=== PATIENT | male | born 1970 | race Caucasian/White ===

== ENCOUNTER 2016-09-01 10:10 | Inpatient (IN) | payer MEDICARE, OTHER, MEDICAID ==
[~2016-09-01] VITALS: Ht 170.2 cm; Wt 88.3 kg
[~2016-09-01 10:10] MED LIST: CALC667T PO; MULTTAB4 PO; SUBO8MIS SL
[2016-09-14] MEDS ORDERED: POVIDONE IODINE 5% (ANTISEPSIS KIT) 4 APPLICATIONS EACH NARE PRN (06:30)
[2016-09-14] MEDS ORDERED: CHLORHEXIDINE GLUCONATE 2 % 1 PACK (2 CLOTHS) TOPICAL PRN (06:30)
[2016-09-14] MEDS ORDERED: LACTATED RINGER'S 1000 ML IV PRN (06:30)
[2016-09-14] MEDS ORDERED: INSULIN HUMAN REGULAR 1,000 UNITS/10 ML VIAL SQ PRN (06:30)
[2016-09-14] MEDS ORDERED: METOPROLOL TARTRATE 25 MG TAB PO PRN (06:30)
[2016-09-14] MEDS ORDERED: SODIUM CHLORID 0.9% 500 ML IV PRN (06:30)
[2016-09-14] MEDS ORDERED: ceFAZolin 2 GM PREMIX 50 ML IV SCH (06:30)
[2016-09-14 06:44] VITALS: BP 135/91; PULSE 80; RESP 20; TEMP 99.2; O2SAT 96
[2016-09-14] MEDS ORDERED: KETAMINE HCL 500 MG/5 ML VIAL ONE (08:00)
[2016-09-14] MEDS ORDERED: MIDAZOLAM HCL 2 MG/2 ML VIAL ONE (08:00)
[2016-09-14] MEDS ORDERED: ceFAZolin INJ 1,000 MG VIAL IV ONE (11:30)
[2016-09-14] MEDS ORDERED: ONDANSETRON HCL 4 MG/2 ML VIAL IV PUSH ONE (12:00)
[2016-09-14] MEDS ORDERED: PROPOFOL 200 MG/20 ML AMP IV ONE (12:00)
[2016-09-14] MEDS ORDERED: CISATRACURIUM BESYLATE 10 MG/5 ML VIAL IV PUSH ONE (12:00)
[2016-09-14] MEDS ORDERED: PHENYLEPH/NS 1000 MCG/10 ML SYR IV ONE (12:00)
[2016-09-14] MEDS ORDERED: NORMOSOL R INJ 1,000 ML IV ONE (12:00)
[2016-09-14] MEDS ORDERED: SODIUM CHLOR 0.9% 250 ML INJ 500 ML IV ONE (12:00)
[2016-09-14] MEDS ORDERED: Post-op Orders (for Pharmacy) MISC XX ONE (12:45)
[2016-09-14] MEDS: SODIUM CHLORIDE 0.9% FLUSH 10 ML FLUSH IV FLUSH SCH ×2 (12:45→21:00)
[2016-09-14] MEDS ORDERED: DEXT 5%-NACL 0.45% 1000 ML INJ 1,000 ML IV SCH (12:45)
[2016-09-14] MEDS ORDERED: NALOXONE HCL 0.4 MG/ML AMP IV PRN ×2 (12:45)
--- NOTE | 2016-09-14 12:45 | PD.OP ---
Operative Report Date of Surgery: Sep 14, 2016 Preoperative Diagnosis: (1) Autosomal dominant polycystic kidney disease Postoperative Diagnosis: (1) Autosomal dominant polycystic kidney disease Procedure: Open bilateral nephrectomies Anesthesia: General Surgeon: Lalo Collier Tread Tuber Machine Operator(s): Rene Rider Operation and Findings: Indication for procedure: Case of a pleasant 46-year-old gentleman with chronic kidney disease secondary to autosomal dominant polycystic kidneys. Patient presents today to undergo bilateral nephrectomies. Operative procedure in detail: Patient was brought to the operative room suite and placed supine on the OR table. He was then placed under general endotracheal anesthesia. He was then prepped and draped in normal sterile fashion. After an appropriate timeout was undertaken I proceeded with making a vertical midline incision utilizing the #10 blade extending from the xiphoid process down to the symphysis pubis. The incision was extended down the underlying fascia utilizing Bovie cautery. The fascia was then sharply opened and cut along the same course as the overlying skin incision. The peritoneum was entered and a few other adhesions were noted and taken down. The adhesions were noted to be vicinity of the gallbladder. The Bookwalter retractor was then utilized to gain better surgical exposure. I then proceeded with removing the patient's left kidney. The left colon was mobilized medially by cutting along the line of Toldt and reflecting medial to expose the retroperitoneum. The hilar vessels were identified and subsequently divided ligated utilizing the skin stapling device. The periphery of the kidney was sharp and bluntly dissected to free it up of all its attachments. Superiorly most of the adrenal gland was left intact however a small portion was trimmed away for hemostasis. Once the kidney was out careful spec she was made for active bleeding and none was noted. I then proceeded with a dressing the patient's right side. In similar fashion the right colon was mobilized medially again by cutting along the line of Toldt. The hilar vessels were identified and once again divided and ligated with the skin stapling device. The perirenal attachments were sharply and bluntly dissected to free up the kidney. The right adrenal gland was identified and spared. The kidney was then removed and sent off to pathology. Careful inspection was made for active bleeding and was noted. The abdomen was irrigated with normal saline and subsequent to this the Bookwalter retractor was removed and the wound was closed. The underlying fascia was reapproximated with running #1 PDS suture. The skin edges were then reapproximated with a skin stapling device. A sterile dressing was placed over the wound. The patient tolerated the procedure without complications and was transferred to the PACU in satisfactory condition. Lalo Collier MD Sep 14, 2016 12:45
[2016-09-14] MEDS ORDERED: *morphine SULFATE 8 MG/ML PERIprocedure ONLY ONE ×3 (12:50→13:25)
[2016-09-14] MEDS ORDERED: fentaNYL CITRATE 250 MCG/5 ML AMP ONE (13:00)
[2016-09-14] MEDS ORDERED: MORPHINE SULFATE 4 MG/ML INJ ONE (13:01)
[2016-09-14] MEDS ORDERED: *MEPERIDINE 25 MG INJ VIAL PERIprocedural Use ONLY ONE (13:03)
--- NOTE | 2016-09-14 13:35 | RADRPT ---
EXAM DATE/TIME: 09/14/2016 13:01 [facility] COMPARISON: CHEST SINGLE AP, June 05, 2015, 8:16. INDICATIONS : Central line placement done in or. MEDICAL HISTORY : Renal disease, end stage. SURGICAL HISTORY : None. ENCOUNTER: Initial ACUITY: 1 day PAIN SCORE: 6/10 LOCATION: Bilateral chest FINDINGS: Portable AP view of the chest demonstrates a normal-sized cardiac silhouette. Right IJ line tip is in the SVC and nasogastric tube courses beyond the GE junction. Lungs are underinflated. There is atele ctasis at the lung bases. No effusion, consolidation, or pneumothorax is visualized. The bones and so ft tissues demonstrate no acute finding. CONCLUSION: Right IJ line tip in the SVC. No pneumothorax is visualized. Donaldo Sebastian MD on September 14, 2016 at 13:33 Board Certified Radiologist. This report was verified electronically.
[2016-09-14] MEDS ORDERED: DO NOT ADM ANY ANTICOAGULANT DRUGS PRN (13:45)
[2016-09-14] MEDS ORDERED: *HYDROmorphone PF 1 MG VIAL PERIprocedural Use ONLY ONE ×2 (13:46→15:04)
[2016-09-14] MEDS: PCA - TOTAL MG DILAUDID DELIVERED PER SHIFT OTHER SCH ×2 (14:00→22:00)
[2016-09-14] MEDS: HYDROmorphone HCL PCA 6 MG/30 ML IV SCH (14:54)
[2016-09-14] MEDS ORDERED: SODIUM CHLOR 0.9% 1000 ML INJ 1,000 ML IV PRN ×3 (19:40)
[2016-09-14] MEDS ORDERED: SODIUM CHLORIDE 0.9% FLUSH 10 ML FLUSH IV FLUSH PRN (19:45)
[2016-09-14] MEDS ORDERED: HEPARIN SODIUM - IV 10,000 UNITS/10 ML VIAL IVF PRN (19:45)
[2016-09-14] MEDS ORDERED: ALBUMIN HUMAN 25% 25 GM/100 ML BAGP IV PRN (19:45)
[2016-09-14] MEDS ORDERED: GENTAMICIN SULFATE (DIALYSIS USE ONLY) 20 MG/2 ML VIAL IV PRN (19:45)
[2016-09-14] MEDS ORDERED: diphenhydrAMINE HCL 25 MG CAP PO PRN (19:45)
[2016-09-14] MEDS ORDERED: cloNIDine HCL 0.1 MG TAB PO PRN (19:45)
[2016-09-14] MEDS ORDERED: MANNITOL 12.5 GM/50 ML VIAL IV PRN (19:45)
[2016-09-14] MEDS ORDERED: HEPARIN SODIUM - IV 10,000 UNITS/10 ML VIAL PRN (19:45)
[2016-09-14] MEDS ORDERED: NITROGLYCERIN 0.4 MG SL 25 TABS/BTL SL PRN (19:45)
[2016-09-14 20:00] VITALS: BP 106/44; PULSE 107; RESP 20; TEMP 96.6; O2SAT 97
--- NOTE | 2016-09-14 20:54 | MB ---
cc: CHRISTINE JEFFRIES MD DATE OF CONSULTATION 09/14/2016 REASON FOR CONSULTATION End-stage renal disease on hemodialysis for management. HISTORY OF PRESENT ILLNESS This is a 46-year-old male with a past medical history of hypertension, polycystic kidney disease, end-stage renal disease on hemodialysis three times per week who was admitted for bilateral nephrectomy. I was called to see the patient for management of dialysis. The patient has been on hemodialysis Tuesday, and Saturdays. Since he had surgery today he had his hemodialysis yesterday. The patient was admitted for bilateral nephrectomy due to polycystic kidney disease and has a plan for renal transplant. The patient was seen by the transplant surgery and was seen by the urology and because of the size of the kidneys it was recommended to do bilateral nephrectomy. The patient was seen after the surgery. He is having some pain in his abdomen. There was mild nausea. He has no shortness breath. No chest pain. No palpitations. PAST MEDICAL HISTORY 1. Hypertension. 2. Polycystic kidney disease. 3. End-stage renal disease on hemodialysis. 4. Chronic anemia. PAST SURGICAL HISTORY 1. History of A-V fistula surgery. 2. PermCath placement. 3. Just had bilateral nephrectomy. REVIEW OF SYSTEMS Denies any headache, dizziness or blurring of vision. No shortness of breath. He has some abdominal pain and nausea. There is no chest pain. SOCIAL HISTORY The patient is , lives with his . He has past history of smoking. There is no history of heavy alcoholism. FAMILY HISTORY Noncontributory. ALLERGIES NO KNOWN DRUG ALLERGIES. MEDICATIONS Currently he is on following medications: 1. Normal saline he was getting at 83 an hour. 2. He is on Morphine pump. 3. Heparin 5000 subcu q. 12-hour. 4. Cephazolin 1 gram IV q.8h. 5. Dilaudid as needed. PHYSICAL EXAMINATION GENERAL: The patient is awake, alert. He is not in acute distress. VITAL SIGNS: His last blood pressure was 125/61, temperature 99, oxygen saturation 99% on 2 liters nasal cannula. HEENT: Pupils equally reacting to light. Nonicteric sclera. Conjunctivae normal. NECK: Supple. JVD is not elevated. LUNGS: The patient has bilateral good air entry. No wheezing. HEART: S1-S2. Regular rhythm. ABDOMEN: With midline dressing and slightly tender. EXTREMITIES: He has mild edema in the legs. LABORATORY DATA Investigations, WBC count is 6.7, hemoglobin 14.4, platelet count 270. Neutrophils . Potassium 4.1, chloride BUN 59, creatinine 9.3, AST 6, ALT is 18. PTH is 365. IMAGING STUDIES The patient had a chest x-ray done which shows that he has lung pace clear. ASSESSMENT/PLAN 1. Post bilateral nephrectomy with history of polycystic kidney disease. 2. End-stage renal disease on hemodialysis. 3. Hypertension. 4. Anemia. The patient had hemodialysis done yesterday. His potassium was normal. He is not in any fluid overload status. I will arrange for his hemodialysis either tomorrow or on depending on his labs. His regular schedule is Tuesday, and Tuesday. I will decrease the IV fluids. Thank you for the consultation. I will follow the patient while he is in the hospital. MD DAKOTA Burnett/DORITA /7:39 PM /8:38 PM
[2016-09-14 22:30] VITALS: BP 92/58; PULSE 109; RESP 20
[2016-09-14] MEDS: LORazepam 2 MG/ML VIAL IV PUSH PRN (23:17)
[2016-09-14] MEDS: SODIUM CHLOR 0.9% 1000 ML INJ 1,000 ML IV SCH (23:21)
[2016-09-15] VITALS (8 sets, daily range): BP systolic 99–113; BP diastolic 54–66; PULSE 101–111; RESP 16–20; TEMP 95.3–97; O2SAT 94–98
[2016-09-15] MEDS: HYDROmorphone HCL PCA 6 MG/30 ML IV SCH ×4 (00:31→18:21)
[2016-09-15] MEDS: PCA - TOTAL MG DILAUDID DELIVERED PER SHIFT OTHER SCH ×3 (06:00→21:25)
[2016-09-15 06:43] LABS: HEMATOCRIT 37.3 % (39.0-51.0); MEAN CELL VOLUME 87.9 FL (80.0-100.0); MEAN CORPUSCULAR HEMOGLOBIN 30.6 PG (27.0-34.0); MEAN CORPUSCULAR HGB CONC 34.8 % (32.0-36.0); PLATELET COUNT 180 TH/MM3 (150-450); RED BLOOD COUNT 4.24 MIL/MM3 (4.50-5.90); RED CELL DISTRIBUTION WIDTH 13.5 % (11.6-17.2); REVIEW FLAG FINAL; WHITE BLOOD COUNT 8.2 TH/MM3 (4.0-11.0)
[2016-09-15 07:17] LABS: BICARBONATE 24.9 MEQ/L (21.0-32.0); POTASSIUM 5.2 MEQ/L (3.5-5.1)
[2016-09-15] MEDS: SODIUM CHLOR 0.9% 1000 ML INJ 1,000 ML IV SCH ×3 (07:30→23:49)
[2016-09-15] MEDS: SODIUM CHLORIDE 0.9% FLUSH 10 ML FLUSH IV FLUSH SCH ×2 (08:01→21:00)
[2016-09-15] MEDS: LORazepam 2 MG/ML VIAL IV PUSH PRN (10:12)
--- NOTE | 2016-09-15 10:27 | HHI.PR ---
Subjective Patient symptoms today Postoperative day #1 Intravenous normal saline at 125 cc per hour started last night for hypotension Complains of intermittent abdominal wall spasms Tolerating nasogastric tube Objective Vital Signs Vital Signs Date Time Temp Pulse Resp B/P Pulse Ox O2 Delivery O2 Flow Rate FiO2 09/15/16 08:00 95.8 102 16 109/54 97 09/15/16 06:00 20 09/15/16 04:00 97.0 101 20 109/63 98 09/15/16 00:31 20 09/15/16 00:00 97.0 101 20 104/61 98 09/14/16 22:30 109 20 92/58 Arterial Line 09/14/16 22:00 20 09/14/16 20:00 96.6 107 20 106/44 97 09/14/16 14:54 12 09/14/16 14:45 99.0 118 12 125/61 99 Nasal Cannula 2 09/14/16 14:30 118 12 122/59 99 Nasal Cannula 2 09/14/16 14:15 117 16 122/88 99 Nasal Cannula 2 09/14/16 14:00 119 18 125/88 98 Nasal Cannula 2 09/14/16 13:45 117 16 120/86 99 Nasal Cannula 2 09/14/16 13:30 116 15 125/89 99 Nasal Cannula 2 09/14/16 13:15 122 15 130/83 100 Nasal Cannula 2 09/14/16 13:00 106 15 126/89 100 Nasal Cannula 2 09/14/16 12:50 97.3 105 14 121/87 100 Nasal Cannula 2 Result Diagram: 09/15/1625 09/15/16624 Objective Remarks Abdomen not distended Midline dressing intact and dry Tenderness to palpation noted Extremities well-perfused, nontender Medications and IVs Current Medications Medications (Trade) Dose Ordered Sig/Johan Route Start Time Stop Time Status Last Admin Lactated Ringer's 1,000 ml @ 30 mls/hr Q24H PRN IV 09/14/16 06:30 09/17/16 06:29 (NS 500 ml Inj) 500 ml @ 30 mls/hr [id number] PRN IV 09/14/16 06:30 09/17/16 06:29 09/14/16 06:30 (NS Flush) 2 ml UNSCH PRN IV FLUSH 09/14/16 12:45 (NS Flush) 2 ml BID IV FLUSH 09/14/16 12:45 (Heparin Inj) 5,000 units Q12H SQ 09/15/16 12:00 (Narcan Inj) 0.4 mg UNSCH PRN IV 09/14/16 12:45 (Narcan Inj) 0.4 mg UNSCH PRN IV 09/14/16 12:45 (Dilaudid TIP OUT WORKER Inj) 6 mg UNSCH IV 09/14/16 12:45 09/15/16 07:59 TIP OUT WORKER Dosage Infused (Pha) 1 Q8HR OTHER 09/14/16 14:00 09/15/16 06:00 Miscellaneous Information ALL NURSING DEPARTME... UNSCH PRN .XX 09/14/16 13:45 09/15/16 13:44 Cefazolin Sodium 1000 mg/Sodium Chloride 100 ml @ 200 mls/hr Q8H IV 09/14/16 18:00 09/15/16 10:29 09/15/16 09:32 (NS 1000 ml Inj) 1,000 ml @ 0 mls/hr Q0M PRN IV 09/14/16 19:40 Heparin Sodium (Porcine) 8000 units 8,000 units UNSCH PRN IVF 09/14/16 19:45 Sodium Chloride 1,000 ml @ 200 mls/hr Q5H PRN IV 09/14/16 19:40 (NS 1000 ml Inj) 1,000 ml @ 0 mls/hr Q0M PRN IV 09/14/16 19:40 (Mannitol Inj) 12.5 gm UNSCH PRN IV 09/14/16 19:45 (Albumin 25% Inj) 25 gm UNSCH PRN IV 09/14/16 19:45 (NS Flush) 5 ml UNSCH PRN IV FLUSH 09/14/16 19:45 (Heparin Inj) UNSCH PRN .XX 09/14/16 19:45 (Gentamicin (Dialysis) Inj) 20 mg UNSCH PRN IV 09/14/16 19:45 (Zofran Inj) 4 mg UNSCH PRN IV 09/14/16 19:45 (Tylenol) 650 mg UNSCH PRN PO 09/14/16 19:45 (Benadryl) 25 mg UNSCH PRN PO 09/14/16 19:45 (Nitrostat Sl) 0.4 mg UNSCH PRN SL 09/14/16 19:45 (Catapres) 0.1 mg UNSCH PRN PO 09/14/16 19:45 (Gelfoam 12 Mm/7 Mm Top) 1 foam UNSCH PRN TOP 09/14/16 19:45 Lorazepam 1 mg 1 mg TID PRN IV PUSH 09/14/16 21:45 09/15/16 10:12 (NS 1000 ml Inj) 1,000 ml @ 125 mls/hr Q8H IV 09/14/16 23:30 09/15/16 07:30 Assessment and Plan Assessment and Plan Urologic impression: #1 status post open surgical bilateral nephrectomies for adult polycystic kidney disease #2 postoperative course as expected Plan: #1 keep patient nothing by mouth except for ice chips #2 continue with nasogastric tube #3 continue with analgesic support #4 will get out of bed to chair tomorrow morning #5 continue with hemodialysis as per nephrology recommendations #6 will DC Vickers catheter Lalo Collier MD Sep 15, 2016 10:27
[2016-09-15] MEDS: HEPARIN SODIUM - SQ 10,000 UNITS/ML VIAL SQ SCH ×2 (11:18→23:50)
[2016-09-15] MEDS ORDERED: SODIUM POLYSTYRENE SULFONATE SUSP 15 GM/60 ML CUP PO ONE (17:15)
--- NOTE | 2016-09-15 18:45 | HHI.NPPN ---
Subjective History of Present Illness 46-year-old male with a past medical history of hypertension, polycystic kidney disease, end-stage renal disease on hemodialysis three times per week who was admitted for bilateral nephrectomy. I was called to see the patient for management of dialysis. The patient has been on hemodialysis Tuesday, and Saturdays. Since he had surgery on Tuesday, he had his hemodialysis done Tuesday this week. Additional Remarks Patient is alert, has abd. pain, and nausea. Has NGT with suction, no BM yet. Review of Systems Gastrointestinal Gastrointestinal: Abdominal Pain, Nausea & Vomiting Objective Data Data 09/14/16 09/15/16 19:00 07:00 Intake Total 1210 ml 1735 ml Output Total 350 ml 550 ml Balance 860 ml 1185 ml Intake Oral 0 ml IV Total 110 ml 1735 ml Other 1100 ml Output Urine Total 100 ml 0 ml Gastric Drainage Total 550 ml Estimated Blood Loss 250 ml Vital Signs Date Time Temp Pulse Resp B/P Pulse Ox O2 Delivery O2 Flow Rate FiO2 09/15/16 18:21 16 09/15/16 16:12 96 Nasal Cannula 2.00 09/15/16 16:00 95.4 108 16 107/57 96 09/15/16 13:54 16 09/15/16 13:00 16 09/15/16 12:00 95.3 105 16 99/58 96 09/15/16 11:48 97 21 09/15/16 08:00 95.8 102 16 109/54 97 09/15/16 06:00 20 09/15/16 04:00 97.0 101 20 109/63 98 09/15/16 00:31 20 09/15/16 00:00 97.0 101 20 104/61 98 09/14/16 22:30 109 20 92/58 Arterial Line 09/14/16 22:00 20 09/14/16 20:00 96.6 107 20 106/44 97 -: 09/15/16 0625 09/15/16 0625 Physical Exam General Appearance: No Acute Distress, Comfortable Throat Throat Exam: Oral Mucosa [place] & Moist Pulmonary Resp Exam: Clear Bilaterally, Breath Sounds Equal, Rhonchi, Decreased Bases Cardiology CV Exam: Regular, Normal Sinus Rhythm Gastrointestinal/Abdomen GI Exam: Soft, Non-Tender, Bowel Sounds Present Genitourinary Exam: Clear Urine Extremeties Extremities Exam: Trace Edema Neurologic Neuro Exam: Alert, Awake, Oriented Psychiatric Psych Exam: Appropriate Responses Assessment/Plan Assessment Summary: Anemia of CKD, Hypertension, End Stage Renal Disease Problem List: (1) Autosomal dominant polycystic kidney disease (2) HTN (hypertension) (3) End stage kidney disease (4) Status post nephrectomy Plan Patient has Bilateral Nephrectomies done due to PKD and pre transplant. Patient still has NGT with suction. Not started on diet. BP is on lower side. Hgb. is stable. Not in fluid overload status. K was 5.2. HD will be in AM. Ta Rinaldi MD Sep 15, 2016 18:45
[2016-09-16] VITALS: BP 103/62; PULSE 82; RESP 17; TEMP 96.2; O2SAT 94
[2016-09-16] MEDS: HYDROmorphone HCL PCA 6 MG/30 ML IV SCH ×5 (00:30→22:38)
[2016-09-16 04:00] VITALS: BP 112/64; PULSE 80; RESP 17; TEMP 96; O2SAT 94
[2016-09-16] MEDS: PCA - TOTAL MG DILAUDID DELIVERED PER SHIFT OTHER SCH ×3 (04:51→22:00)
[2016-09-16] MEDS: SODIUM CHLOR 0.9% 1000 ML INJ 1,000 ML IV SCH ×2 (07:30→15:30)
[2016-09-16] MEDS: SODIUM CHLORIDE 0.9% FLUSH 10 ML FLUSH IV FLUSH SCH ×2 (07:54→21:00)
[2016-09-16 08:00] VITALS: BP 110/58; PULSE 108; RESP 16; TEMP 95.3; O2SAT 91
[2016-09-16] MEDS: LORazepam 2 MG/ML VIAL IV PUSH PRN (09:02)
[2016-09-16 09:04] VITALS: O2SAT 95
--- NOTE | 2016-09-16 09:36 | HHI.NPPN ---
Subjective History of Present Illness 46-year-old male with a past medical history of hypertension, polycystic kidney disease, end-stage renal disease on hemodialysis three times per week who was admitted for bilateral nephrectomy. I was called to see the patient for management of dialysis. The patient has been on hemodialysis Tuesday, and Saturdays. Since he had surgery on Tuesday, he had his hemodialysis done Tuesday this week. Additional Remarks Patient is alert, abd. pain is better, still cramping, no nausea, still NPO. Review of Systems Gastrointestinal Gastrointestinal: Abdominal Pain, Nausea & Vomiting Objective Data Data 09/15/16 09/16/16 19:00 07:00 Intake Total 1011 ml 1707 ml Output Total 100 ml 500 ml Balance 911 ml 1207 ml Intake Oral 120 ml 0 ml IV Total 891 ml 1707 ml Output Urine Total 0 ml Gastric Drainage Total 100 ml 500 ml # Voids 0 # Bowel Movements 0 Vital Signs Date Time Temp Pulse Resp B/P Pulse Ox O2 Delivery O2 Flow Rate FiO2 09/16/16 08:07 16 09/16/16 08:00 95.3 108 16 110/58 91 09/16/16 04:51 18 09/16/16 04:49 18 09/16/16 04:00 96.0 80 17 112/64 94 09/16/16 00:30 18 09/16/16 00:00 96.2 82 17 103/62 94 09/15/16 21:25 18 09/15/16 20:00 96.0 111 19 113/66 94 09/15/16 18:21 16 09/15/16 16:12 96 Nasal Cannula 2.00 09/15/16 16:00 95.4 108 16 107/57 96 09/15/16 13:54 16 09/15/16 13:00 16 09/15/16 12:00 95.3 105 16 99/58 96 09/15/16 11:48 97 21 -: 09/15/16 0625 09/15/16 0625 Physical Exam General Appearance: No Acute Distress, Comfortable Throat Throat Exam: Oral Mucosa [place] & Moist Pulmonary Resp Exam: Clear Bilaterally, Breath Sounds Equal, Rhonchi, Decreased Bases Cardiology CV Exam: Regular, Normal Sinus Rhythm Gastrointestinal/Abdomen GI Exam: Soft, Non-Tender, Bowel Sounds Present Genitourinary Exam: Clear Urine Extremeties Extremities Exam: Trace Edema Neurologic Neuro Exam: Alert, Awake, Oriented Psychiatric Psych Exam: Appropriate Responses Assessment/Plan Assessment Summary: Anemia of CKD, Hypertension, End Stage Renal Disease Problem List: (1) Autosomal dominant polycystic kidney disease (2) HTN (hypertension) (3) End stage kidney disease (4) Status post nephrectomy Plan Patient has Bilateral Nephrectomies done due to PKD and pre transplant. Patient still has NGT with suction. Not started on diet. BP is better. HD will be today in afternoon. Ta Rinaldi MD Sep 16, 2016 09:36
[2016-09-16] MEDS: HEPARIN SODIUM - SQ 10,000 UNITS/ML VIAL SQ SCH (12:00)
--- NOTE | 2016-09-16 13:22 | HHI.PR ---
Subjective Patient symptoms today Postoperative day #2 Continues to complain of abdominal pain but somewhat improved Denies passing flatus Pain management with DROP HAMMER MECHANIC Objective Vital Signs Vital Signs Date Time Temp Pulse Resp B/P Pulse Ox O2 Delivery O2 Flow Rate FiO2 09/16/16 08:07 16 09/16/16 08:00 95.3 108 16 110/58 91 09/16/16 04:51 18 09/16/16 04:49 18 09/16/16 04:00 96.0 80 17 112/64 94 09/16/16 00:30 18 09/16/16 00:00 96.2 82 17 103/62 94 09/15/16 21:25 18 09/15/16 20:00 96.0 111 19 113/66 94 09/15/16 18:21 16 09/15/16 16:12 96 Nasal Cannula 2.00 09/15/16 16:00 95.4 108 16 107/57 96 09/15/16 13:54 16 Intake & Output 09/16/16 09/16/16 07:00 19:00 Intake Total 1707 ml Output Total 500 ml 700 ml Balance 1207 ml -700 ml Intake Oral 0 ml IV Total 1707 ml Gastric Drainage Total 500 ml Hemodialysis 700 ml # Voids 0 Result Diagram: 09/15/1625 09/15/1625 Objective Remarks Abdomen not distended Wound clean and dry Mild tenderness to palpation noted Extremities well-perfused, nontender Medications and IVs Current Medications Medications (Trade) Dose Ordered Sig/Johan Route Start Time Stop Time Status Last Admin Lactated Ringer's 1,000 ml @ 30 mls/hr Q24H PRN IV 09/14/16 06:30 09/17/16 06:29 (NS 500 ml Inj) 500 ml @ 30 mls/hr [id number] PRN IV 09/14/16 06:30 09/17/16 06:29 09/14/16 06:30 (NS Flush) 2 ml UNSCH PRN IV FLUSH 09/14/16 12:45 (NS Flush) 2 ml BID IV FLUSH 09/14/16 12:45 09/16/16 07:54 (Heparin Inj) 5,000 units Q12H SQ 09/15/16 12:00 09/15/16 23:50 (Narcan Inj) 0.4 mg UNSCH PRN IV 09/14/16 12:45 (Narcan Inj) 0.4 mg UNSCH PRN IV 09/14/16 12:45 (Dilaudid DROP HAMMER MECHANIC Inj) 6 mg UNSCH IV 09/14/16 12:45 09/16/16 08:07 DROP HAMMER MECHANIC Dosage Infused (Pha) 1 1 Q8HR OTHER 09/14/16 14:00 09/16/16 04:51 (NS 1000 ml Inj) 1,000 ml @ 0 mls/hr Q0M PRN IV 09/14/16 19:40 Heparin Sodium (Porcine) 8000 units 8,000 units UNSCH PRN IVF 09/14/16 19:45 Sodium Chloride 1,000 ml @ 200 mls/hr Q5H PRN IV 09/14/16 19:40 (NS 1000 ml Inj) 1,000 ml @ 0 mls/hr Q0M PRN IV 09/14/16 19:40 (Mannitol Inj) 12.5 gm UNSCH PRN IV 09/14/16 19:45 (Albumin 25% Inj) 25 gm UNSCH PRN IV 09/14/16 19:45 (NS Flush) 5 ml UNSCH PRN IV FLUSH 09/14/16 19:45 (Heparin Inj) UNSCH PRN .XX 09/14/16 19:45 (Gentamicin (Dialysis) Inj) 20 mg UNSCH PRN IV 09/14/16 19:45 (Zofran Inj) 4 mg UNSCH PRN IV 09/14/16 19:45 (Tylenol) 650 mg UNSCH PRN PO 09/14/16 19:45 (Benadryl) 25 mg UNSCH PRN PO 09/14/16 19:45 (Nitrostat Sl) 0.4 mg UNSCH PRN SL 09/14/16 19:45 (Catapres) 0.1 mg UNSCH PRN PO 09/14/16 19:45 (Gelfoam 12 Mm/7 Mm Top) 1 foam UNSCH PRN TOP 09/14/16 19:45 Lorazepam 1 mg 1 mg TID PRN IV PUSH 09/14/16 21:45 09/16/16 09:02 (NS 1000 ml Inj) 1,000 ml @ 125 mls/hr Q8H IV 09/14/16 23:30 09/16/16 07:30 Assessment and Plan Assessment and Plan Urologic impression: #1 status post open surgical bilateral nephrectomies for adult polycystic kidney disease #2 postoperative course as expected #3 appreciate assistance from nephrology Plan: #1 keep patient nothing by mouth except for ice chips #2 continue with nasogastric tube #3 continue with analgesic support #4 out of bed to chair today #5 continue with hemodialysis as per nephrology recommendations Lalo Collier MD Sep 16, 2016 13:21
[2016-09-16] MEDS: PANTOPRAZOLE SODIUM 40 MG VIAL IV PUSH SCH (14:00)
[2016-09-16 16:00] VITALS: BP 129/68; PULSE 122; RESP 16; TEMP 98.4; O2SAT 94
[2016-09-16 20:00] VITALS: BP 107/65; PULSE 123; RESP 17; TEMP 97.9; O2SAT 94
[2016-09-17] VITALS (7 sets, daily range): BP systolic 102–124; BP diastolic 61–88; PULSE 110–116; RESP 17–20; TEMP 96.1–98.7; O2SAT 91–99
[2016-09-17] MEDS: HEPARIN SODIUM - SQ 10,000 UNITS/ML VIAL SQ SCH ×2 (00:11→12:41)
[2016-09-17] MEDS: SODIUM CHLOR 0.9% 1000 ML INJ 1,000 ML IV SCH ×2 (03:12→14:38)
[2016-09-17] MEDS: HYDROmorphone HCL PCA 6 MG/30 ML IV SCH ×4 (03:53→17:52)
[2016-09-17] MEDS: PCA - TOTAL MG DILAUDID DELIVERED PER SHIFT OTHER SCH ×3 (05:57→22:00)
[2016-09-17] MEDS: SODIUM CHLORIDE 0.9% FLUSH 10 ML FLUSH IV FLUSH SCH ×2 (08:09→21:00)
--- NOTE | 2016-09-17 09:46 | HHI.PR ---
Subjective Patient symptoms today Postoperative day #3 States that he is feeling better today with less abdominal pain Denies passing flatus or having a bowel movement Was out of bed to chair late yesterday Objective Vital Signs Vital Signs Date Time Temp Pulse Resp B/P Pulse Ox O2 Delivery O2 Flow Rate FiO2 09/17/16 08:16 18 09/17/16 08:00 98.6 116 20 117/70 91 09/17/16 05:57 15 09/17/16 04:00 98.7 116 17 108/77 95 09/17/16 03:53 17 09/17/16 00:00 97.4 114 17 102/61 95 09/16/16 22:38 15 09/16/16 20:00 97.9 123 17 107/65 94 09/16/16 17:25 16 09/16/16 16:00 98.4 122 16 129/68 94 09/16/16 14:00 16 Intake & Output 09/17/16 09/17/16 07:00 19:00 Intake Total 1309 ml Output Total 600 ml Balance 709 ml Intake Oral 0 ml IV Total 1309 ml Gastric Drainage Total 600 ml # Voids 0 Result Diagram: 09/15/1625 09/15/16 0625 Objective Remarks Abdomen not distended Wound clean and dry Mild tenderness to palpation noted Extremities well-perfused, nontender Medications and IVs Current Medications Medications (Trade) Dose Ordered Sig/Johan Route Start Time Stop Time Status Last Admin (NS Flush) 2 ml UNSCH PRN IV FLUSH 09/14/16 12:45 (NS Flush) 2 ml BID IV FLUSH 09/14/16 12:45 09/17/16 08:09 (Heparin Inj) 5,000 units Q12H SQ 09/15/16 12:00 09/17/16 00:11 (Narcan Inj) 0.4 mg UNSCH PRN IV 09/14/16 12:45 (Narcan Inj) 0.4 mg UNSCH PRN IV 09/14/16 12:45 (Dilaudid RN CARDIOVASCULAR Inj) 6 mg UNSCH IV 09/14/16 12:45 09/17/16 08:16 RN CARDIOVASCULAR Dosage Infused (Pha) 1 1 Q8HR OTHER 09/14/16 14:00 09/17/16 05:57 (NS 1000 ml Inj) 1,000 ml @ 0 mls/hr Q0M PRN IV 09/14/16 19:40 Heparin Sodium (Porcine) 8000 units 8,000 units UNSCH PRN IVF 09/14/16 19:45 Sodium Chloride 1,000 ml @ 200 mls/hr Q5H PRN IV 09/14/16 19:40 (NS 1000 ml Inj) 1,000 ml @ 0 mls/hr Q0M PRN IV 09/14/16 19:40 (Mannitol Inj) 12.5 gm UNSCH PRN IV 09/14/16 19:45 (Albumin 25% Inj) 25 gm UNSCH PRN IV 09/14/16 19:45 (NS Flush) 5 ml UNSCH PRN IV FLUSH 09/14/16 19:45 (Heparin Inj) UNSCH PRN .XX 09/14/16 19:45 (Gentamicin (Dialysis) Inj) 20 mg UNSCH PRN IV 09/14/16 19:45 (Zofran Inj) 4 mg UNSCH PRN IV 09/14/16 19:45 (Tylenol) 650 mg UNSCH PRN PO 09/14/16 19:45 (Benadryl) 25 mg UNSCH PRN PO 09/14/16 19:45 (Nitrostat Sl) 0.4 mg UNSCH PRN SL 09/14/16 19:45 (Catapres) 0.1 mg UNSCH PRN PO 09/14/16 19:45 (Gelfoam 12 Mm/7 Mm Top) 1 foam UNSCH PRN TOP 09/14/16 19:45 Lorazepam 1 mg 1 mg TID PRN IV PUSH 09/14/16 21:45 09/16/16 09:02 (NS 1000 ml Inj) 1,000 ml @ 83 mls/hr Q12H3M IV 09/14/16 23:30 09/17/16 03:12 (Protonix Inj) 40 mg Q24H IV PUSH 09/16/16 14:00 09/16/16 14:00 Assessment and Plan Assessment and Plan Urologic impression: #1 status post open surgical bilateral nephrectomies for adult polycystic kidney disease #2 slow steady progress #3 postoperative ileus has not yet resolved Plan: #1 keep patient nothing by mouth except for ice chips #2 continue with nasogastric tube until ileus resolved #3 continue with analgesic support #4 physical therapy consult to assist with ambulation exercises #5 continue with hemodialysis as per nephrology recommendations Lalo Collier MD Sep 17, 2016 09:46
--- NOTE | 2016-09-17 12:27 | HHI.NPPN ---
Subjective History of Present Illness 46-year-old male with a past medical history of hypertension, polycystic kidney disease, end-stage renal disease on hemodialysis three times per week who was admitted for bilateral nephrectomy. I was called to see the patient for management of dialysis. The patient has been on hemodialysis Tuesday, and Saturdays. Since he had surgery on Tuesday, he had his hemodialysis done Tuesday this week. Additional Remarks Patient is alert, abd. pain is better, still cramping, no nausea, still NPO. Review of Systems Gastrointestinal Gastrointestinal: Abdominal Pain, Nausea & Vomiting Objective Data Data 09/16/16 09/17/16 19:00 07:00 Intake Total 0 ml 1309 ml Output Total 700 ml 600 ml Balance -700 ml 709 ml Intake Oral 0 ml 0 ml IV Total 1309 ml Output Urine Total 0 ml Gastric Drainage Total 600 ml Hemodialysis 700 ml # Voids 0 # Bowel Movements 0 Vital Signs Date Time Temp Pulse Resp B/P Pulse Ox O2 Delivery O2 Flow Rate FiO2 09/17/16 08:16 18 09/17/16 08:00 98.6 116 20 117/70 91 09/17/16 05:57 15 09/17/16 04:00 98.7 116 17 108/77 95 09/17/16 03:53 17 09/17/16 00:00 97.4 114 17 102/61 95 09/16/16 22:38 15 09/16/16 20:00 97.9 123 17 107/65 94 09/16/16 17:25 16 09/16/16 16:00 98.4 122 16 129/68 94 09/16/16 14:00 16 -: 09/15/16 0625 09/15/16 0625 Physical Exam General Appearance: No Acute Distress, Comfortable Throat Throat Exam: Oral Mucosa [place] & Moist Pulmonary Resp Exam: Clear Bilaterally, Breath Sounds Equal, Rhonchi, Decreased Bases Cardiology CV Exam: Regular, Normal Sinus Rhythm Gastrointestinal/Abdomen GI Exam: Soft, Non-Tender, Bowel Sounds Present Genitourinary Exam: Clear Urine Extremeties Extremities Exam: Trace Edema Neurologic Neuro Exam: Alert, Awake, Oriented Psychiatric Psych Exam: Appropriate Responses Assessment/Plan Assessment Summary: Anemia of CKD, Hypertension, End Stage Renal Disease Problem List: (1) Autosomal dominant polycystic kidney disease (2) HTN (hypertension) (3) End stage kidney disease (4) Status post nephrectomy Plan Patient has Bilateral Nephrectomies done due to PKD and pre transplant. Patient still has NGT with suction. Not started on diet. BP is better. HD will be today in afternoon. Ta Rinaldi MD Sep 17, 2016 12:27
[2016-09-17] MEDS: PANTOPRAZOLE SODIUM 40 MG VIAL IV PUSH SCH (14:00)
[2016-09-18] VITALS: BP 126/80; PULSE 110; RESP 17; TEMP 98.3; O2SAT 97
[2016-09-18] MEDS: HEPARIN SODIUM - SQ 10,000 UNITS/ML VIAL SQ SCH ×2 (00:38→12:55)
[2016-09-18] MEDS: SODIUM CHLOR 0.9% 1000 ML INJ 1,000 ML IV SCH (03:29)
[2016-09-18 04:00] VITALS: BP 136/70; PULSE 113; RESP 17; TEMP 98.2; O2SAT 98
[2016-09-18] MEDS: HYDROmorphone HCL PCA 6 MG/30 ML IV SCH ×2 (04:06→14:15)
[2016-09-18] MEDS: PCA - TOTAL MG DILAUDID DELIVERED PER SHIFT OTHER SCH ×3 (06:00→20:57)
[2016-09-18 08:00] VITALS: BP 124/87; PULSE 114; RESP 20; TEMP 96.9; O2SAT 95
[2016-09-18] MEDS: SODIUM CHLORIDE 0.9% FLUSH 10 ML FLUSH IV FLUSH SCH ×2 (09:00→20:57)
--- NOTE | 2016-09-18 09:05 | HHI.NPPN ---
Subjective History of Present Illness 46-year-old male with a past medical history of hypertension, polycystic kidney disease, end-stage renal disease on hemodialysis three times per week who was admitted for bilateral nephrectomy. Additional Remarks patient was seen and examined during dialysis. He reports that he passed flatus yesterday. Continues to have NG tube. Review of Systems Gastrointestinal Gastrointestinal: Abdominal Pain, Nausea & Vomiting Objective Data Data 09/17/16 09/18/16 19:00 07:00 Intake Total 692 ml 1498 ml Output Total 750 ml 825 ml Balance -58 ml 673 ml Intake Oral 0 ml IV Total 692 ml 1498 ml Gastric Drainage Total 750 ml 825 ml # Voids 0 Vital Signs Date Time Temp Pulse Resp B/P Pulse Ox O2 Delivery O2 Flow Rate FiO2 09/18/16 08:00 96.9 114 20 124/87 95 09/18/16 04:00 98.2 113 17 136/70 98 09/18/16 00:00 98.3 110 17 126/80 97 09/17/16 20:00 97.7 116 17 122/88 99 09/17/16 17:52 18 09/17/16 16:00 98.7 110 17 116/76 96 09/17/16 14:00 18 09/17/16 13:58 18 09/17/16 12:00 96.1 114 18 124/75 96 09/17/16 10:32 93 21 -: 09/15/16 0625 09/15/16 0625 Physical Exam General Appearance: No Acute Distress, Comfortable Throat Throat Exam: Oral Mucosa [place] & Moist Pulmonary Resp Exam: Clear Bilaterally, Breath Sounds Equal, Decreased Bases Cardiology CV Exam: Regular, Normal Sinus Rhythm Gastrointestinal/Abdomen GI Exam: Soft, Non-Tender, Bowel Sounds Present Extremeties Extremities Exam: Trace Edema Neurologic Neuro Exam: Alert, Awake, Oriented Psychiatric Psych Exam: Appropriate Responses Assessment/Plan Assessment Summary: Anemia of CKD, Hypertension, End Stage Renal Disease Problem List: (1) Autosomal dominant polycystic kidney disease (2) HTN (hypertension) (3) End stage kidney disease (4) Status post nephrectomy Plan Patient has Bilateral Nephrectomies done due to PKD and pre transplant. Bowel function appears to be returning. Not started on diet. HD today, on 2K, UF goal is 3 liters. Obviously he does not make any urine now. He is on IVF. Abdirahman Gutiérrez MD Sep 18, 2016 09:05
[2016-09-18] MEDS: GELATIN 12 MM/7 MM FOAM TOP PRN (10:31)
[2016-09-18] MEDS: DEXT 5%-NACL 0.9% 1000 ML INJ 1,000 ML IV SCH (12:52)
--- NOTE | 2016-09-18 14:18 | HHI.PR ---
Subjective Patient symptoms today Postoperative day #4 Reports improvement in his abdominal pain Passing flatus but denies bowel movement Has been out of bed Objective Vital Signs Vital Signs Date Time Temp Pulse Resp B/P Pulse Ox O2 Delivery O2 Flow Rate FiO2 09/18/16 08:00 96.9 114 20 124/87 95 09/18/16 04:00 98.2 113 17 136/70 98 09/18/16 00:00 98.3 110 17 126/80 97 09/17/16 20:00 97.7 116 17 122/88 99 09/17/16 17:52 18 09/17/16 16:00 98.7 110 17 116/76 96 Intake & Output 09/18/16 09/18/16 07:00 19:00 Intake Total 1498 ml Output Total 825 ml 3500 ml Balance 673 ml -3500 ml Intake Oral 0 ml IV Total 1498 ml Gastric Drainage Total 825 ml 500 ml Hemodialysis 3000 ml # Voids 0 Result Diagram: 09/15/1662409/15/16624 Objective Remarks Abdomen not distended Wound clean and dry Mild tenderness to palpation noted Extremities well-perfused, nontender Medications and IVs Current Medications Medications (Trade) Dose Ordered Sig/Johan Route Start Time Stop Time Status Last Admin (NS Flush) 2 ml UNSCH PRN IV FLUSH 09/14/16 12:45 (NS Flush) 2 ml BID IV FLUSH 09/14/16 12:45 09/17/16 08:09 (Heparin Inj) 5,000 units Q12H SQ 09/15/16 12:00 09/18/16 12:55 (Narcan Inj) 0.4 mg UNSCH PRN IV 09/14/16 12:45 (Narcan Inj) 0.4 mg UNSCH PRN IV 09/14/16 12:45 (Dilaudid ROLL FORGER Inj) 6 mg UNSCH IV 09/14/16 12:45 09/18/16 04:06 ROLL FORGER Dosage Infused (Pha) 1 1 Q8HR OTHER 09/14/16 14:00 09/18/16 06:00 (NS 1000 ml Inj) 1,000 ml @ 0 mls/hr Q0M PRN IV 09/14/16 19:40 09/18/16 10:31 Heparin Sodium (Porcine) 8000 units 8,000 units UNSCH PRN IVF 09/14/16 19:45 Sodium Chloride 1,000 ml @ 200 mls/hr Q5H PRN IV 09/14/16 19:40 (NS 1000 ml Inj) 1,000 ml @ 0 mls/hr Q0M PRN IV 09/14/16 19:40 (Mannitol Inj) 12.5 gm UNSCH PRN IV 09/14/16 19:45 (Albumin 25% Inj) 25 gm UNSCH PRN IV 09/14/16 19:45 (NS Flush) 5 ml UNSCH PRN IV FLUSH 09/14/16 19:45 (Heparin Inj) UNSCH PRN .XX 09/14/16 19:45 (Gentamicin (Dialysis) Inj) 20 mg UNSCH PRN IV 09/14/16 19:45 (Zofran Inj) 4 mg UNSCH PRN IV 09/14/16 19:45 (Tylenol) 650 mg UNSCH PRN PO 09/14/16 19:45 (Benadryl) 25 mg UNSCH PRN PO 09/14/16 19:45 (Nitrostat Sl) 0.4 mg UNSCH PRN SL 09/14/16 19:45 (Catapres) 0.1 mg UNSCH PRN PO 09/14/16 19:45 (Gelfoam 12 Mm/7 Mm Top) 1 foam UNSCH PRN TOP 09/14/16 19:45 09/18/16 10:31 (Ativan Inj) 1 mg TID PRN IV PUSH 09/14/16 21:45 09/16/16 09:02 Pantoprazole Sodium 40 mg 40 mg Q24H IV PUSH 09/16/16 14:00 09/17/16 14:00 (D5W-NS 1000 ml Inj) 1,000 ml @ 42 mls/hr [id number] IV 09/18/16 09:15 09/18/16 12:52 Assessment and Plan Assessment and Plan Urologic impression: #1 status post open surgical bilateral nephrectomies for adult polycystic kidney disease #2 slow steady progress #3 postoperative ileus resolving Plan: #1 keep patient nothing by mouth except for ice chips #2 clamp off nasogastric tube and clamp when necessary #3 continue with analgesic support #4 physical therapy consult to continue with ambulation exercises #5 continue with hemodialysis as per nephrology recommendations Lalo Collier MD Sep 18, 2016 14:18
[2016-09-18] MEDS: PANTOPRAZOLE SODIUM 40 MG VIAL IV PUSH SCH (14:23)
[2016-09-18 16:00] VITALS: BP 121/80; PULSE 112; RESP 21; TEMP 98.5; O2SAT 99
[2016-09-18 20:00] VITALS: BP 129/75; PULSE 79; RESP 19; TEMP 99.6; O2SAT 100
[2016-09-19] VITALS (9 sets, daily range): BP systolic 119–157; BP diastolic 64–86; PULSE 86–130; RESP 17–21; TEMP 96.3–101; O2SAT 91–99
[2016-09-19] MEDS: HEPARIN SODIUM - SQ 10,000 UNITS/ML VIAL SQ SCH (00:15)
[2016-09-19] MEDS: HYDROmorphone HCL PCA 6 MG/30 ML IV SCH ×2 (01:13→08:36)
[2016-09-19] MEDS: PCA - TOTAL MG DILAUDID DELIVERED PER SHIFT OTHER SCH ×2 (06:00→14:00)
[2016-09-19] MEDS: SODIUM CHLORIDE 0.9% FLUSH 10 ML FLUSH IV FLUSH SCH ×2 (08:33→20:28)
--- NOTE | 2016-09-19 10:18 | HHI.NPPN ---
Subjective History of Present Illness 46-year-old male with a past medical history of hypertension, polycystic kidney disease, end-stage renal disease on hemodialysis three times per week who was admitted for bilateral nephrectomy. Additional Remarks s/p bilateral nephrectomies. Developed post operative ileus. No new labs available. Objective Data Data 09/18/16 09/19/16 19:00 07:00 Intake Total 892 ml 0 ml Output Total 3600 ml Balance -2708 ml 0 ml Intake Oral 240 ml 0 ml IV Total 652 ml Output Urine Total 0 ml Gastric Drainage Total 600 ml Hemodialysis 3000 ml # Voids 1 # Bowel Movements 0 1 Vital Signs Date Time Temp Pulse Resp B/P Pulse Ox O2 Delivery O2 Flow Rate FiO2 09/19/16 08:00 96.3 117 18 128/85 98 09/19/16 06:00 18 09/19/16 04:00 98.5 110 20 130/86 98 09/19/16 01:43 18 09/19/16 01:13 18 09/19/16 00:00 99.3 86 19 137/76 99 09/18/16 20:57 18 09/18/16 20:00 99.6 79 19 129/75 100 09/18/16 16:00 98.5 112 21 121/80 99 -: 09/15/16 0625 09/15/16 0625 Physical Exam General Appearance: No Acute Distress, Comfortable Throat Throat Exam: Oral Mucosa [place] & Moist Pulmonary Resp Exam: Clear Bilaterally, Breath Sounds Equal, Decreased Bases Cardiology CV Exam: Regular, Normal Sinus Rhythm Gastrointestinal/Abdomen GI Exam: Soft, Non-Tender, Bowel Sounds Present Extremeties Extremities Exam: Trace Edema Neurologic Neuro Exam: Alert, Awake, Oriented Psychiatric Psych Exam: Appropriate Responses Assessment/Plan Assessment Summary: Anemia of CKD, Hypertension, End Stage Renal Disease Problem List: (1) Autosomal dominant polycystic kidney disease (2) HTN (hypertension) (3) End stage kidney disease (4) Status post nephrectomy Plan Patient has Bilateral Nephrectomies done due to PKD and pre transplant. Bowel function appears to be returning. Repeat labs. Most likely he will need Epogen. Abdirahman Gutiérrez MD Sep 19, 2016 10:18
[2016-09-19 12:22] LABS: AUTOMATED NEUTROPHIL # 9.7 TH/MM3 (1.8-7.7); BASOPHIL # 0.1 TH/MM3 (0-0.2); BASOPHIL % 0.8 % (0.0-2.0); EOSINOPHIL # 0.2 TH/MM3 (0-0.4); EOSINOPHIL % 1.3 % (0.0-4.0); HEMATOCRIT 27.4 % (39.0-51.0); HEMO FLAGS DIFF FINAL; LYMPH % 4.3 % (9.0-44.0); LYMPHOCYTE # 0.5 TH/MM3 (1.0-4.8); MEAN CELL VOLUME 89.4 FL (80.0-100.0); MEAN CORPUSCULAR HEMOGLOBIN 29.5 PG (27.0-34.0); NEUT % 81.6 % (16.0-70.0); PLATELET COUNT 230 TH/MM3 (150-450); RED BLOOD COUNT 3.07 MIL/MM3 (4.50-5.90); RED CELL DISTRIBUTION WIDTH 13.9 % (11.6-17.2); WHITE BLOOD COUNT 11.9 TH/MM3 (4.0-11.0)
--- NOTE | 2016-09-19 12:28 | HHI.PR ---
Subjective Patient symptoms today Postoperative day #5 Tolerating NG tube being clamped and feels hungry Passing flatus and had a large bowel movement Ambulating well Objective Vital Signs Vital Signs Date Time Temp Pulse Resp B/P Pulse Ox O2 Delivery O2 Flow Rate FiO2 09/19/16 09:57 95 Nasal Cannula 3.00 09/19/16 08:00 96.3 117 18 128/85 98 09/19/16 06:00 18 09/19/16 04:00 98.5 110 20 130/86 98 09/19/16 01:43 18 09/19/16 01:13 18 09/19/16 00:00 99.3 86 19 137/76 99 09/18/16 20:57 18 09/18/16 20:00 99.6 79 19 129/75 100 09/18/16 16:00 98.5 112 21 121/80 99 Intake & Output 09/19/16 09/19/16 07:00 19:00 Intake Total 0 ml Balance 0 ml Intake Oral 0 ml # Voids 1 # Bowel Movements 1 Result Diagram: 09/19/16 1143 09/15/16 0625 Objective Remarks Abdomen not distended Wounds clean with a small amount of serous drainage at umbilicus Mild tenderness to palpation noted Extremities well-perfused, nontender Medications and IVs Current Medications Medications (Trade) Dose Ordered Sig/Johan Route Start Time Stop Time Status Last Admin (NS Flush) 2 ml UNSCH PRN IV FLUSH 09/14/16 12:45 (NS Flush) 2 ml BID IV FLUSH 09/14/16 12:45 09/19/16 08:33 (Heparin Inj) 5,000 units Q12H SQ 09/15/16 12:00 09/19/16 00:15 (Narcan Inj) 0.4 mg UNSCH PRN IV 09/14/16 12:45 (Narcan Inj) 0.4 mg UNSCH PRN IV 09/14/16 12:45 (Dilaudid FREIGHT RECEIVER Inj) 6 mg UNSCH IV 09/14/16 12:45 09/19/16 08:36 FREIGHT RECEIVER Dosage Infused (Pha) 1 1 Q8HR OTHER 09/14/16 14:00 09/19/16 06:00 (NS 1000 ml Inj) 1,000 ml @ 0 mls/hr Q0M PRN IV 09/14/16 19:40 09/18/16 10:31 Heparin Sodium (Porcine) 8000 units 8,000 units UNSCH PRN IVF 09/14/16 19:45 Sodium Chloride 1,000 ml @ 200 mls/hr Q5H PRN IV 09/14/16 19:40 (NS 1000 ml Inj) 1,000 ml @ 0 mls/hr Q0M PRN IV 09/14/16 19:40 (Mannitol Inj) 12.5 gm UNSCH PRN IV 09/14/16 19:45 (Albumin 25% Inj) 25 gm UNSCH PRN IV 09/14/16 19:45 (NS Flush) 5 ml UNSCH PRN IV FLUSH 09/14/16 19:45 (Heparin Inj) UNSCH PRN .XX 09/14/16 19:45 (Gentamicin (Dialysis) Inj) 20 mg UNSCH PRN IV 09/14/16 19:45 (Zofran Inj) 4 mg UNSCH PRN IV 09/14/16 19:45 (Tylenol) 650 mg UNSCH PRN PO 09/14/16 19:45 (Benadryl) 25 mg UNSCH PRN PO 09/14/16 19:45 (Nitrostat Sl) 0.4 mg UNSCH PRN SL 09/14/16 19:45 (Catapres) 0.1 mg UNSCH PRN PO 09/14/16 19:45 (Gelfoam 12 Mm/7 Mm Top) 1 foam UNSCH PRN TOP 09/14/16 19:45 09/18/16 10:31 (Ativan Inj) 1 mg TID PRN IV PUSH 09/14/16 21:45 09/16/16 09:02 Pantoprazole Sodium 40 mg 40 mg Q24H IV PUSH 09/16/16 14:00 09/18/16 14:23 (D5W-NS 1000 ml Inj) 1,000 ml @ 42 mls/hr [id number] IV 09/18/16 09:15 09/18/16 12:52 Assessment and Plan Assessment and Plan Urologic impression: #1 status post open surgical bilateral nephrectomies for adult polycystic kidney disease #2 steady progress #3 postoperative ileus resolved Plan: #1 clear liquid diet and advance to regular diet as tolerated #2 attempt to wean off FREIGHT RECEIVER #3 discontinue SCD #4 discontinue nasogastric tube #5 continue with hemodialysis as per nephrology recommendations Lalo Collier MD Sep 19, 2016 12:28
[2016-09-19 12:46] LABS: POTASSIUM 3.4 MEQ/L (3.5-5.1)
[2016-09-19] MEDS: DOCUSATE SODIUM 100 MG CAP PO SCH ×3 (13:00→20:27)
[2016-09-19] MEDS: oxyCODONE/ACETAMINOPHEN 5 MG/325 MG TAB PO PRN ×2 (13:17→20:27)
[2016-09-19] MEDS: DEXT 5%-NACL 0.9% 1000 ML INJ 1,000 ML IV SCH (13:22)
[2016-09-19] MEDS: LORazepam 2 MG/ML VIAL IV PUSH PRN (15:05)
[2016-09-19] MEDS: PANTOPRAZOLE SODIUM 40 MG VIAL IV PUSH SCH (15:16)
--- NOTE | 2016-09-19 19:18 | RADRPT ---
EXAM DATE/TIME: 09/19/2016 18:52 [facility] COMPARISON: CHEST SINGLE AP, September 14, 2016, 13:01. INDICATIONS : Short of breath MEDICAL HISTORY : Renal disease, end stage. Infusaport SURGICAL HISTORY : None. ENCOUNTER: Subsequent ACUITY: 4 - 6 days PAIN SCORE: 0/10 LOCATION: Bilateral chest FINDINGS: Large left pleural effusion is present with left lung base consolidation and/or compressive collapse. Right IJ line is present with tip overlapping the expected region of the SVC. No definite pneumothor ax is seen for technique. CONCLUSION: Large left pleural effusion not present previously with left lung base consolidation and/or compressi ve collapse. Laron Lawson MD on September 19, 2016 at 19:16 Board Certified Radiologist. This report was verified electronically.
[2016-09-19] MEDS: ACETAMINOPHEN 325 MG TAB PO PRN (20:26)
[2016-09-20] VITALS (7 sets, daily range): BP systolic 101–147; BP diastolic 61–82; PULSE 89–124; RESP 18–21; TEMP 98.4–101; O2SAT 92–96
[2016-09-20] MEDS: oxyCODONE/ACETAMINOPHEN 5 MG/325 MG TAB PO PRN ×4 (01:44→21:55)
[2016-09-20] MEDS: HYDROmorphone HCL PF 1 MG/ML VIAL IV PRN ×5 (02:52→23:55)
[2016-09-20] MEDS: ACETAMINOPHEN 325 MG TAB PO PRN (08:26)
[2016-09-20] MEDS: SODIUM CHLORIDE 0.9% FLUSH 10 ML FLUSH IV FLUSH SCH ×2 (08:37→21:55)
[2016-09-20] MEDS: DOCUSATE SODIUM 100 MG CAP PO SCH ×2 (12:19→16:14)
[2016-09-20] MEDS: PANTOPRAZOLE SODIUM 40 MG VIAL IV PUSH SCH (12:20)
--- NOTE | 2016-09-20 14:35 | HHI.PR ---
Subjective Patient symptoms today Postoperative day #6 Coughing up small amounts yellowish sputum Had temperature spike to 101F early this morning, presently afebrile Had a bowel movement today and passing flatus Tolerating oral intake well Ambulating well Objective Vital Signs Vital Signs Date Time Temp Pulse Resp B/P Pulse Ox O2 Delivery O2 Flow Rate FiO2 09/20/16 12:00 98.4 101 18 117/73 94 09/20/16 09:20 92 21 09/20/16 08:00 101.0 120 20 147/80 92 09/20/16 04:00 98.5 89 19 101/61 96 09/20/16 03:22 18 09/20/16 02:44 18 09/20/16 00:00 100.5 124 21 133/75 96 09/19/16 21:26 18 09/19/16 21:26 18 09/19/16 20:49 101.0 130 17 157/80 91 09/19/16 16:00 96.7 103 20 120/64 91 09/19/16 14:33 99.3 Intake & Output 09/20/16 09/20/16 07:00 19:00 Intake Total 360 ml 0 ml Balance 360 ml 0 ml Intake Oral 360 ml IV Total 0 ml # Voids 0 # Bowel Movements 0 Result Diagram: 09/19/16 1143 09/19/16 1143 Imaging Chest x-ray demonstrated consolidation to left lung base Objective Remarks Abdomen not distended Wounds clean with small amount of serous drainage at umbilicus Mild tenderness to palpation noted Extremities well-perfused, nontender Medications and IVs Current Medications Medications (Trade) Dose Ordered Sig/Johan Route Start Time Stop Time Status Last Admin (NS Flush) 2 ml UNSCH PRN IV FLUSH 09/14/16 12:45 (NS Flush) 2 ml BID IV FLUSH 09/14/16 12:45 09/20/16 08:37 Naloxone HCl 0.4 mg 0.4 mg UNSCH PRN IV 09/14/16 12:45 (NS 1000 ml Inj) 1,000 ml @ 0 mls/hr Q0M PRN IV 09/14/16 19:40 09/18/16 10:31 Heparin Sodium (Porcine) 8000 units 8,000 units UNSCH PRN IVF 09/14/16 19:45 Sodium Chloride 1,000 ml @ 200 mls/hr Q5H PRN IV 09/14/16 19:40 (NS 1000 ml Inj) 1,000 ml @ 0 mls/hr Q0M PRN IV 09/14/16 19:40 (Mannitol Inj) 12.5 gm UNSCH PRN IV 09/14/16 19:45 (Albumin 25% Inj) 25 gm UNSCH PRN IV 09/14/16 19:45 (NS Flush) 5 ml UNSCH PRN IV FLUSH 09/14/16 19:45 (Heparin Inj) UNSCH PRN .XX 09/14/16 19:45 (Gentamicin (Dialysis) Inj) 20 mg UNSCH PRN IV 09/14/16 19:45 (Zofran Inj) 4 mg UNSCH PRN IV 09/14/16 19:45 (Tylenol) 650 mg UNSCH PRN PO 09/14/16 19:45 09/20/16 08:26 (Benadryl) 25 mg UNSCH PRN PO 09/14/16 19:45 (Nitrostat Sl) 0.4 mg UNSCH PRN SL 09/14/16 19:45 (Catapres) 0.1 mg UNSCH PRN PO 09/14/16 19:45 (Gelfoam 12 Mm/7 Mm Top) 1 foam UNSCH PRN TOP 09/14/16 19:45 09/18/16 10:31 (Ativan Inj) 1 mg TID PRN IV PUSH 09/14/16 21:45 09/19/16 15:05 (Protonix Inj) 40 mg Q24H IV PUSH 09/16/16 14:00 09/20/16 12:20 (Percocet 5-325 Mg) 1 tab Q6H PRN PO 09/19/16 12:30 09/19/16 20:27 (Percocet 5-325 Mg) 2 tab Q6H PRN PO 09/19/16 12:30 09/20/16 14:15 (Colace) 100 mg TID PO 09/19/16 13:00 09/20/16 12:19 Hydromorphone HCl 0.5 mg 0.5 mg Q3H PRN IV 09/19/16 20:30 09/20/16 09:58 (Rocephin Inj/NS Inj) 100 ml @ 200 mls/hr Q24H IV 09/20/16 14:30 UNV Assessment and Plan Assessment and Plan Urologic impression: #1 status post open surgical bilateral nephrectomies for adult polycystic kidney disease #2 consolidation left lower lung Plan: #1 continue with incentive spirometry/respiratory therapy consult #2 sputum culture #3 and prevent antibiotic therapy with ceftriaxone 1 g IVP piggyback daily #4 discontinue triple-lumen catheter #5 continue with hemodialysis as per nephrology recommendations #6 repeat chest x-ray in a.m. #7 repeat labs in a.m. Lalo Collier MD September 20, 2016 14:35
[2016-09-20] MEDS ORDERED: cefTRIAXone INJ 1,000 MG in SODIUM CHLORIDE 0.9% INJ 100 ML IV SCH (15:00)
[2016-09-20] MEDS: RESP: ALBUTEROL 2.5 MG/IPRATROPIUM 0.5 MG NEB (PRN) NEB (15:38)
--- NOTE | 2016-09-20 16:27 | HHI.NPPN ---
Subjective History of Present Illness 46-year-old male with a past medical history of hypertension, polycystic kidney disease, end-stage renal disease on hemodialysis three times per week who was admitted for bilateral nephrectomy. Additional Remarks Patient is alert, mild abd. cramping, has BM, no SOB. Objective Data Data 09/19/16 09/20/16 19:00 07:00 Intake Total 1483 ml 360 ml Balance 1483 ml 360 ml Intake Oral 480 ml 360 ml IV Total 1003 ml # Voids 0 # Bowel Movements 0 0 Vital Signs Date Time Temp Pulse Resp B/P Pulse Ox O2 Delivery O2 Flow Rate FiO2 09/20/16 12:00 98.4 101 18 117/73 94 09/20/16 09:20 92 21 09/20/16 08:00 101.0 120 20 147/80 92 09/20/16 04:00 98.5 89 19 101/61 96 09/20/16 03:22 18 09/20/16 02:44 18 09/20/16 00:00 100.5 124 21 133/75 96 09/19/16 21:26 18 09/19/16 21:26 18 09/19/16 20:49 101.0 130 17 157/80 91 -: 09/19/16 1143 09/19/16 1143 Physical Exam General Appearance: No Acute Distress, Comfortable Throat Throat Exam: Oral Mucosa [place] & Moist Pulmonary Resp Exam: Clear Bilaterally, Breath Sounds Equal, Decreased Bases Cardiology CV Exam: Regular, Normal Sinus Rhythm Gastrointestinal/Abdomen GI Exam: Soft, Non-Tender, Bowel Sounds Present Extremeties Extremities Exam: Trace Edema Neurologic Neuro Exam: Alert, Awake, Oriented Psychiatric Psych Exam: Appropriate Responses Assessment/Plan Assessment Summary: Anemia of CKD, Hypertension, End Stage Renal Disease Problem List: (1) Autosomal dominant polycystic kidney disease (2) HTN (hypertension) (3) End stage kidney disease (4) Status post nephrectomy Plan Patient has Bilateral Nephrectomies done due to PKD and pre transplant. Bowel function appears to be returning. Most likely he will need Epogen, will add with HD. On Ceftriaxone, now afebrile. HD will be in AM. Phoslo added. Problem Qualifiers (1) HTN (hypertension): Qualified Code: I10 - Essential hypertension Ta Rinaldi MD September 20, 2016 16:26
[2016-09-20] MEDS ORDERED: CALCIUM ACETATE 667 MG CAP PO SCH (18:00)
[2016-09-20] MEDS: CALCIUM ACETATE 667 MG CAP PO SCH (18:00)
[2016-09-20] MEDS ORDERED: ONDANSETRON HCL 4 MG/2 ML VIAL IV PUSH ONE (21:45)
--- NOTE | 2016-09-20 22:58 | EKG ---
Date Performed: 09/19/2016 Time Performed: 19:02:38 PTAGE: 46 years EKG: SINUS TACHYCARDIA WITH SHORT MS INTERVAL POSSIBLE LATERAL MYOCARDIAL INFARCTION , PROBABLY OLD ABNORMAL RHYTHM ECG PREVIOUS TRACING : 06/28/2015 10.38 Compared to the previous tracing sinus tachycardia is new DOCTOR: Bebeto Salmeron Interpretating Date/Time 09/20/2016 22:56:00
[2016-09-21] VITALS (7 sets, daily range): BP systolic 125–146; BP diastolic 65–83; PULSE 102–120; RESP 16–19; TEMP 98.1–101; O2SAT 92–96
[2016-09-21] MEDS: HYDROmorphone HCL PF 1 MG/ML VIAL IV PRN ×5 (04:28→23:49)
[2016-09-21] MEDS: oxyCODONE/ACETAMINOPHEN 5 MG/325 MG TAB PO PRN ×3 (05:43→18:42)
[2016-09-21 06:03] LABS: AUTOMATED NEUTROPHIL # 8.9 TH/MM3 (1.8-7.7); BASOPHIL # 0.1 TH/MM3 (0-0.2); BASOPHIL % 0.5 % (0.0-2.0); EOSINOPHIL # 0.2 TH/MM3 (0-0.4); EOSINOPHIL % 1.4 % (0.0-4.0); HEMATOCRIT 25.4 % (39.0-51.0); HEMO FLAGS DIFF FINAL; LYMPH % 7.7 % (9.0-44.0); LYMPHOCYTE # 0.9 TH/MM3 (1.0-4.8); MEAN CELL VOLUME 87.9 FL (80.0-100.0); MEAN CORPUSCULAR HEMOGLOBIN 29.4 PG (27.0-34.0); MEAN CORPUSCULAR HGB CONC 33.4 % (32.0-36.0); MONO % 10.8 % (0.0-8.0); NEUT % 79.6 % (16.0-70.0); PLATELET COUNT 297 TH/MM3 (150-450); RED BLOOD COUNT 2.89 MIL/MM3 (4.50-5.90); RED CELL DISTRIBUTION WIDTH 14.3 % (11.6-17.2); WHITE BLOOD COUNT 11.2 TH/MM3 (4.0-11.0)
[2016-09-21 06:29] LABS: BICARBONATE 28.1 MEQ/L (21.0-32.0); POTASSIUM 3.7 MEQ/L (3.5-5.1)
--- NOTE | 2016-09-21 06:39 | RADRPT ---
EXAM DATE/TIME: 09/21/2016 06:15 [facility] COMPARISON: CHEST PA & LAT, September 10, 2013, 18:05. INDICATIONS : Short of breath. MEDICAL HISTORY : Renal disease, end stage. Infusaport SURGICAL HISTORY : None. ENCOUNTER: Subsequent ACUITY: 4 - 6 days PAIN SCORE: Non-responsive. LOCATION: Bilateral chest FINDINGS: The cardiac silhouette is enlarged in transverse diameter. There is left lower lobe atelectasis versu s pneumonia. A moderate size left sided effusion is present. The right lung is free of acute parenchy mal opacity. CONCLUSION: 1. Left lower lobe atelectasis versus pneumonia. Left pleural effusion Lyndon Casey MD on September 21, 2016 at 6:36 Board Certified Radiologist. This report was verified electronically.
[2016-09-21] MEDS: RESP: ALBUTEROL 2.5 MG/IPRATROPIUM 0.5 MG NEB (PRN) NEB (08:16)
[2016-09-21] MEDS: DOCUSATE SODIUM 100 MG CAP PO SCH ×3 (08:27→17:39)
[2016-09-21] MEDS: CALCIUM ACETATE 667 MG CAP PO SCH ×3 (08:27→17:37)
[2016-09-21] MEDS: SODIUM CHLORIDE 0.9% FLUSH 10 ML FLUSH IV FLUSH SCH ×2 (08:28→20:33)
[2016-09-21] MEDS ORDERED: WALKER WHEELS/F1 MIS (10:11)
--- NOTE | 2016-09-21 11:29 | HHI.PR ---
Subjective Patient symptoms today Postoperative day #7 Reports that he had a difficult night with coughing up yellowish phlegm Continues to complain of left upper quadrant pain Moving bowels well and passing flatus Tolerating oral intake well Objective Vital Signs Vital Signs Date Time Temp Pulse Resp B/P Pulse Ox O2 Delivery O2 Flow Rate FiO2 09/21/16 08:18 94 Nasal Cannula 3.00 09/21/16 08:00 98.1 102 16 131/76 95 09/21/16 04:00 100.7 114 19 146/83 94 09/21/16 00:00 100.2 114 19 132/72 92 09/20/16 20:00 100.3 109 19 131/82 93 09/20/16 16:00 100.2 103 20 131/76 95 09/20/16 12:00 98.4 101 18 117/73 94 Intake & Output 09/21/16 09/21/16 07:00 19:00 Intake Total 360 ml Balance 360 ml Intake Oral 360 ml IV Total 0 ml # Voids 0 # Bowel Movements 0 Result Diagram: 09/21/16 0509/21/16 05 Imaging Last 24 hours Impressions Chest X-Ray 09/21/16 0600 Signed Impressions: Service Date/Time: Wednesday, September 21, 2016 06:15 - CONCLUSION: 1. Left lower lobe atelectasis versus pneumonia. Left pleural effusion Lyndon Casey MD Objective Remarks Abdomen not distended Wounds clean with small amount of serous drainage at umbilicus Mild tenderness to palpation noted Extremities well-perfused, nontender Medications and IVs Current Medications Medications (Trade) Dose Ordered Sig/Johan Route Start Time Stop Time Status Last Admin (NS Flush) 2 ml UNSCH PRN IV FLUSH 09/14/16 12:45 (NS Flush) 2 ml BID IV FLUSH 09/14/16 12:45 09/21/16 08:28 Naloxone HCl 0.4 mg 0.4 mg UNSCH PRN IV 09/14/16 12:45 (NS 1000 ml Inj) 1,000 ml @ 0 mls/hr Q0M PRN IV 09/14/16 19:40 09/18/16 10:31 Heparin Sodium (Porcine) 8000 units 8,000 units UNSCH PRN IVF 09/14/16 19:45 Sodium Chloride 1,000 ml @ 200 mls/hr Q5H PRN IV 09/14/16 19:40 (NS 1000 ml Inj) 1,000 ml @ 0 mls/hr Q0M PRN IV 09/14/16 19:40 (Mannitol Inj) 12.5 gm UNSCH PRN IV 09/14/16 19:45 (Albumin 25% Inj) 25 gm UNSCH PRN IV 09/14/16 19:45 (NS Flush) 5 ml UNSCH PRN IV FLUSH 09/14/16 19:45 (Heparin Inj) UNSCH PRN .XX 09/14/16 19:45 (Gentamicin (Dialysis) Inj) 20 mg UNSCH PRN IV 09/14/16 19:45 (Zofran Inj) 4 mg UNSCH PRN IV 09/14/16 19:45 (Tylenol) 650 mg UNSCH PRN PO 09/14/16 19:45 09/20/16 08:26 (Benadryl) 25 mg UNSCH PRN PO 09/14/16 19:45 (Nitrostat Sl) 0.4 mg UNSCH PRN SL 09/14/16 19:45 (Catapres) 0.1 mg UNSCH PRN PO 09/14/16 19:45 (Gelfoam 12 Mm/7 Mm Top) 1 foam UNSCH PRN TOP 09/14/16 19:45 09/18/16 10:31 (Ativan Inj) 1 mg TID PRN IV PUSH 09/14/16 21:45 09/19/16 15:05 (Protonix Inj) 40 mg Q24H IV PUSH 09/16/16 14:00 09/20/16 12:20 (Percocet 5-325 Mg) 1 tab Q6H PRN PO 09/19/16 12:30 09/19/16 20:27 (Percocet 5-325 Mg) 2 tab Q6H PRN PO 09/19/16 12:30 09/21/16 05:43 (Colace) 100 mg TID PO 09/19/16 13:00 09/20/16 16:14 Hydromorphone HCl 0.5 mg 0.5 mg Q3H PRN IV 09/19/16 20:30 09/21/16 08:23 (Rocephin Inj/NS Inj) 100 ml @ 200 mls/hr Q24H IV 09/20/16 15:00 09/20/16 15:17 (Phoslo) 1,334 mg TID PO 09/20/16 18:00 09/21/16 08:27 (Epogen Inj) 10,000 units MoWeFr IV 09/20/16 17:00 Assessment and Plan Assessment and Plan Urologic impression: #1 status post open surgical bilateral nephrectomies for adult polycystic kidney disease #2 consolidation left lower lung possibly pneumonia Plan: #1 continue with incentive spirometry/respiratory therapy #2 medicine consult for possible left sided pneumonia #3 continue antibiotic therapy with ceftriaxone 1 g IVP piggyback daily #4 repeat chest x-ray in a.m. #5 continue with hemodialysis as per nephrology recommendations Lalo Collier MD September 21, 2016 11:29
[2016-09-21] MEDS: EPOETIN ALFA 10,000 UNITS/ML VIAL IV SCH (13:07)
[2016-09-21] MEDS: PANTOPRAZOLE SODIUM 40 MG VIAL IV PUSH SCH (14:00)
--- NOTE | 2016-09-21 14:52 | HHI.NPPN ---
Subjective History of Present Illness 46-year-old male with a past medical history of hypertension, polycystic kidney disease, end-stage renal disease on hemodialysis three times per week who was admitted for bilateral nephrectomy. Additional Remarks Patient is alert, seen after HD, has SOB and cough with sputum and fever. Objective Data Data 09/20/16 09/21/16 19:00 07:00 Intake Total 800 ml 360 ml Balance 800 ml 360 ml Intake Oral 800 ml 360 ml IV Total 0 ml 0 ml # Voids 0 # Bowel Movements 0 Vital Signs Date Time Temp Pulse Resp B/P Pulse Ox O2 Delivery O2 Flow Rate FiO2 09/21/16 08:18 94 Nasal Cannula 3.00 09/21/16 08:00 98.1 102 16 131/76 95 09/21/16 04:00 100.7 114 19 146/83 94 09/21/16 00:00 100.2 114 19 132/72 92 09/20/16 20:00 100.3 109 19 131/82 93 09/20/16 16:00 100.2 103 20 131/76 95 -: 09/21/16 0526 09/21/16 0526 Microbiology 09/20/16 Gram Stain - Final, Resulted 09/20/16 Sputum Culture - Preliminary, Resulted HEAVY GROWTH NORMAL RESPIRATORY ABDELRAHMAN... Physical Exam General Appearance: No Acute Distress, Comfortable Throat Throat Exam: Oral Mucosa [place] & Moist Pulmonary Resp Exam: Clear Bilaterally, Breath Sounds Equal, Decreased Bases Cardiology CV Exam: Regular, Normal Sinus Rhythm Gastrointestinal/Abdomen GI Exam: Soft, Non-Tender, Bowel Sounds Present Extremeties Extremities Exam: Trace Edema Neurologic Neuro Exam: Alert, Awake, Oriented Psychiatric Psych Exam: Appropriate Responses Assessment/Plan Assessment Summary: Anemia of CKD, Hypertension, End Stage Renal Disease Problem List: (1) Autosomal dominant polycystic kidney disease (2) HTN (hypertension) (3) End stage kidney disease (4) Status post nephrectomy Plan Patient has Bilateral Nephrectomies done due to PKD and pre transplant. Bowel function appears to be returning. Epogen added, will increase the dose. Has fever, possible pneumonia, has shivering, get Blood culture. Vanco. and Zosyn, and D/C Ceftriaxone. Problem Qualifiers (1) HTN (hypertension): Qualified Code: I10 - Essential hypertension Ta Rinaldi MD September 21, 2016 14:52
[2016-09-21] MEDS ORDERED: VANCOMYCIN INJ 1,000 MG in SODIUM CHLOR 0.9% 250 ML INJ 250 ML IV ONE (15:00)
[2016-09-21] MEDS ORDERED: RESP: ALBUTEROL 2.5 MG/IPRATROPIUM 0.5 MG NEB (PRN) NEB (15:45)
--- NOTE | 2016-09-21 15:55 | PD.CONS ---
HPI Service [facility] Consult Requested By Urology Reason for Consult Medical management for possible left lower mode pneumonia Primary Care Physician Diagnoses: History of Present Illness 46 years old male with history of bilateral polycystic kidney disease autosomal dominant admitted under neurology service for bilateral nephrectomies, patient is POD #7 patient was doing well postop until August 23 when he started running fever 101, chest x-ray showed left lower lobe consolidation/atelectasis with pleural effusion, patient continued to have fever last one was 100.7, he has a leukocytosis of 11.9 with neutrophils 85.6, patient initially was on Rocephin iv which was switched to Zosyn and Vanco per executive director of nursing, leukocytosis dropped to 11.2 today, patient still having a fever with tachycardia around 115. I saw outpatient after he came from dialysis today he was shivering feeling cold, he stated he has been feeling nauseous all night last night, but he didn't vomit, reported fever and chills, "I feel I can't breathe in my left chest ", no abdominal pain diarrhea or constipation, no sore throat, he reported significant cough with chunks of phlegm Is cussed with the nurses taking care of him Review of Systems All systems reviewed and was positive for what is mentioned in history of present illness otherwise negative Past Family Social History Allergies: Coded Allergies: No Known Allergies (Unverified , 09/14/16) Past Medical History ADPKD Hypertension ESRD Deisy anemia Past Surgical History AV fistula Calf Family History Positive polycystic kidney disease in all his family member Social History Denied tobacco alcohol or illicit drug abuse Physical Exam Vital Signs Vital Signs Date Time Temp Pulse Resp B/P Pulse Ox O2 Delivery O2 Flow Rate FiO2 09/21/16 08:18 94 Nasal Cannula 3.00 09/21/16 08:00 98.1 102 16 131/76 95 09/21/16 04:00 100.7 114 19 146/83 94 09/21/16 00:00 100.2 114 19 132/72 92 09/20/16 20:00 100.3 109 19 131/82 93 09/20/16 16:00 100.2 103 20 131/76 95 Physical Exam GENERAL: This is a well-nourished, well-developed patient, looks shivering and feeling cold SKIN: No rashes, warm and dry HEAD: Atraumatic. Normocephalic. EYES: Pupils equal round and reactive. Extraocular motions intact. No scleral icterus. ENT: Nose without bleeding, or drainage, Airway patent. NECK: Trachea midline. Supple CARDIOVASCULAR: Regular tachycardia without murmurs, gallops, or rubs. RESPIRATORY: Decreased breath sounds on the left base No wheezes, rales, or rhonchi. GASTROINTESTINAL: Abdomen soft, non-tender, nondistended. Positive bowel sounds MUSCULOSKELETAL: Extremities without clubbing, cyanosis, or edema. Pedal pulses appreciated NEUROLOGICAL: Awake and alert. Moves all extremity. Normal speech.no focal neurological deficit Laboratory Laboratory Tests Test 09/21/16 05:26 White Blood Count 11.2 Red Blood Count 2.89 Hemoglobin 8.5 Hematocrit 25.4 Mean Corpuscular Volume 87.9 Mean Corpuscular Hemoglobin 29.4 Mean Corpuscular Hemoglobin 33.4 Concent Red Cell Distribution Width 14.3 Platelet Count 297 Mean Platelet Volume 7.7 Neutrophils (%) (Auto) 79.6 Lymphocytes (%) (Auto) 7.7 Monocytes (%) (Auto) 10.8 Eosinophils (%) (Auto) 1.4 Basophils (%) (Auto) 0.5 Neutrophils # (Auto) 8.9 Lymphocytes # (Auto) 0.9 Monocytes # (Auto) 1.2 Eosinophils # (Auto) 0.2 Basophils # (Auto) 0.1 CBC Comment DIFF FINAL Differential Comment Sodium Level 132 Potassium Level 3.7 Chloride Level 91 Carbon Dioxide Level 28.1 Anion Gap 13 Blood Urea Nitrogen 94 Creatinine 13.56 Estimat Glomerular Filtration 4 Rate Random Glucose 79 Calcium Level 8.5 Date/Time Procedure Status Source Growth 09/20/16 17:41 Gram Stain - Final Resulted Sputum Expectorated Sputum 09/20/16 17:41 Sputum Culture - Preliminary Resulted Sputum Expectorated Sputum HEAVY GROWTH NORMAL RESPIRATORY ABDELRAHMAN... Result Diagram: 09/21/1652509/21/16 05 Imaging Last Impressions Chest X-Ray 09/21/16 0600 Signed Impressions: Service Date/Time: Wednesday, September 21, 2016 06:15 - CONCLUSION: 1. Left lower lobe atelectasis versus pneumonia. Left pleural effusion Lyndon Casey MD Assessment and Plan Assessment and Plan 46 years old with autosomal dominant polycystic kidney disease admitted for bilateral nephrectomies , who developed later on sustained fever tachycardia, left lower lobe consolidation/atelectasis and pleural effusion - Suspect sepsis due to left lower lobe pneumonia (temp 101 on September 19, tachycardia, WBC 11 K with left shift) - Febrile illness with mild leukocytosis possibly due to LLL pneumonia HAP ( chest x-ray showing left lower consolidation versus atelectasis with pleural effusion) - ADPKD Status post bilateral nephrectomies by Dr. Hou, nephrology following for HD - ESRD due to recent bilateral nephrectomies creatinine 13 today - DVT prophylaxis on heparin 5000 3 times a day Recommendation: Agree with change antibiotic to Zosyn and Vanco I will add Levaquin for broad coverage for possible HAP/VAP Agree with sending blood culture Consult ID O2, DuoNeb Sputum culture was sent showed normal growth reviewed by me personally Urology and nephrology notes as well as chest x-ray reviewed by me Check lactic acid Monitor CBC Discussed Condition With Patient and his nurse Naveen Singleton MD September 21, 2016 15:55
[2016-09-21] MEDS ORDERED: LEVOFLOXACIN 750 MG PREMIX INJ 150 ML IV SCH (16:00)
--- NOTE | 2016-09-21 18:34 | MB ---
cc: GALILEA VILLEDA MD DATE OF CONSULTATION 09/21/[address] Singleton. REASON FOR CONSULTATION Possible sepsis. Post bilateral nephrectomies. HISTORY OF PRESENT ILLNESS This is a 46-year-old white male who was admitted to the hospital on 09/14 for elective bilateral nephrectomy. The patient has history of polycystic kidney disease. He has been undergoing hemodialysis via left upper extremity AV fistula. The patient underwent bilateral nephrectomies on 09/14 and around the time of surgery he was afebrile and he remained afebrile up until 09/19 when he had a temperature of 100.3 degrees and subsequent to that he has been spiking temperatures up to 101 degrees beginning on the evening of 09/19 and last elevated temperature of 101 degrees occurred approximately one hour ago. The patient had a clear chest x-ray on admission. Subsequent chest x-ray performed on 09/19 showed a large left pleural effusion not previously seen with left lung base consolidation or compressive collapse. The repeated chest x-ray today shows left lower lobe atelectasis versus pneumonia and left pleural effusion. The patient reports to me that he gets cold off and on. He is complaining of a pain on the left side at the left flank. Bilateral catheters at the surgical bed were removed a couple days after the surgical procedure. He has elevated heart rate of 120. The patient came from dialysis a few hours ago and reportedly had shortness of breath at the time. He was given oxygen via nasal cannula and his oxygen saturation improved. He tells me that he does not feel good. He notes to me that he has nausea. Blood culture has not been obtained since admission. The white count is 11.2. The pathology on the surgical renal specimens revealed inflammation consistent with polycystic kidney disease. The patient has no cough or sputum production. He was started on ceftriaxone yesterday evening and antibiotic has been changed to vancomycin, piperacillin and Levaquin. Sputum culture from 09/20 has heavy growth of normal respiratory erica. PAST MEDICAL HISTORY 1. Hypertension 2. End-stage renal disease on hemodialysis 3. Polycystic kidney disease, 4. Chronic anemia 5. AV fistula. ALLERGIES NO KNOWN DRUG ALLERGIES. MEDICATIONS 1. Vancomycin. 2. Piperacillin/Tazobactam 3. Levaquin 4. Epogen 5. Colace. 6. Protonix 7. Ativan p.r.n. SOCIAL HISTORY The patient is . No tobacco. No alcohol. No illicit drugs. FAMILY HISTORY She has a family history significant for polycystic kidney disease. REVIEW OF SYSTEMS GENERAL: Significant for fever. Denies chills. HEENT: No visual blurring or diplopia. No nasal bleeding or drainage. No difficulty swallowing. No soreness of the throat. NECK: No neck swelling or neck pain. CARDIOVASCULAR: Denies palpitation or chest pain. RESPIRATORY: Denies cough. Positive for shortness of breath. GASTROINTESTINAL: Positive for nausea. Denies vomiting. Denies abdominal pain. ENDOCRINE: No polyuria or polydipsia. MUSCULOSKELETAL: Positive for left-sided flank and left lateral abdomen wall pain. HEMATOPOIETIC: No easy bruising or bleeding. INTEGUMENTARY: No skin rash or itching. NEUROLOGIC: No problems with dizziness and no problems with coordination. PSYCHIATRIC: No mood changes. PHYSICAL EXAMINATION GENERAL: This is a slender well-developed male. He is in no acute distress. He is awake and alert, although he looks a little fatigued. VITAL SIGNS: Temperature of 101, BP 134/81, respirations 17, heart rate 120. HEENT: Head atraumatic. Extraocular movements grossly intact. Pupils reactive to light without icterus. No conjunctival erythema. Oropharynx without lesions. Moist mucosa. NECK: Supple. No adenopathy. No swelling. No jugular venous distension. LUNGS: Diminished breath sounds with left side worse than the right. HEART: Regular rate and rhythm without audible murmurs, rubs or gallops. ABDOMEN: Bowel sounds present, soft, no tenderness appreciated. RECTAL: Not done. EXTREMITIES: No clubbing or cyanosis or edema. Left upper extremity has AV fistula which appears intact and has a strong bruit and no erythema or signs of infection. SKIN: Warm and moist. No rash. NEUROLOGIC: No gross focal findings. PSYCHIATRIC: The patient is calm and cooperative. Affect appears to be depressed. LABORATORY DATA WBC 11.2, 79% neutrophils, 10% monocytes, 7% lymphocytes, hemoglobin 8.5, platelets 297. Creatinine 13.56, BUN 94, sodium 132. IMPRESSION 1. Fever. 2. Post bilateral nephrectomy. 3. Sepsis syndrome in patient with elevated white blood cell count and fever and elevated heart rate and possible pneumonia versus other source of sepsis. 4. Lung infiltrate. Probable pneumonia and potentially cause of sepsis in this patient. 5. End-stage renal disease RECOMMENDATIONS 1. Continue broad-spectrum antibiotics with vancomycin, piperacillin/tazobactam and Levaquin. 2. Follow blood cultures which has been ordered. 3. Follow CT scan of the thorax which has been ordered. 4. Obtain CT scan of the abdomen and pelvis since the patient has left-sided pain at the flank and left chest wall. Evaluate for potential abscess. 5. Monitor the temperature and white blood cell count and clinical status. Thank you for this consultation. I will follow the patient's progress and will make further recommendations upon follow-up and upon review of studies which are pending. Galilea Villeda MD FD/ /4:46 PM /6:04 PM MTDD
[2016-09-21] MEDS: PIPERACIL-TAZO 2.25 GM PREMIX 50 ML IV SCH ×2 (18:43→23:49)
--- NOTE | 2016-09-21 19:05 | RADRPT ---
EXAM DATE/TIME: 09/21/2016 17:09 [facility] COMPARISON: No previous studies available for comparison. INDICATIONS : Evaluate pleural effusion RADIATION DOSE: 15.91 CTDIvol (mGy) ; Combined studies - Thorax/Abdomen/Pelvis MEDICAL HISTORY : Congestive heart failure. Hypertension. Renal failure, chronic. Dialysis SURGICAL HISTORY : Nephrectomy, left. Nephrectomy, right. AV shunt ENCOUNTER: Initial ACUITY: 1 day PAIN SCALE: 6/10 LOCATION: Chest TECHNIQUE: Volumetric scanning of the chest was performed. Using automated exposure control and adjustment of the mA and/or kV according to patient size, radiation dose was kept as low as reasonab ly achievable to obtain optimal diagnostic quality images. FINDINGS: There is a moderate left pleural effusion and a mild right pleural effusion. There ar e accompanying areas of atelectasis seen at the bases being worse on the left. The mediastinal struc tures are grossly intact. Significant adenopathy is not seen. The bony structures appear intact. Th e patient does have findings in the abdomen. The patient is to have a CT of the abdomen and pelvis t o follow. CONCLUSION: Moderate left pleural effusion and mild right pleural effusion. Donaldo Otero MD on September 21, 2016 at 18:53 Board Certified Radiologist. This report was verified electronically.
--- NOTE | 2016-09-21 19:17 | RADRPT ---
EXAM DATE/TIME: 09/21/2016 17:09 [facility] COMPARISON: CT ABDOMEN & PELVIS W/O CONTRAST, May 15, 2015, 15:18. INDICATIONS : Evaluate for abscess, kidneys removed one week ago. ORAL CONTRAST: No oral contrast ingested. RADIATION DOSE: 15.91 CTDIvol (mGy) ; Combined studies - Thorax/Abdomen/Pelvis MEDICAL HISTORY : Congestive heart failure. Hypertension. Renal failure, chronic. SURGICAL HISTORY : Nephrectomy, left. Nephrectomy, right. AV shunt ENCOUNTER: Initial ACUITY: 1 day PAIN SCALE: 6/10 LOCATION: Abdomen TECHNIQUE: Volumetric scanning of the abdomen and pelvis was performed. Using automated exposure control and adjustment of the mA and/or kV according to patient size, radiation dose was kept as low as reasonably achievable to obtain optimal diagnostic quality images. FINDINGS: The patient is status post bilateral nephrectomy. Clips are seen bilaterally. Th ere is a small amount of air in the soft tissues seen on the left side. There is increased soft tiss ue density seen in the renal fossa regions being much more prominent on the left. The patient previo usly had large polycystic kidneys. These have been removed. The fluid and soft tissue density seen in the left renal fossa extends over a 15 cm length and measures at least 10 cm in AP dimension and 1 0 cm in transverse dimension. Again noted are the small foci of air within the left renal fossa. Th e fluid density in the left renal fossa extends into the left lateral upper pelvis in the retroperito neum. There is ascites seen around the spleen in the left upper quadrant. There are multiple low density m asses in the liver likely representing cysts given the polycystic kidney changes previously seen. Th e pancreas and spleen appear normal. What appears to be the right adrenal gland appears normal. The left adrenal gland is difficult to clearly identify. The aorta and IVC are normal. The pelvic structures are intact. There is a mild amount of fluid seen in the peritoneal cavity in th e pelvis. There are some scattered colonic diverticula without inflammatory change. Skin skylar are seen in the midline. There is a moderate left pleural effusion and a mild right pleural effusion. The bony structures are grossly intact. CONCLUSION: 1. Status post bilateral nephrectomy with fluid in the renal fossa regions bilaterally being much mor e prominent on the left. The fluid and soft tissue density on the left extends throughout the entire left renal fossa and into the left pelvis. There are a few small foci of air seen on the left side. Some degree of infection cannot be excluded. A well formed abscess is difficult to clearly identif y on this noncontrast CT examination. 2. Multiple low density masses seen in the liver likely representing cysts given the polycystic kidne ys seen on the prior exam. 3. Ascites seen in the left upper quadrant and in the lower pelvis. 4. Bilateral pleural effusions being moderate on the left and mild on the right. Donaldo Otero MD on September 21, 2016 at 19:01 Board Certified Radiologist. This report was verified electronically.
[2016-09-22] VITALS (8 sets, daily range): BP systolic 111–141; BP diastolic 58–77; PULSE 94–114; RESP 18–20; TEMP 97.4–99.8; O2SAT 94–97
[2016-09-22] MEDS: oxyCODONE/ACETAMINOPHEN 5 MG/325 MG TAB PO PRN ×3 (03:45→18:54)
[2016-09-22] MEDS: HYDROmorphone HCL PF 1 MG/ML VIAL IV PRN ×5 (05:03→23:36)
[2016-09-22 06:18] LABS: AUTOMATED NEUTROPHIL # 8.6 TH/MM3 (1.8-7.7); BASOPHIL % 0.4 % (0.0-2.0); EOSINOPHIL # 0.1 TH/MM3 (0-0.4); EOSINOPHIL % 1.2 % (0.0-4.0); HEMATOCRIT 22.8 % (39.0-51.0); HEMO FLAGS DIFF FINAL; LYMPH % 7.8 % (9.0-44.0); LYMPHOCYTE # 0.9 TH/MM3 (1.0-4.8); MEAN CORPUSCULAR HEMOGLOBIN 29.5 PG (27.0-34.0); MEAN CORPUSCULAR HGB CONC 33.9 % (32.0-36.0); MONO % 12.8 % (0.0-8.0); NEUT % 77.8 % (16.0-70.0); PLATELET COUNT 306 TH/MM3 (150-450); RED BLOOD COUNT 2.62 MIL/MM3 (4.50-5.90); RED CELL DISTRIBUTION WIDTH 14.3 % (11.6-17.2); WHITE BLOOD COUNT 11.1 TH/MM3 (4.0-11.0)
--- NOTE | 2016-09-22 06:23 | RADRPT ---
EXAM DATE/TIME: 09/22/2016 05:54 [facility] COMPARISON: CHEST PA & LAT, September 21, 2016, 6:15. INDICATIONS : Evaluate pneumonia. MEDICAL HISTORY : None. SURGICAL HISTORY : None. ENCOUNTER: Initial ACUITY: 1 day PAIN SCORE: 0/10 LOCATION: Bilateral chest FINDINGS: The cardiac silhouette is enlarged in transverse diameter. There is left lower lobe atelectasis versu s pneumonia. Moderate size bilateral pleural effusions are identified. The right lung is free of acut e parenchymal opacity. There has been no significant change when compared to the prior exam. CONCLUSION: 1. Cardiomegaly. 2. Left lower lobe atelectasis versus pneumonia. Left pleural effusion 3. There has been no significant change when compared to the prior exam. Lyndon Casey MD on September 22, 2016 at 6:21 Board Certified Radiologist. This report was verified electronically.
[2016-09-22 06:53] LABS: BICARBONATE 29.2 MEQ/L (21.0-32.0); POTASSIUM 3.7 MEQ/L (3.5-5.1)
[2016-09-22] MEDS: DOCUSATE SODIUM 100 MG CAP PO SCH ×3 (07:54→16:48)
[2016-09-22] MEDS: CALCIUM ACETATE 667 MG CAP PO SCH ×3 (07:54→16:48)
[2016-09-22] MEDS: PIPERACIL-TAZO 2.25 GM PREMIX 50 ML IV SCH ×3 (07:55→23:36)
[2016-09-22] MEDS: SODIUM CHLORIDE 0.9% FLUSH 10 ML FLUSH IV FLUSH SCH ×2 (07:56→23:36)
--- NOTE | 2016-09-22 10:01 | HHI.NPPN ---
Subjective History of Present Illness 46-year-old male with a past medical history of hypertension, polycystic kidney disease, end-stage renal disease on hemodialysis three times per week who was admitted for bilateral nephrectomy. Additional Remarks Patient is alert, feeling better, has mild cough and Rt. lower chest pleuritic pain. Objective Data Data 09/21/16 09/22/16 19:00 07:00 Intake Total 240 ml 390 ml Output Total 3000 ml Balance -2760 ml 390 ml Intake Oral 240 ml 240 ml IV Total 0 ml 150 ml Hemodialysis 3000 ml # Voids 0 0 # Bowel Movements 0 0 Vital Signs Date Time Temp Pulse Resp B/P Pulse Ox O2 Delivery O2 Flow Rate FiO2 09/22/16 08:00 98.6 94 18 118/58 94 09/22/16 03:43 99.8 114 19 114/72 95 09/22/16 00:00 99.2 97 20 118/70 97 09/21/16 21:36 96 3.00 09/21/16 20:00 100.0 109 19 125/65 94 09/21/16 16:00 101.0 120 17 134/81 96 -: 09/22/16 0442 09/22/16 0442 Microbiology 09/21/16 Aerobic Blood Culture, Received Pending 09/21/16 Anaerobic Blood Culture, Received Pending 09/21/16 Aerobic Blood Culture, Received Pending 09/21/16 Anaerobic Blood Culture, Received Pending Physical Exam General Appearance: No Acute Distress, Comfortable Throat Throat Exam: Oral Mucosa [place] & Moist Pulmonary Resp Exam: Clear Bilaterally, Breath Sounds Equal, Decreased Bases Cardiology CV Exam: Regular, Normal Sinus Rhythm Gastrointestinal/Abdomen GI Exam: Soft, Non-Tender, Bowel Sounds Present Extremeties Extremities Exam: Trace Edema Neurologic Neuro Exam: Alert, Awake, Oriented Psychiatric Psych Exam: Appropriate Responses Assessment/Plan Assessment Summary: Anemia of CKD, Hypertension, End Stage Renal Disease Problem List: (1) Autosomal dominant polycystic kidney disease (2) HTN (hypertension) (3) End stage kidney disease (4) Status post nephrectomy Plan Patient has Bilateral Nephrectomies done due to PKD and pre transplant. Bowel function appears to be returning. On Epogen and follow the Hgb. possible pneumonia, On Vanco. and Zosyn, Blood cultures PND. HD will be in AM. Problem Qualifiers (1) HTN (hypertension): Qualified Code: I10 - Essential hypertension Ta Rinaldi MD September 22, 2016 10:01
--- NOTE | 2016-09-22 12:56 | HHI.PR ---
Subjective Remarks Patient looks better today than he stated he feels better than yesterday Still tachycardic, fever improved Continue iv antibiotic, ID nephrology and urology following Objective Vitals Vital Signs Date Time Temp Pulse Resp B/P Pulse Ox O2 Delivery O2 Flow Rate FiO2 09/22/16 12:00 98.2 96 18 111/68 94 09/22/16 11:18 18 09/22/16 10:51 95 Nasal Cannula 3.00 09/22/16 08:00 98.6 94 18 118/58 94 09/22/16 03:43 99.8 114 19 114/72 95 09/22/16 00:00 99.2 97 20 118/70 97 09/21/16 21:36 96 3.00 09/21/16 20:00 100.0 109 19 125/65 94 09/21/16 16:00 101.0 120 17 134/81 96 I/O 09/21/16 09/21/16 09/21/16 09/22/16 09/22/16 09/22/16 07:00 15:00 23:00 07:00 15:00 23:00 Intake Total 240 ml 240 ml 170 ml 220 ml Output Total 3000 ml Balance 240 ml -2760 ml 170 ml 220 ml Intake Oral 240 ml 240 ml 120 ml 120 ml IV Total 0 ml 0 ml 50 ml 100 ml Hemodialysis 3000 ml # Voids 0 0 0 0 # Bowel Movements 0 0 0 0 Result Diagram: 09/22/1644109/22/16441 Objective Remarks GENERAL: This is a well-nourished, well-developed patient, looks shivering and feeling cold SKIN: No rashes, warm and dry HEAD: Atraumatic. Normocephalic. EYES: Pupils equal round and reactive. Extraocular motions intact. No scleral icterus. ENT: Nose without bleeding, or drainage, Airway patent. NECK: Trachea midline. Supple CARDIOVASCULAR: Regular tachycardia without murmurs, gallops, or rubs. RESPIRATORY: Decreased breath sounds on the left base No wheezes, rales, or rhonchi. GASTROINTESTINAL: Abdomen soft, non-tender, nondistended. Positive bowel sounds MUSCULOSKELETAL: Extremities without clubbing, cyanosis, or edema. Pedal pulses appreciated NEUROLOGICAL: Awake and alert. Moves all extremity. Normal speech.no focal neurological deficit A/P Assessment and Plan 09/21: Fever improved, continue iv antibiotic, awaiting blood culture, CT chest and abdomen personally reviewed by me showing left pleural effusion and small on the right side, abdominal CT not excluding possible infected fluid, recommended iv dye which mostly need to be prior to HD, will defer for nephrology and will follow along A/P: 46 years old with autosomal dominant polycystic kidney disease admitted for bilateral nephrectomies , who developed later on sustained fever tachycardia, left lower lobe consolidation/atelectasis and pleural effusion - Suspect sepsis due to left lower lobe pneumonia (temp 101 on September 19, tachycardia, WBC 11 K with left shift) - Febrile illness with mild leukocytosis possibly due to LLL pneumonia HAP ( chest x-ray showing left lower consolidation versus atelectasis with pleural effusion) - ADPKD Status post bilateral nephrectomies by Dr. Hou, nephrology following for HD - ESRD due to recent bilateral nephrectomies creatinine 13 today - DVT prophylaxis on heparin 5000 3 times a day Recommendation: Agree with change antibiotic to Zosyn and Vanco I will add Levaquin for broad coverage for possible HAP/VAP Agree with sending blood culture Consult ID O2, DuoNeb Sputum culture was sent showed normal growth reviewed by me personally Urology and nephrology notes as well as chest x-ray reviewed by me Check lactic acid Monitor CBC Naveen Singleton MD September 22, 2016 12:55
--- NOTE | 2016-09-22 13:10 | HHI.PR ---
Subjective Patient symptoms today Postoperative day #8 Feeling better today Reports less pain involving left upper quadrant and flank area Objective Vital Signs Vital Signs Date Time Temp Pulse Resp B/P Pulse Ox O2 Delivery O2 Flow Rate FiO2 09/22/16 12:00 98.2 96 18 111/68 94 09/22/16 11:18 18 09/22/16 10:51 95 Nasal Cannula 3.00 09/22/16 08:00 98.6 94 18 118/58 94 09/22/16 03:43 99.8 114 19 114/72 95 09/22/16 00:00 99.2 97 20 118/70 97 09/21/16 21:36 96 3.00 09/21/16 20:00 100.0 109 19 125/65 94 09/21/16 16:00 101.0 120 17 134/81 96 Intake & Output 09/22/16 09/22/16 07:00 19:00 Intake Total 390 ml Balance 390 ml Intake Oral 240 ml IV Total 150 ml # Voids 0 # Bowel Movements 0 Result Diagram: 09/22/162 09/22/16 0442 Imaging Last 24 hours Impressions Chest X-Ray 09/22/16 0600 Signed Impressions: Service Date/Time: Thursday, September 22, 2016 05:54 - CONCLUSION: 1. Cardiomegaly. 2. Left lower lobe atelectasis versus pneumonia. Left pleural effusion 3. There has been no significant change when compared to the prior exam. Lyndon Casey MD Objective Remarks Abdomen not distended Wounds clean and dry Mild tenderness to palpation noted Extremities well-perfused, nontender Medications and IVs Current Medications Medications (Trade) Dose Ordered Sig/Johan Route Start Time Stop Time Status Last Admin (NS Flush) 2 ml UNSCH PRN IV FLUSH 09/14/16 12:45 (NS Flush) 2 ml BID IV FLUSH 09/14/16 12:45 09/22/16 07:56 Naloxone HCl 0.4 mg 0.4 mg UNSCH PRN IV 09/14/16 12:45 (NS 1000 ml Inj) 1,000 ml @ 0 mls/hr Q0M PRN IV 09/14/16 19:40 09/18/16 10:31 Heparin Sodium (Porcine) 8000 units 8,000 units UNSCH PRN IVF 09/14/16 19:45 Sodium Chloride 1,000 ml @ 200 mls/hr Q5H PRN IV 09/14/16 19:40 (NS 1000 ml Inj) 1,000 ml @ 0 mls/hr Q0M PRN IV 09/14/16 19:40 (Mannitol Inj) 12.5 gm UNSCH PRN IV 09/14/16 19:45 (Albumin 25% Inj) 25 gm UNSCH PRN IV 09/14/16 19:45 (NS Flush) 5 ml UNSCH PRN IV FLUSH 09/14/16 19:45 (Heparin Inj) UNSCH PRN .XX 09/14/16 19:45 (Gentamicin (Dialysis) Inj) 20 mg UNSCH PRN IV 09/14/16 19:45 (Zofran Inj) 4 mg UNSCH PRN IV 09/14/16 19:45 (Tylenol) 650 mg UNSCH PRN PO 09/14/16 19:45 09/20/16 08:26 (Benadryl) 25 mg UNSCH PRN PO 09/14/16 19:45 (Nitrostat Sl) 0.4 mg UNSCH PRN SL 09/14/16 19:45 (Catapres) 0.1 mg UNSCH PRN PO 09/14/16 19:45 (Gelfoam 12 Mm/7 Mm Top) 1 foam UNSCH PRN TOP 09/14/16 19:45 09/18/16 10:31 (Ativan Inj) 1 mg TID PRN IV PUSH 09/14/16 21:45 09/19/16 15:05 (Protonix Inj) 40 mg Q24H IV PUSH 09/16/16 14:00 09/20/16 12:20 (Percocet 5-325 Mg) 1 tab Q6H PRN PO 09/19/16 12:30 09/19/16 20:27 (Percocet 5-325 Mg) 2 tab Q6H PRN PO 09/19/16 12:30 09/22/16 10:11 (Colace) 100 mg TID PO 09/19/16 13:00 09/22/16 12:54 (Dilaudid Pf Inj) 0.5 mg Q3H PRN IV 09/19/16 20:30 09/22/16 12:54 (Phoslo) 1,334 mg TID PO 09/20/16 18:00 09/22/16 12:54 Epoetin Mark 33978 units 10,000 units MoWeFr IV 09/20/16 17:00 09/21/16 13:07 Piperacillin Sod/ Tazobactam Sod 50 ml @ 100 mls/hr Q8H IV 09/21/16 16:00 09/22/16 07:55 (Levaquin 500 Mg Premix Inj) 100 ml @ 100 mls/hr Q48H IV 09/23/16 16:00 Assessment and Plan Assessment and Plan Urologic impression: #1 status post open surgical bilateral nephrectomies for adult polycystic kidney disease #2 consolidation left lower lung possibly pneumonia Plan: #1 Appreciate management of possible left lower lobe pneumonia as per Medicine and Infectious Disease #2 Continue with hemodialysis as per nephrology recommendations Lalo Collier MD September 22, 2016 13:10
--- NOTE | 2016-09-22 13:18 | HHI.IDPN ---
Note Infectious Disease Note Patient feels better. "I felt like I was going to last night" No nausea. No chills or sweats. left flank pain improved. Temp lower. Last temp spike last niht. Looks comfortable. Normal bowel movements. PAST MEDICAL HISTORY 1. Hypertension 2. End-stage renal disease on hemodialysis 3. Polycystic kidney disease, 4. Chronic anemia 5. AV fistula. ALLERGIES NO KNOWN DRUG ALLERGIES. Current Medications Medications (Trade) Dose Ordered Sig/Johan Route PRN Reason Start Time Stop Time Status Last Admin Dose Admin Sodium Chloride (NS Flush) 2 ml UNSCH PRN IV FLUSH FLUSH AFTER USING IV ACCESS 09/14/16 12:45 Sodium Chloride (NS Flush) 2 ml BID IV FLUSH 09/14/16 12:45 09/22/16 07:56 Naloxone HCl 0.4 mg 0.4 mg UNSCH PRN IV SEE LABEL COMMENTS 09/14/16 12:45 Sodium Chloride (NS 1000 ml Inj) 1,000 ml @ 0 mls/hr Q0M PRN IV For Prime & Rinse Back 09/14/16 19:40 09/18/16 10:31 Heparin Sodium (Porcine) 8000 units 8,000 units UNSCH PRN IVF WITH DIALYSIS 09/14/16 19:45 Sodium Chloride 1,000 ml @ 200 mls/hr Q5H PRN IV WITH DIALYSIS 09/14/16 19:40 Sodium Chloride (NS 1000 ml Inj) 1,000 ml @ 0 mls/hr Q0M PRN IV WITH DIALYSIS 09/14/16 19:40 Mannitol (Mannitol Inj) 12.5 gm UNSCH PRN IV WITH DIALYSIS 09/14/16 19:45 Albumin Human (Albumin 25% Inj) 25 gm UNSCH PRN IV WITH DIALYSIS 09/14/16 19:45 Sodium Chloride (NS Flush) 5 ml UNSCH PRN IV FLUSH WITH DIALYSIS 09/14/16 19:45 Heparin Sodium (Porcine) (Heparin Inj) UNSCH PRN .XX WITH DIALYSIS 09/14/16 19:45 Gentamicin Sulfate (Gentamicin (Dialysis) Inj) 20 mg UNSCH PRN IV WITH DIALYSIS 09/14/16 19:45 Ondansetron HCl (Zofran Inj) 4 mg UNSCH PRN IV WITH DIALYSIS 09/14/16 19:45 Acetaminophen (Tylenol) 650 mg UNSCH PRN PO for headach, pain1-10,T> 101F 09/14/16 19:45 09/20/16 08:26 Diphenhydramine HCl (Benadryl) 25 mg UNSCH PRN PO for hives/itching/anaphylaxis 09/14/16 19:45 Nitroglycerin (Nitrostat Sl) 0.4 mg UNSCH PRN SL CHEST PAIN 09/14/16 19:45 Clonidine (Catapres) 0.1 mg UNSCH PRN PO for BP > 180/100 X 2 readings 09/14/16 19:45 Gelatin (Gelfoam 12 Mm/7 Mm Top) 1 foam UNSCH PRN TOP SEE LABEL COMMENTS 09/14/16 19:45 09/18/16 10:31 Lorazepam (Ativan Inj) 1 mg TID PRN IV PUSH ANXIETY/SPASMS 09/14/16 21:45 09/19/16 15:05 Pantoprazole Sodium (Protonix Inj) 40 mg Q24H IV PUSH 09/16/16 14:00 09/20/16 12:20 Oxycodone/ Acetaminophen (Percocet 5-325 Mg) 1 tab Q6H PRN PO PAIN SCALE 3 TO 6 09/19/16 12:30 09/19/16 20:27 Oxycodone/ Acetaminophen (Percocet 5-325 Mg) 2 tab Q6H PRN PO PAIN SCALE 7 TO 10 09/19/16 12:30 09/22/16 10:11 Docusate Sodium (Colace) 100 mg TID PO 09/19/16 13:00 09/22/16 12:54 Hydromorphone HCl (Dilaudid Pf Inj) 0.5 mg Q3H PRN IV BREAKTHROUGH PAIN 09/19/16 20:30 09/22/16 12:54 Calcium Acetate (Phoslo) 1,334 mg TID PO 09/20/16 18:00 09/22/16 12:54 Epoetin Mark 88463 units 10,000 units MoWeFr IV 09/20/16 17:00 09/21/16 13:07 Piperacillin Sod/ Tazobactam Sod 50 ml @ 100 mls/hr Q8H IV 09/21/16 16:00 09/22/16 07:55 Levofloxacin/ Dextrose (Levaquin 500 Mg Premix Inj) 100 ml @ 100 mls/hr Q48H IV 09/23/16 16:00 OBJECTIVE: Vital Signs Date Time Temp Pulse Resp B/P Pulse Ox O2 Delivery O2 Flow Rate FiO2 09/22/16 12:00 98.2 96 18 111/68 94 09/22/16 11:18 18 09/22/16 10:51 95 Nasal Cannula 3.00 09/22/16 08:00 98.6 94 18 118/58 94 09/22/16 03:43 99.8 114 19 114/72 95 09/22/16 00:00 99.2 97 20 118/70 97 09/21/16 21:36 96 3.00 09/21/16 20:00 100.0 109 19 125/65 94 09/21/16 16:00 101.0 120 17 134/81 96 09/21/16 09/21/16 09/22/16 15:00 23:00 07:00 Intake Total 240 ml 170 ml 220 ml Output Total 3000 ml Balance -2760 ml 170 ml 220 ml Intake Oral 240 ml 120 ml 120 ml IV Total 0 ml 50 ml 100 ml Hemodialysis 3000 ml # Voids 0 0 0 # Bowel Movements 0 0 0 Laboratory Tests Test 09/21/16 09/22/16 05:26 04:42 White Blood Count 11.2 TH/MM3 11.1 TH/MM3 Red Blood Count 2.89 MIL/MM3 2.62 MIL/MM3 Hemoglobin 8.5 GM/DL 7.7 GM/DL Hematocrit 25.4 % 22.8 % Mean Corpuscular Volume 87.9 FL 87.0 FL Mean Corpuscular Hemoglobin 29.4 PG 29.5 PG Mean Corpuscular Hemoglobin 33.4 % 33.9 % Concent Red Cell Distribution Width 14.3 % 14.3 % Platelet Count 297 TH/MM3 306 TH/MM3 Mean Platelet Volume 7.7 FL 7.6 FL Neutrophils (%) (Auto) 79.6 % 77.8 % Lymphocytes (%) (Auto) 7.7 % 7.8 % Monocytes (%) (Auto) 10.8 % 12.8 % Eosinophils (%) (Auto) 1.4 % 1.2 % Basophils (%) (Auto) 0.5 % 0.4 % Neutrophils # (Auto) 8.9 TH/MM3 8.6 TH/MM3 Lymphocytes # (Auto) 0.9 TH/MM3 0.9 TH/MM3 Monocytes # (Auto) 1.2 TH/MM3 1.4 TH/MM3 Eosinophils # (Auto) 0.2 TH/MM3 0.1 TH/MM3 Basophils # (Auto) 0.1 TH/MM3 0.0 TH/MM3 CBC Comment DIFF FINAL DIFF FINAL Differential Comment Laboratory Tests Test 09/21/16 09/21/16 09/22/16 05:26 18:18 04:42 Sodium Level 132 MEQ/L 135 MEQ/L Potassium Level 3.7 MEQ/L 3.7 MEQ/L Chloride Level 91 MEQ/L 94 MEQ/L Carbon Dioxide Level 28.1 MEQ/L 29.2 MEQ/L Anion Gap 13 MEQ/L 12 MEQ/L Blood Urea Nitrogen 94 MG/DL 63 MG/DL Creatinine 13.56 MG/DL 9.83 MG/DL Estimat Glomerular Filtration 4 ML/MIN 6 ML/MIN Rate Random Glucose 79 MG/DL 81 MG/DL Calcium Level 8.5 MG/DL 8.5 MG/DL Lactic Acid Level 0.8 mmol/L Microbiology Date/Time Procedure Status Source Growth 09/20/16 17:41 Gram Stain - Final Complete Sputum Expectorated Sputum 09/20/16 17:41 Sputum Culture - Final Complete Sputum Expectorated Sputum HEAVY GROWTH NORMAL RESPIRATORY ABDELRAHMAN 09/21/16 18:10 Aerobic Blood Culture - Preliminary Resulted Blood Peripheral NO GROWTH IN 1 DAY 09/21/16 18:10 Anaerobic Blood Culture - Preliminary Resulted Blood Peripheral NO GROWTH IN 1 DAY 09/21/16 18:21 Aerobic Blood Culture - Preliminary Resulted Blood Peripheral NO GROWTH IN 1 DAY 09/21/16 18:21 Anaerobic Blood Culture - Preliminary Resulted Blood Peripheral NO GROWTH IN 1 DAY IMAGING: Chest X-Ray 09/22/16 0600 Signed Impressions: Service Date/Time: Thursday, September 22, 2016 05:54 - CONCLUSION: 1. Cardiomegaly. 2. Left lower lobe atelectasis versus pneumonia. Left pleural effusion 3. There has been no significant change when compared to the prior exam. Lyndon Casey MD Chest CT 09/21/16 0000 Signed Impressions: Service Date/Time: Wednesday, September 21, 2016 17:09 - CONCLUSION: Moderate left pleural effusion and mild right pleural effusion. Donaldo Otero MD Abdomen/Pelvis CT 09/21/16 0000 Signed Impressions: Service Date/Time: Wednesday, September 21, 2016 17:09 - CONCLUSION: 1. Status post bilateral nephrectomy with fluid in the renal fossa regions bilaterally being much more prominent on the left. The fluid and soft tissue density on the left extends throughout the entire left renal fossa and into the left pelvis. There are a few small foci of air seen on the left side. Some degree of infection cannot be excluded. A well formed abscess is difficult to clearly identify on this noncontrast CT examination. 2. Multiple low density masses seen in the liver likely representing cysts given the polycystic kidneys seen on the prior exam. 3. Ascites seen in the left upper quadrant and in the lower pelvis. 4. Bilateral pleural effusions being moderate on the left and mild on the right. Donaldo Otero MD PHYSICAL EXAMINATION GENERAL: No acute distress. He is awake and alert. HEENT: Extraocular movements grossly intact. Pupils reactive to light without icterus. No conjunctival erythema. Oropharynx without lesions. Moist mucosa. NECK: Supple. No adenopathy. No swelling. No jugular venous distension. LUNGS: Diminished breath sounds. HEART: Regular rate and rhythm without audible murmurs, rubs or gallops. ABDOMEN: Bowel sounds present, soft, no tenderness appreciated. Surgical incision intact without signs of infection. EXTREMITIES: No clubbing or cyanosis or edema. Left upper extremity has AV fistula which appears intact and has a strong bruit and no erythema or signs of infection. SKIN: Warm and moist. No rash. NEUROLOGIC: No gross focal findings. PSYCHIATRIC: The patient is calm and cooperative. IMPRESSION 1. Fever. Temp lower. 2. Post bilateral nephrectomy. CT scan ? post surgical changes. 3. Sepsis syndrome in patient with elevated white blood cell count and fever and elevated heart rate and possible pneumonia versus other source of sepsis. 4. Lung infiltrate. Probable pneumonia and potentially cause of sepsis in this patient. 5. End-stage renal disease. Clinically looks better. RECOMMENDATIONS 1. Continue broad-spectrum antibiotics with vancomycin, piperacillin/tazobactam and Levaquin. 2. Follow blood cultures. 3. Monitor the temperature. 4. Monitor clinical status. Prieto Rosales MD September 22, 2016 13:18
[2016-09-22] MEDS: PANTOPRAZOLE SODIUM 40 MG VIAL IV PUSH SCH (14:40)
[2016-09-22] MEDS: EPOETIN ALFA 10,000 UNITS/ML VIAL IV SCH (17:00)
[2016-09-22] MEDS: ONDANSETRON HCL 4 MG/2 ML VIAL IV PRN (23:36)
[2016-09-23] VITALS: BP 130/81; PULSE 102; RESP 20; TEMP 99.6; O2SAT 95
[2016-09-23] MEDS: oxyCODONE/ACETAMINOPHEN 5 MG/325 MG TAB PO PRN ×4 (02:09→20:41)
[2016-09-23] MEDS: HYDROmorphone HCL PF 1 MG/ML VIAL IV PRN ×6 (03:46→23:40)
[2016-09-23 08:00] VITALS: BP 120/71; PULSE 93; RESP 18; TEMP 98.8; O2SAT 94
[2016-09-23] MEDS: EPOETIN ALFA 10,000 UNITS/ML VIAL IV SCH (09:23)
[2016-09-23] MEDS: VANCOMYCIN INJ 1,000 MG in SODIUM CHLOR 0.9% 250 ML INJ 250 ML IV SCH (10:23)
--- NOTE | 2016-09-23 11:05 | HHI.NPPN ---
Subjective History of Present Illness 46-year-old male with a past medical history of hypertension, polycystic kidney disease, end-stage renal disease on hemodialysis three times per week who was admitted for bilateral nephrectomy. Additional Remarks Patient is alert, seen during HD, feeling better today. Objective Data Data 09/22/16 09/23/16 19:00 07:00 Intake Total 240 ml 530 ml Output Total 0 ml Balance 240 ml 530 ml Intake Oral 240 ml 480 ml IV Total 50 ml Output Urine Total 0 ml # Voids 0 # Bowel Movements 0 0 Vital Signs Date Time Temp Pulse Resp B/P Pulse Ox O2 Delivery O2 Flow Rate FiO2 09/23/16 08:00 98.8 93 18 120/71 94 09/23/16 00:00 99.6 102 20 130/81 95 09/22/16 22:07 95 Nasal Cannula 3.00 09/22/16 20:00 98.9 99 20 127/71 95 09/22/16 16:00 97.4 95 18 141/77 95 09/22/16 12:00 98.2 96 18 111/68 94 09/22/16 11:18 18 -: 09/22/16 0442 09/22/16 0442 Physical Exam General Appearance: No Acute Distress, Comfortable Throat Throat Exam: Oral Mucosa [place] & Moist Pulmonary Resp Exam: Clear Bilaterally, Breath Sounds Equal, Decreased Bases Cardiology CV Exam: Regular, Normal Sinus Rhythm Gastrointestinal/Abdomen GI Exam: Soft, Non-Tender, Bowel Sounds Present Extremeties Extremities Exam: Trace Edema Neurologic Neuro Exam: Alert, Awake, Oriented Psychiatric Psych Exam: Appropriate Responses Assessment/Plan Assessment Summary: Anemia of CKD, Hypertension, End Stage Renal Disease Problem List: (1) Autosomal dominant polycystic kidney disease (2) HTN (hypertension) (3) End stage kidney disease (4) Status post nephrectomy Plan Patient has Bilateral Nephrectomies done due to PKD and pre transplant. Bowel function appears to be returning. On Epogen and follow the Hgb. possible pneumonia, On Vanco. and Zosyn, Blood cultures negative so far. Remain afebrile. HD now and remove fluid as tolerated. Hgb. dropped, on Epogen. Problem Qualifiers (1) HTN (hypertension): Qualified Code: I10 - Essential hypertension Ta Rinaldi MD September 23, 2016 11:05
[2016-09-23 12:00] VITALS: BP 123/69; PULSE 90; RESP 18; TEMP 97.1; O2SAT 96
--- NOTE | 2016-09-23 12:28 | HHI.PR ---
Subjective Remarks Patient seen in hemodialysis, stated he still having cough but no significant phlegm now, he felt feverish overnight Objective Vitals Vital Signs Date Time Temp Pulse Resp B/P Pulse Ox O2 Delivery O2 Flow Rate FiO2 09/23/16 08:00 98.8 93 18 120/71 94 09/23/16 00:00 99.6 102 20 130/81 95 09/22/16 22:07 95 Nasal Cannula 3.00 09/22/16 20:00 98.9 99 20 127/71 95 09/22/16 16:00 97.4 95 18 141/77 95 I/O 09/22/16 09/22/16 09/22/16 09/23/16 09/23/16 09/23/16 07:00 15:00 23:00 07:00 15:00 23:00 Intake Total 220 ml 240 ml 290 ml 240 ml Output Total 0 ml Balance 220 ml 240 ml 290 ml 240 ml Intake Oral 120 ml 240 ml 240 ml 240 ml IV Total 100 ml 50 ml Output Urine Total 0 ml # Voids 0 0 0 # Bowel Movements 0 0 0 0 Result Diagram: 09/22/1644109/22/16441 Objective Remarks GENERAL: This is a well-nourished, well-developed patient, in no acute distress SKIN: No rashes, warm and dry HEAD: Atraumatic. Normocephalic. EYES: Pupils equal round and reactive. Extraocular motions intact. No scleral icterus. ENT: Nose without bleeding, or drainage, Airway patent. NECK: Trachea midline. Supple CARDIOVASCULAR: Regular tachycardia without murmurs, gallops, or rubs. RESPIRATORY: Decreased breath sounds on the left base No wheezes, rales, or rhonchi. GASTROINTESTINAL: Abdomen soft, non-tender, nondistended. Positive bowel sounds MUSCULOSKELETAL: Extremities without clubbing, cyanosis, or edema. Pedal pulses appreciated NEUROLOGICAL: Awake and alert. Moves all extremity. Normal speech.no focal neurological deficit A/P Assessment and Plan A/P: 46 years old with autosomal dominant polycystic kidney disease admitted for bilateral nephrectomies , who developed later on sustained fever tachycardia, left lower lobe consolidation/atelectasis and pleural effusion - Suspect sepsis due to left lower lobe pneumonia (temp 101 on September 19, tachycardia, WBC 11 K with left shift) - Febrile illness with mild leukocytosis possibly due to LLL pneumonia HAP ( chest x-ray showing left lower consolidation versus atelectasis with pleural effusion) - ADPKD Status post bilateral nephrectomies by Dr. Hou, nephrology following for HD - ESRD due to recent bilateral nephrectomies creatinine 13 today - DVT prophylaxis on heparin 5000 3 times a day Recommendation: Continue on Zosyn and Vanco on Levaquin, fever improved, ID following, as well as urology and nephrology, follow culture Agree with sending blood culture Consult ID [id number], DuoNeb Sputum culture was sent showed normal growth reviewed by me personally Urology and nephrology notes as well as chest x-ray reviewed by me Check lactic acid Monitor CBC Naveen Singleton MD September 23, 2016 12:28
[2016-09-23] MEDS: SODIUM CHLORIDE 0.9% FLUSH 10 ML FLUSH IV FLUSH SCH ×2 (12:31→20:41)
[2016-09-23] MEDS: DOCUSATE SODIUM 100 MG CAP PO SCH ×3 (12:31→18:04)
[2016-09-23] MEDS: CALCIUM ACETATE 667 MG CAP PO SCH ×3 (12:31→18:05)
[2016-09-23] MEDS: ONDANSETRON HCL 4 MG/2 ML VIAL IV PRN (12:41)
[2016-09-23] MEDS: PIPERACIL-TAZO 2.25 GM PREMIX 50 ML IV SCH ×3 (12:41→23:40)
[2016-09-23] MEDS: PANTOPRAZOLE SODIUM 40 MG VIAL IV PUSH SCH (12:41)
--- NOTE | 2016-09-23 12:45 | HHI.IDPN ---
Note Infectious Disease Note Patient undergoing dialysis. Notes he has SOB. Awake and alert. No nausea. No chills or sweats. Still gets left flank pain. afebrile. Cultures have no growth. PAST MEDICAL HISTORY 1. Hypertension 2. End-stage renal disease on hemodialysis 3. Polycystic kidney disease, 4. Chronic anemia 5. AV fistula. ALLERGIES NO KNOWN DRUG ALLERGIES. OBJECTIVE: Vital Signs Date Time Temp Pulse Resp B/P Pulse Ox O2 Delivery O2 Flow Rate FiO2 09/23/16 08:00 98.8 93 18 120/71 94 09/23/16 00:00 99.6 102 20 130/81 95 09/22/16 22:07 95 Nasal Cannula 3.00 09/22/16 20:00 98.9 99 20 127/71 95 09/22/16 16:00 97.4 95 18 141/77 95 09/22/16 09/22/16 09/23/16 15:00 23:00 07:00 Intake Total 240 ml 290 ml 240 ml Output Total 0 ml Balance 240 ml 290 ml 240 ml Intake Oral 240 ml 240 ml 240 ml IV Total 50 ml Output Urine Total 0 ml # Voids 0 0 # Bowel Movements 0 0 0 Laboratory Tests Test 09/22/16 04:42 White Blood Count 11.1 TH/MM3 Red Blood Count 2.62 MIL/MM3 Hemoglobin 7.7 GM/DL Hematocrit 22.8 % Mean Corpuscular Volume 87.0 FL Mean Corpuscular Hemoglobin 29.5 PG Mean Corpuscular Hemoglobin 33.9 % Concent Red Cell Distribution Width 14.3 % Platelet Count 306 TH/MM3 Mean Platelet Volume 7.6 FL Neutrophils (%) (Auto) 77.8 % Lymphocytes (%) (Auto) 7.8 % Monocytes (%) (Auto) 12.8 % Eosinophils (%) (Auto) 1.2 % Basophils (%) (Auto) 0.4 % Neutrophils # (Auto) 8.6 TH/MM3 Lymphocytes # (Auto) 0.9 TH/MM3 Monocytes # (Auto) 1.4 TH/MM3 Eosinophils # (Auto) 0.1 TH/MM3 Basophils # (Auto) 0.0 TH/MM3 CBC Comment DIFF FINAL Differential Comment Laboratory Tests Test 09/21/16 09/22/16 18:18 04:42 Lactic Acid Level 0.8 mmol/L Sodium Level 135 MEQ/L Potassium Level 3.7 MEQ/L Chloride Level 94 MEQ/L Carbon Dioxide Level 29.2 MEQ/L Anion Gap 12 MEQ/L Blood Urea Nitrogen 63 MG/DL Creatinine 9.83 MG/DL Estimat Glomerular Filtration 6 ML/MIN Rate Random Glucose 81 MG/DL Calcium Level 8.5 MG/DL Microbiology Date/Time Procedure Status Source Growth 09/20/16 17:41 Gram Stain - Final Complete Sputum Expectorated Sputum 09/20/16 17:41 Sputum Culture - Final Complete Sputum Expectorated Sputum HEAVY GROWTH NORMAL RESPIRATORY ABDELRAHMAN 09/21/16 18:10 Aerobic Blood Culture - Preliminary Resulted Blood Peripheral NO GROWTH IN 2 DAYS 09/21/16 18:10 Anaerobic Blood Culture - Preliminary Resulted Blood Peripheral NO GROWTH IN 2 DAYS 09/21/16 18:21 Aerobic Blood Culture - Preliminary Resulted Blood Peripheral NO GROWTH IN 2 DAYS 09/21/16 18:21 Anaerobic Blood Culture - Preliminary Resulted Blood Peripheral NO GROWTH IN 2 DAYS IMAGING: Chest X-Ray 09/22/16 0600 Signed Impressions: Service Date/Time: Thursday, September 22, 2016 05:54 - CONCLUSION: 1. Cardiomegaly. 2. Left lower lobe atelectasis versus pneumonia. Left pleural effusion 3. There has been no significant change when compared to the prior exam. Lyndon Casey MD Chest CT 09/21/16 0000 Signed Impressions: Service Date/Time: Wednesday, September 21, 2016 17:09 - CONCLUSION: Moderate left pleural effusion and mild right pleural effusion. Donaldo Otero MD Abdomen/Pelvis CT 09/21/16 0000 Signed Impressions: Service Date/Time: Wednesday, September 21, 2016 17:09 - CONCLUSION: 1. Status post bilateral nephrectomy with fluid in the renal fossa regions bilaterally being much more prominent on the left. The fluid and soft tissue density on the left extends throughout the entire left renal fossa and into the left pelvis. There are a few small foci of air seen on the left side. Some degree of infection cannot be excluded. A well formed abscess is difficult to clearly identify on this noncontrast CT examination. 2. Multiple low density masses seen in the liver likely representing cysts given the polycystic kidneys seen on the prior exam. 3. Ascites seen in the left upper quadrant and in the lower pelvis. 4. Bilateral pleural effusions being moderate on the left and mild on the right. Donaldo Otero MD PHYSICAL EXAMINATION GENERAL: No acute distress. HEENT: Extraocular movements grossly intact. Pupils reactive to light without icterus. No conjunctival erythema. Oropharynx without lesions. Moist mucosa. NECK: Supple. No adenopathy. No swelling. No jugular venous distension. LUNGS: Diminished breath sounds. HEART: Loud S1S2, no murmurs, rubs or gallops. ABDOMEN: Bowel sounds present, soft, no tenderness. Surgical incision intact without signs of infection. EXTREMITIES: No clubbing or cyanosis or edema. Left upper extremity has AV fistula which appears intact and has a strong bruit and no erythema or signs of infection. SKIN: Warm and moist. No rash. NEUROLOGIC: No gross focal findings. PSYCHIATRIC: The patient is calm and cooperative. IMPRESSION 1. Fever. Temp lower. No afebrile. 2. Post bilateral nephrectomy. CT scan ? post surgical changes. 3. Sepsis syndrome in patient with elevated white blood cell count and fever and elevated heart rate and possible pneumonia versus other source of sepsis. 4. Lung infiltrate. Probable pneumonia and potentially cause of sepsis in this patient. 5. End-stage renal disease. RECOMMENDATIONS 1. Continue Vancomycin, 2. Continue piperacillin/tazobactam. 3. D/C Levaquin. 4. Follow blood cultures. 5. Monitor the temperature. 6. Monitor clinical status. Prieto Rosales MD September 23, 2016 12:45
--- NOTE | 2016-09-23 13:12 | HHI.PR ---
Subjective Patient symptoms today Postoperative day #9 Reports feeling better today Had hemodialysis this morning Ambulating well Objective Vital Signs Vital Signs Date Time Temp Pulse Resp B/P Pulse Ox O2 Delivery O2 Flow Rate FiO2 09/23/16 12:00 97.1 90 18 123/69 96 09/23/16 08:00 98.8 93 18 120/71 94 09/23/16 00:00 99.6 102 20 130/81 95 09/22/16 22:07 95 Nasal Cannula 3.00 09/22/16 20:00 98.9 99 20 127/71 95 09/22/16 16:00 97.4 95 18 141/77 95 Intake & Output 09/23/16 09/23/16 07:00 19:00 Intake Total 530 ml Output Total 2000 ml Balance 530 ml -2000 ml Intake Oral 480 ml IV Total 50 ml Hemodialysis 2000 ml # Voids 0 # Bowel Movements 0 Result Diagram: 09/22/1644109/22/16 044 Objective Remarks Abdomen not distended Wounds clean and dry Extremities well-perfused, nontender Medications and IVs Current Medications Medications (Trade) Dose Ordered Sig/Johan Route Start Time Stop Time Status Last Admin (NS Flush) 2 ml UNSCH PRN IV FLUSH 09/14/16 12:45 (NS Flush) 2 ml BID IV FLUSH 09/14/16 12:45 09/23/16 12:31 Naloxone HCl 0.4 mg 0.4 mg UNSCH PRN IV 09/14/16 12:45 (NS 1000 ml Inj) 1,000 ml @ 0 mls/hr Q0M PRN IV 09/14/16 19:40 09/18/16 10:31 Heparin Sodium (Porcine) 8000 units 8,000 units UNSCH PRN IVF 09/14/16 19:45 Sodium Chloride 1,000 ml @ 200 mls/hr Q5H PRN IV 09/14/16 19:40 (NS 1000 ml Inj) 1,000 ml @ 0 mls/hr Q0M PRN IV 09/14/16 19:40 (Mannitol Inj) 12.5 gm UNSCH PRN IV 09/14/16 19:45 (Albumin 25% Inj) 25 gm UNSCH PRN IV 09/14/16 19:45 (NS Flush) 5 ml UNSCH PRN IV FLUSH 09/14/16 19:45 (Heparin Inj) UNSCH PRN .XX 09/14/16 19:45 (Gentamicin (Dialysis) Inj) 20 mg UNSCH PRN IV 09/14/16 19:45 (Zofran Inj) 4 mg UNSCH PRN IV 09/14/16 19:45 09/23/16 12:41 (Tylenol) 650 mg UNSCH PRN PO 09/14/16 19:45 09/20/16 08:26 (Benadryl) 25 mg UNSCH PRN PO 09/14/16 19:45 (Nitrostat Sl) 0.4 mg UNSCH PRN SL 09/14/16 19:45 (Catapres) 0.1 mg UNSCH PRN PO 09/14/16 19:45 (Gelfoam 12 Mm/7 Mm Top) 1 foam UNSCH PRN TOP 09/14/16 19:45 09/18/16 10:31 (Ativan Inj) 1 mg TID PRN IV PUSH 09/14/16 21:45 09/19/16 15:05 (Protonix Inj) 40 mg Q24H IV PUSH 09/16/16 14:00 09/23/16 12:41 (Percocet 5-325 Mg) 1 tab Q6H PRN PO 09/19/16 12:30 09/23/16 02:09 (Percocet 5-325 Mg) 2 tab Q6H PRN PO 09/19/16 12:30 09/23/16 07:57 (Colace) 100 mg TID PO 09/19/16 13:00 09/23/16 12:31 (Dilaudid Pf Inj) 0.5 mg Q3H PRN IV 09/19/16 20:30 09/23/16 12:31 (Phoslo) 1,334 mg TID PO 09/20/16 18:00 09/23/16 12:31 Epoetin Mark 18622 units 10,000 units MoWeFr IV 09/20/16 17:00 09/23/16 09:23 (Zosyn 2.25 Gm Premix) 50 ml @ 100 mls/hr Q8H IV 09/21/16 16:00 09/23/16 12:41 Assessment and Plan Assessment and Plan Urologic impression: #1 status post open surgical bilateral nephrectomies for adult polycystic kidney disease #2 Left lower lung pneumonia Plan: #1 Appreciate management of left lower lobe pneumonia as per Medicine and Infectious Disease #2 Continue with hemodialysis as per nephrology recommendations Lalo Collier MD September 23, 2016 13:12
[2016-09-23] MEDS ORDERED: WALKER WHEELS/F1 MIS (13:43)
[2016-09-23 14:17] VITALS: O2SAT 95
[2016-09-23 16:00] VITALS: BP 117/62; PULSE 112; RESP 18; TEMP 99.7; O2SAT 95
[2016-09-23] MEDS ORDERED: LEVOFLOXACIN/DEXTROSE 250 MG/50 ML IV SCH (16:00)
[2016-09-23] MEDS ORDERED: LEVOFLOXACIN 500 MG PREMIX INJ 100 ML IV SCH (16:00)
[2016-09-23 20:00] VITALS: BP 126/81; PULSE 110; RESP 18; TEMP 99.3; O2SAT 92
[2016-09-24] VITALS (7 sets, daily range): BP systolic 113–150; BP diastolic 65–80; PULSE 94–117; RESP 15–22; TEMP 97.3–100.9; O2SAT 93–98
[2016-09-24] MEDS: oxyCODONE/ACETAMINOPHEN 5 MG/325 MG TAB PO PRN ×4 (01:40→20:09)
[2016-09-24] MEDS: ONDANSETRON HCL 4 MG/2 ML VIAL IV PRN ×3 (01:40→20:11)
[2016-09-24] MEDS: HYDROmorphone HCL PF 1 MG/ML VIAL IV PRN ×6 (04:45→21:45)
[2016-09-24] MEDS: CALCIUM ACETATE 667 MG CAP PO SCH ×3 (07:56→18:31)
[2016-09-24] MEDS: DOCUSATE SODIUM 100 MG CAP PO SCH ×2 (07:56→11:50)
[2016-09-24] MEDS: PIPERACIL-TAZO 2.25 GM PREMIX 50 ML IV SCH ×3 (07:56→23:36)
[2016-09-24] MEDS: SODIUM CHLORIDE 0.9% FLUSH 10 ML FLUSH IV FLUSH SCH ×2 (07:57→20:08)
--- NOTE | 2016-09-24 08:46 | HHI.PR ---
Subjective Patient symptoms today Postoperative day #10 Reports feeling better this morning Pain well-managed Ambulating well Tolerating oral intake well Objective Vital Signs Vital Signs Date Time Temp Pulse Resp B/P Pulse Ox O2 Delivery O2 Flow Rate FiO2 09/24/16 08:00 97.3 97 15 113/72 96 09/24/16 04:00 98.4 94 18 125/75 98 09/24/16 00:00 99.4 100 18 120/74 95 09/23/16 20:00 99.3 110 18 126/81 92 09/23/16 18:18 Nasal Cannula 1.00 09/23/16 16:00 99.7 112 18 117/62 95 09/23/16 14:17 95 Nasal Cannula 1.00 09/23/16 12:00 97.1 90 18 123/69 96 Intake & Output 09/24/16 09/24/16 06:59 18:59 Intake Total 530 ml Balance 530 ml Intake Oral 480 ml IV Total 50 ml # Voids 0 # Bowel Movements 1 Result Diagram: 09/22/162 09/22/16 044 Objective Remarks Remains on supplemental oxygen Abdomen soft, nondistended, nontender Wound sites clean and dry Extremities well-perfused, nontender Medications and IVs Current Medications Medications (Trade) Dose Ordered Sig/Johan Route Start Time Stop Time Status Last Admin (NS Flush) 2 ml UNSCH PRN IV FLUSH 09/14/16 12:45 (NS Flush) 2 ml BID IV FLUSH 09/14/16 12:45 09/24/16 07:57 Naloxone HCl 0.4 mg 0.4 mg UNSCH PRN IV 09/14/16 12:45 (NS 1000 ml Inj) 1,000 ml @ 0 mls/hr Q0M PRN IV 09/14/16 19:40 09/18/16 10:31 Heparin Sodium (Porcine) 8000 units 8,000 units UNSCH PRN IVF 09/14/16 19:45 Sodium Chloride 1,000 ml @ 200 mls/hr Q5H PRN IV 09/14/16 19:40 (NS 1000 ml Inj) 1,000 ml @ 0 mls/hr Q0M PRN IV 09/14/16 19:40 (Mannitol Inj) 12.5 gm UNSCH PRN IV 09/14/16 19:45 (Albumin 25% Inj) 25 gm UNSCH PRN IV 09/14/16 19:45 (NS Flush) 5 ml UNSCH PRN IV FLUSH 09/14/16 19:45 (Heparin Inj) UNSCH PRN .XX 09/14/16 19:45 (Gentamicin (Dialysis) Inj) 20 mg UNSCH PRN IV 09/14/16 19:45 (Zofran Inj) 4 mg UNSCH PRN IV 09/14/16 19:45 09/24/16 01:40 (Tylenol) 650 mg UNSCH PRN PO 09/14/16 19:45 09/20/16 08:26 (Benadryl) 25 mg UNSCH PRN PO 09/14/16 19:45 (Nitrostat Sl) 0.4 mg UNSCH PRN SL 09/14/16 19:45 (Catapres) 0.1 mg UNSCH PRN PO 09/14/16 19:45 (Gelfoam 12 Mm/7 Mm Top) 1 foam UNSCH PRN TOP 09/14/16 19:45 09/18/16 10:31 (Ativan Inj) 1 mg TID PRN IV PUSH 09/14/16 21:45 09/19/16 15:05 (Protonix Inj) 40 mg Q24H IV PUSH 09/16/16 14:00 09/23/16 12:41 (Percocet 5-325 Mg) 1 tab Q6H PRN PO 09/19/16 12:30 09/23/16 02:09 (Percocet 5-325 Mg) 2 tab Q6H PRN PO 09/19/16 12:30 09/24/16 06:53 (Colace) 100 mg TID PO 09/19/16 13:00 09/23/16 18:04 (Dilaudid Pf Inj) 0.5 mg Q3H PRN IV 09/19/16 20:30 09/24/16 07:57 (Phoslo) 1,334 mg TID PO 09/20/16 18:00 09/24/16 07:56 Epoetin Mark 45747 units 10,000 units MoWeFr IV 09/20/16 17:00 09/23/16 09:23 (Zosyn 2.25 Gm Premix) 50 ml @ 100 mls/hr Q8H IV 09/21/16 16:00 09/24/16 07:56 Assessment and Plan Assessment and Plan Urologic impression: #1 status post open surgical bilateral nephrectomies for adult polycystic kidney disease #2 Left lower lung pneumonia Plan: #1 Appreciate management of left lower lobe pneumonia as per Medicine and Infectious Disease #2 Continue with hemodialysis as per nephrology recommendations #3 Will DC surgical skylar on Tuesday Lalo Collier MD September 24, 2016 08:45
--- NOTE | 2016-09-24 13:11 | HHI.PR ---
Subjective Remarks With nausea in the morning. He also had 4 x diarrhea today, nonbloody. No fevers or chills overnight. However says she usually has fevers. No n/v. Denies any abdominal pain. Says she is walking some with PT. Objective Vitals Vital Signs Date Time Temp Pulse Resp B/P Pulse Ox O2 Delivery O2 Flow Rate FiO2 09/24/16 12:00 98.8 97 18 117/70 93 09/24/16 08:00 97.3 97 15 113/72 96 09/24/16 04:00 98.4 94 18 125/75 98 09/24/16 00:00 99.4 100 18 120/74 95 09/23/16 20:00 99.3 110 18 126/81 92 09/23/16 18:18 Nasal Cannula 1.00 09/23/16 16:00 99.7 112 18 117/62 95 09/23/16 14:17 95 Nasal Cannula 1.00 I/O 09/23/16 09/23/16 09/23/16 09/24/16 09/24/16 09/24/16 07:00 15:00 23:00 07:00 15:00 23:00 Intake Total 240 ml 90 ml 240 ml 290 ml Output Total 2000 ml Balance 240 ml -1910 ml 240 ml 290 ml Intake Oral 240 ml 90 ml 240 ml 240 ml IV Total 50 ml Output Urine Total 0 ml Hemodialysis 2000 ml # Voids 0 0 0 0 # Bowel Movements 0 1 0 1 Result Diagram: 09/22/16 0442 09/22/16 0442 Imaging Last Impressions Chest X-Ray 09/22/16 0600 Signed Impressions: Service Date/Time: Thursday, September 22, 2016 05:54 - CONCLUSION: 1. Cardiomegaly. 2. Left lower lobe atelectasis versus pneumonia. Left pleural effusion 3. There has been no significant change when compared to the prior exam. Lyndon Casey MD Chest CT 09/21/16 0000 Signed Impressions: Service Date/Time: Wednesday, September 21, 2016 17:09 - CONCLUSION: Moderate left pleural effusion and mild right pleural effusion. Donaldo Otero MD Abdomen/Pelvis CT 09/21/16 0000 Signed Impressions: Service Date/Time: Wednesday, September 21, 2016 17:09 - CONCLUSION: 1. Status post bilateral nephrectomy with fluid in the renal fossa regions bilaterally being much more prominent on the left. The fluid and soft tissue density on the left extends throughout the entire left renal fossa and into the left pelvis. There are a few small foci of air seen on the left side. Some degree of infection cannot be excluded. A well formed abscess is difficult to clearly identify on this noncontrast CT examination. 2. Multiple low density masses seen in the liver likely representing cysts given the polycystic kidneys seen on the prior exam. 3. Ascites seen in the left upper quadrant and in the lower pelvis. 4. Bilateral pleural effusions being moderate on the left and mild on the right. Donaldo Otero MD Objective Remarks GENERAL: This is a well-nourished, well-developed patient, in no acute distress SKIN: No rashes, warm and dry HEAD: Atraumatic. Normocephalic. EYES: Pupils equal round and reactive. Extraocular motions intact. No scleral icterus. ENT: Nose without bleeding, or drainage, Airway patent. NECK: Trachea midline. Supple CARDIOVASCULAR: Tachycardia, without murmurs, gallops, or rubs. RESPIRATORY: Decreased breath sounds on the left base No wheezes, rales, or rhonchi. GASTROINTESTINAL: Abdomen soft, non-tender, nondistended. Positive bowel sounds MUSCULOSKELETAL: Extremities without clubbing, cyanosis, or edema. Pedal pulses appreciated NEUROLOGICAL: Awake and alert. Moves all extremity. Normal speech.no focal neurological deficit Procedures bilateral nephrectomies by Dr. Hou 09/14/16 A/P Assessment and Plan 46 years old with autosomal dominant polycystic kidney disease admitted for bilateral nephrectomies , who developed later on sustained fever tachycardia, left lower lobe consolidation/atelectasis and pleural effusion - Suspect sepsis due to left lower lobe pneumonia (temp 101 on September 19, tachycardia, WBC 11 K with left shift) - Febrile illness with mild leukocytosis possibly due to LLL pneumonia HAP ( chest x-ray showing left lower consolidation versus atelectasis with pleural effusion) - ADPKD Status post bilateral nephrectomies by Dr. Hou on 09/14/16, nephrology following for HD - ESRD due to recent bilateral nephrectomies Monitor creatinine - DVT prophylaxis on heparin 5000 (3 times a day) - Diarrhea. Check C diff patient was constipated perior, also on abx. Antiemetics. Recommendation: Continue on Zosyn and Vanco on Levaquin, fever improved, ID following, as well as urology and nephrology, follow culture Agree with sending blood culture Consult ID [id number], DuoNeb Sputum culture was sent showed normal growth reviewed by me personally Urology and nephrology notes as well as chest x-ray reviewed by me Check lactic acid Monitor CBC Discussed with the patient, nurse DC when improved. Catrachita Robbins MD September 24, 2016 13:11
--- NOTE | 2016-09-24 13:17 | HHI.NPPN ---
Subjective History of Present Illness 46-year-old male with a past medical history of hypertension, polycystic kidney disease, end-stage renal disease on hemodialysis three times per week who was admitted for bilateral nephrectomy. Additional Remarks Patient is alert, occ. abd. cramps, breathing is better. Objective Data Data 09/23/16 09/24/16 19:00 07:00 Intake Total 90 ml 530 ml Output Total 2000 ml Balance -1910 ml 530 ml Intake Oral 90 ml 480 ml IV Total 50 ml Output Urine Total 0 ml Hemodialysis 2000 ml # Voids 0 0 # Bowel Movements 1 1 Vital Signs Date Time Temp Pulse Resp B/P Pulse Ox O2 Delivery O2 Flow Rate FiO2 09/24/16 12:00 98.8 97 18 117/70 93 09/24/16 08:00 97.3 97 15 113/72 96 09/24/16 04:00 98.4 94 18 125/75 98 09/24/16 00:00 99.4 100 18 120/74 95 09/23/16 20:00 99.3 110 18 126/81 92 09/23/16 18:18 Nasal Cannula 1.00 09/23/16 16:00 99.7 112 18 117/62 95 09/23/16 14:17 95 Nasal Cannula 1.00 -: 09/22/16 0442 09/22/16 0442 Physical Exam General Appearance: No Acute Distress, Comfortable Throat Throat Exam: Oral Mucosa [place] & Moist Pulmonary Resp Exam: Clear Bilaterally, Breath Sounds Equal, Decreased Bases Cardiology CV Exam: Regular, Normal Sinus Rhythm Gastrointestinal/Abdomen GI Exam: Soft, Non-Tender, Bowel Sounds Present Extremeties Extremities Exam: Trace Edema Neurologic Neuro Exam: Alert, Awake, Oriented Psychiatric Psych Exam: Appropriate Responses Assessment/Plan Assessment Summary: Anemia of CKD, Hypertension, End Stage Renal Disease Problem List: (1) Autosomal dominant polycystic kidney disease (2) HTN (hypertension) (3) End stage kidney disease (4) Status post nephrectomy Plan Patient has Bilateral Nephrectomies done due to PKD and pre transplant. Bowel function appears to be returning. On Epogen and follow the Hgb. possible pneumonia, On Vanco. and Zosyn, Blood cultures negative. HD to continue in AM. Has low grade fever yesterday, now afebrile. Continue antibiotics. Problem Qualifiers (1) HTN (hypertension): Qualified Code: I10 - Essential hypertension Ta Rinaldi MD September 24, 2016 13:17
[2016-09-24] MEDS: PANTOPRAZOLE SODIUM 40 MG VIAL IV PUSH SCH (13:32)
--- NOTE | 2016-09-24 17:06 | HHI.IDPN ---
Note Infectious Disease Note Patient says he is feeling better. Feels abdomen size is increasing. loose stools today. he was on Colace. Stool c. dif sent. No abdominal pain. Afebrile. No SOB or cough. Ambulated with PT. Left flank pain improved. Blood Cultures have no growth. PAST MEDICAL HISTORY 1. Hypertension 2. End-stage renal disease on hemodialysis 3. Polycystic kidney disease, 4. Chronic anemia 5. AV fistula. ALLERGIES NO KNOWN DRUG ALLERGIES. OBJECTIVE: Vital Signs Date Time Temp Pulse Resp B/P Pulse Ox O2 Delivery O2 Flow Rate FiO2 09/24/16 12:00 98.8 97 18 117/70 93 09/24/16 08:15 Nasal Cannula 1.00 09/24/16 08:00 97.3 97 15 113/72 96 09/24/16 04:00 98.4 94 18 125/75 98 09/24/16 00:00 99.4 100 18 120/74 95 09/23/16 20:00 99.3 110 18 126/81 92 09/23/16 18:18 Nasal Cannula 1.00 09/23/16 09/23/16 09/24/16 15:00 23:00 07:00 Intake Total 90 ml 240 ml 290 ml Output Total 2000 ml Balance -1910 ml 240 ml 290 ml Intake Oral 90 ml 240 ml 240 ml IV Total 50 ml Output Urine Total 0 ml Hemodialysis 2000 ml # Voids 0 0 0 # Bowel Movements 1 0 1 Microbiology Date/Time Procedure Status Source Growth 09/21/16 18:10 Aerobic Blood Culture - Preliminary Resulted Blood Peripheral NO GROWTH IN 3 DAYS 09/21/16 18:10 Anaerobic Blood Culture - Preliminary Resulted Blood Peripheral NO GROWTH IN 3 DAYS 09/21/16 18:21 Aerobic Blood Culture - Preliminary Resulted Blood Peripheral NO GROWTH IN 3 DAYS 09/21/16 18:21 Anaerobic Blood Culture - Preliminary Resulted Blood Peripheral NO GROWTH IN 3 DAYS IMAGING: Chest X-Ray 09/22/16 0600 Signed Impressions: Service Date/Time: Thursday, September 22, 2016 05:54 - CONCLUSION: 1. Cardiomegaly. 2. Left lower lobe atelectasis versus pneumonia. Left pleural effusion 3. There has been no significant change when compared to the prior exam. Lyndon Casey MD Chest CT 09/21/16 0000 Signed Impressions: Service Date/Time: Wednesday, September 21, 2016 17:09 - CONCLUSION: Moderate left pleural effusion and mild right pleural effusion. Donaldo Otero MD Abdomen/Pelvis CT 09/21/16 0000 Signed Impressions: Service Date/Time: Wednesday, September 21, 2016 17:09 - CONCLUSION: 1. Status post bilateral nephrectomy with fluid in the renal fossa regions bilaterally being much more prominent on the left. The fluid and soft tissue density on the left extends throughout the entire left renal fossa and into the left pelvis. There are a few small foci of air seen on the left side. Some degree of infection cannot be excluded. A well formed abscess is difficult to clearly identify on this noncontrast CT examination. 2. Multiple low density masses seen in the liver likely representing cysts given the polycystic kidneys seen on the prior exam. 3. Ascites seen in the left upper quadrant and in the lower pelvis. 4. Bilateral pleural effusions being moderate on the left and mild on the right. Donaldo Otero MD PHYSICAL EXAMINATION GENERAL: No acute distress. HEENT: No icterus. No conjunctival erythema. Oropharynx without lesions. Moist mucosa. NECK: Supple. No adenopathy. No swelling. No jugular venous distension. LUNGS: Diminished breath sounds. HEART: Nl S1S2, no murmurs, rubs or gallops. ABDOMEN: Bowel sounds present, soft, no tenderness. Mildly distended. Surgical incision intact without signs of infection. EXTREMITIES: No clubbing or cyanosis or edema. Left upper extremity has AV fistula which appears intact and has a strong bruit and no erythema or signs of infection. SKIN: Warm and moist. No rash. NEUROLOGIC: No gross focal findings. PSYCHIATRIC: Calm and cooperative. IMPRESSION 1. Fever. Temp lower. 2. Post bilateral nephrectomy. CT scan ? post surgical changes. 3. Sepsis syndrome in patient with elevated white blood cell count and fever and elevated heart rate and possible pneumonia versus other source of sepsis. 4. Lung infiltrate. Probable pneumonia and potentially cause of sepsis in this patient. 5. End-stage renal disease. 6. Leukocytosis persist. Stable. RECOMMENDATIONS 1. Continue Vancomycin, 2. Continue piperacillin/tazobactam. 3. Follow C. difficile toxin. 4. Follow blood cultures. 5. Monitor the temperature. 6. Monitor clinical status. Please call ID if any high fever on weekend. Prieto Rosales MD September 24, 2016 17:06
[2016-09-24 17:58] LABS: C. DIFF EPI 027 PRESUMPTIVE NEGATIVE (NEGATIVE); C. DIFF TOXIN PCR NEGATIVE (NEGATIVE)
[2016-09-25] VITALS: BP 118/72; PULSE 98; RESP 20; TEMP 99.4; O2SAT 100
[2016-09-25] MEDS: oxyCODONE/ACETAMINOPHEN 5 MG/325 MG TAB PO PRN ×3 (02:45→19:43)
[2016-09-25] MEDS: ONDANSETRON HCL 4 MG/2 ML VIAL IV PRN ×2 (02:48→19:43)
[2016-09-25] MEDS: HYDROmorphone HCL PF 1 MG/ML VIAL IV PRN ×5 (04:11→22:42)
--- NOTE | 2016-09-25 07:34 | HHI.PR ---
Subjective Remarks Seen in HD. Patient denies any chest pain or sob. Says she is not coughing. No n /v., Says he had 3 loose BM since yesterday. C diff is negative. No fevers or chills. Says he has pain, controlled by pain meds. Patient denies any fevers or chills. However he was noted with Temp of 100.9 last night at 8 PM Objective Vitals Vital Signs Date Time Temp Pulse Resp B/P Pulse Ox O2 Delivery O2 Flow Rate FiO2 09/25/16 00:00 99.4 98 20 118/72 100 09/24/16 20:21 93 09/24/16 20:00 100.9 117 22 150/80 93 09/24/16 16:00 99.0 99 18 117/65 93 09/24/16 12:00 98.8 97 18 117/70 93 09/24/16 08:15 Nasal Cannula 1.00 09/24/16 08:00 97.3 97 15 113/72 96 I/O 09/24/16 09/24/16 09/24/16 09/25/16 09/25/16 09/25/16 07:00 15:00 23:00 07:00 15:00 23:00 Intake Total 290 ml 360 ml 480 ml 460 ml Output Total 0 ml Balance 290 ml 360 ml 480 ml 460 ml Intake Oral 240 ml 360 ml 480 ml 460 ml IV Total 50 ml Output Urine Total 0 ml # Voids 0 0 # Bowel Movements 1 4 0 0 Result Diagram: 09/22/16 0442 09/22/16 0442 Imaging Last Impressions Chest X-Ray 09/22/16 0600 Signed Impressions: Service Date/Time: Thursday, September 22, 2016 05:54 - CONCLUSION: 1. Cardiomegaly. 2. Left lower lobe atelectasis versus pneumonia. Left pleural effusion 3. There has been no significant change when compared to the prior exam. Lyndon Casey MD Chest CT 09/21/16 0000 Signed Impressions: Service Date/Time: Wednesday, September 21, 2016 17:09 - CONCLUSION: Moderate left pleural effusion and mild right pleural effusion. Donaldo Otero MD Abdomen/Pelvis CT 09/21/16 0000 Signed Impressions: Service Date/Time: Wednesday, September 21, 2016 17:09 - CONCLUSION: 1. Status post bilateral nephrectomy with fluid in the renal fossa regions bilaterally being much more prominent on the left. The fluid and soft tissue density on the left extends throughout the entire left renal fossa and into the left pelvis. There are a few small foci of air seen on the left side. Some degree of infection cannot be excluded. A well formed abscess is difficult to clearly identify on this noncontrast CT examination. 2. Multiple low density masses seen in the liver likely representing cysts given the polycystic kidneys seen on the prior exam. 3. Ascites seen in the left upper quadrant and in the lower pelvis. 4. Bilateral pleural effusions being moderate on the left and mild on the right. Donaldo Otero MD Objective Remarks GENERAL: This is a well-nourished, well-developed patient, in no acute distress SKIN: No rashes, warm and dry HEAD: Atraumatic. Normocephalic. EYES: Pupils equal round and reactive. Extraocular motions intact. No scleral icterus. ENT: Nose without bleeding, or drainage, Airway patent. NECK: Trachea midline. Supple CARDIOVASCULAR: Tachycardia, without murmurs, gallops, or rubs. RESPIRATORY: Decreased breath sounds on the left base No wheezes, rales, or rhonchi. GASTROINTESTINAL: Abdomen soft, non-tender, nondistended. Positive bowel sounds MUSCULOSKELETAL: Extremities without clubbing, cyanosis, or edema. Pedal pulses appreciated NEUROLOGICAL: Awake and alert. Moves all extremity. Normal speech.no focal neurological deficit Procedures bilateral nephrectomies by Dr. Hou 09/14/16 A/P Assessment and Plan 46 years old with autosomal dominant polycystic kidney disease admitted for bilateral nephrectomies , who developed later on sustained fever tachycardia, left lower lobe consolidation/atelectasis and pleural effusion - Suspect sepsis due to left lower lobe pneumonia (temp 101 on September 19, tachycardia, WBC 11 K with left shift) - Febrile illness with mild leukocytosis possibly due to LLL pneumonia HAP ( chest x-ray showing left lower consolidation versus atelectasis with pleural effusion). Patient had Temp 100.9 (5/6 at night 8PM). ID specialiat notified. Dr Pedroza will see the patient. Will order US chest left for markings, plan for thoracentesis if mod effusion, diagnostic. - ADPKD Status post bilateral nephrectomies by Dr. Hou on 09/14/16, nephrology following for HD - ESRD due to recent bilateral nephrectomies Monitor creatinine - Diarrhea. Check C diff patient was constipated prior, also on abx. Antiemetics. C diff negative. On probiotics. Recommendation: Continue on Zosyn and Vanco on Levaquin, fever improved, ID following, as well as urology and nephrology, follow culture Agree with sending blood culture ID consulted and following O2, DuoNeb Sputum culture was sent showed normal growth reviewed by me personally Urology and nephrology notes reviewed by me Check lactic acid Monitor CBC - DVT prophylaxis on heparin 5000 (3 times a day) Discussed with the patient, nurse DC when improved. Catrachita Robbins MD September 25, 2016 07:34
[2016-09-25] MEDS: PIPERACIL-TAZO 2.25 GM PREMIX 50 ML IV SCH ×4 (07:44→23:15)
[2016-09-25] MEDS: CALCIUM ACETATE 667 MG CAP PO SCH ×3 (07:44→16:40)
[2016-09-25] MEDS: SODIUM CHLORIDE 0.9% FLUSH 10 ML FLUSH IV FLUSH SCH ×2 (07:44→19:44)
[2016-09-25 08:00] VITALS: BP 122/69; PULSE 91; RESP 20; TEMP 98.4; O2SAT 97
[2016-09-25] MEDS: GELATIN 12 MM/7 MM FOAM TOP PRN (10:09)
[2016-09-25] MEDS: VANCOMYCIN INJ 1,000 MG in SODIUM CHLOR 0.9% 250 ML INJ 250 ML IV SCH (10:09)
[2016-09-25] MEDS: EPOETIN ALFA 10,000 UNITS/ML VIAL IV SCH (10:10)
--- NOTE | 2016-09-25 10:19 | HHI.NPPN ---
Subjective History of Present Illness 46-year-old male with a past medical history of hypertension, polycystic kidney disease, end-stage renal disease on hemodialysis three times per week who was admitted for bilateral nephrectomy. Additional Remarks Patient is alert, seen during HD, still has occ. abd. cramps, no cough, with nasal cannula. Objective Data Data 09/24/16 09/25/16 19:00 07:00 Intake Total 360 ml 940 ml Output Total 0 ml Balance 360 ml 940 ml Intake Oral 360 ml 940 ml Output Urine Total 0 ml # Voids 0 # Bowel Movements 4 0 Vital Signs Date Time Temp Pulse Resp B/P Pulse Ox O2 Delivery O2 Flow Rate FiO2 09/25/16 08:00 98.4 91 20 122/69 97 09/25/16 00:00 99.4 98 20 118/72 100 09/24/16 20:21 93 09/24/16 20:00 100.9 117 22 150/80 93 09/24/16 16:00 99.0 99 18 117/65 93 09/24/16 12:00 98.8 97 18 117/70 93 -: 09/22/16 0442 09/22/16 0442 Physical Exam General Appearance: No Acute Distress, Comfortable Throat Throat Exam: Oral Mucosa [place] & Moist Pulmonary Resp Exam: Clear Bilaterally, Breath Sounds Equal, Decreased Bases Cardiology CV Exam: Regular, Normal Sinus Rhythm Gastrointestinal/Abdomen GI Exam: Soft, Non-Tender, Bowel Sounds Present Extremeties Extremities Exam: Trace Edema Neurologic Neuro Exam: Alert, Awake, Oriented Psychiatric Psych Exam: Appropriate Responses Assessment/Plan Assessment Summary: Anemia of CKD, Hypertension, End Stage Renal Disease Problem List: (1) Autosomal dominant polycystic kidney disease (2) HTN (hypertension) (3) End stage kidney disease (4) Status post nephrectomy Plan Patient has Bilateral Nephrectomies done due to PKD and pre transplant. Bowel function appears to be returning. On Epogen and follow the Hgb. possible pneumonia, On Vanco. and Zosyn, Blood cultures negative. Has low grade fever again yesterday, now afebrile. Continue antibiotics. HD now, remove fluid as tolerated. Problem Qualifiers (1) HTN (hypertension): Qualified Code: I10 - Essential hypertension Ta Rinaldi MD September 25, 2016 10:19
[2016-09-25 12:00] VITALS: BP 139/76; PULSE 119; RESP 16; TEMP 99.7; O2SAT 94
--- NOTE | 2016-09-25 13:00 | HHI.PR ---
Subjective Patient symptoms today Postoperative day #11 Continues to have low-grade temperatures Overall feels he is improving Objective Vital Signs Vital Signs Date Time Temp Pulse Resp B/P Pulse Ox O2 Delivery O2 Flow Rate FiO2 09/25/16 08:00 98.4 91 20 122/69 97 09/25/16 00:00 99.4 98 20 118/72 100 09/24/16 20:21 93 09/24/16 20:00 100.9 117 22 150/80 93 09/24/16 16:00 99.0 99 18 117/65 93 Intake & Output 09/25/16 09/25/16 07:00 19:00 Intake Total 940 ml Output Total 0 ml 2000 ml Balance 940 ml -2000 ml Intake Oral 940 ml Output Urine Total 0 ml Hemodialysis 2000 ml # Bowel Movements 0 Result Diagram: 09/22/16 0442 09/22/16441 Objective Remarks Remains on supplemental oxygen Abdomen soft, nondistended, nontender Wound sites clean with scant amount of serous drainage noted at umbilicus Extremities well-perfused, nontender Medications and IVs Current Medications Medications (Trade) Dose Ordered Sig/Johan Route Start Time Stop Time Status Last Admin (NS Flush) 2 ml UNSCH PRN IV FLUSH 09/14/16 12:45 (NS Flush) 2 ml BID IV FLUSH 09/14/16 12:45 09/25/16 07:44 Naloxone HCl 0.4 mg 0.4 mg UNSCH PRN IV 09/14/16 12:45 (NS 1000 ml Inj) 1,000 ml @ 0 mls/hr Q0M PRN IV 09/14/16 19:40 09/18/16 10:31 Heparin Sodium (Porcine) 8000 units 8,000 units UNSCH PRN IVF 09/14/16 19:45 Sodium Chloride 1,000 ml @ 200 mls/hr Q5H PRN IV 09/14/16 19:40 09/25/16 10:08 (NS 1000 ml Inj) 1,000 ml @ 0 mls/hr Q0M PRN IV 09/14/16 19:40 (Mannitol Inj) 12.5 gm UNSCH PRN IV 09/14/16 19:45 (Albumin 25% Inj) 25 gm UNSCH PRN IV 09/14/16 19:45 (NS Flush) 5 ml UNSCH PRN IV FLUSH 09/14/16 19:45 (Heparin Inj) UNSCH PRN .XX 09/14/16 19:45 (Gentamicin (Dialysis) Inj) 20 mg UNSCH PRN IV 09/14/16 19:45 (Zofran Inj) 4 mg UNSCH PRN IV 09/14/16 19:45 09/25/16 02:48 (Tylenol) 650 mg UNSCH PRN PO 09/14/16 19:45 09/20/16 08:26 (Benadryl) 25 mg UNSCH PRN PO 09/14/16 19:45 (Nitrostat Sl) 0.4 mg UNSCH PRN SL 09/14/16 19:45 (Catapres) 0.1 mg UNSCH PRN PO 09/14/16 19:45 (Gelfoam 12 Mm/7 Mm Top) 1 foam UNSCH PRN TOP 09/14/16 19:45 09/25/16 10:09 (Ativan Inj) 1 mg TID PRN IV PUSH 09/14/16 21:45 09/19/16 15:05 (Protonix Inj) 40 mg Q24H IV PUSH 09/16/16 14:00 09/24/16 13:32 (Percocet 5-325 Mg) 1 tab Q6H PRN PO 09/19/16 12:30 09/23/16 02:09 (Percocet 5-325 Mg) 2 tab Q6H PRN PO 09/19/16 12:30 09/25/16 11:47 (Dilaudid Pf Inj) 0.5 mg Q3H PRN IV 09/19/16 20:30 09/25/16 07:38 Calcium Acetate 1334 mg 1,334 mg TID PO 09/20/16 18:00 09/24/16 18:31 (Zosyn 2.25 Gm Premix) 50 ml @ 100 mls/hr Q8H IV 09/21/16 16:00 09/25/16 11:49 (Epogen Inj) 10,000 units TuThSa IV 09/25/16 10:00 09/25/16 10:10 Assessment and Plan Assessment and Plan Urologic impression: #1 status post open surgical bilateral nephrectomies for adult polycystic kidney disease #2 Left lower lung pneumonia being managed by medicine and infectious disease physicians. Plan: #1 Appreciate management of left lower lobe pneumonia as per Medicine and Infectious Disease #2 Continue with hemodialysis as per nephrology recommendations #3 Will DC surgical skylar on Tuesday Lalo Collier MD September 25, 2016 13:00
--- NOTE | 2016-09-25 13:18 | RADRPT ---
EXAM DATE/TIME: 09/25/2016 11:56 [facility] COMPARISON: CT THORAX W/O CONTRAST, September 21, 2016, 17:09. CHEST PA & LAT, September 22, 2016, 5:54. INDICATIONS : Left pleural effusion. MEDICAL HISTORY : Congestive heart failure. Hypercholesterolemia. Arthritis. PVC. HTN. Dyspnea. Polycystic kidney disea se. Stage IV kidney disease. Osteoarthritis. Anxiety. SURGICAL HISTORY : Left AV fistula. Dialysis. Bilateral nephrectomy. ENCOUNTER: Initial ACUITY: 2 weeks PAIN SCORE: 7/10 LOCATION: Left chest MEASUREMENTS: SKIN TO PARIETAL PLEURA: 3.2 cm SKIN TO MAX SAFE DEPTH: 5.1 cm ESTIMATED FLUID VOLUME: 380 cc FLUID COMPOSITION: simple FINDINGS: Pleural effusion as above. A eve was placed on the skin surface superficial to the pleural fluid col lection. CONCLUSION: Small to moderate left effusion. Tony Cruz MD on September 25, 2016 at 13:14 Board Certified Radiologist. This report was verified electronically.
[2016-09-25] MEDS: PANTOPRAZOLE SODIUM 40 MG VIAL IV PUSH SCH (13:33)
[2016-09-25 16:00] VITALS: BP 119/64; PULSE 96; RESP 16; TEMP 97.3; O2SAT 96
--- NOTE | 2016-09-25 17:33 | HHI.IDPN ---
Note Infectious Disease Note ID Xcover for 46 y/o CM with Polycystic kidney disease, s/p bilateral nephrectomies. ID Following for sepsis, Pneumonia/ Asked to see patient by . Discussed case with her. CXR reviewed with her. Concern for pleural effusion. Patient reports shortness of breath at times. Also reports pain in right flank as well as swelling. This is not new per family and RN at bedside. Cdiff tested and negative. Febrile low grade. Blood Cultures have no growth. PAST MEDICAL HISTORY 1. Hypertension 2. End-stage renal disease on hemodialysis 3. Polycystic kidney disease, 4. Chronic anemia 5. AV fistula. ALLERGIES NO KNOWN DRUG ALLERGIES. OBJECTIVE: Vital Signs Date Time Temp Pulse Resp B/P Pulse Ox O2 Delivery O2 Flow Rate FiO2 09/25/16 12:00 99.7 119 16 139/76 94 09/25/16 08:00 98.4 91 20 122/69 97 09/25/16 00:00 99.4 98 20 118/72 100 09/24/16 20:21 93 09/24/16 20:00 100.9 117 22 150/80 93 09/24/16 09/24/16 09/25/16 15:00 23:00 07:00 Intake Total 360 ml 480 ml 460 ml Output Total 0 ml Balance 360 ml 480 ml 460 ml Intake Oral 360 ml 480 ml 460 ml Output Urine Total 0 ml # Voids 0 # Bowel Movements 4 0 0 Laboratory Tests Test 09/24/16 16:30 Stool C. difficile Toxin (PCR) NEGATIVE Stl C. difficile Toxin PRESUMPTIVE Epiderm 027 NEGATIVE Microbiology Date/Time Procedure Status Source Growth 09/21/16 18:10 Aerobic Blood Culture - Preliminary Resulted Blood Peripheral NO GROWTH IN 3 DAYS 09/21/16 18:10 Anaerobic Blood Culture - Preliminary Resulted Blood Peripheral NO GROWTH IN 3 DAYS 09/21/16 18:21 Aerobic Blood Culture - Preliminary Resulted Blood Peripheral NO GROWTH IN 3 DAYS 09/21/16 18:21 Anaerobic Blood Culture - Preliminary Resulted Blood Peripheral NO GROWTH IN 3 DAYS IMAGING: Last Impressions Chest Ultrasound 09/25/16 0000 Signed Impressions: Service Date/Time: Sunday, September 25, 2016 11:56 - CONCLUSION: Small to moderate left effusion. Tony Cruz MD Chest X-Ray 09/22/16 0600 Signed Impressions: Service Date/Time: Thursday, September 22, 2016 05:54 - CONCLUSION: 1. Cardiomegaly. 2. Left lower lobe atelectasis versus pneumonia. Left pleural effusion 3. There has been no significant change when compared to the prior exam. Lyndon Casey MD Chest CT 09/21/16 0000 Signed Impressions: Service Date/Time: Wednesday, September 21, 2016 17:09 - CONCLUSION: Moderate left pleural effusion and mild right pleural effusion. Donaldo Otero MD Abdomen/Pelvis CT 09/21/16 0000 Signed Impressions: Service Date/Time: Wednesday, September 21, 2016 17:09 - CONCLUSION: 1. Status post bilateral nephrectomy with fluid in the renal fossa regions bilaterally being much more prominent on the left. The fluid and soft tissue density on the left extends throughout the entire left renal fossa and into the left pelvis. There are a few small foci of air seen on the left side. Some degree of infection cannot be excluded. A well formed abscess is difficult to clearly identify on this noncontrast CT examination. 2. Multiple low density masses seen in the liver likely representing cysts given the polycystic kidneys seen on the prior exam. 3. Ascites seen in the left upper quadrant and in the lower pelvis. 4. Bilateral pleural effusions being moderate on the left and mild on the right. Donaldo Otero MD PHYSICAL EXAMINATION GENERAL: No acute distress. HEENT: No icterus. No conjunctival erythema. Oropharynx without lesions. Moist mucosa. NECK: Supple. No adenopathy. No swelling. No jugular venous distension. LUNGS: Diminished breath sounds left more than right. HEART: Nl S1S2, no murmurs, rubs or gallops. ABDOMEN: Bowel sounds present, soft, no tenderness. Mildly distended. Surgical incision intact without signs of infection. EXTREMITIES: No clubbing or cyanosis or edema. Left upper extremity has AV fistula which appears intact and has a strong bruit and no erythema or signs of infection. SKIN: Warm and moist. No rash. NEUROLOGIC: No gross focal findings. PSYCHIATRIC: Calm and cooperative. IMPRESSION 1. Sepsis. 2. Pneumonia Health care associated. 3. Pleural effusion left side moderate. 4. ESRD on Dialysis. 5. Polycystic kidney disease s/p nephrectomy bilateral. Stable. RECOMMENDATIONS US chest asked to order in am. Pulm consult. Possible need for thoracentesis and bronchoscopy if fevers persist. DC Vancomycin (? drug fever. Fevers resolved then recurred, WBC down trending) Continue Zosyn IV Follow blood cultures. Monitor the temperature. Please call sooner if any change in clinical condition. to resume care on 09/27/2016. Marlen Pedroza MD September 25, 2016 17:32
[2016-09-25 20:00] VITALS: BP 122/74; PULSE 106; RESP 20; TEMP 100.7; O2SAT 95
[2016-09-26] VITALS: BP 116/64; PULSE 92; RESP 18; TEMP 99.6; O2SAT 93
[2016-09-26] MEDS: ONDANSETRON HCL 4 MG/2 ML VIAL IV PRN ×2 (06:33→21:15)
[2016-09-26] MEDS: oxyCODONE/ACETAMINOPHEN 5 MG/325 MG TAB PO PRN ×3 (06:33→18:04)
[2016-09-26 08:00] VITALS: BP 127/74; PULSE 107; RESP 20; TEMP 99.3; O2SAT 94
[2016-09-26] MEDS: HYDROmorphone HCL PF 1 MG/ML VIAL IV PRN ×3 (08:33→21:15)
[2016-09-26] MEDS: PIPERACIL-TAZO 2.25 GM PREMIX 50 ML IV SCH (08:34)
[2016-09-26] MEDS: SODIUM CHLORIDE 0.9% FLUSH 10 ML FLUSH IV FLUSH SCH ×2 (08:34→19:42)
[2016-09-26] MEDS: CALCIUM ACETATE 667 MG CAP PO SCH ×3 (08:34→18:04)
--- NOTE | 2016-09-26 09:21 | HHI.NPPN ---
Subjective History of Present Illness 46-year-old male with a past medical history of hypertension, polycystic kidney disease, end-stage renal disease on hemodialysis three times per week who was admitted for bilateral nephrectomy. Additional Remarks Patient is alert, sitting on the chair, breathing is better. Objective Data Data 09/25/16 09/26/16 19:00 07:00 Intake Total 380 ml 240 ml Output Total 2000 ml 0 ml Balance -1620 ml 240 ml Intake Oral 330 ml 240 ml IV Total 50 ml Output Urine Total 0 ml Hemodialysis 2000 ml # Bowel Movements 2 0 Vital Signs Date Time Temp Pulse Resp B/P Pulse Ox O2 Delivery O2 Flow Rate FiO2 09/26/16 08:00 99.3 107 20 127/74 94 09/26/16 00:00 99.6 92 18 116/64 93 09/25/16 20:00 100.7 106 20 122/74 95 09/25/16 16:00 97.3 96 16 119/64 96 09/25/16 12:00 99.7 119 16 139/76 94 -: 09/22/16 0442 09/22/16 0442 Physical Exam General Appearance: No Acute Distress, Comfortable Throat Throat Exam: Oral Mucosa Corley & Moist Pulmonary Resp Exam: Clear Bilaterally, Breath Sounds Equal, Decreased Bases Cardiology CV Exam: Regular, Normal Sinus Rhythm Gastrointestinal/Abdomen GI Exam: Soft, Non-Tender, Bowel Sounds Present Extremeties Extremities Exam: Trace Edema Neurologic Neuro Exam: Alert, Awake, Oriented Psychiatric Psych Exam: Appropriate Responses Assessment/Plan Assessment Summary: Anemia of CKD, Hypertension, End Stage Renal Disease Problem List: (1) Autosomal dominant polycystic kidney disease (2) HTN (hypertension) (3) End stage kidney disease (4) Status post nephrectomy Plan Patient has Bilateral Nephrectomies done due to PKD and pre transplant. Bowel function appears to be returning. On Epogen and follow the Hgb. possible pneumonia, On Zosyn, Vanco. was stopped by ID. Blood cultures negative. Has low grade fever again yesterday, now afebrile. Continue antibiotics. U/S chest noted, possibly will need Thoracentesis, Pulmonary consulted. Problem Qualifiers (1) HTN (hypertension): Qualified Code: I10 - Essential hypertension Ta Rinaldi MD September 26, 2016 09:21
--- NOTE | 2016-09-26 10:25 | HHI.PR ---
Subjective Remarks Feels improved today. he is ambulating. No fevers or chills. however he is still with temps. Denies chest pain. Says however he has sometimes cough nonproductive and has pain in his right lower back and and lateral while he is coughing. He is satting well on room air. He is SOB with ambulation. He wants if possible to have more fluid removed with HD. Will discuss with nephrology. Diarrhea improving. No abd pain. patient other eaton has no other complaints. Objective Vitals Vital Signs Date Time Temp Pulse Resp B/P Pulse Ox O2 Delivery O2 Flow Rate FiO2 09/26/16 08:00 99.3 107 20 127/74 94 09/26/16 00:00 99.6 92 18 116/64 93 09/25/16 20:00 100.7 106 20 122/74 95 09/25/16 16:00 97.3 96 16 119/64 96 09/25/16 12:00 99.7 119 16 139/76 94 I/O 09/25/16 09/25/16 09/25/16 09/26/16 09/26/16 09/26/16 07:00 15:00 23:00 07:00 15:00 23:00 Intake Total 460 ml 380 ml 240 ml 100 ml Output Total 0 ml 2000 ml 0 ml 0 ml Balance 460 ml -1620 ml 240 ml 100 ml Intake Oral 460 ml 330 ml 240 ml 100 ml IV Total 50 ml Output Urine Total 0 ml 0 ml 0 ml Hemodialysis 2000 ml # Bowel Movements 0 2 0 0 Result Diagram: 09/22/16 0442 09/22/16 0442 Imaging Last Impressions Chest X-Ray 09/26/16 0000 Signed Impressions: Service Date/Time: Monday, September 26, 2016 11:58 - CONCLUSION: 1. Moderate-sized left joint effusion without significant change. 2. Mild cardiomegaly and motion artifact. Tony Cruz MD Chest Ultrasound 09/25/16 0000 Signed Impressions: Service Date/Time: Sunday, September 25, 2016 11:56 - CONCLUSION: Small to moderate left effusion. Tony Cruz MD Chest CT 09/21/16 0000 Signed Impressions: Service Date/Time: Wednesday, September 21, 2016 17:09 - CONCLUSION: Moderate left pleural effusion and mild right pleural effusion. Donaldo Otero MD Abdomen/Pelvis CT 09/21/16 0000 Signed Impressions: Service Date/Time: Wednesday, September 21, 2016 17:09 - CONCLUSION: 1. Status post bilateral nephrectomy with fluid in the renal fossa regions bilaterally being much more prominent on the left. The fluid and soft tissue density on the left extends throughout the entire left renal fossa and into the left pelvis. There are a few small foci of air seen on the left side. Some degree of infection cannot be excluded. A well formed abscess is difficult to clearly identify on this noncontrast CT examination. 2. Multiple low density masses seen in the liver likely representing cysts given the polycystic kidneys seen on the prior exam. 3. Ascites seen in the left upper quadrant and in the lower pelvis. 4. Bilateral pleural effusions being moderate on the left and mild on the right. Donaldo Otero MD Objective Remarks GENERAL: This is a well-nourished, well-developed patient, in no acute distress SKIN: No rashes, warm and dry HEAD: Atraumatic. Normocephalic. EYES: Pupils equal round and reactive. Extraocular motions intact. No scleral icterus. ENT: Nose without bleeding, or drainage, Airway patent. NECK: Trachea midline. Supple CARDIOVASCULAR: Tachycardia, without murmurs, gallops, or rubs. RESPIRATORY: Decreased breath sounds on the left base No wheezes, rales, or rhonchi. GASTROINTESTINAL: Abdomen soft, non-tender, nondistended. Positive bowel sounds MUSCULOSKELETAL: Extremities without clubbing, cyanosis, or edema. Pedal pulses appreciated NEUROLOGICAL: Awake and alert. Moves all extremity. Normal speech.no focal neurological deficit Procedures bilateral nephrectomies by Dr. Hou 09/14/16 A/P Assessment and Plan 46 years old with autosomal dominant polycystic kidney disease admitted for bilateral nephrectomies , who developed later on sustained fever tachycardia, left lower lobe consolidation/atelectasis and pleural effusion - Suspect sepsis due to left lower lobe pneumonia (temp 101 on September 19, tachycardia, WBC 11 K with left shift) - Febrile illness with mild leukocytosis possibly due to LLL pneumonia HAP with left pleural effusion -mild to moderate (chest x-ray showing left lower consolidation versus atelectasis with pleural effusion). Patient had Temp 100.9 (5/6 at night 8PM). ID specialiat notified. Dr Pedroza. ABX chnaged 09/26/[address] Pedroza recommendations. US chest left for markings reviewed ( shows mild to moderate effusion) findings also discussed with ID specialist Dr Pedroza. Will hold on thoracentesis as patient is stable. Will also consult pulmonology. - ADPKD Status post bilateral nephrectomies by Dr. Hou on 09/14/16, nephrology following for HD - ESRD due to recent bilateral nephrectomies Monitor creatinine - Diarrhea. Check C diff patient was constipated prior, also on abx. Antiemetics. C diff negative. On probiotics.Improving. Recommendation: Continue on Zosyn and Vanco on Levaquin, fever improved, ID following, as well as urology and nephrology, follow culture Agree with sending blood culture ID consulted and following O2, DuoNeb Sputum culture was sent showed normal growth reviewed by me personally Urology and nephrology notes reviewed by me Check lactic acid Monitor CBC - DVT prophylaxis on heparin 5000 (3 times a day) Discussed with the patient, nurse DC when improved. Catrachita Robbins MD September 26, 2016 10:25
[2016-09-26 11:41] VITALS: O2SAT 96
[2016-09-26 12:00] VITALS: BP 111/68; PULSE 85; RESP 20; TEMP 97.3; O2SAT 93
--- NOTE | 2016-09-26 12:25 | RADRPT ---
EXAM DATE/TIME: 09/26/2016 11:58 [facility] COMPARISON: CHEST PA & LAT, September 22, 2016, 5:54. CT THORAX W/O CONTRAST, September 21, 2016, 17:09. CHEST SINGLE AP, A pril 2016, 18:52. INDICATIONS : Pleural effusions. Evaluate pneumonia MEDICAL HISTORY : None. SURGICAL HISTORY : None. ENCOUNTER: Initial ACUITY: 3 days PAIN SCORE: 0/10 LOCATION: Bilateral chest FINDINGS: A single AP erect portable view of the chest was obtained and again demonstrates a moderate size left effusion. The small right effusion is not distinctly visualized. The heart size appears mildly promi nent. There is motion artifact. The bony thorax is intact. CONCLUSION: 1. Moderate-sized left joint effusion without significant change. 2. Mild cardiomegaly and motion artifact. Tony Cruz MD on September 26, 2016 at 12:21 Board Certified Radiologist. This report was verified electronically.
[2016-09-26] MEDS: PANTOPRAZOLE SODIUM 40 MG VIAL IV PUSH SCH (12:28)
--- NOTE | 2016-09-26 13:51 | HHI.PR ---
Subjective Patient symptoms today Postop day #12 Reports feeling much better today Abulating well Tolerating oral intake well Objective Vital Signs Vital Signs Date Time Temp Pulse Resp B/P Pulse Ox O2 Delivery O2 Flow Rate FiO2 09/26/16 12:00 97.3 85 20 111/68 93 09/26/16 11:41 96 21 09/26/16 08:00 99.3 107 20 127/74 94 09/26/16 00:00 99.6 92 18 116/64 93 09/25/16 20:00 100.7 106 20 122/74 95 09/25/16 16:00 97.3 96 16 119/64 96 Intake & Output 09/26/16 09/26/16 06:59 18:59 Intake Total 240 ml 100 ml Output Total 0 ml 0 ml Balance 240 ml 100 ml Intake Oral 240 ml 100 ml Output Urine Total 0 ml 0 ml # Bowel Movements 0 0 Result Diagram: 09/22/16 0442 09/22/16 0442 Imaging Last 24 hours Impressions Chest X-Ray 09/26/16 0000 Signed Impressions: Service Date/Time: Monday, September 26, 2016 11:58 - CONCLUSION: 1. Moderate-sized left joint effusion without significant change. 2. Mild cardiomegaly and motion artifact. Tony Cruz MD Objective Remarks Abdomen soft, nondistended, nontender Wound sites clean and dry Extremities well-perfused, nontender Medications and IVs Current Medications Medications (Trade) Dose Ordered Sig/Johan Route Start Time Stop Time Status Last Admin (NS Flush) 2 ml UNSCH PRN IV FLUSH 09/14/16 12:45 (NS Flush) 2 ml BID IV FLUSH 09/14/16 12:45 09/26/16 08:34 Naloxone HCl 0.4 mg 0.4 mg UNSCH PRN IV 09/14/16 12:45 (NS 1000 ml Inj) 1,000 ml @ 0 mls/hr Q0M PRN IV 09/14/16 19:40 09/18/16 10:31 Heparin Sodium (Porcine) 8000 units 8,000 units UNSCH PRN IVF 09/14/16 19:45 Sodium Chloride 1,000 ml @ 200 mls/hr Q5H PRN IV 09/14/16 19:40 09/25/16 10:08 (NS 1000 ml Inj) 1,000 ml @ 0 mls/hr Q0M PRN IV 09/14/16 19:40 (Mannitol Inj) 12.5 gm UNSCH PRN IV 09/14/16 19:45 (Albumin 25% Inj) 25 gm UNSCH PRN IV 09/14/16 19:45 (NS Flush) 5 ml UNSCH PRN IV FLUSH 09/14/16 19:45 (Heparin Inj) UNSCH PRN .XX 09/14/16 19:45 (Gentamicin (Dialysis) Inj) 20 mg UNSCH PRN IV 09/14/16 19:45 (Zofran Inj) 4 mg UNSCH PRN IV 09/14/16 19:45 09/26/16 06:33 (Tylenol) 650 mg UNSCH PRN PO 09/14/16 19:45 09/20/16 08:26 (Benadryl) 25 mg UNSCH PRN PO 09/14/16 19:45 (Nitrostat Sl) 0.4 mg UNSCH PRN SL 09/14/16 19:45 (Catapres) 0.1 mg UNSCH PRN PO 09/14/16 19:45 (Gelfoam 12 Mm/7 Mm Top) 1 foam UNSCH PRN TOP 09/14/16 19:45 09/25/16 10:09 (Ativan Inj) 1 mg TID PRN IV PUSH 09/14/16 21:45 09/19/16 15:05 (Protonix Inj) 40 mg Q24H IV PUSH 09/16/16 14:00 09/26/16 12:28 (Percocet 5-325 Mg) 1 tab Q6H PRN PO 09/19/16 12:30 09/23/16 02:09 (Percocet 5-325 Mg) 2 tab Q6H PRN PO 09/19/16 12:30 09/26/16 12:28 (Dilaudid Pf Inj) 0.5 mg Q3H PRN IV 09/19/16 20:30 09/26/16 08:33 (Phoslo) 1,334 mg TID PO 09/20/16 18:00 09/26/16 12:28 Epoetin Mark 00718 units 10,000 units TuThSa IV 09/25/16 10:00 09/25/16 10:10 (Maxipime Inj/NS Inj) 100 ml @ 200 mls/hr Q24H IV 09/26/16 15:00 Assessment and Plan Assessment and Plan Urologic impression: #1 status post open surgical bilateral nephrectomies for adult polycystic kidney disease #2 Left lower lung pneumonia/pleural effusion being managed by medicine and infectious disease physicians. Plan: #1 Appreciate management of left lower lobe pneumonia/pleural effusion as per Medicine and Infectious Disease #2 Continue with hemodialysis as per nephrology recommendations #3 Will DC surgical skylar tomorrow Lalo Collier MD September 26, 2016 13:51
[2016-09-26] MEDS: CEFEPIME INJ 2,000 MG in SODIUM CHLORIDE 0.9% INJ 100 ML IV SCH (15:49)
[2016-09-26 16:00] VITALS: BP 115/68; PULSE 89; RESP 18; TEMP 96.9
--- NOTE | 2016-09-26 17:11 | HHI.IDPN ---
Note Infectious Disease Note ID Xcover for 46 y/o CM with Polycystic kidney disease, s/p bilateral nephrectomies. ID Following for sepsis, Pneumonia/ Asked to see patient by . Discussed case with her. CXR reviewed with her. Concern for pleural effusion. Patient reports shortness of breath at times. Also reports pain in right flank as well as swelling. This is not new per family and RN at bedside. Cdiff tested and negative. Febrile low grade. Blood Cultures have no growth. PAST MEDICAL HISTORY 1. Hypertension 2. End-stage renal disease on hemodialysis 3. Polycystic kidney disease, 4. Chronic anemia 5. AV fistula. ALLERGIES NO KNOWN DRUG ALLERGIES. OBJECTIVE: Vital Signs Vital Signs Date Time Temp Pulse Resp B/P Pulse Ox O2 Delivery O2 Flow Rate FiO2 09/26/16 16:00 96.9 89 18 115/68 09/26/16 12:00 97.3 85 20 111/68 93 09/26/16 11:41 96 21 09/26/16 08:00 99.3 107 20 127/74 94 09/26/16 00:00 99.6 92 18 116/64 93 09/25/16 20:00 100.7 106 20 122/74 95 09/25/16 09/25/16 09/26/16 15:00 23:00 07:00 Intake Total 380 ml 240 ml Output Total 2000 ml 0 ml Balance -1620 ml 240 ml Intake Oral 330 ml 240 ml IV Total 50 ml Output Urine Total 0 ml Hemodialysis 2000 ml # Bowel Movements 2 0 Laboratory Tests Test 09/24/16 16:30 Stool C. difficile Toxin (PCR) NEGATIVE Stl C. difficile Toxin PRESUMPTIVE Epiderm 027 NEGATIVE Microbiology Date/Time Procedure Status Source Growth 09/21/16 18:10 Aerobic Blood Culture - Preliminary Resulted Blood Peripheral NO GROWTH IN 3 DAYS 09/21/16 18:10 Anaerobic Blood Culture - Preliminary Resulted Blood Peripheral NO GROWTH IN 3 DAYS 09/21/16 18:21 Aerobic Blood Culture - Preliminary Resulted Blood Peripheral NO GROWTH IN 3 DAYS 09/21/16 18:21 Anaerobic Blood Culture - Preliminary Resulted Blood Peripheral NO GROWTH IN 3 DAYS IMAGING: Last Impressions Chest X-Ray 09/26/16 0000 Signed Impressions: Service Date/Time: Monday, September 26, 2016 11:58 - CONCLUSION: 1. Moderate-sized left joint effusion without significant change. 2. Mild cardiomegaly and motion artifact. Tony Cruz MD Chest Ultrasound 09/25/16 Signed Impressions: Service Date/Time: Sunday, September 25, 2016 11:56 - CONCLUSION: Small to moderate left effusion. Tony Cruz MD Chest CT 09/21/16 Signed Impressions: Service Date/Time: Wednesday, September 21, 2016 17:09 - CONCLUSION: Moderate left pleural effusion and mild right pleural effusion. Donaldo Otero MD Abdomen/Pelvis CT 09/21/16 Signed Impressions: Service Date/Time: Wednesday, September 21, 2016 17:09 - CONCLUSION: 1. Status post bilateral nephrectomy with fluid in the renal fossa regions bilaterally being much more prominent on the left. The fluid and soft tissue density on the left extends throughout the entire left renal fossa and into the left pelvis. There are a few small foci of air seen on the left side. Some degree of infection cannot be excluded. A well formed abscess is difficult to clearly identify on this noncontrast CT examination. 2. Multiple low density masses seen in the liver likely representing cysts given the polycystic kidneys seen on the prior exam. 3. Ascites seen in the left upper quadrant and in the lower pelvis. 4. Bilateral pleural effusions being moderate on the left and mild on the right. Donaldo Otero MD PHYSICAL EXAMINATION GENERAL: No acute distress. HEENT: No icterus. No conjunctival erythema. Oropharynx without lesions. Moist mucosa. NECK: Supple. No adenopathy. No swelling. No jugular venous distension. LUNGS: Diminished breath sounds left more than right. HEART: Nl S1S2, no murmurs, rubs or gallops. ABDOMEN: Bowel sounds present, soft, no tenderness. Mildly distended. Surgical incision intact without signs of infection. EXTREMITIES: No clubbing or cyanosis or edema. Left upper extremity has AV fistula which appears intact and has a strong bruit and no erythema or signs of infection. SKIN: Warm and moist. No rash. NEUROLOGIC: No gross focal findings. PSYCHIATRIC: Calm and cooperative. IMPRESSION 1. Sepsis. 2. Pneumonia Health care associated. 3. Pleural effusion left side moderate. 4. ESRD on Dialysis. 5. Polycystic kidney disease s/p nephrectomy bilateral. 6. ? Drug fever: Vanco DCed. ? Zosyn as cause for fever. Stable. RECOMMENDATIONS DC Zosyn IV Start Cefepime IV Appreciate Pulm consult. Possible need for thoracentesis and bronchoscopy if fevers persist. Follow blood cultures. Monitor the temperature. to resume care on 09/27/2016. Marlen Pedroza MD September 26, 2016 17:10
[2016-09-26 20:00] VITALS: BP 114/74; PULSE 108; RESP 18; TEMP 98.8; O2SAT 96
[2016-09-27] VITALS: BP 115/69; PULSE 99; RESP 18; TEMP 98.8; O2SAT 93
[2016-09-27] MEDS: oxyCODONE/ACETAMINOPHEN 5 MG/325 MG TAB PO PRN ×4 (00:08→18:07)
[2016-09-27 05:09] LABS: AUTOMATED NEUTROPHIL # 4.2 TH/MM3 (1.8-7.7); BASOPHIL # 0.1 TH/MM3 (0-0.2); BASOPHIL % 1.1 % (0.0-2.0); EOSINOPHIL # 0.3 TH/MM3 (0-0.4); EOSINOPHIL % 3.9 % (0.0-4.0); HEMATOCRIT 21.2 % (39.0-51.0); LYMPH % 26.9 % (9.0-44.0); LYMPHOCYTE # 1.9 TH/MM3 (1.0-4.8); MEAN CELL VOLUME 87.7 FL (80.0-100.0); MEAN CORPUSCULAR HGB CONC 33.1 % (32.0-36.0); MONO % 9.4 % (0.0-8.0); NEUT % 58.7 % (16.0-70.0); PLATELET COUNT 385 TH/MM3 (150-450); RED BLOOD COUNT 2.42 MIL/MM3 (4.50-5.90); RED CELL DISTRIBUTION WIDTH 13.9 % (11.6-17.2); WHITE BLOOD COUNT 7.2 TH/MM3 (4.0-11.0)
[2016-09-27 05:26] LABS: HEMO FLAGS AUTO DIFF
[2016-09-27 05:31] LABS: ALT (GPT) 16 U/L (12-78); ANION GAP 10 MEQ/L (5-15); AST (GOT) 59 U/L (15-37); BICARBONATE 32.7 MEQ/L (21.0-32.0); BLOOD UREA NITROGEN 51 MG/DL (7-18); CHLORIDE 94 MEQ/L (98-107); GLOMERULAR FILTRATION RATE 5 ML/MIN (>89); POTASSIUM 3.6 MEQ/L (3.5-5.1); SODIUM (NA) 137 MEQ/L (136-145)
[2016-09-27 05:32] LABS: ALKALINE PHOSPHATASE 65 U/L (45-117); TOTAL BILIRUBIN ADULT 0.4 MG/DL (0.2-1.0)
[2016-09-27 07:12] LABS: BANDS 2 % (0-6); BASOPHILS 1 % (0-2); EOSINOPHILS 3 % (0-4); METAMYELOCYTES 1 % (0-1); NEUTROPHIL # MANUAL DIFF 4.5 TH/MM3 (1.8-7.7); PLATELET ESTIMATE SMEAR NORMAL (NORMAL); PLATELET MORPHOLOGY NORMAL (NORMAL); POLYS (SEG NEUTROPHILS) 59 % (16-70); SCAN/DIFF FINAL DIFF MANUAL; WBC DIFF SAMPLE 100
[2016-09-27 08:00] VITALS: BP 138/60; PULSE 104; RESP 17; TEMP 98.8; O2SAT 95
[2016-09-27] MEDS: CALCIUM ACETATE 667 MG CAP PO SCH ×3 (08:32→18:07)
[2016-09-27] MEDS: SODIUM CHLORIDE 0.9% FLUSH 10 ML FLUSH IV FLUSH SCH ×2 (08:33→21:48)
[2016-09-27] MEDS: HYDROmorphone HCL PF 1 MG/ML VIAL IV PRN ×3 (08:39→21:48)
--- NOTE | 2016-09-27 10:01 | HHI.PR ---
Subjective Patient symptoms today Reports that he feels like he is retaining some fluid in particular his lower extremities. Tolerating oral intake well. Ambulating well. Objective Vital Signs Vital Signs Date Time Temp Pulse Resp B/P Pulse Ox O2 Delivery O2 Flow Rate FiO2 09/27/16 08:00 98.8 104 17 138/60 95 09/27/16 00:00 98.8 99 18 115/69 93 09/26/16 20:00 98.8 108 18 114/74 96 09/26/16 16:00 96.9 89 18 115/68 09/26/16 12:00 97.3 85 20 111/68 93 09/26/16 11:41 96 21 Result Diagram: 09/27/1641009/27/16410 Objective Remarks Abdomen soft, nondistended, nontender Wound sites clean and dry Extremities well-perfused, nontender Procedures Surgical skylar removed and Steri-Strips applied Medications and IVs Current Medications Medications (Trade) Dose Ordered Sig/Johan Route Start Time Stop Time Status Last Admin (NS Flush) 2 ml UNSCH PRN IV FLUSH 09/14/16 12:45 (NS Flush) 2 ml BID IV FLUSH 09/14/16 12:45 09/27/16 08:33 Naloxone HCl 0.4 mg 0.4 mg UNSCH PRN IV 09/14/16 12:45 (NS 1000 ml Inj) 1,000 ml @ 0 mls/hr Q0M PRN IV 09/14/16 19:40 09/18/16 10:31 Heparin Sodium (Porcine) 8000 units 8,000 units UNSCH PRN IVF 09/14/16 19:45 Sodium Chloride 1,000 ml @ 200 mls/hr Q5H PRN IV 09/14/16 19:40 09/25/16 10:08 (NS 1000 ml Inj) 1,000 ml @ 0 mls/hr Q0M PRN IV 09/14/16 19:40 (Mannitol Inj) 12.5 gm UNSCH PRN IV 09/14/16 19:45 (Albumin 25% Inj) 25 gm UNSCH PRN IV 09/14/16 19:45 (NS Flush) 5 ml UNSCH PRN IV FLUSH 09/14/16 19:45 (Heparin Inj) UNSCH PRN .XX 09/14/16 19:45 (Gentamicin (Dialysis) Inj) 20 mg UNSCH PRN IV 09/14/16 19:45 (Zofran Inj) 4 mg UNSCH PRN IV 09/14/16 19:45 09/26/16 21:15 (Tylenol) 650 mg UNSCH PRN PO 09/14/16 19:45 09/20/16 08:26 (Benadryl) 25 mg UNSCH PRN PO 09/14/16 19:45 (Nitrostat Sl) 0.4 mg UNSCH PRN SL 09/14/16 19:45 (Catapres) 0.1 mg UNSCH PRN PO 09/14/16 19:45 (Gelfoam 12 Mm/7 Mm Top) 1 foam UNSCH PRN TOP 09/14/16 19:45 09/25/16 10:09 (Ativan Inj) 1 mg TID PRN IV PUSH 09/14/16 21:45 09/19/16 15:05 (Protonix Inj) 40 mg Q24H IV PUSH 09/16/16 14:00 09/26/16 12:28 (Percocet 5-325 Mg) 1 tab Q6H PRN PO 09/19/16 12:30 09/23/16 02:09 (Percocet 5-325 Mg) 2 tab Q6H PRN PO 09/19/16 12:30 09/27/16 05:55 (Dilaudid Pf Inj) 0.5 mg Q3H PRN IV 09/19/16 20:30 09/27/16 08:39 (Phoslo) 1,334 mg TID PO 09/20/16 18:00 09/27/16 08:32 Epoetin Mark 16956 units 10,000 units TuThSa IV 09/25/16 10:00 09/25/16 10:10 (Maxipime Inj/NS Inj) 100 ml @ 200 mls/hr Q24H IV 09/26/16 15:00 09/26/16 15:49 Assessment and Plan Assessment and Plan Urologic impression: #1 status post open surgical bilateral nephrectomies for adult polycystic kidney disease #2 Left lower lung pneumonia/pleural effusion being managed by medicine and infectious disease physicians. #3 diminished hemoglobin most likely dilutional Plan: #1 Appreciate management of left lower lobe pneumonia/pleural effusion as per Medicine and Infectious Disease #2 Continue with hemodialysis as per nephrology recommendations #3 Discharge home when cleared by medicine, infectious disease and pulmonary services. Lalo Collier MD September 27, 2016 10:01
--- NOTE | 2016-09-27 10:22 | HHI.NPPN ---
Subjective History of Present Illness 46-year-old male with a past medical history of hypertension, polycystic kidney disease, end-stage renal disease on hemodialysis three times per week who was admitted for bilateral nephrectomy. Additional Remarks Patient is alert, walking with the walker, breathing is better. Objective Data Data 09/26/16 09/27/16 18:59 06:59 Intake Total 750 ml 360 ml Output Total 0 ml 0 ml Balance 750 ml 360 ml Intake Oral 700 ml 360 ml IV Total 50 ml Output Urine Total 0 ml 0 ml # Voids 0 # Bowel Movements 1 0 Vital Signs Date Time Temp Pulse Resp B/P Pulse Ox O2 Delivery O2 Flow Rate FiO2 09/27/16 08:00 98.8 104 17 138/60 95 09/27/16 00:00 98.8 99 18 115/69 93 09/26/16 20:00 98.8 108 18 114/74 96 09/26/16 16:00 96.9 89 18 115/68 09/26/16 12:00 97.3 85 20 111/68 93 09/26/16 11:41 96 21 -: 09/27/16 0411 09/27/16 0411 Physical Exam General Appearance: No Acute Distress, Comfortable Throat Throat Exam: Oral Mucosa [place] & Moist Pulmonary Resp Exam: Clear Bilaterally, Breath Sounds Equal, Decreased Bases Cardiology CV Exam: Regular, Normal Sinus Rhythm Gastrointestinal/Abdomen GI Exam: Soft, Non-Tender, Bowel Sounds Present Extremeties Extremities Exam: Trace Edema Neurologic Neuro Exam: Alert, Awake, Oriented Psychiatric Psych Exam: Appropriate Responses Assessment/Plan Assessment Summary: Anemia of CKD, Hypertension, End Stage Renal Disease Problem List: (1) Autosomal dominant polycystic kidney disease (2) HTN (hypertension) (3) End stage kidney disease (4) Status post nephrectomy Plan Patient has Bilateral Nephrectomies done due to PKD and pre transplant. Bowel function appears to be returning. On Epogen and follow the Hgb. possible pneumonia, On Zosyn, Vanco. was stopped by ID. Blood cultures negative. Has low grade fever again yesterday, now afebrile. Continue antibiotics. U/S chest noted, possibly will need Thoracentesis, Pulmonary seen the patient. HD tomorrow, will remove more fluid. Hgb. dropped, on Epogen with HD. Check iron study and Po4. Problem Qualifiers (1) HTN (hypertension): Qualified Code: I10 - Essential hypertension Ta Rinaldi MD September 27, 2016 10:22
--- NOTE | 2016-09-27 11:30 | HHI.PR ---
Subjective Remarks Feels improved. With chest pain with deep inspiration. No fevers overnight. Satting well on room air now. Has sob with walking. Objective Vitals Vital Signs Date Time Temp Pulse Resp B/P Pulse Ox O2 Delivery O2 Flow Rate FiO2 09/27/16 08:00 98.8 104 17 138/60 95 09/27/16 00:00 98.8 99 18 115/69 93 09/26/16 20:00 98.8 108 18 114/74 96 09/26/16 16:00 96.9 89 18 115/68 09/26/16 12:00 97.3 85 20 111/68 93 09/26/16 11:41 96 21 I/O 09/26/16 09/26/16 09/26/16 09/27/16 09/27/16 09/27/16 06:59 14:59 22:59 06:59 14:59 22:59 Intake Total 750 ml 240 ml 120 ml Output Total 0 ml 0 ml Balance 750 ml 240 ml 120 ml Intake Oral 700 ml 240 ml 120 ml IV Total 50 ml Output Urine Total 0 ml 0 ml # Voids 0 # Bowel Movements 1 0 Result Diagram: 09/27/16 0411 09/27/16 0411 Imaging Last Impressions Chest X-Ray 09/26/16 0000 Signed Impressions: Service Date/Time: Monday, September 26, 2016 11:58 - CONCLUSION: 1. Moderate-sized left joint effusion without significant change. 2. Mild cardiomegaly and motion artifact. Tony Cruz MD Chest Ultrasound 09/25/16 0000 Signed Impressions: Service Date/Time: Sunday, September 25, 2016 11:56 - CONCLUSION: Small to moderate left effusion. Tony Cruz MD Chest CT 09/21/16 0000 Signed Impressions: Service Date/Time: Wednesday, September 21, 2016 17:09 - CONCLUSION: Moderate left pleural effusion and mild right pleural effusion. Donaldo Otero MD Abdomen/Pelvis CT 09/21/16 0000 Signed Impressions: Service Date/Time: Wednesday, September 21, 2016 17:09 - CONCLUSION: 1. Status post bilateral nephrectomy with fluid in the renal fossa regions bilaterally being much more prominent on the left. The fluid and soft tissue density on the left extends throughout the entire left renal fossa and into the left pelvis. There are a few small foci of air seen on the left side. Some degree of infection cannot be excluded. A well formed abscess is difficult to clearly identify on this noncontrast CT examination. 2. Multiple low density masses seen in the liver likely representing cysts given the polycystic kidneys seen on the prior exam. 3. Ascites seen in the left upper quadrant and in the lower pelvis. 4. Bilateral pleural effusions being moderate on the left and mild on the right. Donaldo Otero MD Objective Remarks GENERAL: This is a well-nourished, well-developed patient, in no acute distress SKIN: No rashes, warm and dry HEAD: Atraumatic. Normocephalic. EYES: Pupils equal round and reactive. Extraocular motions intact. No scleral icterus. ENT: Nose without bleeding, or drainage, Airway patent. NECK: Trachea midline. Supple CARDIOVASCULAR: Tachycardia, without murmurs, gallops, or rubs. RESPIRATORY: Decreased breath sounds on the left base No wheezes, rales, or rhonchi. GASTROINTESTINAL: Abdomen soft, non-tender, nondistended. Positive bowel sounds MUSCULOSKELETAL: Extremities without clubbing, cyanosis, or edema. Pedal pulses appreciated NEUROLOGICAL: Awake and alert. Moves all extremity. Normal speech.no focal neurological deficit Procedures bilateral nephrectomies by Dr. Hou 09/14/16 A/P Assessment and Plan 46 years old with autosomal dominant polycystic kidney disease admitted for bilateral nephrectomies , who developed later on sustained fever tachycardia, left lower lobe consolidation/atelectasis and pleural effusion - Suspect sepsis due to left lower lobe pneumonia (temp 101 on September 19, tachycardia, WBC 11 K with left shift) - Febrile illness with mild leukocytosis possibly due to LLL pneumonia HAP with left pleural effusion -mild to moderate (chest x-ray showing left lower consolidation versus atelectasis with pleural effusion). Patient had Temp 100.9 (5/6 at night 8PM). ID specialiat notified. Dr Pedroza. ABX chnaged 09/26/[address] Pedroza recommendations. US chest left for markings reviewed ( shows mild to moderate effusion) findings also discussed with ID specialist Dr Pedroza. Will hold on thoracentesis as patient is stable. Will also consult pulmonology. Seen by Dr Ellison, plan for thoracentesis. - ADPKD Status post bilateral nephrectomies by Dr. Hou on 09/14/16, nephrology following for HD - ESRD due to recent bilateral nephrectomies Monitor creatinine - Diarrhea. Check C diff patient was constipated prior, also on abx. Antiemetics. C diff negative. On probiotics.Improving. Recommendation: Continue on Zosyn and Vanco on Levaquin, fever improved, ID following, as well as urology and nephrology, follow culture Agree with sending blood culture ID consulted and following O2, DuoNeb Sputum culture was sent showed normal growth reviewed by me personally Urology and nephrology notes reviewed by me Check lactic acid Monitor CBC - DVT prophylaxis on heparin 5000 (3 times a day) Discussed with the patient, nurse DC when improved and cleared by consultants. Plan for paracentesis. Catrachita Robbins MD September 27, 2016 11:30
[2016-09-27] MEDS ORDERED: NORC5TAB PO (11:34)
[2016-09-27 12:00] VITALS: BP 121/77; PULSE 92; RESP 18; TEMP 98.3; O2SAT 95
[2016-09-27] MEDS: PANTOPRAZOLE SODIUM 40 MG VIAL IV PUSH SCH (12:15)
--- NOTE | 2016-09-27 13:10 | HHI.IDPN ---
Note Infectious Disease Note Patient feels okay. Notes occasional sharp pain on the left posterior thorax with deep inspiration. Afebrile. No SOB or cough. Stool c. dif negative. No abdominal pain. Jose Armando removed. Blood Cultures have no growth. PAST MEDICAL HISTORY 1. Hypertension 2. End-stage renal disease on hemodialysis 3. Polycystic kidney disease, 4. Chronic anemia 5. AV fistula. ALLERGIES NO KNOWN DRUG ALLERGIES. OBJECTIVE: Vital Signs Date Time Temp Pulse Resp B/P Pulse Ox O2 Delivery O2 Flow Rate FiO2 09/27/16 12:00 98.3 92 18 121/77 95 09/27/16 08:00 98.8 104 17 138/60 95 09/27/16 00:00 98.8 99 18 115/69 93 09/26/16 20:00 98.8 108 18 114/74 96 09/26/16 16:00 96.9 89 18 115/68 09/26/16 09/26/16 09/27/16 15:00 23:00 07:00 Intake Total 750 ml 240 ml 120 ml Output Total 0 ml 0 ml Balance 750 ml 240 ml 120 ml Intake Oral 700 ml 240 ml 120 ml IV Total 50 ml Output Urine Total 0 ml 0 ml # Voids 0 # Bowel Movements 1 0 Laboratory Tests Test 09/27/16 04:11 White Blood Count 7.2 TH/MM3 Red Blood Count 2.42 MIL/MM3 Hemoglobin 7.0 GM/DL Hematocrit 21.2 % Mean Corpuscular Volume 87.7 FL Mean Corpuscular Hemoglobin 29.0 PG Mean Corpuscular Hemoglobin 33.1 % Concent Red Cell Distribution Width 13.9 % Platelet Count 385 TH/MM3 Mean Platelet Volume 7.7 FL Neutrophils (%) (Auto) 58.7 % Lymphocytes (%) (Auto) 26.9 % Monocytes (%) (Auto) 9.4 % Eosinophils (%) (Auto) 3.9 % Basophils (%) (Auto) 1.1 % Neutrophils # (Auto) 4.2 TH/MM3 Lymphocytes # (Auto) 1.9 TH/MM3 Monocytes # (Auto) 0.7 TH/MM3 Eosinophils # (Auto) 0.3 TH/MM3 Basophils # (Auto) 0.1 TH/MM3 CBC Comment AUTO DIFF Differential Total Cells 100 Counted Neutrophils % (Manual) 59 % Band Neutrophils % 2 % Lymphocytes % 25 % Monocytes % 9 % Eosinophils % 3 % Basophils % 1 % Neutrophils # (Manual) 4.5 TH/MM3 Metamyelocytes 1 % Differential Comment FINAL DIFF MANUAL Platelet Estimate NORMAL Platelet Morphology Comment NORMAL Laboratory Tests Test 09/27/16 04:11 Sodium Level 137 MEQ/L Potassium Level 3.6 MEQ/L Chloride Level 94 MEQ/L Carbon Dioxide Level 32.7 MEQ/L Anion Gap 10 MEQ/L Blood Urea Nitrogen 51 MG/DL Creatinine 12.14 MG/DL Estimat Glomerular Filtration 5 ML/MIN Rate Random Glucose 85 MG/DL Calcium Level 8.7 MG/DL Total Bilirubin 0.4 MG/DL Aspartate Amino Transf 59 U/L (AST/SGOT) Alanine Aminotransferase 16 U/L (ALT/SGPT) Alkaline Phosphatase 65 U/L Total Protein 5.2 GM/DL Albumin 1.8 GM/DL Prealbumin 15 MG/DL IMAGING: Chest X-Ray 09/26/16 0000 Signed Impressions: Service Date/Time: Monday, September 26, 2016 11:58 - CONCLUSION: 1. Moderate-sized left joint effusion without significant change. 2. Mild cardiomegaly and motion artifact. Tony Cruz MD Chest Ultrasound 09/25/16 0000 Signed Impressions: Service Date/Time: Sunday, September 25, 2016 11:56 - CONCLUSION: Small to moderate left effusion. Tony Cruz MD Chest X-Ray 09/22/16 0600 Signed Impressions: Service Date/Time: Thursday, September 22, 2016 05:54 - CONCLUSION: 1. Cardiomegaly. 2. Left lower lobe atelectasis versus pneumonia. Left pleural effusion 3. There has been no significant change when compared to the prior exam. Lyndon Casey MD Chest CT 09/21/16 0000 Signed Impressions: Service Date/Time: Wednesday, September 21, 2016 17:09 - CONCLUSION: Moderate left pleural effusion and mild right pleural effusion. Donaldo Otero MD Abdomen/Pelvis CT 09/21/16 0000 Signed Impressions: Service Date/Time: Wednesday, September 21, 2016 17:09 - CONCLUSION: 1. Status post bilateral nephrectomy with fluid in the renal fossa regions bilaterally being much more prominent on the left. The fluid and soft tissue density on the left extends throughout the entire left renal fossa and into the left pelvis. There are a few small foci of air seen on the left side. Some degree of infection cannot be excluded. A well formed abscess is difficult to clearly identify on this noncontrast CT examination. 2. Multiple low density masses seen in the liver likely representing cysts given the polycystic kidneys seen on the prior exam. 3. Ascites seen in the left upper quadrant and in the lower pelvis. 4. Bilateral pleural effusions being moderate on the left and mild on the right. Donaldo Otero MD PHYSICAL EXAMINATION GENERAL: No acute distress. HEENT: No icterus. Oropharynx without lesions. Moist mucosa. NECK: Supple. No adenopathy. No swelling. No jugular venous distension. LUNGS: Diminished breath sounds bilateral. HEART: Nl S1S2, no murmurs, rubs or gallops. ABDOMEN: Bowel sounds present, soft, no tenderness. Non distended. Surgical incision intact without signs of infection. EXTREMITIES: No clubbing or cyanosis or edema. Left upper extremity has AV fistula which appears intact and has a strong bruit and no erythema or signs of infection. SKIN: Warm and moist. No rash. NEUROLOGIC: No gross focal findings. PSYCHIATRIC: Calm and cooperative. IMPRESSION 1. Fever. Temp improved. Vancomycin and Zosyn discontinued. ? drug fever. Improved. 2. Post bilateral nephrectomy. CT scan ? post surgical changes. 3. Sepsis in patient with elevated white blood cell count and fever and elevated heart rate and possible pneumonia versus other source of sepsis. 4. Lung infiltrate. Probable pneumonia. Pleural effusion. 5. End-stage renal disease. 6. Leukocytosis improved. RECOMMENDATIONS 1. Continue Cefepime. 2. Follow blood cultures. 3. Monitor the temperature. Possible change to PO antibiotics if temperature remains normal. 4. Consider Thoracentesis. Prieto Rosales MD September 27, 2016 13:10
--- NOTE | 2016-09-27 15:04 | HHI.PR ---
Subjective Remarks alert no SOB Objective Vital Signs Date Time Temp Pulse Resp B/P Pulse Ox O2 Delivery O2 Flow Rate FiO2 09/27/16 12:00 98.3 92 18 121/77 95 09/27/16 08:00 98.8 104 17 138/60 95 09/27/16 00:00 98.8 99 18 115/69 93 09/26/16 20:00 98.8 108 18 114/74 96 09/26/16 16:00 96.9 89 18 115/68 I/O 09/26/16 09/26/16 09/26/16 09/27/16 09/27/16 09/27/16 07:00 15:00 23:00 07:00 15:00 23:00 Intake Total 750 ml 240 ml 120 ml Output Total 0 ml 0 ml Balance 750 ml 240 ml 120 ml Intake Oral 700 ml 240 ml 120 ml IV Total 50 ml Output Urine Total 0 ml 0 ml # Voids 0 # Bowel Movements 1 0 Result Diagram: 09/27/16 04109/27/16 041 Objective Remarks GENERAL: SKIN: Warm and dry. HEAD: Atraumatic. Normocephalic. EYES: Pupils equal and round. No scleral icterus. No injection or drainage. ENT: No nasal bleeding or discharge. Mucous membranes pink and moist. NECK: Trachea midline. No JVD. CARDIOVASCULAR: Regular rate and rhythm. RESPIRATORY: No accessory muscle use.DECREASE BEATH SOUNDS LEFT BASE . GASTROINTESTINAL: Abdomen soft, non-tender, nondistended. Hepatic and splenic margins not palpable. MUSCULOSKELETAL: Extremities without clubbing, cyanosis, or edema. No obvious deformities. NEUROLOGICAL: Awake and alert. No obvious cranial nerve deficits. Motor grossly within normal limits. Five out of 5 muscle strength in the arms and legs. Normal speech. PSYCHIATRIC: Appropriate mood and affect; insight and judgment normal. Assessment and Plan Assessment and Plan LEFT PLEURAL EFFUSION ESRD , ON DIALYSISI S/P BILATERAL NEPHRECTOMY PLAN: THORACENTESIS T&D Capri Farooq MD September 27, 2016 15:04
[2016-09-27] MEDS: CEFEPIME INJ 2,000 MG in SODIUM CHLORIDE 0.9% INJ 100 ML IV SCH (15:24)
[2016-09-27 16:00] VITALS: BP 112/75; PULSE 89; RESP 16; TEMP 97.5; O2SAT 95
[2016-09-27 17:55] LABS: FERRITIN 114 NG/ML (26-388)
[2016-09-27 17:59] LABS: TRANSFERRIN IRON PROFILE 204 MG/DL (200-360)
[2016-09-27 20:00] VITALS: BP 127/78; PULSE 101; RESP 16; TEMP 97.8; O2SAT 94
[2016-09-28] VITALS (8 sets, daily range): BP systolic 108–137; BP diastolic 66–89; PULSE 93–113; RESP 16–19; TEMP 97.9–98.9; O2SAT 93–97
[2016-09-28] MEDS: oxyCODONE/ACETAMINOPHEN 5 MG/325 MG TAB PO PRN ×3 (00:15→18:15)
[2016-09-28] MEDS: HYDROmorphone HCL PF 1 MG/ML VIAL IV PRN ×3 (04:11→20:47)
[2016-09-28 04:52] LABS: BASOPHIL # 0.1 TH/MM3 (0-0.2); BASOPHIL % 1.2 % (0.0-2.0); EOSINOPHIL # 0.2 TH/MM3 (0-0.4); EOSINOPHIL % 3.4 % (0.0-4.0); HEMATOCRIT 23.2 % (39.0-51.0); LYMPH % 32.2 % (9.0-44.0); LYMPHOCYTE # 2.3 TH/MM3 (1.0-4.8); MEAN CELL VOLUME 88.7 FL (80.0-100.0); MEAN CORPUSCULAR HGB CONC 32.7 % (32.0-36.0); MONO % 8.4 % (0.0-8.0); NEUT % 54.8 % (16.0-70.0); PLATELET COUNT 415 TH/MM3 (150-450); RED BLOOD COUNT 2.61 MIL/MM3 (4.50-5.90); RED CELL DISTRIBUTION WIDTH 14.2 % (11.6-17.2); WHITE BLOOD COUNT 7.2 TH/MM3 (4.0-11.0)
[2016-09-28 04:55] LABS: HEMO FLAGS AUTO DIFF
[2016-09-28 05:15] LABS: ANION GAP 12 MEQ/L (5-15); BICARBONATE 30.2 MEQ/L (21.0-32.0); BLOOD UREA NITROGEN 61 MG/DL (7-18); CHLORIDE 94 MEQ/L (98-107); FERRITIN 608 NG/ML (26-388); GLOMERULAR FILTRATION RATE 4 ML/MIN (>89); POTASSIUM 4.1 MEQ/L (3.5-5.1); SODIUM (NA) 136 MEQ/L (136-145); TRANSFERRIN IRON PROFILE 101 MG/DL (200-360)
[2016-09-28 07:02] LABS: BASOPHILS 1 % (0-2); EOSINOPHILS 4 % (0-4); MYELOCYTES 1 % (0-0); NEUTROPHIL # MANUAL DIFF 4.6 TH/MM3 (1.8-7.7); POLYS (SEG NEUTROPHILS) 63 % (16-70); WBC DIFF SAMPLE 100
[2016-09-28 07:03] LABS: PLATELET ESTIMATE SMEAR NORMAL (NORMAL); PLATELET MORPHOLOGY NORMAL (NORMAL); SCAN/DIFF FINAL DIFF MANUAL
[2016-09-28] MEDS: SODIUM CHLORIDE 0.9% FLUSH 10 ML FLUSH IV FLUSH SCH ×2 (07:52→20:46)
[2016-09-28] MEDS: CALCIUM ACETATE 667 MG CAP PO SCH ×3 (07:52→16:38)
--- NOTE | 2016-09-28 08:24 | HHI.PR ---
Subjective Remarks Feels better today. No more fevers. SOB with ambulation. Chest pain with deep inspiration. No n/v/d/c. Diarrhea subsided, stool is forming. Plan to go for HD and then plan for thoracentesis. Objective Vitals Vital Signs Date Time Temp Pulse Resp B/P Pulse Ox O2 Delivery O2 Flow Rate FiO2 09/28/16 00:00 98.8 95 18 128/72 95 09/27/16 20:00 97.8 101 16 127/78 94 09/27/16 16:00 97.5 89 16 112/75 95 09/27/16 12:00 98.3 92 18 121/77 95 I/O 09/27/16 09/27/16 09/27/16 09/28/16 09/28/16 09/28/16 07:00 15:00 23:00 07:00 15:00 23:00 Intake Total 120 ml 600 ml 338 ml 240 ml Output Total 0 ml Balance 120 ml 600 ml 338 ml 240 ml Intake Oral 120 ml 600 ml 240 ml 240 ml IV Total 98 ml Output Urine Total 0 ml # Voids 0 0 0 # Bowel Movements 1 0 0 Result Diagram: 09/28/16 0427 09/28/16 0427 Imaging Last Impressions Chest X-Ray 09/26/16 0000 Signed Impressions: Service Date/Time: Monday, September 26, 2016 11:58 - CONCLUSION: 1. Moderate-sized left joint effusion without significant change. 2. Mild cardiomegaly and motion artifact. Tony Cruz MD Chest Ultrasound 09/25/16 0000 Signed Impressions: Service Date/Time: Sunday, September 25, 2016 11:56 - CONCLUSION: Small to moderate left effusion. Tony Cruz MD Chest CT 09/21/16 0000 Signed Impressions: Service Date/Time: Wednesday, September 21, 2016 17:09 - CONCLUSION: Moderate left pleural effusion and mild right pleural effusion. Donaldo Otero MD Abdomen/Pelvis CT 09/21/16 0000 Signed Impressions: Service Date/Time: Wednesday, September 21, 2016 17:09 - CONCLUSION: 1. Status post bilateral nephrectomy with fluid in the renal fossa regions bilaterally being much more prominent on the left. The fluid and soft tissue density on the left extends throughout the entire left renal fossa and into the left pelvis. There are a few small foci of air seen on the left side. Some degree of infection cannot be excluded. A well formed abscess is difficult to clearly identify on this noncontrast CT examination. 2. Multiple low density masses seen in the liver likely representing cysts given the polycystic kidneys seen on the prior exam. 3. Ascites seen in the left upper quadrant and in the lower pelvis. 4. Bilateral pleural effusions being moderate on the left and mild on the right. Donaldo Otero MD Objective Remarks GENERAL: This is a well-nourished, well-developed patient, in no acute distress SKIN: No rashes, warm and dry HEAD: Atraumatic. Normocephalic. EYES: Pupils equal round and reactive. Extraocular motions intact. No scleral icterus. ENT: Nose without bleeding, or drainage, Airway patent. NECK: Trachea midline. Supple CARDIOVASCULAR: Tachycardia, without murmurs, gallops, or rubs. RESPIRATORY: Decreased breath sounds on the left base No wheezes, rales, or rhonchi. GASTROINTESTINAL: Abdomen soft, non-tender, nondistended. Positive bowel sounds MUSCULOSKELETAL: Extremities without clubbing, cyanosis, or edema. Pedal pulses appreciated NEUROLOGICAL: Awake and alert. Moves all extremity. Normal speech.no focal neurological deficit Procedures bilateral nephrectomies by Dr. Hou 09/14/16 A/P Assessment and Plan 46 years old with autosomal dominant polycystic kidney disease admitted for bilateral nephrectomies , who developed later on sustained fever tachycardia, left lower lobe consolidation/atelectasis and pleural effusion - Suspect sepsis due to left lower lobe pneumonia (temp 101 on September 19, tachycardia, WBC 11 K with left shift) - Febrile illness with mild leukocytosis possibly due to LLL pneumonia HAP with left pleural effusion -mild to moderate (chest x-ray showing left lower consolidation versus atelectasis with pleural effusion). Patient had Temp 100.9 (5/6 at night 8PM). ID specialiat notified. Dr Pedroza. ABX chnaged 09/26/[address] Pedroza recommendations. US chest left for markings reviewed ( shows mild to moderate effusion) findings also discussed with ID specialist Dr Pedroza. Will hold on thoracentesis as patient is stable. Will also consult pulmonology. Seen by Dr Ellison, plan for thoracentesis. - ADPKD Status post bilateral nephrectomies by Dr. Hou on 09/14/16, nephrology following for HD - ESRD due to recent bilateral nephrectomies Monitor creatinine - Diarrhea. Check C diff patient was constipated prior, also on abx. Antiemetics. C diff negative. On probiotics.Improving. Recommendation: Continue on Zosyn and Vanco on Levaquin, fever improved, ID following, as well as urology and nephrology, follow culture Agree with sending blood culture ID consulted and following O2, DuoNeb Sputum culture was sent showed normal growth reviewed by me personally Urology and nephrology notes reviewed by me Check lactic acid Monitor CBC - DVT prophylaxis on heparin 5000 (3 times a day) Discussed with the patient, nurse DC when improved and cleared by consultants. Plan for paracentesis 09/28. Catrachita Robbins MD September 28, 2016 08:24
--- NOTE | 2016-09-28 09:06 | HHI.PR ---
Subjective Patient symptoms today Patient denies complaints Objective Vital Signs Vital Signs Date Time Temp Pulse Resp B/P Pulse Ox O2 Delivery O2 Flow Rate FiO2 09/28/16 08:00 97.9 102 17 134/89 97 09/28/16 00:00 98.8 95 18 128/72 95 09/27/16 20:00 97.8 101 16 127/78 94 09/27/16 16:00 97.5 89 16 112/75 95 09/27/16 12:00 98.3 92 18 121/77 95 Result Diagram: 09/28/1642609/28/16426 Objective Remarks Abdomen soft, nondistended, nontender Wound sites clean and dry Extremities well-perfused, nontender Procedures Surgical skylar removed and Steri-Strips applied Medications and IVs Current Medications Medications (Trade) Dose Ordered Sig/Johan Route Start Time Stop Time Status Last Admin (NS Flush) 2 ml UNSCH PRN IV FLUSH 09/14/16 12:45 (NS Flush) 2 ml BID IV FLUSH 09/14/16 12:45 09/28/16 07:52 Naloxone HCl 0.4 mg 0.4 mg UNSCH PRN IV 09/14/16 12:45 (NS 1000 ml Inj) 1,000 ml @ 0 mls/hr Q0M PRN IV 09/14/16 19:40 09/18/16 10:31 Heparin Sodium (Porcine) 8000 units 8,000 units UNSCH PRN IVF 09/14/16 19:45 Sodium Chloride 1,000 ml @ 200 mls/hr Q5H PRN IV 09/14/16 19:40 09/25/16 10:08 (NS 1000 ml Inj) 1,000 ml @ 0 mls/hr Q0M PRN IV 09/14/16 19:40 (Mannitol Inj) 12.5 gm UNSCH PRN IV 09/14/16 19:45 (Albumin 25% Inj) 25 gm UNSCH PRN IV 09/14/16 19:45 (NS Flush) 5 ml UNSCH PRN IV FLUSH 09/14/16 19:45 (Heparin Inj) UNSCH PRN .XX 09/14/16 19:45 (Gentamicin (Dialysis) Inj) 20 mg UNSCH PRN IV 09/14/16 19:45 (Zofran Inj) 4 mg UNSCH PRN IV 09/14/16 19:45 09/26/16 21:15 (Tylenol) 650 mg UNSCH PRN PO 09/14/16 19:45 09/20/16 08:26 (Benadryl) 25 mg UNSCH PRN PO 09/14/16 19:45 (Nitrostat Sl) 0.4 mg UNSCH PRN SL 09/14/16 19:45 (Catapres) 0.1 mg UNSCH PRN PO 09/14/16 19:45 (Gelfoam 12 Mm/7 Mm Top) 1 foam UNSCH PRN TOP 09/14/16 19:45 09/25/16 10:09 (Ativan Inj) 1 mg TID PRN IV PUSH 09/14/16 21:45 09/19/16 15:05 (Protonix Inj) 40 mg Q24H IV PUSH 09/16/16 14:00 09/27/16 12:15 (Percocet 5-325 Mg) 1 tab Q6H PRN PO 09/19/16 12:30 09/23/16 02:09 (Percocet 5-325 Mg) 2 tab Q6H PRN PO 09/19/16 12:30 09/28/16 00:15 (Dilaudid Pf Inj) 0.5 mg Q3H PRN IV 09/19/16 20:30 09/28/16 04:11 (Phoslo) 1,334 mg TID PO 09/20/16 18:00 09/27/16 18:07 Epoetin Mark 75592 units 10,000 units TuThSa IV 09/25/16 10:00 09/25/16 10:10 (Maxipime Inj/NS Inj) 100 ml @ 200 mls/hr Q24H IV 09/26/16 15:00 09/27/16 15:24 Assessment and Plan Assessment and Plan Urologic impression: #1 status post open surgical bilateral nephrectomies for adult polycystic kidney disease #2 Left lower lung pneumonia/pleural effusion being managed by medicine and infectious disease physicians. Plan: #1 Appreciate management of left lower lobe pneumonia/pleural effusion as per Medicine and Infectious Disease #2 Continue with hemodialysis as per nephrology recommendations #3 patient to have thoracentesis of left pleural effusion today by pulmonary medicine. #3 Discharge home when cleared by medicine, infectious disease and pulmonary services. Lalo Collier MD September 28, 2016 09:06
[2016-09-28] MEDS: GELATIN 12 MM/7 MM FOAM TOP PRN (09:57)
--- NOTE | 2016-09-28 09:57 | HHI.NPPN ---
Subjective History of Present Illness 46-year-old male with a past medical history of hypertension, polycystic kidney disease, end-stage renal disease on hemodialysis three times per week who was admitted for bilateral nephrectomy. Additional Remarks Patient is alert, now on HD, feeling better, no fever. Objective Data Data 09/27/16 09/28/16 19:00 07:00 Intake Total 698 ml 480 ml Output Total 0 ml Balance 698 ml 480 ml Intake Oral 600 ml 480 ml IV Total 98 ml Output Urine Total 0 ml # Voids 0 # Bowel Movements 1 0 Vital Signs Date Time Temp Pulse Resp B/P Pulse Ox O2 Delivery O2 Flow Rate FiO2 09/28/16 08:00 97.9 102 17 134/89 97 09/28/16 00:00 98.8 95 18 128/72 95 09/27/16 20:00 97.8 101 16 127/78 94 09/27/16 16:00 97.5 89 16 112/75 95 09/27/16 12:00 98.3 92 18 121/77 95 -: 09/28/16 0427 09/28/16 0427 Microbiology 09/28/16 Stool Occult Blood (MAGY), Received Pending Physical Exam General Appearance: No Acute Distress, Comfortable Throat Throat Exam: Oral Mucosa [place] & Moist Pulmonary Resp Exam: Clear Bilaterally, Breath Sounds Equal, Decreased Bases Cardiology CV Exam: Regular, Normal Sinus Rhythm Gastrointestinal/Abdomen GI Exam: Soft, Non-Tender, Bowel Sounds Present Extremeties Extremities Exam: Trace Edema Neurologic Neuro Exam: Alert, Awake, Oriented Psychiatric Psych Exam: Appropriate Responses Assessment/Plan Assessment Summary: Anemia of CKD, Hypertension, End Stage Renal Disease Problem List: (1) Autosomal dominant polycystic kidney disease (2) HTN (hypertension) (3) End stage kidney disease (4) Status post nephrectomy Plan Patient has Bilateral Nephrectomies done due to PKD and pre transplant. Bowel function appears to be returning. On Epogen and follow the Hgb. possible pneumonia, On Zosyn, Vanco. was stopped by ID. Blood cultures negative. Has low grade fever again yesterday, now afebrile. Continue antibiotics. U/S chest noted, possibly will need Thoracentesis, Pulmonary seen the patient. HD now, removing 3 liters. Patient will has Thoracentesis today also. Problem Qualifiers (1) HTN (hypertension): Qualified Code: I10 - Essential hypertension Ta Rinaldi MD September 28, 2016 09:57
[2016-09-28] MEDS: EPOETIN ALFA 10,000 UNITS/ML VIAL IV SCH (09:58)
[2016-09-28] MEDS ORDERED: IRON SUCROSE INJ 200 MG in SODIUM CHLORIDE 0.9% INJ 100 ML IV ONE (11:00)
[2016-09-28] MEDS: PANTOPRAZOLE SODIUM 40 MG VIAL IV PUSH SCH (12:18)
--- NOTE | 2016-09-28 12:36 | HHI.IDPN ---
Note Infectious Disease Note Patient feels okay. Still notes occasional sharp pain on the left posterior thorax. Also reports left lateral abdomen/flank tenderness. Afebrile. No SOB. No cough. No chills. Blood Cultures have no growth. Due to go for thoracentesis today. PAST MEDICAL HISTORY 1. Hypertension 2. End-stage renal disease on hemodialysis 3. Polycystic kidney disease, 4. Chronic anemia 5. AV fistula. ALLERGIES NO KNOWN DRUG ALLERGIES. OBJECTIVE: Vital Signs Date Time Temp Pulse Resp B/P Pulse Ox O2 Delivery O2 Flow Rate FiO2 09/28/16 08:00 97.9 102 17 134/89 97 09/28/16 00:00 98.8 95 18 128/72 95 09/27/16 20:00 97.8 101 16 127/78 94 09/27/16 16:00 97.5 89 16 112/75 95 09/27/16 09/27/16 09/28/16 15:00 23:00 07:00 Intake Total 600 ml 338 ml 240 ml Output Total 0 ml Balance 600 ml 338 ml 240 ml Intake Oral 600 ml 240 ml 240 ml IV Total 98 ml Output Urine Total 0 ml # Voids 0 0 # Bowel Movements 1 0 0 Laboratory Tests Test 09/27/16 09/28/16 04:11 04:27 White Blood Count 7.2 TH/MM3 7.2 TH/MM3 Red Blood Count 2.42 MIL/MM3 2.61 MIL/MM3 Hemoglobin 7.0 GM/DL 7.6 GM/DL Hematocrit 21.2 % 23.2 % Mean Corpuscular Volume 87.7 FL 88.7 FL Mean Corpuscular Hemoglobin 29.0 PG 29.0 PG Mean Corpuscular Hemoglobin 33.1 % 32.7 % Concent Red Cell Distribution Width 13.9 % 14.2 % Platelet Count 385 TH/MM3 415 TH/MM3 Mean Platelet Volume 7.7 FL 7.1 FL Neutrophils (%) (Auto) 58.7 % 54.8 % Lymphocytes (%) (Auto) 26.9 % 32.2 % Monocytes (%) (Auto) 9.4 % 8.4 % Eosinophils (%) (Auto) 3.9 % 3.4 % Basophils (%) (Auto) 1.1 % 1.2 % Neutrophils # (Auto) 4.2 TH/MM3 4.0 TH/MM3 Lymphocytes # (Auto) 1.9 TH/MM3 2.3 TH/MM3 Monocytes # (Auto) 0.7 TH/MM3 0.6 TH/MM3 Eosinophils # (Auto) 0.3 TH/MM3 0.2 TH/MM3 Basophils # (Auto) 0.1 TH/MM3 0.1 TH/MM3 CBC Comment AUTO DIFF AUTO DIFF Differential Total Cells 100 100 Counted Neutrophils % (Manual) 59 % 63 % Band Neutrophils % 2 % Lymphocytes % 25 % 28 % Monocytes % 9 % 3 % Eosinophils % 3 % 4 % Basophils % 1 % 1 % Neutrophils # (Manual) 4.5 TH/MM3 4.6 TH/MM3 Metamyelocytes 1 % Differential Comment FINAL DIFF FINAL DIFF MANUAL MANUAL Platelet Estimate NORMAL NORMAL Platelet Morphology Comment NORMAL NORMAL Myelocytes 1 % Laboratory Tests Test 09/27/16 09/28/16 04:11 04:27 Sodium Level 137 MEQ/L 136 MEQ/L Potassium Level 3.6 MEQ/L 4.1 MEQ/L Chloride Level 94 MEQ/L 94 MEQ/L Carbon Dioxide Level 32.7 MEQ/L 30.2 MEQ/L Anion Gap 10 MEQ/L 12 MEQ/L Blood Urea Nitrogen 51 MG/DL 61 MG/DL Creatinine 12.14 MG/DL 15.06 MG/DL Estimat Glomerular Filtration 5 ML/MIN 4 ML/MIN Rate Random Glucose 85 MG/DL 83 MG/DL Calcium Level 8.7 MG/DL 8.2 MG/DL Iron Level 58 MCG/DL 24 MCG/DL Total Iron Binding Capacity 286 MCG/DL 141 MCG/DL Percent Iron Saturation 20.3 % 17.0 % Ferritin 114 NG/ML 608 NG/ML Total Bilirubin 0.4 MG/DL Aspartate Amino Transf 59 U/L (AST/SGOT) Alanine Aminotransferase 16 U/L (ALT/SGPT) Alkaline Phosphatase 65 U/L Total Protein 5.2 GM/DL Albumin 1.8 GM/DL Prealbumin 15 MG/DL Phosphorus Level 6.2 MG/DL Microbiology Date/Time Procedure Status Source Growth 09/28/16 07:49 Stool Occult Blood (MAGY) Received Stool Stool Pending IMAGING: Chest X-Ray 09/26/16 0000 Signed Impressions: Service Date/Time: Monday, September 26, 2016 11:58 - CONCLUSION: 1. Moderate-sized left joint effusion without significant change. 2. Mild cardiomegaly and motion artifact. Tony Cruz MD Chest Ultrasound 09/25/16 0000 Signed Impressions: Service Date/Time: Sunday, September 25, 2016 11:56 - CONCLUSION: Small to moderate left effusion. Tony Cruz MD Chest X-Ray 09/22/16 0600 Signed Impressions: Service Date/Time: Thursday, September 22, 2016 05:54 - CONCLUSION: 1. Cardiomegaly. 2. Left lower lobe atelectasis versus pneumonia. Left pleural effusion 3. There has been no significant change when compared to the prior exam. Lyndon Casey MD Chest CT 09/21/16 0000 Signed Impressions: Service Date/Time: Wednesday, September 21, 2016 17:09 - CONCLUSION: Moderate left pleural effusion and mild right pleural effusion. Donaldo Otero MD Abdomen/Pelvis CT 09/21/16 0000 Signed Impressions: Service Date/Time: Wednesday, September 21, 2016 17:09 - CONCLUSION: 1. Status post bilateral nephrectomy with fluid in the renal fossa regions bilaterally being much more prominent on the left. The fluid and soft tissue density on the left extends throughout the entire left renal fossa and into the left pelvis. There are a few small foci of air seen on the left side. Some degree of infection cannot be excluded. A well formed abscess is difficult to clearly identify on this noncontrast CT examination. 2. Multiple low density masses seen in the liver likely representing cysts given the polycystic kidneys seen on the prior exam. 3. Ascites seen in the left upper quadrant and in the lower pelvis. 4. Bilateral pleural effusions being moderate on the left and mild on the right. Donaldo Otero MD PHYSICAL EXAMINATION GENERAL: No acute distress. HEENT: No icterus. Oropharynx without lesions. Moist mucosa. NECK: Supple. No adenopathy. No swelling. No jugular venous distension. LUNGS: Diminished breath sounds. HEART: Nl S1S2, no murmurs, rubs or gallops. ABDOMEN: Bowel sounds present, soft, no tenderness. Non distended. Surgical incision intact without signs of infection. EXTREMITIES: No clubbing or cyanosis or edema. Left upper extremity has AV fistula which appears intact and has a strong bruit. No erythema or signs of infection. SKIN: Warm and moist. No rash. NEUROLOGIC: No gross focal findings. PSYCHIATRIC: Calm and cooperative. IMPRESSION 1. Fever. Temp improved. Vancomycin and Zosyn discontinued. 2. Post bilateral nephrectomy. CT scan ? post surgical changes. 3. Sepsis in patient with elevated white blood cell count and fever and elevated heart rate and possible pneumonia versus other source of sepsis. 4. Lung infiltrate. Probable pneumonia. Pleural effusion. 5. End-stage renal disease. 6. Leukocytosis improved. RECOMMENDATIONS 1. Continue Cefepime. 2. Follow blood cultures. 3. Monitor the temperature. 4. Monitor Thoracentesis sample culture. Prieto Rosales MD September 28, 2016 12:36
[2016-09-28 14:04] LABS: APTT (PATIENT) 29.5 SEC (24.3-30.1); INTERNATIONAL NORMALIZED RATIO 1.2 RATIO; PROTHROMBIN TIME - PATIENT 13.1 SEC (9.8-11.6)
--- NOTE | 2016-09-28 16:04 | RADRPT ---
EXAM DATE/TIME: 09/28/2016 15:45 [facility] COMPARISON: CHEST SINGLE AP, September 26, 2016, 11:58. INDICATIONS : Post left sided thoracentesis. MEDICAL HISTORY : Congestive heart failure. Hypercholesterolemia. SURGICAL HISTORY : None. ENCOUNTER: Initial ACUITY: 1 day PAIN SCORE: 0/10 LOCATION: Bilateral chest FINDINGS: A single frontal expiratory view of the chest was performed. Bibasilar densities. No evidence of pne umothorax. Mediastinal structures are in the midline. The cardio-mediastinal contours and bronchopulmonary markings are unremarkable for an expiratory exam . Osseous structures are intact. CONCLUSION: Bibasilar atelectasis, greater on the left. No pneumothorax the left status post thoracentesis. Kedar Rodriguez MD on September 28, 2016 at 16:01 Board Certified Radiologist. This report was verified electronically.
[2016-09-28] MEDS: CEFEPIME INJ 2,000 MG in SODIUM CHLORIDE 0.9% INJ 100 ML IV SCH (16:38)
--- NOTE | 2016-09-28 16:45 | RADRPT ---
EXAM DATE/TIME: 09/28/2016 15:10 [facility] COMPARISON: No previous studies available for comparison. INDICATIONS : Left pleural effison. MEDICAL HISTORY : Hypercholesterolemia. CHF. Dizziness. PVC. Hypertension. Dyspnea. GERD. Polycystic kidney disease. Stage 4 kidney failure. Athritis. Anxiety. SURGICAL HISTORY : Oral surgery. Left AV fistula. Bilateral Nephroectomy. ENCOUNTER: Initial ACUITY: 4 - 6 days PAIN SCORE: 3/10 LOCATION: Left chest FLUID: Total volume of 650 cc of clear, yellow fluid was removed. Fluid was sent to lab for ordered studies. TECHNIQUE: 1. Ultrasound guidance for thoracentesis. 2. Thoracentesis. The risks, benefits, and alternatives to ultrasound guided thoracentesis were explained to the patien t in lay simple terms, including the risk of bleeding and infection. Written and verbal informed con sent was obtained. Appropriate area for thoracentesis was marked under ultrasound guidance with the patient in the uprig ht position. Overlying skin was prepped and draped in the usual sterile fashion and with local anest hetic, a dermatotomy was made with an 11 blade scalpel. A 6 [place] thoracentesis catheter was placed in the pleural space and fluid was removed. Catheter was then removed and a sterile dressing applie d. There were no immediate complications. The patient tolerated the procedure well and the left the ultrasound suite in stable condition. Chest radiograph is to be obtained. CONCLUSION: Uncomplicated ultrasound guided thoracentesis. Kedar Rodriguez MD on September 28, 2016 at 16:42 Board Certified Radiologist. This report was verified electronically.
--- NOTE | 2016-09-28 17:19 | HHI.PR ---
Subjective Remarks alert no SOB Objective Vital Signs Date Time Temp Pulse Resp B/P Pulse Ox O2 Delivery O2 Flow Rate FiO2 09/28/16 16:00 95 16 137/75 96 09/28/16 15:50 98.9 95 16 135/85 96 09/28/16 15:02 98.8 113 18 122/66 93 09/28/16 08:00 97.9 102 17 134/89 97 09/28/16 00:00 98.8 95 18 128/72 95 09/27/16 20:00 97.8 101 16 127/78 94 I/O 09/27/16 09/27/16 09/27/16 09/28/16 09/28/16 09/28/16 07:00 15:00 23:00 07:00 15:00 23:00 Intake Total 120 ml 600 ml 338 ml 240 ml 600 ml Output Total 0 ml 3000 ml Balance 120 ml 600 ml 338 ml 240 ml 600 ml -3000 ml Intake Oral 120 ml 600 ml 240 ml 240 ml 500 ml IV Total 98 ml 100 ml Output Urine Total 0 ml Hemodialysis 3000 ml # Voids 0 0 0 # Bowel Movements 1 0 0 1 Result Diagram: 09/28/1642609/28/16426 Objective Remarks GENERAL: SKIN: Warm and dry. HEAD: Atraumatic. Normocephalic. EYES: Pupils equal and round. No scleral icterus. No injection or drainage. ENT: No nasal bleeding or discharge. Mucous membranes pink and moist. NECK: Trachea midline. No JVD. CARDIOVASCULAR: Regular rate and rhythm. RESPIRATORY: No accessory muscle use.DECREASE BEATH SOUNDS LEFT BASE . GASTROINTESTINAL: Abdomen soft, non-tender, nondistended. Hepatic and splenic margins not palpable. MUSCULOSKELETAL: Extremities without clubbing, cyanosis, or edema. No obvious deformities. NEUROLOGICAL: Awake and alert. No obvious cranial nerve deficits. Motor grossly within normal limits. Five out of 5 muscle strength in the arms and legs. Normal speech. PSYCHIATRIC: Appropriate mood and affect; insight and judgment normal. Assessment and Plan Assessment and Plan LEFT PLEURAL EFFUSION ESRD , ON DIALYSISI S/P BILATERAL NEPHRECTOMY PLAN: THORACENTESIS done 600 cc removed , clear straw colored fluid will check results Capri Farooq MD September 28, 2016 17:19
[2016-09-28 17:31] LABS: PLEURAL FLUID LYMPHS 44 %
[2016-09-29] MEDS: HYDROmorphone HCL PF 1 MG/ML VIAL IV PRN ×2 (00:17→08:48)
[2016-09-29] MEDS: oxyCODONE/ACETAMINOPHEN 5 MG/325 MG TAB PO PRN ×4 (00:28→18:12)
[2016-09-29 07:29] LABS: AUTOMATED NEUTROPHIL # 4.2 TH/MM3 (1.8-7.7); BASOPHIL # 0.1 TH/MM3 (0-0.2); BASOPHIL % 0.9 % (0.0-2.0); EOSINOPHIL # 0.2 TH/MM3 (0-0.4); EOSINOPHIL % 2.2 % (0.0-4.0); HEMATOCRIT 22.7 % (39.0-51.0); LYMPH % 36.4 % (9.0-44.0); LYMPHOCYTE # 2.9 TH/MM3 (1.0-4.8); MEAN CORPUSCULAR HEMOGLOBIN 29.7 PG (27.0-34.0); MEAN CORPUSCULAR HGB CONC 34.1 % (32.0-36.0); MONO % 8.4 % (0.0-8.0); NEUT % 52.1 % (16.0-70.0); PLATELET COUNT 415 TH/MM3 (150-450); RED BLOOD COUNT 2.62 MIL/MM3 (4.50-5.90); RED CELL DISTRIBUTION WIDTH 14.2 % (11.6-17.2)
[2016-09-29 07:38] LABS: HEMO FLAGS AUTO DIFF
[2016-09-29 08:00] VITALS: BP 135/76; PULSE 102; RESP 18; TEMP 97.8; O2SAT 98
[2016-09-29 08:05] LABS: BICARBONATE 31.8 MEQ/L (21.0-32.0); POTASSIUM 4.1 MEQ/L (3.5-5.1)
--- NOTE | 2016-09-29 08:24 | HHI.PR ---
Subjective Remarks Patient in nad. Had paracentesis yesterday. Denies chest pain, sob, n/v/d/c. Chest pain is controlled by medsication, has pain at times with deep inspiration. He is using incentive spirometry. He is sating well on nasal canula. Feels improved and would like to go home. Objective Vitals Vital Signs Date Time Temp Pulse Resp B/P Pulse Ox O2 Delivery O2 Flow Rate FiO2 09/28/16 23:32 98.6 93 19 108/67 95 09/28/16 20:00 98.9 112 19 114/66 93 09/28/16 17:49 96 21 09/28/16 16:00 95 16 137/75 96 09/28/16 15:50 98.9 95 16 135/85 96 09/28/16 15:02 98.8 113 18 122/66 93 I/O 09/28/16 09/28/16 09/28/16 09/29/16 09/29/16 09/29/16 07:00 15:00 23:00 07:00 15:00 23:00 Intake Total 240 ml 600 ml 330 ml 120 ml Output Total 3000 ml Balance 240 ml 600 ml -2670 ml 120 ml Intake Oral 240 ml 500 ml 240 ml 120 ml IV Total 100 ml 90 ml Output Urine Total 0 ml Hemodialysis 3000 ml # Voids 0 0 # Bowel Movements 0 1 0 0 Result Diagram: 09/29/16 0709 09/28/16 0427 Imaging Last Impressions Thoracentesis Ultrasound 09/28/16 0000 Signed Impressions: Service Date/Time: Wednesday, September 28, 2016 15:10 - CONCLUSION: Uncomplicated ultrasound guided thoracentesis. Kedar Rodriguez MD Chest X-Ray 09/28/16 0000 Signed Impressions: Service Date/Time: Wednesday, September 28, 2016 15:45 - CONCLUSION: Bibasilar atelectasis, greater on the left. No pneumothorax the left status post thoracentesis. Kedar Rodriguez MD Chest Ultrasound 09/25/16 0000 Signed Impressions: Service Date/Time: Sunday, September 25, 2016 11:56 - CONCLUSION: Small to moderate left effusion. Tony Cruz MD Chest CT 09/21/16 0000 Signed Impressions: Service Date/Time: Wednesday, September 21, 2016 17:09 - CONCLUSION: Moderate left pleural effusion and mild right pleural effusion. Donaldo Otero MD Abdomen/Pelvis CT 09/21/16 0000 Signed Impressions: Service Date/Time: Wednesday, September 21, 2016 17:09 - CONCLUSION: 1. Status post bilateral nephrectomy with fluid in the renal fossa regions bilaterally being much more prominent on the left. The fluid and soft tissue density on the left extends throughout the entire left renal fossa and into the left pelvis. There are a few small foci of air seen on the left side. Some degree of infection cannot be excluded. A well formed abscess is difficult to clearly identify on this noncontrast CT examination. 2. Multiple low density masses seen in the liver likely representing cysts given the polycystic kidneys seen on the prior exam. 3. Ascites seen in the left upper quadrant and in the lower pelvis. 4. Bilateral pleural effusions being moderate on the left and mild on the right. Donaldo Otero MD Objective Remarks GENERAL: This is a well-nourished, well-developed patient, in no acute distress SKIN: No rashes, warm and dry HEAD: Atraumatic. Normocephalic. EYES: Pupils equal round and reactive. Extraocular motions intact. No scleral icterus. ENT: Nose without bleeding, or drainage, Airway patent. NECK: Trachea midline. Supple CARDIOVASCULAR: Tachycardia, without murmurs, gallops, or rubs. RESPIRATORY: Decreased breath sounds on the left base No wheezes, rales, or rhonchi. GASTROINTESTINAL: Abdomen soft, non-tender, nondistended. Positive bowel sounds MUSCULOSKELETAL: Extremities without clubbing, cyanosis, or edema. Pedal pulses appreciated NEUROLOGICAL: Awake and alert. Moves all extremity. Normal speech.no focal neurological deficit Procedures bilateral nephrectomies by Dr. Hou 09/14/16 A/P Assessment and Plan 46 years old with autosomal dominant polycystic kidney disease admitted for bilateral nephrectomies , who developed later on sustained fever tachycardia, left lower lobe consolidation/atelectasis and pleural effusion - Suspect sepsis due to left lower lobe pneumonia (temp 101 on September 19, tachycardia, WBC 11 K with left shift) - Febrile illness with mild leukocytosis possibly due to LLL pneumonia HAP with left pleural effusion -mild to moderate (chest x-ray showing left lower consolidation versus atelectasis with pleural effusion). Patient had Temp 100.9 (5/6 at night 8PM). ID specialiat notified. Dr Pedroza. ABX chnaged 09/26/[address] Pedroza recommendations. US chest left for markings reviewed ( shows mild to moderate effusion) findings also discussed with ID specialist Dr Pedroza. Will hold on thoracentesis as patient is stable. Will also consult pulmonology. Seen by Dr Ellison. S/P thoracentesis, doing well - ADPKD Status post bilateral nephrectomies by Dr. Hou on 09/14/16, nephrology following for HD - ESRD due to recent bilateral nephrectomies Monitor creatinine - Diarrhea. Check C diff patient was constipated prior, also on abx. Antiemetics. C diff negative. On probiotics.Improving. Recommendation: Continue on Zosyn and Vanco on Levaquin, fever improved, ID following, as well as urology and nephrology, follow culture Agree with sending blood culture ID consulted and following O2, DuoNeb Sputum culture was sent showed normal growth reviewed by me personally Urology and nephrology notes reviewed by me Check lactic acid Monitor CBC - DVT prophylaxis on heparin 5000 (3 times a day) Discussed with the patient, nurse Patient is improving, discharge patient. ID also to give recommendations regarding abx at [place]. Patient to follow up as OP with PCP and consultants Catrachita Robbins MD September 29, 2016 08:24
[2016-09-29] MEDS: SODIUM CHLORIDE 0.9% FLUSH 10 ML FLUSH IV FLUSH SCH (08:43)
[2016-09-29] MEDS: CALCIUM ACETATE 667 MG CAP PO SCH ×3 (08:53→18:00)
[2016-09-29 09:55] LABS: BANDS 3 % (0-6); BASOPHILS 1 % (0-2); EOSINOPHILS 1 % (0-4); MYELOCYTES 1 % (0-0); NEUTROPHIL # MANUAL DIFF 4.6 TH/MM3 (1.8-7.7); PLATELET ESTIMATE SMEAR NORMAL (NORMAL); PLATELET MORPHOLOGY NORMAL (NORMAL); POLYS (SEG NEUTROPHILS) 53 % (16-70); SCAN/DIFF FINAL DIFF MANUAL; WBC DIFF SAMPLE 100
--- NOTE | 2016-09-29 11:32 | HHI.NPPN ---
Subjective History of Present Illness 46-year-old male with a past medical history of hypertension, polycystic kidney disease, end-stage renal disease on hemodialysis three times per week who was admitted for bilateral nephrectomy. Additional Remarks Patient is alert, breathing is better after Thoracentesis. Objective Data Data 09/28/16 09/29/16 19:00 07:00 Intake Total 690 ml 360 ml Output Total 3000 ml 0 ml Balance -2310 ml 360 ml Intake Oral 500 ml 360 ml IV Total 190 ml Output Urine Total 0 ml Hemodialysis 3000 ml # Voids 0 # Bowel Movements 1 0 Vital Signs Date Time Temp Pulse Resp B/P Pulse Ox O2 Delivery O2 Flow Rate FiO2 09/29/16 08:00 97.8 102 18 135/76 98 09/28/16 23:32 98.6 93 19 108/67 95 09/28/16 20:00 98.9 112 19 114/66 93 09/28/16 17:49 96 21 09/28/16 16:00 95 16 137/75 96 09/28/16 15:50 98.9 95 16 135/85 96 09/28/16 15:02 98.8 113 18 122/66 93 -: 09/29/16 0709 09/29/16 0709 Microbiology 09/28/16 Gram Stain - Final, Resulted 09/28/16 Body Fluid Culture, Resulted Pending 09/28/16 Acid Fast Stain, Received Pending 09/28/16 Mycobacterial Culture, Received Pending 09/28/16 Fungal Smear - Final, Resulted NO FUNGAL ELEMENTS SEEN. 09/28/16 Fungal Culture, Resulted Pending Physical Exam General Appearance: No Acute Distress, Comfortable Throat Throat Exam: Oral Mucosa [place] & Moist Pulmonary Resp Exam: Clear Bilaterally, Breath Sounds Equal, Decreased Bases Cardiology CV Exam: Regular, Normal Sinus Rhythm Gastrointestinal/Abdomen GI Exam: Soft, Non-Tender, Bowel Sounds Present Extremeties Extremities Exam: Trace Edema Neurologic Neuro Exam: Alert, Awake, Oriented Psychiatric Psych Exam: Appropriate Responses Assessment/Plan Assessment Summary: Anemia of CKD, Hypertension, End Stage Renal Disease Problem List: (1) Autosomal dominant polycystic kidney disease (2) HTN (hypertension) (3) End stage kidney disease (4) Status post nephrectomy Plan Patient has Bilateral Nephrectomies done due to PKD and pre transplant. Bowel function appears to be returning. On Epogen and follow the Hgb. possible pneumonia, On Zosyn, Vanco. was stopped by ID. Blood cultures negative. Has low grade fever again yesterday, now afebrile. Continue antibiotics. U/S chest noted, possibly will need Thoracentesis, Pulmonary seen the patient. Thoracentesis done and 650 ml removed. HD is due in AM. Possible D/C today or tomorrow. Problem Qualifiers (1) HTN (hypertension): Qualified Code: I10 - Essential hypertension Ta Rinaldi MD September 29, 2016 11:32
[2016-09-29 12:00] VITALS: BP 124/74; PULSE 89; RESP 19; TEMP 96.7; O2SAT 95
--- NOTE | 2016-09-29 12:37 | HHI.DS ---
Discharge Summary Admission Date Sep 14, 2016 at 05:50 Discharge Date: September 29, 2016 Admitting Diagnosis (1) Autosomal dominant polycystic kidney disease Diagnosis: Principal Procedures Open surgical bilateral nephrectomies Brief History 46-year-old gentleman with end-stage renal disease secondary to autosomal dominant polycystic kidney disease who was admitted on September 14 to undergo bilateral nephrectomies. Please refer to the admission history and physical for additional history and physical findings. CBC/BMP: 09/29/16 0709 09/29/16 0709 Significant Findings Laboratory Tests Test 09/27/16 09/28/16 09/28/16 09/28/16 04:11 04:27 12:50 15:33 Red Blood Count 2.42 MIL/MM3 2.61 MIL/MM3 (4.50-5.90) (4.50-5.90) Hemoglobin 7.0 GM/DL 7.6 GM/DL (13.0-17.0) (13.0-17.0) Hematocrit 21.2 % 23.2 % (39.0-51.0) (39.0-51.0) Monocytes (%) (Auto) 9.4 % (0.0-8.0) 8.4 % (0.0-8.0) Monocytes % 9 % (0-8) Chloride Level 94 MEQ/L 94 MEQ/L (98-107) (98-107) Carbon Dioxide Level 32.7 MEQ/L (21.0-32.0) Blood Urea Nitrogen 51 MG/DL (7-18) 61 MG/DL (7-18) Creatinine 12.14 MG/DL 15.06 MG/DL (0.60-1.30) (0.60-1.30) Estimat Glomerular Filtration 5 ML/MIN (>89) 4 ML/MIN (>89) Rate Iron Level 58 MCG/DL 24 MCG/DL (65-175) (65-175) Aspartate Amino Transf 59 U/L (15-37) (AST/SGOT) Total Protein 5.2 GM/DL (6.4-8.2) Albumin 1.8 GM/DL (3.4-5.0) Prealbumin 15 MG/DL (20-40) Myelocytes 1 % (0-0) Calcium Level 8.2 MG/DL (8.5-10.1) Phosphorus Level 6.2 MG/DL (2.5-4.9) Total Iron Binding Capacity 141 MCG/DL (250-450) Percent Iron Saturation 17.0 % (20-50) Ferritin 608 NG/ML (26-388) Prothrombin Time 13.1 SEC (9.8-11.6) Pleural Fluid WBC 889 /MM3 (0-10) Pleural Fluid RBC 1394 /MM3 (0-0) Test 09/29/16 07:09 Red Blood Count 2.62 MIL/MM3 (4.50-5.90) Hemoglobin 7.8 GM/DL (13.0-17.0) Hematocrit 22.7 % (39.0-51.0) Monocytes (%) (Auto) 8.4 % (0.0-8.0) Myelocytes 1 % (0-0) Chloride Level 96 MEQ/L (98-107) Blood Urea Nitrogen 45 MG/DL (7-18) Creatinine 11.47 MG/DL (0.60-1.30) Estimat Glomerular Filtration 5 ML/MIN (>89) Rate PE at Discharge Abdomen soft, nondistended, nontender Wound site healing well Extremities well-perfused, nontender Hospital Course Patient admitted on September 14 and underwent bilateral nephrectomies without complications. During the initial postop period the patient did well although he did have an ileus for the first several postop days. Ileus subsequently resolved however the patient soon thereafter developed low-grade fevers. Imaging studies were consistent with either a left pleural effusion or left lower lobe pneumonia. Medicine, infectious disease and pulmonary medicine were all consulted. The patient was treated with multiple antibiotics and ultimately ended up having a thoracentesis. As of September 29, the patient was feeling great, vital signs are stable, he was afebrile and was desiring to go home. Pt Condition on Discharge: Good Discharge Disposition: Discharge Home Discharge Instructions DIET: Follow Instructions for: As Tolerated, No Restrictions Activities you can perform: Full Weight Bearing, Shower Only-No Bath Activities to avoid: Strenuous Activity Additional Activity Instructio: Patient advised not to perform any heavy lifting for additional 4 weeks. Lalo Collier MD September 29, 2016 12:37
[2016-09-29] MEDS ORDERED: PERC5TAB12 PO (12:45)
[2016-09-29] MEDS: PANTOPRAZOLE SODIUM 40 MG VIAL IV PUSH SCH (12:54)
[2016-09-29] MEDS: SODIUM CHLORIDE 0.9% FLUSH 10 ML FLUSH IV FLUSH PRN ×2 (12:56→16:00)
[2016-09-29 14:30] VITALS: O2SAT 93
--- NOTE | 2016-09-29 14:57 | HHI.IDPN ---
Note Infectious Disease Note Patient feels okay. Had thoracentesis yesterday. Clear fluid removed. Breathing better. Afebrile. No SOB. No cough. No chills. Blood Cultures have no growth. PAST MEDICAL HISTORY 1. Hypertension 2. End-stage renal disease on hemodialysis 3. Polycystic kidney disease, 4. Chronic anemia 5. AV fistula. ALLERGIES NO KNOWN DRUG ALLERGIES. OBJECTIVE: Vital Signs Date Time Temp Pulse Resp B/P Pulse Ox O2 Delivery O2 Flow Rate FiO2 09/29/16 12:00 96.7 89 19 124/74 95 09/29/16 09:18 16 09/29/16 08:00 97.8 102 18 135/76 98 09/29/16 07:56 16 09/28/16 23:32 98.6 93 19 108/67 95 09/28/16 20:00 98.9 112 19 114/66 93 09/28/16 17:49 96 21 09/28/16 16:00 95 16 137/75 96 09/28/16 15:50 98.9 95 16 135/85 96 09/28/16 15:02 98.8 113 18 122/66 93 09/28/16 09/28/16 09/29/16 15:00 23:00 07:00 Intake Total 600 ml 330 ml 120 ml Output Total 3000 ml Balance 600 ml -2670 ml 120 ml Intake Oral 500 ml 240 ml 120 ml IV Total 100 ml 90 ml Output Urine Total 0 ml Hemodialysis 3000 ml # Voids 0 # Bowel Movements 1 0 0 Laboratory Tests Test 09/28/16 09/29/16 04:27 07:09 White Blood Count 7.2 TH/MM3 8.0 TH/MM3 Red Blood Count 2.61 MIL/MM3 2.62 MIL/MM3 Hemoglobin 7.6 GM/DL 7.8 GM/DL Hematocrit 23.2 % 22.7 % Mean Corpuscular Volume 88.7 FL 87.0 FL Mean Corpuscular Hemoglobin 29.0 PG 29.7 PG Mean Corpuscular Hemoglobin 32.7 % 34.1 % Concent Red Cell Distribution Width 14.2 % 14.2 % Platelet Count 415 TH/MM3 415 TH/MM3 Mean Platelet Volume 7.1 FL 7.3 FL Neutrophils (%) (Auto) 54.8 % 52.1 % Lymphocytes (%) (Auto) 32.2 % 36.4 % Monocytes (%) (Auto) 8.4 % 8.4 % Eosinophils (%) (Auto) 3.4 % 2.2 % Basophils (%) (Auto) 1.2 % 0.9 % Neutrophils # (Auto) 4.0 TH/MM3 4.2 TH/MM3 Lymphocytes # (Auto) 2.3 TH/MM3 2.9 TH/MM3 Monocytes # (Auto) 0.6 TH/MM3 0.7 TH/MM3 Eosinophils # (Auto) 0.2 TH/MM3 0.2 TH/MM3 Basophils # (Auto) 0.1 TH/MM3 0.1 TH/MM3 CBC Comment AUTO DIFF AUTO DIFF Differential Total Cells 100 100 Counted Neutrophils % (Manual) 63 % 53 % Lymphocytes % 28 % 37 % Monocytes % 3 % 4 % Eosinophils % 4 % 1 % Basophils % 1 % 1 % Neutrophils # (Manual) 4.6 TH/MM3 4.6 TH/MM3 Myelocytes 1 % 1 % Differential Comment FINAL DIFF FINAL DIFF MANUAL MANUAL Platelet Estimate NORMAL NORMAL Platelet Morphology Comment NORMAL NORMAL Band Neutrophils % 3 % Laboratory Tests Test 09/28/16 09/29/16 04:27 07:09 Sodium Level 136 MEQ/L 138 MEQ/L Potassium Level 4.1 MEQ/L 4.1 MEQ/L Chloride Level 94 MEQ/L 96 MEQ/L Carbon Dioxide Level 30.2 MEQ/L 31.8 MEQ/L Anion Gap 12 MEQ/L 10 MEQ/L Blood Urea Nitrogen 61 MG/DL 45 MG/DL Creatinine 15.06 MG/DL 11.47 MG/DL Estimat Glomerular Filtration 4 ML/MIN 5 ML/MIN Rate Random Glucose 83 MG/DL 87 MG/DL Calcium Level 8.2 MG/DL 8.5 MG/DL Phosphorus Level 6.2 MG/DL Iron Level 24 MCG/DL Total Iron Binding Capacity 141 MCG/DL Percent Iron Saturation 17.0 % Ferritin 608 NG/ML Magnesium Level 2.0 MG/DL Microbiology Date/Time Procedure Status Source Growth 09/28/16 07:49 Stool Occult Blood (MAGY) - Final Complete Stool Stool HEMOCCULT POSITIVE 09/28/16 15:33 Gram Stain - Final Resulted Fluid Pleural Fluid 09/28/16 15:33 Body Fluid Culture - Preliminary Resulted Fluid Pleural Fluid NO GROWTH IN 24 HOURS. 09/28/16 15:33 Acid Fast Stain Received Fluid Pleural Fluid Pending 09/28/16 15:33 Mycobacterial Culture Received Fluid Pleural Fluid Pending 09/28/16 15:33 Fungal Smear - Final Resulted Fluid Pleural Fluid NO FUNGAL ELEMENTS SEEN. 09/28/16 15:33 Fungal Culture Resulted Fluid Pleural Fluid Pending IMAGING: Thoracentesis Ultrasound 09/28/16 0000 Signed Impressions: Service Date/Time: Wednesday, September 28, 2016 15:10 - CONCLUSION: Uncomplicated ultrasound guided thoracentesis. Kedar Rodriguez MD Chest X-Ray 09/28/16 0000 Signed Impressions: Service Date/Time: Wednesday, September 28, 2016 15:45 - CONCLUSION: Bibasilar atelectasis, greater on the left. No pneumothorax the left status post thoracentesis. Kedar Rodriguez MD Chest X-Ray 09/26/16 0000 Signed Impressions: Service Date/Time: Monday, September 26, 2016 11:58 - CONCLUSION: 1. Moderate-sized left joint effusion without significant change. 2. Mild cardiomegaly and motion artifact. Tony Cruz MD Chest Ultrasound 09/25/16 0000 Signed Impressions: Service Date/Time: Sunday, September 25, 2016 11:56 - CONCLUSION: Small to moderate left effusion. Tony Cruz MD Chest X-Ray 09/22/16 0600 Signed Impressions: Service Date/Time: Thursday, September 22, 2016 05:54 - CONCLUSION: 1. Cardiomegaly. 2. Left lower lobe atelectasis versus pneumonia. Left pleural effusion 3. There has been no significant change when compared to the prior exam. Lyndon Casey MD Chest CT 09/21/16 0000 Signed Impressions: Service Date/Time: Wednesday, September 21, 2016 17:09 - CONCLUSION: Moderate left pleural effusion and mild right pleural effusion. Donaldo Otero MD Abdomen/Pelvis CT 09/21/16 Signed Impressions: Service Date/Time: Wednesday, September 21, 2016 17:09 - CONCLUSION: 1. Status post bilateral nephrectomy with fluid in the renal fossa regions bilaterally being much more prominent on the left. The fluid and soft tissue density on the left extends throughout the entire left renal fossa and into the left pelvis. There are a few small foci of air seen on the left side. Some degree of infection cannot be excluded. A well formed abscess is difficult to clearly identify on this noncontrast CT examination. 2. Multiple low density masses seen in the liver likely representing cysts given the polycystic kidneys seen on the prior exam. 3. Ascites seen in the left upper quadrant and in the lower pelvis. 4. Bilateral pleural effusions being moderate on the left and mild on the right. Donaldo Otero MD PHYSICAL EXAMINATION GENERAL: No acute distress. HEENT: No icterus. Oropharynx without lesions. Moist mucosa. NECK: Supple. No adenopathy. No swelling. No jugular venous distension. LUNGS: Clear breath sounds. HEART: Nl S1S2, no murmurs, rubs or gallops. ABDOMEN: Bowel sounds present, soft, no tenderness. Non distended. Surgical incision intact without signs of infection. EXTREMITIES: No clubbing or cyanosis or edema. SKIN: Warm and moist. No rash. NEUROLOGIC: No gross focal findings. PSYCHIATRIC: Calm and cooperative. IMPRESSION 1. Fever. Vancomycin and Zosyn discontinued. Resolved. Negative cultures. 2. Post bilateral nephrectomy. CT scan ? post surgical changes. 3. Sepsis in patient with elevated white blood cell count and fever and elevated heart rate and possible pneumonia versus other source of sepsis. 4. Lung infiltrate. Probable pneumonia. Pleural effusion. 5. End-stage renal disease. 6. Leukocytosis improved. WBC nl. Stable. RECOMMENDATIONS Okay to discharge without antibiotics. Pleural fluid culture can be followed as outpatient. I will sign off. Dr Robbins notified. Prieto Rosales MD September 29, 2016 14:57
[2016-09-29] MEDS: CEFEPIME INJ 2,000 MG in SODIUM CHLORIDE 0.9% INJ 100 ML IV SCH (15:56)
[2016-09-29 16:00] VITALS: BP 122/72; PULSE 95; RESP 17; TEMP 97.2; O2SAT 99
[2016-09-29 17:06] VITALS: O2SAT 99
--- NOTE | 2016-09-29 18:14 | HHI.PR ---
Subjective Remarks alert no SOB Objective Vital Signs Date Time Temp Pulse Resp B/P Pulse Ox O2 Delivery O2 Flow Rate FiO2 09/29/16 17:06 99 09/29/16 16:00 97.2 95 17 122/72 99 09/29/16 14:30 93 09/29/16 12:00 96.7 89 19 124/74 95 09/29/16 09:18 16 09/29/16 08:00 97.8 102 18 135/76 98 09/29/16 07:56 16 09/28/16 23:32 98.6 93 19 108/67 95 09/28/16 20:00 98.9 112 19 114/66 93 I/O 09/28/16 09/28/16 09/28/16 09/29/16 09/29/16 09/29/16 07:00 15:00 23:00 07:00 15:00 23:00 Intake Total 240 ml 600 ml 330 ml 120 ml 240 ml Output Total 3000 ml 400 ml Balance 240 ml 600 ml -2670 ml 120 ml -160 ml Intake Oral 240 ml 500 ml 240 ml 120 ml 240 ml IV Total 100 ml 90 ml Output Urine Total 0 ml 400 ml Hemodialysis 3000 ml # Voids 0 0 # Bowel Movements 0 1 0 0 0 Result Diagram: 09/29/1670809/29/16708 Procedures Open surgical bilateral nephrectomies Objective Remarks GENERAL: SKIN: Warm and dry. HEAD: Atraumatic. Normocephalic. EYES: Pupils equal and round. No scleral icterus. No injection or drainage. ENT: No nasal bleeding or discharge. Mucous membranes pink and moist. NECK: Trachea midline. No JVD. CARDIOVASCULAR: Regular rate and rhythm. RESPIRATORY: No accessory muscle use.DECREASE BEATH SOUNDS LEFT BASE . GASTROINTESTINAL: Abdomen soft, non-tender, nondistended. Hepatic and splenic margins not palpable. MUSCULOSKELETAL: Extremities without clubbing, cyanosis, or edema. No obvious deformities. NEUROLOGICAL: Awake and alert. No obvious cranial nerve deficits. Motor grossly within normal limits. Five out of 5 muscle strength in the arms and legs. Normal speech. PSYCHIATRIC: Appropriate mood and affect; insight and judgment normal. Assessment and Plan Assessment and Plan LEFT PLEURAL EFFUSION ESRD , ON DIALYSISI S/P BILATERAL NEPHRECTOMY fluid culture negative PLAN: THORACENTESIS done 600 cc removed , clear straw colored fluid increase activity Capri,Capri Mohan MD September 29, 2016 18:14
[2016-10-13] MEDS ORDERED: VITATAB11 PO (15:11)
== END 2016-09-29 18:39 | disposition home or self-care (01) | DRG 659 ==
LOC: HSDI 09-14 05:50 → N07A 09-14 15:36
PROVIDERS: ADMIT Urology; ATTEND Urology
PROC: 0TT20ZZ Resection of Bilateral Kidneys, Open Approach (ICD-10-PCS; principal; 2016-09-14 08:09)
PROC: 5A1D60Z (ICD-10-PCS; 2016-09-16)
PROC: 0W9B3ZX Drainage of Left Pleural Cavity, Percutaneous Approach, Diagnostic (ICD-10-PCS; 2016-09-28)
DX: Q61.2 Polycystic kidney, adult type (principal); J18.9 Pneumonia, unspecified organism; A41.9 Sepsis, unspecified organism; J90 Pleural effusion, not elsewhere classified; N18.6 End stage renal disease; I12.0 Hypertensive chronic kidney disease with stage 5 chronic kidney disease or end stage renal disease; K91.89 Other postprocedural complications and disorders of digestive system; K56.7 Ileus, unspecified; J98.11 Atelectasis; I95.9 Hypotension, unspecified; Z99.2 Dependence on renal dialysis; D63.1 Anemia in chronic kidney disease; Z87.891 Personal history of nicotine dependence; Z90.5 Acquired absence of kidney; Y95 Nosocomial condition; Z82.71 Family history of polycystic kidney; R50.2 Drug induced fever; T36.8X5A Adverse effect of other systemic antibiotics, initial encounter; Y92.239 Unspecified place in hospital as the place of occurrence of the external cause
CPT/HCPCS: 32555; 71010; 71020; 71250; 74176; 76604; 80048; 80053; 82150; 82272; 82550; 82728; 82945; 83540; 83550; 83605; 83615; 83735; 84100; 84134; 84157; 84484; 85007; 85025; 85027; 85610; 85730; 86850; 86900; 86901; 86920; 87015; 87040; 87070; 87102; 87116; 87205; 87206; 87493; 88112; 88305; 88307; 89051; 90935; 93005; 94150; 94640; 94664; 96365; 96374; 96375; C1729; C9113; J0690; J0692; J0696; J1170; J1644; J1756; J1956; J2060; J2175; J2250; J2270; J2370; J2405; J2543; J3010; J3370; J7030; J7040; J7042; J7050; Q4081

== ENCOUNTER → 2016-09-06 | Outpatient (CLI) | payer MEDICARE, OTHER, MEDICAID ==
[~2016-09-06] MED LIST changes: +NORC5TAB PO; +PERC5TAB12 PO; +VITATAB11 PO; +WALKER WHEELS/F1 MIS
[2016-09-06 12:15] LABS: AUTOMATED NEUTROPHIL # 4.6 TH/MM3 (1.8-7.7); BASOPHIL % 0.6 % (0.0-2.0); EOSINOPHIL # 0.1 TH/MM3 (0-0.4); EOSINOPHIL % 1.5 % (0.0-4.0); HEMATOCRIT 42.5 % (39.0-51.0); HEMO FLAGS DIFF FINAL; LYMPH % 22.7 % (9.0-44.0); LYMPHOCYTE # 1.5 TH/MM3 (1.0-4.8); MEAN CELL VOLUME 88.2 FL (80.0-100.0); MEAN CORPUSCULAR HEMOGLOBIN 29.9 PG (27.0-34.0); MEAN CORPUSCULAR HGB CONC 33.9 % (32.0-36.0); MONO % 6.7 % (0.0-8.0); NEUT % 68.5 % (16.0-70.0); PLATELET COUNT 270 TH/MM3 (150-450); RED BLOOD COUNT 4.82 MIL/MM3 (4.50-5.90); RED CELL DISTRIBUTION WIDTH 13.6 % (11.6-17.2); WHITE BLOOD COUNT 6.7 TH/MM3 (4.0-11.0)
[2016-09-06 12:20] LABS: APTT (PATIENT) 27.8 SEC (24.3-30.1); PROTHROMBIN TIME - PATIENT 10.7 SEC (9.8-11.6)
[2016-09-06 12:42] LABS: ALT (GPT) 18 U/L (12-78); ANION GAP 12 MEQ/L (5-15); AST (GOT) 6 U/L (15-37); BICARBONATE 28.6 MEQ/L (21.0-32.0); BLOOD UREA NITROGEN 59 MG/DL (7-18); CHLORIDE 99 MEQ/L (98-107); GLOMERULAR FILTRATION RATE 6 ML/MIN (>89); GLUCOSE,FASTING 73 MG/DL (74-99); POTASSIUM 4.1 MEQ/L (3.5-5.1); SODIUM (NA) 140 MEQ/L (136-145)
[2016-09-06 12:45] LABS: ALKALINE PHOSPHATASE 68 U/L (45-117); TOTAL BILIRUBIN ADULT 0.4 MG/DL (0.2-1.0)
== END ==
LOC: CPRE 09:23
PROVIDERS: ATTEND Urology
DX: Z01.812 Encounter for preprocedural laboratory examination (principal); Q61.2 Polycystic kidney, adult type
CPT/HCPCS: 36415; 80053; 85025; 85610; 85730

== ENCOUNTER 2017-01-18 08:56 | Emergency (ER) | payer MEDICARE, OTHER, MEDICAID ==
[~2017-01-18] VITALS: Ht 167.6 cm; Wt 75.0 kg
[~2017-01-18 08:56] MED LIST changes: -NORC5TAB PO; -PERC5TAB12 PO; -WALKER WHEELS/F1 MIS
[2017-01-18 08:57] VITALS: BP 195/94; PULSE 92; RESP 18; TEMP 98; O2SAT 98
[2017-01-18 09:06] VITALS: BP 183/93
--- NOTE | 2017-01-18 09:24 | PD ---
HPI . jaw swelling Chief Complaint: Oral / Dental Pain or Problem Time Seen by Provider: 09:14 Travel History International Travel<30 days: No Contact w/Intl Traveler<30days: No Traveled to known affect area: No History of Present Illness HPI 47- year old male with a PMHx of CKD on dialysis presents to the ED complaining of left jaw swelling. The patient reports that his face was tender to touch for quite some time, but reports that the swelling started today. He doesn't really h ave any tenderness today. He reports he is scheduled to receive dialysis at 10 am, he called the nurse there and they told him to get it checked prior to coming in for dialysis. He reports his pain is mild and is worse with movement such as opening and closing his mouth. He denies any fever, nausea, vomiting, or diarrhea. 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) Cancer: No Cardiovascular Problems: No High Cholesterol: Yes Chest Pain: Yes COPD: No Cerebrovascular Accident: No Diabetes: No Diminished Hearing: No Endocrine: No Gastrointestinal Disorders: Yes (POLYCYSTIC KIDNEY DISEASE) GERD: No Genitourinary: Yes (POLYCYSTIC KIDNEY DISEASE) Hepatitis: No Hiatal Hernia: No Hypertension: Yes Immune Disorder: No Implanted Vascular Access Dvce: Yes Kidney Stones: No Musculoskeletal: Yes (SHOULDER ARTHRITIS) Neurologic: Yes Psychiatric: Yes Reproductive: No Respiratory: Yes Immunizations Current: Yes Migraines: No Renal Failure: Yes (POLYCYSTIC KIDNEY DX, STAGE 4 KIDNEY DISEASE) Seizures: No Sleep Apnea: No Thyroid Disease: No Ulcer: No Past Surgical History Abdominal Surgery: No AICD: No Arteriovenous Shunt: Yes (left AV fistula) Body Medical Devices: FISTULA GRAFT LUE Cardiac Surgery: No Ear Surgery: No Endocrine Surgery: No Eye Surgery: No Genitourinary Surgery: Yes (bilateral nephroectomy 09/14/16) Gynecologic Surgery: No Insulin Pump: No Joint Replacement: No Oral Surgery: Yes (WISDOM TEETH REMOVED ) Pacemaker: No Thoracic Surgery: No Other Surgery: Yes (FISTULA LEFT ARM/ DIALYSIS PORT) Social History Alcohol Use: No Tobacco Use: No Substance Use: No Allergies-Medications (Allergen,Severity, Reaction): Coded Allergies: No Known Allergies (Unverified , 12/01/16) Reported Meds & Prescriptions Reported Meds & Active Scripts Active Reported Amlodipine (Amlodipine Besylate) 5 Mg Tab 5 Mg PO DAILY Vitamin B Complex (B-Complex Vitamins) 1 Tab 1 Tab PO DAILY Multi-Vitamins (Multiple Vitamin) 1 Tab Tab 1 Tab PO DAILY Suboxone Sublingual Film (Buprenorphine-Naloxone Sublingual Film) 8-2 Mg Film 3 Film SL DAILY Unique ID number required: Calcium Acetate (Phosphate Binder) 667 Mg Tab 667 Mg PO TID Review of Systems General / Constitutional: No: Fever, Chills, Weight Gain, Weight Loss, Other Eyes: No: Diploplia, Blurred Vision, Photophobia, Drainage, Redness, Foreign Body Sensation, Pain, Tearing, Blind Spots, Visual changes, Blindness, Other HENT: No: Headaches, Vertigo, Lightheadedness, Sore Throat, Rhinitis, Rhinorrhea, Congestion, Nosebleed, Neck Stiffness, Neck Pain, Masses, Gingival Bleeding, Dental Difficulties, Ear Discharge, Earache, Other Cardiovascular: No: Chest Pain or Discomfort, Palpitations, Irregular Rhythm, Tachycardia, Diaphoresis, Syncope, Dyspnea on exertion, Varicosities, Edema, Cyanosis, Varicosities, Phlebitis, Claudication, Other Respiratory: No: Cough, Shortness of Breath, Wheezing, Sneezing, Orthopnea, Hemoptysis, Stridor, Night Sweats, Pleuritic Pain, Other Gastrointestinal: No: Nausea, Vomiting, Diarrhea, Abdominal Pain, Hematemesis, Hematochezia, Constipation, Changes in Bowel Habits, Indigestion, Dysphagia, Loss of Appetite, Other Genitourinary: No: Urgency, Frequency, Dysuria, Nocturia, Hematuria, Decreased Urinary Output, Oliguria, Hesitancy, Dribbling, Incontinence, Pelvic Pain, Flank Pain, Dyspareunia, Discharge, Dysmenorrhea, Menorrhagia, Metorrhagia, Vaginal Bleeding, Other Musculoskeletal: Positive: Pain (left jaw), No: Myalgias, Arthralgias, Limited ROM, Weakness, Cramping, Edema, Atrophy, Other Skin: No Rash, No Itching, No Dryness, No Lumps, No Hives, No Change in Pigmentation, No Change in nails, No Alopecia, No Lesions, No Breast Lumps, No Breast Tenderness, No Breast Swelling, No Other Neurologic: No: Weakness, Dizziness, Syncope, Focal Abnormalities, Coordination Problem, Tremor, Ataxia, Headache, Change in Mentation, Slurred Speech, Paresthesia, Incontinence, Seizures, Sensory Disturbance, Other Psychiatric: No: Anxiety, Depression, Suicidal Ideations, Disorder of Thought, Mood Disorder, Substance Abuse, Homicidal Ideation, Other Endocrine: No: Heat Intolerance, Cold Intolerance, Polyuria, Polydipsia, Other Hematologic/Lymphatic: No: Easy Bruising, Lymph Node Enlargement, Other Physical Exam Narrative GENERAL: AAO x 3. NAD SKIN: Warm and dry. HEAD: Atraumatic. Normocephalic. Left jaw mildy swollen, tender to touch, no erythema.. EYES: Pupils equal and round. No scleral icterus. No injection or drainage. ENT: No nasal bleeding or discharge. Mucous membranes pink and moist. No oropharynx abn. NECK: Trachea midline. No JVD. mild submandibular lymphadenopathy without tenderness. CARDIOVASCULAR: Regular rate and rhythm. RESPIRATORY: No accessory muscle use. Clear to auscultation. Breath sounds equal bilaterally. No wheezes rales or rhonchi. GASTROINTESTINAL: Visual inspection appears normal. MUSCULOSKELETAL: ambulatory NEUROLOGICAL: Awake and alert. No obvious cranial nerve deficits. Motor grossly within normal limits. Five out of 5 muscle strength in the arms and legs. Normal speech. PSYCHIATRIC: Appropriate mood and affect; insight and judgment normal. Data Data Last Documented VS Vital Signs Date Time Temp Pulse Resp B/P (MAP) Pulse Ox O2 Delivery O2 Flow Rate FiO2 01/18/17 09:06 183/93 (123) 01/18/17 08:57 98.0 92 18 98 MDM Medical Decision Making Medical Screen Exam Complete: Yes Emergency Medical Condition: Yes Medical Record Reviewed: Yes Differential Diagnosis Sialadenitis, Left jaw pain, Cellulitis Narrative Course 47 yr old male here with c/o left sided jaw swelling. On exam there is barely any swelling. This appears to be a mild lymphadenopathy. I do not see any oral etiology of infection. I do not suspect widespread infection as he is afebrile and has no other complaints. I recommend keeping an eye on the area and return to the ED if worsens. Patient verbalized understanding of instructions, questions were answered, and thanked me for their care. I advised them if their condition worsens, please return to the nearest emergency room for further care. Diagnosis Primary Impression: Lymphadenopathy Patient Instructions: General Instructions Additional Instructions: [place] for worsening signs of infection which include fever, increased redness , increased warmth, purulent drainage, increased swelling or streaking. If any of these develop, please go to the nearest emergency room. Please return to emergency department if your symptoms return or worsen. Follow up with your primary care provider. Disposition: 01 DISCHARGE HOME Condition: Stable Dorene Sandy Jan 18, 2017 09:24
[2017-01-18] MEDS ORDERED: AMLO5TAB2 PO (09:26)
== END 2017-01-18 10:02 | disposition home or self-care (01) ==
LOC: NEPK 08:56
DX: R59.1 Generalized enlarged lymph nodes (principal); I12.9 Hypertensive chronic kidney disease with stage 1 through stage 4 chronic kidney disease, or unspecified chronic kidney disease; N18.4 Chronic kidney disease, stage 4 (severe); M13.842 Other specified arthritis, left hand; M13.841 Other specified arthritis, right hand; F41.9 Anxiety disorder, unspecified; Q61.3 Polycystic kidney, unspecified; Z99.2 Dependence on renal dialysis; Z79.899 Other long term (current) drug therapy
CPT/HCPCS: 99281

== ENCOUNTER → 2017-03-16 | Outpatient (CLI) | payer MEDICARE, OTHER ==
[~2017-03-16] MED LIST changes: +AMLO5TAB2 PO; +OMEP20TA PO
[2017-03-16 10:39] LABS: BASOPHIL # 0.1 TH/MM3 (0-0.2); EOSINOPHIL # 0.2 TH/MM3 (0-0.4); EOSINOPHIL % 3.6 % (0.0-4.0); HEMATOCRIT 31.7 % (39.0-51.0); HEMOGLOBIN 10.7 GM/DL (13.0-17.0); LYMPH % 37.4 % (9.0-44.0); LYMPHOCYTE # 2.2 TH/MM3 (1.0-4.8); MEAN CORPUSCULAR HEMOGLOBIN 29.3 PG (27.0-34.0); MEAN CORPUSCULAR HGB CONC 33.6 % (32.0-36.0); MEAN PLATELET VOLUME 7.3 FL (7.0-11.0); MONOCYTE # 0.4 TH/MM3 (0-0.9); PLATELET COUNT 169 TH/MM3 (150-450); RED BLOOD COUNT 3.64 MIL/MM3 (4.50-5.90); RED CELL DISTRIBUTION WIDTH 14.9 % (11.6-17.2); WHITE BLOOD COUNT 5.9 TH/MM3 (4.0-11.0)
[2017-03-16 11:03] LABS: ALBUMIN 3.8 GM/DL (3.4-5.0); AST (GOT) 12 U/L (15-37); BICARBONATE 30.5 MEQ/L (21.0-32.0); BLOOD UREA NITROGEN 43 MG/DL (7-18); CALCIUM 9.5 MG/DL (8.5-10.1); CHLORIDE 102 MEQ/L (98-107); CREATININE 9.17 MG/DL (0.60-1.30); GLOMERULAR FILTRATION RATE 6 ML/MIN (>89); GLUCOSE,FASTING 81 MG/DL (74-99); SODIUM (NA) 138 MEQ/L (136-145)
[2017-03-16 11:05] LABS: ALT (GPT) 22 U/L (12-78); CHOLESTEROL 144 MG/DL (120-200)
[2017-03-16 11:07] LABS: ALKALINE PHOSPHATASE 46 U/L (45-117); CHOLESTEROL/ HDL RATIO 2.26 RATIO; HDL CHOLESTEROL 63.7 MG/DL (40.0-60.0); LDL CHOLESTEROL 69 MG/DL (0-99); TOTAL BILIRUBIN ADULT 0.6 MG/DL (0.2-1.0); TOTAL PROTEIN 7.1 GM/DL (6.4-8.2); TRIGLYCERIDES 58 MG/DL (42-150)
== END ==
LOC: CLAB 09:58
PROVIDERS: ATTEND Hospitalist
DX: Q61.2 Polycystic kidney, adult type (principal); E78.5 Hyperlipidemia, unspecified
CPT/HCPCS: 36415; 80053; 80061; 85025

== ENCOUNTER 2017-04-05 13:17 | Emergency (ER) | payer MEDICARE ==
[~2017-04-05 13:17] MED LIST changes: -OMEP20TA PO; +OMEP20TA93 PO
[2017-04-05 13:19] VITALS: BP 184/92; PULSE 83; RESP 17; TEMP 98.4; O2SAT 98
--- NOTE | 2017-04-05 14:18 | PD ---
HPI Chief Complaint: Cold / Flu Symptoms Time Seen by Provider: 14:08 Travel History International Travel<30 days: No Contact w/Intl Traveler<30days: No Traveled to known affect area: No History of Present Illness HPI 47-year-old male presents to the emergency department complaint of cough, chest congestion, nasal congestion, body aches 5 days. He is a dialysis patient and completed dialysis today. Has history of polycystic kidney disease and had his kidneys removed in 2016. Denies fevers. Denies nausea, vomiting, diarrhea, abdominal pain. Denies chest pain or shortness of breath. Reports intermittent wheezing. Says he woke up the other morning noticed wheezing. Reports sinus pressure. Denies sore throat or ear pain. Denies history of tobacco use, COPD, asthma. Has been taking Robitussin and cough drops for symptom management. No known relieving or aggravating factors. No known allergies. Primary care provider is Dr. Blanton. Key Sander is Dr. Rinaldi. Has no other medical complaints. No other modifying factors or associated signs and symptoms. 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) Cancer: No Cardiovascular Problems: Yes (HTN) High Cholesterol: Yes Chest Pain: Yes COPD: No Cerebrovascular Accident: No Diabetes: No Diminished Hearing: No Endocrine: No Gastrointestinal Disorders: Yes (POLYCYSTIC KIDNEY DISEASE) GERD: No Genitourinary: Yes (POLYCYSTIC KIDNEY DISEASE) Hepatitis: No Hiatal Hernia: No Hypertension: Yes (prior to dialysis) Immune Disorder: No Implanted Vascular Access Dvce: Yes Kidney Stones: No Musculoskeletal: Yes (SHOULDER ARTHRITIS) Neurologic: Yes Psychiatric: Yes Reproductive: No Respiratory: Yes Immunizations Current: Yes Migraines: No Renal Failure: Yes (POLYCYSTIC KIDNEY DX, STAGE 4 KIDNEY DISEASE) Seizures: No Sleep Apnea: No Thyroid Disease: No Ulcer: No Past Surgical History Abdominal Surgery: No AICD: No Arteriovenous Shunt: Yes (left AV fistula) Body Medical Devices: FISTULA GRAFT LUE Cardiac Surgery: No Ear Surgery: No Endocrine Surgery: No Eye Surgery: No Genitourinary Surgery: Yes (bilateral nephroectomy 09/14/16) Gynecologic Surgery: No Insulin Pump: No Joint Replacement: No Oral Surgery: Yes (WISDOM TEETH REMOVED ) Pacemaker: No Thoracic Surgery: No Other Surgery: Yes (FISTULA LEFT ARM/ DIALYSIS PORT (removed)) Social History Alcohol Use: No Tobacco Use: No Substance Use: No Allergies-Medications (Allergen,Severity, Reaction): Coded Allergies: No Known Allergies (Unverified , 03/18/17) Reported Meds & Prescriptions Reported Meds & Active Scripts Active Ventolin Hfa 18 GM Inh (Albuterol Sulfate) 90 Mcg/Act Aer 2 Puff INH Q4-6H PRN Azithromycin 500 Mg Tab 500 Mg PO DAILY Omeprazole 20 Mg Tab 20 Mg PO DAILY Reported Amlodipine (Amlodipine Besylate) 5 Mg Tab 5 Mg PO DAILY Vitamin B Complex (B-Complex Vitamins) 1 Tab 1 Tab PO DAILY Multi-Vitamins (Multiple Vitamin) 1 Tab Tab 1 Tab PO DAILY Suboxone Sublingual Film (Buprenorphine-Naloxone Sublingual Film) 8-2 Mg Film 3 Film SL DAILY Unique ID number required: Calcium Acetate (Phosphate Binder) 667 Mg Tab 667 Mg PO TID Review of Systems Except as stated in HPI: all other systems reviewed are Neg Physical Exam Narrative GENERAL: Well-nourished, well-developed male patient, in no acute distress; afebrile, nontoxic-appearing SKIN: Warm and dry. No rash. HEAD: Atraumatic. Normocephalic. EYES: Pupils equal and round. No scleral icterus. No injection or drainage. ENT: Mucosa pink and moist. No erythema or exudates. No uvular edema. No uvular , palatal, or tonsillar deviation. Airway patent. EARS: Bilateral pinnae and external canals appear within normal limits. Bilateral tympanic membranes without erythema, dullness or perforation. NECK: Trachea midline. No lymphadenopathy. CARDIOVASCULAR: Regular rate and rhythm. No murmur appreciated. RESPIRATORY: No accessory muscle use. Rhonchi to right lower lobe auscultated; otherwise clear on auscultation to all other lobes. No retractions or tachypnea. GASTROINTESTINAL: Abdomen soft, non-tender, nondistended. Hepatic and splenic margins not palpable. Bowel sounds are active 4 quadrants. MUSCULOSKELETAL: No obvious deformities. No clubbing. No cyanosis. No edema. NEUROLOGICAL: Awake and alert. Oriented 3. No obvious cranial nerve deficits. Motor grossly within normal limits. Normal speech. Moves all extremities. 5/5 strength to all extremities. PSYCHIATRIC: Appropriate mood and affect; insight and judgment normal. Data Data Last Documented VS Vital Signs Date Time Temp Pulse Resp B/P (MAP) Pulse Ox O2 Delivery O2 Flow Rate FiO2 04/05/17 14:17 Room Air 04/05/17 13:19 98.4 83 17 184/92 (122) 98 Orders Orders Influenzae A/B Antigen (04/05/17 13:34) Chest, Pa & Lat (04/05/17 ) Albuterol Neb (Albuterol Neb) (04/05/17 14:30) Ed Discharge Order (04/05/17 15:25) MDM Medical Decision Making Medical Screen Exam Complete: Yes Emergency Medical Condition: Yes Medical Record Reviewed: Yes Differential Diagnosis Upper respiratory infection, bronchitis, pneumonia, influenza, viral illness Narrative Course 47-year-old male with cough/cold/flu symptoms 5 days. Patient is on dialysis and completed dialysis today. He is afebrile and nontoxic-appearing. He denies fevers or vomiting. Patient has rhonchi to the right lower lung on auscultation. He denies chest pain or shortness of breath. Albuterol nebulizer , chest x-ray, influenza ordered. 1447: Chest x-ray with no acute findings. 1522: Influenza negative. On reexamination lung sounds are clear and equal throughout. Ventolin inhaler and azithromycin prescribed for home. Instructed patient to follow up with primary care provider. Patient verbalizes understanding and agreement with treatment plan. Patient is medically cleared and stable for discharge. Discussed reasons to return to the emergency department. Patient agrees with treatment plan. The patients vital signs are stable and the patient is stable for outpatient follow-up and treatment. Patient discharged home, stable and in no acute distress. Diagnosis Primary Impression: Upper respiratory infection Qualified Codes: J06.9 - Acute upper respiratory infection, unspecified Additional Impression: Bronchitis Referrals: Primary Care Physician Patient Instructions: Acute Bronchitis (ED), General Instructions, Upper Respiratory Infection (ED) Additional Instructions: Use Albuterol inhaler as prescribed [id number] decongestants or antihistamines as directed and as needed for symptom management Drink plenty of fluids to prevent dehydration Use hot air humidifier to decrease cough exacerbation Turn off ceiling fans and sleep with head of bed elevated Avoid triggers such as second hand smoke, dust, known allergens Follow-up with your primary care provider Return to the emergency department immediately with worsening of symptoms Med/Other Pt SpecificInfo: Prescription(s) given Scripts Albuterol 18 GM Inh (Ventolin Hfa 18 GM Inh) 90 Mcg/Act Aer 2 PUFF INH Q4-6H Y for SOB/WHEEZING, #1 INHALER 0 Refills Prov: Cindy Higginbotham 04/05/17 Azithromycin (Azithromycin) 500 Mg Tab 500 MG PO DAILY for Infection, #5 TAB 0 Refills Prov: Cindy Higginbotham 04/05/17 Disposition: 01 DISCHARGE HOME Condition: Stable Cindy Higginbotham Apr 05, 2017 14:18
--- NOTE | 2017-04-05 14:24 | RADRPT ---
EXAM DATE/TIME: 04/05/2017 14:05 [facility] COMPARISON: CHEST PA & LAT, September 22, 2016, 5:54. INDICATIONS : Cough and fever MEDICAL HISTORY : Dialysis SURGICAL HISTORY : None. ENCOUNTER: Initial ACUITY: 2 days PAIN SCORE: 0/10 LOCATION: chest FINDINGS: PA and lateral views of the chest demonstrate the lungs to be symmetrically aerated without evidence of mass, infiltrate or effusion. The cardiomediastinal contours are unremarkable. Osseous structure s are intact. CONCLUSION: Normal examination. Tereso Hunter Jr., MD on April 05, 2017 at 14:22 Board Certified Radiologist. This report was verified electronically.
[2017-04-05] MEDS ORDERED: RESP: ALBUTEROL 2.5 MG/3 ML NEB (SCH) INH ONE (14:30)
[2017-04-05] MEDS ORDERED: VENTAER INH (15:23)
[2017-04-05] MEDS ORDERED: AZIT500T2 PO (15:23)
[2017-04-05 15:34] VITALS: BP 176/88
== END 2017-04-05 15:45 | disposition home or self-care (01) ==
LOC: NEPD 13:17
DX: J06.9 Acute upper respiratory infection, unspecified (principal); J40 Bronchitis, not specified as acute or chronic; Q61.3 Polycystic kidney, unspecified; M19.90 Unspecified osteoarthritis, unspecified site; F41.9 Anxiety disorder, unspecified; I10 Essential (primary) hypertension; E78.00 Pure hypercholesterolemia, unspecified; Z99.2 Dependence on renal dialysis; Z79.899 Other long term (current) drug therapy
CPT/HCPCS: 71020; 87804; 94664; 99284; J7613

== ENCOUNTER 2017-04-19 13:35 | Emergency (ER) | payer MEDICARE ==
[~2017-04-19 13:35] MED LIST changes: +AZIT500T2 PO; +VENTAER INH
[2017-04-19 13:37] VITALS: BP 177/90; PULSE 90; RESP 17; TEMP 99.2; O2SAT 98
[2017-04-19 13:58] VITALS: BP 174/84; PULSE 76; RESP 18; O2SAT 97
--- NOTE | 2017-04-19 14:05 | PD ---
HPI Chief Complaint: General Weakness Time Seen by Provider: 13:48 Travel History International Travel<30 days: No Contact w/Intl Traveler<30days: No Traveled to known affect area: No History of Present Illness HPI 47-year-old male came to the emergency room for generalized weakness, hypertension and palpitation all of which started couple days ago. Patient has end-stage renal disease and hemodialysis dependent. He says that he finished his dialysis at 1:00 this afternoon and then came here straight since his weakness didn't get better and his blood pressure was still high. Upon asking patient says that the highest blood pressure was in 180s systolic. Patient has history of hypertension but he is adjusting his medication dose by himself. He' s been taking amlodipine twice a day instead of once and Coreg once a day instead of twice. His vital signs were within acceptable range in the triage. Patient denies of any chest pain. He says that he was in the emergency room one week ago for cough and he was given Zithromax. He has finished the course but he still feels not well. [facility] Past Medical History Narrative Medical List of his past medical, surgical, social and family history is reviewed from the nursing note. 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) Cancer: No Cardiovascular Problems: Yes (HTN) High Cholesterol: Yes Chest Pain: Yes COPD: No Cerebrovascular Accident: No Diabetes: No Diminished Hearing: No Endocrine: No Gastrointestinal Disorders: No (POLYCYSTIC KIDNEY DISEASE) GERD: No Genitourinary: Yes (POLYCYSTIC KIDNEY DISEASE) Headaches: No Hepatitis: No Hiatal Hernia: No Hypertension: Yes Immune Disorder: No Implanted Vascular Access Dvce: Yes Kidney Stones: No Medical other: No Musculoskeletal: Yes (SHOULDER ARTHRITIS) Neurologic: Yes Psychiatric: Yes Reproductive: No Respiratory: Yes Immunizations Current: Yes Migraines: No Renal Failure: Yes (POLYCYSTIC KIDNEY DX, STAGE 4 KIDNEY DISEASE) Seizures: No Sleep Apnea: No Thyroid Disease: No Ulcer: No ?: Not Past Surgical History Abdominal Surgery: No AICD: No Arteriovenous Shunt: Yes (left AV fistula) Body Medical Devices: FISTULA GRAFT LUE Cardiac Surgery: No Ear Surgery: No Endocrine Surgery: No Eye Surgery: No Genitourinary Surgery: Yes (bilateral nephroectomy 09/14/16) Gynecologic Surgery: No Insulin Pump: No Joint Replacement: No Neurologic Surgery: No Oral Surgery: Yes (WISDOM TEETH REMOVED ) Pacemaker: No Thoracic Surgery: No Other Surgery: Yes (FISTULA LEFT ARM/ DIALYSIS PORT (removed)) Social History Alcohol Use: No Tobacco Use: No Substance Use: No (hx MARIJUANA USE) Allergies-Medications (Allergen,Severity, Reaction): Coded Allergies: No Known Allergies (Unverified , 03/18/17) Comments No known drug allergies. Reported Meds & Prescriptions Reported Meds & Active Scripts Active Ventolin Hfa 18 GM Inh (Albuterol Sulfate) 90 Mcg/Act Aer 2 Puff INH Q4-6H PRN Azithromycin 500 Mg Tab 500 Mg PO DAILY Omeprazole 20 Mg Tab 20 Mg PO DAILY Reported Amlodipine (Amlodipine Besylate) 5 Mg Tab 5 Mg PO DAILY Vitamin B Complex (B-Complex Vitamins) 1 Tab 1 Tab PO DAILY Multi-Vitamins (Multiple Vitamin) 1 Tab Tab 1 Tab PO DAILY Suboxone Sublingual Film (Buprenorphine-Naloxone Sublingual Film) 8-2 Mg Film 3 Film SL DAILY Unique ID number required: Calcium Acetate (Phosphate Binder) 667 Mg Tab 667 Mg PO TID Narrative Medication List of his home medications reviewed from the nursing note. Review of Systems Except as stated in HPI: all other systems reviewed are Neg Cardiovascular: Positive: Palpitations Neurologic: Positive: Weakness Physical Exam Narrative GENERAL: Awake, alert, no obvious distress SKIN: Focused skin assessment warm/dry. HEAD: Atraumatic. Normocephalic. EYES: Pupils equal and round. No scleral icterus. No injection or drainage. ENT: No nasal bleeding or discharge. Mucous membranes pink and moist. NECK: Trachea midline. No JVD. CARDIOVASCULAR: Regular rate and rhythm. No murmur appreciated. RESPIRATORY: No accessory muscle use. Clear to auscultation. Breath sounds equal bilaterally. GASTROINTESTINAL: Abdomen soft, non-tender, nondistended. Hepatic and splenic margins not palpable. MUSCULOSKELETAL: No obvious deformities. No clubbing. No cyanosis. No edema. NEUROLOGICAL: Awake and alert. No obvious cranial nerve deficits. Motor grossly within normal limits. Normal speech. PSYCHIATRIC: Appropriate mood and affect; insight and judgment normal. Data Data Last Documented VS Orders Orders Complete Blood Count With Diff (04/19/17 14:09) Basic Metabolic Panel (Bmp) (04/19/17 14:09) Electrocardiogram (04/19/17 ) Troponin I (04/19/17 14:09) Graining Operator / Telemetry HEATHER.Q8H (04/19/17 14:09) Ed Discharge Order (04/19/17 15:48) Labs Laboratory Tests Test 04/19/17 14:25 White Blood Count 5.8 TH/MM3 Red Blood Count 3.41 MIL/MM3 Hemoglobin 10.5 GM/DL Hematocrit 30.8 % Mean Corpuscular Volume 90.1 FL Mean Corpuscular Hemoglobin 30.7 PG Mean Corpuscular Hemoglobin Concent 34.0 % Red Cell Distribution Width 16.5 % Platelet Count 171 TH/MM3 Mean Platelet Volume 8.3 FL Neutrophils (%) (Auto) 58.2 % Lymphocytes (%) (Auto) 30.9 % Monocytes (%) (Auto) 6.8 % Eosinophils (%) (Auto) 2.7 % Basophils (%) (Auto) 1.4 % Neutrophils # (Auto) 3.4 TH/MM3 Lymphocytes # (Auto) 1.8 TH/MM3 Monocytes # (Auto) 0.4 TH/MM3 Eosinophils # (Auto) 0.2 TH/MM3 Basophils # (Auto) 0.1 TH/MM3 CBC Comment DIFF FINAL Differential Comment Blood Urea Nitrogen 30 MG/DL Creatinine 6.70 MG/DL Random Glucose 84 MG/DL Calcium Level 8.7 MG/DL Sodium Level 135 MEQ/L Potassium Level 3.9 MEQ/L Chloride Level 99 MEQ/L Carbon Dioxide Level 27.2 MEQ/L Anion Gap 9 MEQ/L Estimat Glomerular Filtration Rate 9 ML/MIN Troponin I LESS THAN 0.02 NG/ML MDM Medical Decision Making Medical Screen Exam Complete: Yes Emergency Medical Condition: Yes Medical Record Reviewed: Yes Interpretation(s) Twelve-lead EKG was reviewed by me. Normal sinus rhythm, normal axis, LVH by voltage criteria, nonspecific ST-T wave changes. Heart rate of 79 bpm. Differential Diagnosis Electrolyte abnormalities, dehydration Narrative Course 3:34 PM CBC is within acceptable limits. Patient has anemia but trending his labs back he has had worse hemoglobin in the past. Awaiting for the chemistry. If those are within normal limit patient will be discharged home. Procedures EKG Prior to Arrival: No Diagnosis Primary Impression: End stage renal disease Additional Impressions: Dependent on hemodialysis Hypertension Qualified Codes: I10 - Essential (primary) hypertension Palpitation Referrals: Primary Care Physician Additional Instructions: Please take your blood pressure medications like you're supposed to. Follow-up with your primary care. Return to the ER if symptoms worsen or any other new concerns. Disposition: 01 DISCHARGE HOME Condition: Stable Kayli Hastings MD Apr 19, 2017 14:05
[2017-04-19 15:26] LABS: AUTOMATED NEUTROPHIL # 3.4 TH/MM3 (1.8-7.7); BASOPHIL # 0.1 TH/MM3 (0-0.2); BASOPHIL % 1.4 % (0.0-2.0); EOSINOPHIL # 0.2 TH/MM3 (0-0.4); EOSINOPHIL % 2.7 % (0.0-4.0); HEMATOCRIT 30.8 % (39.0-51.0); HEMO FLAGS DIFF FINAL; LYMPH % 30.9 % (9.0-44.0); LYMPHOCYTE # 1.8 TH/MM3 (1.0-4.8); MEAN CELL VOLUME 90.1 FL (80.0-100.0); MEAN CORPUSCULAR HEMOGLOBIN 30.7 PG (27.0-34.0); MONO % 6.8 % (0.0-8.0); NEUT % 58.2 % (16.0-70.0); PLATELET COUNT 171 TH/MM3 (150-450); RED BLOOD COUNT 3.41 MIL/MM3 (4.50-5.90); RED CELL DISTRIBUTION WIDTH 16.5 % (11.6-17.2); WHITE BLOOD COUNT 5.8 TH/MM3 (4.0-11.0)
[2017-04-19 15:38] LABS: ANION GAP 9 MEQ/L (5-15); BICARBONATE 27.2 MEQ/L (21.0-32.0); BLOOD UREA NITROGEN 30 MG/DL (7-18); CHLORIDE 99 MEQ/L (98-107); GLOMERULAR FILTRATION RATE 9 ML/MIN (>89); SODIUM (NA) 135 MEQ/L (136-145)
[2017-04-19 15:44] LABS: POTASSIUM 3.9 MEQ/L (3.5-5.1)
[2017-04-19 16:10] VITALS: BP 137/72
--- NOTE | 2017-04-20 05:20 | EKG ---
Date Performed: 04/19/2017 Time Performed: 14:39:03 PTAGE: 47 years EKG: Sinus rhythm MODERATE VOLTAGE CRITERIA FOR LVH, CONSIDER NORMAL VARIANT NONSPECIFIC ST & T-WAVE ABNORMALITY [facility] ECG Compared to prior electrocardiogram, rate has decreased and Nonspecific T wave changes are less marked . PREVIOUS TRACING : 09/19/2016 19.02 DOCTOR: Enrique Zaragoza Interpretating Date/Time 04/20/2017 05:19:12
== END 2017-04-19 16:12 | disposition home or self-care (01) ==
LOC: NEPC 13:35
DX: I12.0 Hypertensive chronic kidney disease with stage 5 chronic kidney disease or end stage renal disease (principal); N18.6 End stage renal disease; R94.31 Abnormal electrocardiogram [ECG] [EKG]; Z99.2 Dependence on renal dialysis
CPT/HCPCS: 80048; 84484; 85025; 93005; 99285

== ENCOUNTER 2017-05-11 07:31 | Emergency (ER) | payer MEDICARE, OTHER ==
[~2017-05-11] VITALS: Ht 213.4 cm; Wt 70.0 kg
[2017-05-11 07:39] VITALS: BP 165/78; PULSE 98; RESP 16; TEMP 98.1; O2SAT 99
[2017-05-11] MEDS ORDERED: SODIUM CHLORIDE 0.9% FLUSH 10 ML FLUSH IVF PRN (08:15)
[2017-05-11 08:25] LABS: AUTOMATED NEUTROPHIL # 3.4 TH/MM3 (1.8-7.7); BASOPHIL # 0.1 TH/MM3 (0-0.2); BASOPHIL % 0.9 % (0.0-2.0); EOSINOPHIL # 0.1 TH/MM3 (0-0.4); EOSINOPHIL % 2.2 % (0.0-4.0); HEMATOCRIT 30.3 % (39.0-51.0); HEMOGLOBIN 10.4 GM/DL (13.0-17.0); LYMPH % 29.5 % (9.0-44.0); LYMPHOCYTE # 1.7 TH/MM3 (1.0-4.8); MEAN CELL VOLUME 91.3 FL (80.0-100.0); MEAN CORPUSCULAR HEMOGLOBIN 31.3 PG (27.0-34.0); MEAN CORPUSCULAR HGB CONC 34.3 % (32.0-36.0); MEAN PLATELET VOLUME 7.3 FL (7.0-11.0); MONO % 7.6 % (0.0-8.0); MONOCYTE # 0.4 TH/MM3 (0-0.9); NEUT % 59.8 % (16.0-70.0); PLATELET COUNT 215 TH/MM3 (150-450); RED BLOOD COUNT 3.32 MIL/MM3 (4.50-5.90); RED CELL DISTRIBUTION WIDTH 15.8 % (11.6-17.2); WHITE BLOOD COUNT 5.8 TH/MM3 (4.0-11.0)
[2017-05-11 08:32] VITALS: O2SAT 98
[2017-05-11 08:41] LABS: ALT (GPT) 22 U/L (12-78); AST (GOT) 13 U/L (15-37); BICARBONATE 33.3 MEQ/L (21.0-32.0); BLOOD UREA NITROGEN 31 MG/DL (7-18); CALCIUM 9.7 MG/DL (8.5-10.1); CHLORIDE 97 MEQ/L (98-107); CREATININE 9.12 MG/DL (0.60-1.30); GLOMERULAR FILTRATION RATE 6 ML/MIN (>89); GLUCOSE,RANDOM 99 MG/DL (74-106); SODIUM (NA) 136 MEQ/L (136-145)
[2017-05-11 08:44] LABS: ALKALINE PHOSPHATASE 50 U/L (45-117); TOTAL BILIRUBIN ADULT 0.6 MG/DL (0.2-1.0); TOTAL PROTEIN 7.5 GM/DL (6.4-8.2); TROPONIN I LESS THAN 0.02 NG/ML (0.02-0.05)
--- NOTE | 2017-05-11 10:09 | RADRPT ---
EXAM DATE/TIME: 05/11/2017 09:44 [facility] COMPARISON: CHEST SINGLE AP, September 26, 2016, 11:58. INDICATIONS : Short of breath. MEDICAL HISTORY : Renal failure, chronic. Hypertension SURGICAL HISTORY : None. ENCOUNTER: Initial ACUITY: 1 day PAIN SCORE: 0/10 LOCATION: Bilateral chest FINDINGS: A single view of the chest demonstrates the lungs to be symmetrically aerated without evidence of mas s, infiltrate or effusion. The cardiomediastinal contours are unremarkable. Osseous structures are intact. CONCLUSION: No acute disease. Matt Kunz MD FACR on May 11, 2017 at 10:06 Board Certified Radiologist. This report was verified electronically.
--- NOTE | 2017-05-11 10:38 | PD ---
HPI Chief Complaint: Cardiac Complaint Time Seen by Provider: 08:04 Travel History International Travel<30 days: No Contact w/Intl Traveler<30days: No Traveled to known affect area: No History of Present Illness HPI This is a 47-year-old male who presents to the emergency department with high blood pressure intermittently that's been difficult to control over the past month. He also reports intermittent palpitations, worse in the evening, and he says he feels PVCs, moderate severity with no associated chest pain. He does have some shortness of breath when he lays flat. He is due for dialysis tomorrow. He checked his blood pressure at home and it was in the 170s. He talked to Dr. Rinaldi told him to take an extra Coreg which he did. 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) Cancer: No Cardiovascular Problems: Yes High Cholesterol: Yes Chest Pain: Yes COPD: No Cerebrovascular Accident: No Diabetes: No Diminished Hearing: No Endocrine: No Gastrointestinal Disorders: No (POLYCYSTIC KIDNEY DISEASE) GERD: No Genitourinary: Yes (POLYCYSTIC KIDNEY DISEASE) Headaches: No Hepatitis: No Hiatal Hernia: No Hypertension: Yes Immune Disorder: No Implanted Vascular Access Dvce: Yes Kidney Stones: No Musculoskeletal: Yes (SHOULDER ARTHRITIS) Neurologic: Yes Psychiatric: Yes Reproductive: No Respiratory: Yes Immunizations Current: Yes Migraines: No Renal Failure: Yes (POLYCYSTIC KIDNEY DX, STAGE 4 KIDNEY DISEASE) Seizures: No Sleep Apnea: No Thyroid Disease: No Ulcer: No Tetanus Vaccination: < 5 Years Influenza Vaccination: Yes ?: Not Past Surgical History Abdominal Surgery: No AICD: No Arteriovenous Shunt: Yes (left AV fistula) Body Medical Devices: FISTULA GRAFT LUE Cardiac Surgery: No Ear Surgery: No Endocrine Surgery: No Eye Surgery: No Genitourinary Surgery: Yes (bilateral nephroectomy 09/14/16) Gynecologic Surgery: No Insulin Pump: No Joint Replacement: No Neurologic Surgery: No Oral Surgery: Yes (WISDOM TEETH REMOVED ) Pacemaker: No Thoracic Surgery: No Other Surgery: Yes (FISTULA LEFT ARM/ DIALYSIS PORT (removed)) Social History Alcohol Use: No Tobacco Use: No Substance Use: No Allergies-Medications (Allergen,Severity, Reaction): Coded Allergies: No Known Allergies (Unverified , 03/18/17) Reported Meds & Prescriptions Reported Meds & Active Scripts Active Ventolin Hfa 18 GM Inh (Albuterol Sulfate) 90 Mcg/Act Aer 2 Puff INH Q4-6H PRN Azithromycin 500 Mg Tab 500 Mg PO DAILY Omeprazole 20 Mg Tab 20 Mg PO DAILY Reported Amlodipine (Amlodipine Besylate) 5 Mg Tab 5 Mg PO DAILY Vitamin B Complex (B-Complex Vitamins) 1 Tab 1 Tab PO DAILY Multi-Vitamins (Multiple Vitamin) 1 Tab Tab 1 Tab PO DAILY Suboxone Sublingual Film (Buprenorphine-Naloxone Sublingual Film) 8-2 Mg Film 3 Film SL DAILY Unique ID number required: Calcium Acetate (Phosphate Binder) 667 Mg Tab 667 Mg PO TID Review of Systems Except as stated in HPI: all other systems reviewed are Neg Physical Exam Narrative GENERAL:Well appearing, no acute distress SKIN: Focused skin assessment warm and dry. HEAD: Atraumatic. Normocephalic. EYES: Pupils equal and round. No injection or drainage. ENT: Moist mucous membranes NECK: Trachea midline. CARDIOVASCULAR: Regular rate and rhythm. No murmur appreciated. No edema. AV fistula left upper extremity RESPIRATORY: Clear to auscultation. Breath sounds equal bilaterally. GASTROINTESTINAL: Abdomen soft, non-tender, nondistended. MUSCULOSKELETAL: No obvious deformities. NEUROLOGICAL: Awake and alert. No obvious cranial nerve deficits. Moving all extremities. PSYCHIATRIC: Appropriate mood and affect; insight and judgment normal. Data Data Last Documented VS Vital Signs Date Time Temp Pulse Resp B/P (MAP) Pulse Ox O2 Delivery O2 Flow Rate FiO2 05/11/17 08:32 98 Room Air 05/11/17 07:43 88 20 05/11/17 07:39 98.1 Orders Orders Electrocardiogram (05/11/17 08:04) B-Type Natriuretic Peptide (05/11/17 08:04) Complete Blood Count With Diff (05/11/17 08:04) Comprehensive Metabolic Panel (05/11/17 08:04) Troponin I (05/11/17 08:04) Ecg Monitoring (05/11/17 08:04) Bilateral Bp Monitoring (05/11/17 08:04) Iv Access Insert/Monitor (05/11/17 08:04) Oximetry (05/11/17 08:04) Oxygen Administration (05/11/17 08:04) Sodium Chloride 0.9% Flush (Ns Flush) (05/11/17 08:15) Chest, Single Ap (05/11/17 ) Labs Laboratory Tests Test 05/11/17 08:00 White Blood Count 5.8 TH/MM3 Red Blood Count 3.32 MIL/MM3 Hemoglobin 10.4 GM/DL Hematocrit 30.3 % Mean Corpuscular Volume 91.3 FL Mean Corpuscular Hemoglobin 31.3 PG Mean Corpuscular Hemoglobin Concent 34.3 % Red Cell Distribution Width 15.8 % Platelet Count 215 TH/MM3 Mean Platelet Volume 7.3 FL Neutrophils (%) (Auto) 59.8 % Lymphocytes (%) (Auto) 29.5 % Monocytes (%) (Auto) 7.6 % Eosinophils (%) (Auto) 2.2 % Basophils (%) (Auto) 0.9 % Neutrophils # (Auto) 3.4 TH/MM3 Lymphocytes # (Auto) 1.7 TH/MM3 Monocytes # (Auto) 0.4 TH/MM3 Eosinophils # (Auto) 0.1 TH/MM3 Basophils # (Auto) 0.1 TH/MM3 CBC Comment DIFF FINAL Differential Comment Blood Urea Nitrogen 31 MG/DL Creatinine 9.12 MG/DL Random Glucose 99 MG/DL Total Protein 7.5 GM/DL Albumin 4.0 GM/DL Calcium Level 9.7 MG/DL Alkaline Phosphatase 50 U/L Aspartate Amino Transf (AST/SGOT) 13 U/L Alanine Aminotransferase (ALT/SGPT) 22 U/L Total Bilirubin 0.6 MG/DL Sodium Level 136 MEQ/L Potassium Level 3.8 MEQ/L Chloride Level 97 MEQ/L Carbon Dioxide Level 33.3 MEQ/L Anion Gap 6 MEQ/L Estimat Glomerular Filtration Rate 6 ML/MIN Troponin I LESS THAN 0.02 NG/ML B-Type Natriuretic Peptide 556 PG/ML MDM Medical Decision Making Medical Screen Exam Complete: Yes Emergency Medical Condition: Yes Differential Diagnosis Hypertension, hypertensive urgency, hypertensive emergency, congestive heart failure Narrative Course This is a 47-year-old male who presents to the emergency department with high blood pressure and palpitations. He denies any associated chest pain but has had some intermittent shortness of breath. This is all subacute. He had a stress test in August of this year which was reassuring. He does seem anxious on exam. He was placed on a monitor and an IV was established. Labs are obtained which were reassuring and he does have an elevated BNP which may be in the setting of end-stage renal disease or may indicate congestive heart failure. Chest x-rays reassuring. I think is appropriate for outpatient management. He was given a referral to the [facility] and asked to follow-up with Dr. Rinaldi regarding his blood pressure. Diagnosis Primary Impression: Palpitations Ref[facility]: [facility] Patient Instructions: General Instructions Additional Instructions: If you develop severe chest pain, shortness of breath, sweating, lightheadedness , dizziness or difficulty breathing return to the emergency department immediately. Followup with your primary care physician in 2-3 days if your symptoms are not resolved. Med/Other Pt SpecificInfo: No Change to Meds Disposition: 01 DISCHARGE HOME Condition: Stable Bri Toro MD May 11, 2017 10:38
[2017-05-11 11:29] VITALS: BP 154/85
--- NOTE | 2017-05-12 15:19 | EKG ---
Date Performed: 05/11/2017 Time Performed: 07:43:43 PTAGE: 47 years EKG: Sinus rhythm MODERATE VOLTAGE CRITERIA FOR LVH, CONSIDER NORMAL VARIANT NONSPECIFIC ST & T-WAVE ABNORMALITY [facility] VARGHESE ECG INTERPRETATION BASED ON A DEFAULT AGE OF 40 YEARS PREVIOUS TRACING : 04/19/2017 14.39 Compared to prior tracing no significant change DOCTOR: Lyndon Garcia Interpretating Date/Time 05/12/2017 15:17:41
== END 2017-05-11 11:29 | disposition home or self-care (01) ==
LOC: NEPC 07:31
DX: R00.2 Palpitations (principal); R03.0 Elevated blood-pressure reading, without diagnosis of hypertension; R06.02 Shortness of breath; Q61.3 Polycystic kidney, unspecified; I10 Essential (primary) hypertension; M19.90 Unspecified osteoarthritis, unspecified site; E78.00 Pure hypercholesterolemia, unspecified; R94.31 Abnormal electrocardiogram [ECG] [EKG]; Z79.899 Other long term (current) drug therapy
CPT/HCPCS: 71010; 80053; 83880; 84484; 85025; 93005; 99285

== ENCOUNTER 2017-10-05 14:17 | Emergency (ER) | payer MEDICARE, OTHER ==
[~2017-10-05] VITALS: Ht 167.6 cm; Wt 70.0 kg
[2017-10-05 14:23] VITALS: BP 132/64; PULSE 67; PULSE 71; RESP 21; TEMP 99; O2SAT 98
--- NOTE | 2017-10-05 14:29 | PD ---
HPI Chief Complaint: Numbness/Tingling Time Seen by Provider: 14:21 Travel History International Travel<30 days: No Contact w/Intl Traveler<30days: No Traveled to known affect area: No History of Present Illness HPI 47-year-old male with history of end-stage renal disease, on dialysis, hypertension, presents emergency department for evaluation of a brief episode of numbness and tingling of his left jaw. Patient states this happened to him this morning. He went to his physical therapy appointment and informed the physician there that this had happened. They checked his blood pressure which was elevated because he typically has, and sent him to the emergency department for evaluation. Patient states it did resolve on its own and has not occurred again. He denies mild chest discomfort associated with it. He has not been nauseous or vomiting. He has no shortness of breath. Patient has no other symptoms to report at this time. 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) Cancer: No Cardiovascular Problems: Yes High Cholesterol: Yes Chest Pain: Yes COPD: No Cerebrovascular Accident: No Diabetes: No Diminished Hearing: No Endocrine: No Gastrointestinal Disorders: No (POLYCYSTIC KIDNEY DISEASE) GERD: No Genitourinary: Yes (POLYCYSTIC KIDNEY DISEASE) Headaches: No Hepatitis: No Hiatal Hernia: No Hypertension: Yes Immune Disorder: No Implanted Vascular Access Dvce: Yes Kidney Stones: No Musculoskeletal: Yes (SHOULDER ARTHRITIS) Neurologic: Yes Psychiatric: Yes Reproductive: No Respiratory: Yes Immunizations Current: Yes Migraines: No Renal Failure: Yes (POLYCYSTIC KIDNEY DX, STAGE 4 KIDNEY DISEASE) Seizures: No Sleep Apnea: No Thyroid Disease: No Ulcer: No Past Surgical History Abdominal Surgery: No AICD: No Arteriovenous Shunt: Yes (left AV fistula) Body Medical Devices: FISTULA GRAFT LUE Cardiac Surgery: No Ear Surgery: No Endocrine Surgery: No Eye Surgery: No Genitourinary Surgery: Yes (bilateral nephroectomy 09/14/16) Gynecologic Surgery: No Insulin Pump: No Joint Replacement: No Neurologic Surgery: No Oral Surgery: Yes (WISDOM TEETH REMOVED ) Pacemaker: No Thoracic Surgery: No Other Surgery: Yes (FISTULA LEFT ARM/ DIALYSIS PORT (removed)) Social History Alcohol Use: No Tobacco Use: No Substance Use: No Allergies-Medications (Allergen,Severity, Reaction): Coded Allergies: No Known Allergies (Unverified Adverse Reaction, Unknown, 10/05/17) Reported Meds & Prescriptions Reported Meds & Active Scripts Active Ventolin Hfa 18 GM Inh (Albuterol Sulfate) 90 Mcg/Act Aer 2 Puff INH Q4-6H PRN Reported Amlodipine (Amlodipine Besylate) 5 Mg Tab 5 Mg PO DAILY Vitamin B Complex (B-Complex Vitamins) 1 Tab 1 Tab PO DAILY Multi-Vitamins (Multiple Vitamin) 1 Tab Tab 1 Tab PO DAILY Suboxone Sublingual Film (Buprenorphine-Naloxone Sublingual Film) 8-2 Mg Film 3 Film SL DAILY Unique ID number required: Calcium Acetate (Phosphate Binder) 667 Mg Tab 667 Mg PO TID Review of Systems Except as stated in HPI: all other systems reviewed are Neg Physical Exam Narrative GENERAL: Well-nourished male patient, in no acute distress SKIN: Focused skin assessment warm/dry. HEAD: Atraumatic. Normocephalic. EYES: Pupils equal and round. No scleral icterus. No injection or drainage. ENT: No nasal bleeding or discharge. Mucous membranes pink and moist. NECK: Trachea midline. No JVD. CARDIOVASCULAR: Regular rate and rhythm. No murmur appreciated. RESPIRATORY: No accessory muscle use. Clear to auscultation. Breath sounds equal bilaterally. GASTROINTESTINAL: Abdomen soft, non-tender, nondistended. Hepatic and splenic margins not palpable. MUSCULOSKELETAL: No obvious deformities. No clubbing. No cyanosis. No edema. Left upper extremity AV fistula. Positive thrill and positive bruit. NEUROLOGICAL: Awake and alert. No obvious cranial nerve deficits. Motor grossly within normal limits. Normal speech. PSYCHIATRIC: Appropriate mood and affect; insight and judgment normal. Data Data Last Documented VS Vital Signs Date Time Temp Pulse Resp B/P (MAP) Pulse Ox O2 Delivery O2 Flow Rate FiO2 10/05/17 18:00 60 20 126/59 (81) 99 10/05/17 14:25 Nasal Cannula 10/05/17 14:23 99.0 Orders Orders Electrocardiogram (10/05/17 14:42) Basic Metabolic Panel (Bmp) (10/05/17 14:42) Ckmb (Isoenzyme) Profile (10/05/17 14:42) Complete Blood Count With Diff (10/05/17 14:42) Magnesium (Mg) (10/05/17 14:42) Prothrombin Time / Inr (Pt) (10/05/17 14:42) Act Partial Throm Time (Ptt) (10/05/17 14:42) Troponin I (10/05/17 14:42) Ecg Monitoring (10/05/17 14:42) Bilateral Bp Monitoring (10/05/17 14:42) Iv Access Insert/Monitor (10/05/17 14:42) Oximetry (10/05/17 14:42) Oxygen Administration (10/05/17 14:42) Sodium Chloride 0.9% Flush (Ns Flush) (10/05/17 14:45) Chest, Pa & Lat (10/05/17 14:42) CKMB (10/05/17 15:10) CKMB% (10/05/17 15:10) Troponin I (10/05/17 17:27) Ed Discharge Order (10/05/17 19:24) Labs Laboratory Tests Test 10/05/17 15:10 10/05/17 18:00 White Blood Count 5.4 TH/MM3 Red Blood Count 3.15 MIL/MM3 Hemoglobin 10.1 GM/DL Hematocrit 30.0 % Mean Corpuscular Volume 95.4 FL Mean Corpuscular Hemoglobin 32.1 PG Mean Corpuscular Hemoglobin Concent 33.7 % Red Cell Distribution Width 13.6 % Platelet Count 182 TH/MM3 Mean Platelet Volume 7.9 FL Neutrophils (%) (Auto) 58.2 % Lymphocytes (%) (Auto) 29.6 % Monocytes (%) (Auto) 8.5 % Eosinophils (%) (Auto) 2.4 % Basophils (%) (Auto) 1.3 % Neutrophils # (Auto) 3.2 TH/MM3 Lymphocytes # (Auto) 1.6 TH/MM3 Monocytes # (Auto) 0.5 TH/MM3 Eosinophils # (Auto) 0.1 TH/MM3 Basophils # (Auto) 0.1 TH/MM3 CBC Comment DIFF FINAL Differential Comment Prothrombin Time 10.9 SEC Prothromb Time International Ratio 1.1 RATIO Activated Partial Thromboplast Time 24.5 SEC Blood Urea Nitrogen 51 MG/DL Creatinine 10.98 MG/DL Random Glucose 95 MG/DL Calcium Level 8.8 MG/DL Magnesium Level 2.8 MG/DL Sodium Level 143 MEQ/L Potassium Level 4.5 MEQ/L Chloride Level 103 MEQ/L Carbon Dioxide Level 28.3 MEQ/L Anion Gap 12 MEQ/L Estimat Glomerular Filtration Rate 5 ML/MIN Total Creatine Kinase 188 U/L Creatine Kinase MB 1.3 NG/ML Troponin I LESS THAN 0.02 NG/ML LESS THAN 0.02 NG/ML MDM Medical Decision Making Medical Screen Exam Complete: Yes Emergency Medical Condition: Yes Medical Record Reviewed: Yes Differential Diagnosis Paresthesia versus neuralgia versus anxiety versus less likely ACS Narrative Course 47-year-old male presents emergency department for evaluation of a brief episode of left jaw numbness and tingling with associated chest discomfort. This resolved on its own and has not recurred again. Patient appears without distress. His vital signs are stable. Laboratory Tests Test 10/05/17 15:10 10/05/17 18:00 White Blood Count 5.4 TH/MM3 Red Blood Count 3.15 MIL/MM3 Hemoglobin 10.1 GM/DL Hematocrit 30.0 % Mean Corpuscular Volume 95.4 FL Mean Corpuscular Hemoglobin 32.1 PG Mean Corpuscular Hemoglobin Concent 33.7 % Red Cell Distribution Width 13.6 % Platelet Count 182 TH/MM3 Mean Platelet Volume 7.9 FL Neutrophils (%) (Auto) 58.2 % Lymphocytes (%) (Auto) 29.6 % Monocytes (%) (Auto) 8.5 % Eosinophils (%) (Auto) 2.4 % Basophils (%) (Auto) 1.3 % Neutrophils # (Auto) 3.2 TH/MM3 Lymphocytes # (Auto) 1.6 TH/MM3 Monocytes # (Auto) 0.5 TH/MM3 Eosinophils # (Auto) 0.1 TH/MM3 Basophils # (Auto) 0.1 TH/MM3 CBC Comment DIFF FINAL Differential Comment Prothrombin Time 10.9 SEC Prothromb Time International Ratio 1.1 RATIO Activated Partial Thromboplast Time 24.5 SEC Blood Urea Nitrogen 51 MG/DL Creatinine 10.98 MG/DL Random Glucose 95 MG/DL Calcium Level 8.8 MG/DL Magnesium Level 2.8 MG/DL Sodium Level 143 MEQ/L Potassium Level 4.5 MEQ/L Chloride Level 103 MEQ/L Carbon Dioxide Level 28.3 MEQ/L Anion Gap 12 MEQ/L Estimat Glomerular Filtration Rate 5 ML/MIN Total Creatine Kinase 188 U/L Creatine Kinase MB 1.3 NG/ML Troponin I LESS THAN 0.02 NG/ML I discussed the patient with my attending physician who is also reviewed the findings and assess the patient. We do not see any need for further evaluation or admission. Patient will be discharged home at this time. He agrees to return immediately with acute worsening symptoms. Diagnosis Primary Impression: Numbness and tingling of left side of face Referrals: Primary Care Physician Patient Instructions: General Instructions, Paresthesia (ED) Additional Instructions: Follow-up with your primary care provider Return immediately with any acute worsening symptoms Med/Other Pt SpecificInfo: No Change to Meds Disposition: 01 DISCHARGE HOME Condition: Stable Dot Vann October 05, 2017 14:29
[2017-10-05] MEDS ORDERED: SODIUM CHLORIDE 0.9% FLUSH 10 ML FLUSH IVF PRN (14:45)
[2017-10-05 15:08] VITALS: BP 109/52; PULSE 68; RESP 18; O2SAT 98
[2017-10-05 15:36] LABS: AUTOMATED NEUTROPHIL # 3.2 TH/MM3 (1.8-7.7); BASOPHIL # 0.1 TH/MM3 (0-0.2); BASOPHIL % 1.3 % (0.0-2.0); EOSINOPHIL # 0.1 TH/MM3 (0-0.4); EOSINOPHIL % 2.4 % (0.0-4.0); HEMOGLOBIN 10.1 GM/DL (13.0-17.0); LYMPH % 29.6 % (9.0-44.0); LYMPHOCYTE # 1.6 TH/MM3 (1.0-4.8); MEAN CELL VOLUME 95.4 FL (80.0-100.0); MEAN CORPUSCULAR HEMOGLOBIN 32.1 PG (27.0-34.0); MEAN CORPUSCULAR HGB CONC 33.7 % (32.0-36.0); MEAN PLATELET VOLUME 7.9 FL (7.0-11.0); MONO % 8.5 % (0.0-8.0); MONOCYTE # 0.5 TH/MM3 (0-0.9); NEUT % 58.2 % (16.0-70.0); PLATELET COUNT 182 TH/MM3 (150-450); RED BLOOD COUNT 3.15 MIL/MM3 (4.50-5.90); RED CELL DISTRIBUTION WIDTH 13.6 % (11.6-17.2); WHITE BLOOD COUNT 5.4 TH/MM3 (4.0-11.0)
[2017-10-05 15:51] LABS: INTERNATIONAL NORMALIZED RATIO 1.1 RATIO; PROTHROMBIN TIME - PATIENT 10.9 SEC (9.8-11.6)
--- NOTE | 2017-10-05 15:53 | RADRPT ---
EXAM DATE/TIME: 10/05/2017 15:26 [facility] COMPARISON: CHEST PA & LAT, April 05, 2017, 14:05. INDICATIONS : Chest pain. MEDICAL HISTORY : Renal disease, end stage. Hypertension. SURGICAL HISTORY : Nephrectomy, left. Nephrectomy, right. ENCOUNTER: Initial ACUITY: 1 day PAIN SCORE: 4/10 LOCATION: Bilateral chest FINDINGS: PA and lateral views of the chest demonstrate the lungs to be symmetrically aerated without evidence of mass, infiltrate or effusion. The cardiomediastinal contours are unremarkable. Osseous structure s are intact. CONCLUSION: No acute disease. Matt Kunz MD FACR on October 05, 2017 at 15:50 Board Certified Radiologist. This report was verified electronically.
[2017-10-05 15:56] LABS: BICARBONATE 28.3 MEQ/L (21.0-32.0); BLOOD UREA NITROGEN 51 MG/DL (7-18); CALCIUM 8.8 MG/DL (8.5-10.1); CHLORIDE 103 MEQ/L (98-107); GLOMERULAR FILTRATION RATE 5 ML/MIN (>89); GLUCOSE,RANDOM 95 MG/DL (74-106); MAGNESIUM 2.8 MG/DL (1.5-2.5); SODIUM (NA) 143 MEQ/L (136-145)
[2017-10-05 16:00] LABS: TROPONIN I LESS THAN 0.02 NG/ML (0.02-0.05)
[2017-10-05 16:04] LABS: CREATININE 10.98 MG/DL (0.60-1.30)
[2017-10-05 18:00] VITALS: BP 126/59; PULSE 60; RESP 20; O2SAT 99
--- NOTE | 2017-10-05 19:26 | PD ---
Data Data Last Documented VS Vital Signs Date Time Temp Pulse Resp B/P (MAP) Pulse Ox O2 Delivery O2 Flow Rate FiO2 10/05/17 18:00 60 20 126/59 (81) 99 10/05/17 14:25 Nasal Cannula 10/05/17 14:23 99.0 Orders Orders Electrocardiogram (10/05/17 14:42) Basic Metabolic Panel (Bmp) (10/05/17 14:42) Ckmb (Isoenzyme) Profile (10/05/17 14:42) Complete Blood Count With Diff (10/05/17 14:42) Magnesium (Mg) (10/05/17 14:42) Prothrombin Time / Inr (Pt) (10/05/17 14:42) Act Partial Throm Time (Ptt) (10/05/17 14:42) Troponin I (10/05/17 14:42) Ecg Monitoring (10/05/17 14:42) Bilateral Bp Monitoring (10/05/17 14:42) Iv Access Insert/Monitor (10/05/17 14:42) Oximetry (10/05/17 14:42) Oxygen Administration (10/05/17 14:42) Sodium Chloride 0.9% Flush (Ns Flush) (10/05/17 14:45) Chest, Pa & Lat (10/05/17 14:42) CKMB (10/05/17 15:10) CKMB% (10/05/17 15:10) Troponin I (10/05/17 17:27) Ed Discharge Order (10/05/17 19:24) Labs Laboratory Tests Test 10/05/17 15:10 10/05/17 18:00 White Blood Count 5.4 TH/MM3 Red Blood Count 3.15 MIL/MM3 Hemoglobin 10.1 GM/DL Hematocrit 30.0 % Mean Corpuscular Volume 95.4 FL Mean Corpuscular Hemoglobin 32.1 PG Mean Corpuscular Hemoglobin Concent 33.7 % Red Cell Distribution Width 13.6 % Platelet Count 182 TH/MM3 Mean Platelet Volume 7.9 FL Neutrophils (%) (Auto) 58.2 % Lymphocytes (%) (Auto) 29.6 % Monocytes (%) (Auto) 8.5 % Eosinophils (%) (Auto) 2.4 % Basophils (%) (Auto) 1.3 % Neutrophils # (Auto) 3.2 TH/MM3 Lymphocytes # (Auto) 1.6 TH/MM3 Monocytes # (Auto) 0.5 TH/MM3 Eosinophils # (Auto) 0.1 TH/MM3 Basophils # (Auto) 0.1 TH/MM3 CBC Comment DIFF FINAL Differential Comment Prothrombin Time 10.9 SEC Prothromb Time International Ratio 1.1 RATIO Activated Partial Thromboplast Time 24.5 SEC Blood Urea Nitrogen 51 MG/DL Creatinine 10.98 MG/DL Random Glucose 95 MG/DL Calcium Level 8.8 MG/DL Magnesium Level 2.8 MG/DL Sodium Level 143 MEQ/L Potassium Level 4.5 MEQ/L Chloride Level 103 MEQ/L Carbon Dioxide Level 28.3 MEQ/L Anion Gap 12 MEQ/L Estimat Glomerular Filtration Rate 5 ML/MIN Total Creatine Kinase 188 U/L Creatine Kinase MB 1.3 NG/ML Troponin I LESS THAN 0.02 NG/ML LESS THAN 0.02 NG/ML MDM Supervised Visit with GIA: Yes Narrative Course The history, exam, and medical decision-making in the associated midlevel provider note were completed with my assistance. I reviewed and agree with the findings presented. I attest that I had a [id number] encounter with the patient on the same day, and personally performed and documented my assessment and findings in the medical record. *My assessment and Findings: This is a 47-year-old male who presents to the emergency department with atypical jaw numbness and some chest discomfort earlier today. He went to rehab and told his physical therapist who told him to come to the emergency department. I have a very low suspicion that this reflects acute coronary syndrome given the description of the patient's symptoms. 2 sets of troponin were negative. The patient reports that he had a negative stress test earlier this year. 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 Bri Toro MD October 05, 2017 19:25
--- NOTE | 2017-10-07 12:05 | EKG ---
Date Performed: 10/05/2017 Time Performed: 15:14:08 PTAGE: 47 years EKG: Sinus rhythm VOLTAGE CRITERIA FOR LVH NONSPECIFIC T-WAVE ABNORMALITY ABNORMAL ECG INTERPRETATION BASED ON A DEFAU LT AGE OF 41 YEARS PREVIOUS TRACING : 05/11/2017 07.43 DOCTOR: Andre Hendrix Interpretating Date/Time 10/07/2017 11:54:46
== END 2017-10-05 20:04 | disposition home or self-care (01) ==
LOC: NEPC 14:17
DX: R20.0 Anesthesia of skin (principal); R20.2 Paresthesia of skin; R07.89 Other chest pain; R94.31 Abnormal electrocardiogram [ECG] [EKG]; I12.9 Hypertensive chronic kidney disease with stage 1 through stage 4 chronic kidney disease, or unspecified chronic kidney disease; N18.4 Chronic kidney disease, stage 4 (severe); E78.00 Pure hypercholesterolemia, unspecified; Z87.448 Personal history of other diseases of urinary system; Z87.39 Personal history of other diseases of the musculoskeletal system and connective tissue; Z86.69 Personal history of other diseases of the nervous system and sense organs; Z86.59 Personal history of other mental and behavioral disorders
CPT/HCPCS: 71046; 80048; 82550; 82552; 83735; 84484; 85025; 85610; 85730; 93005

== ENCOUNTER 2018-03-22 22:21 | Inpatient (IN) ==
[2018-03-23] MEDS ORDERED: ceFAZolin 2 GM IV; once IV.SIG PRN (00:14)
[2018-03-23] MEDS ORDERED: Sod Chloride 0.9% Inj 1,000 ML IV.SIG SCH (00:15)
[2018-03-23 00:26] LABS: Baso # (Auto) 0.1 th/mm3 (0.0-0.2); Eos # (Auto) 0.2 th/mm3 (0.0-0.4); Eos % (Auto) 3.3 % (0.0-4.0); Hematocrit 30.1 % (39.0-51.0); Hemoglobin 10.2 gm/dL (13.0-17.0); Lymph # (Auto) 2.5 th/mm3 (1.0-4.8); Lymph % (Auto) 47.7 % (9.0-44.0); Mean Corpuscular HGB Conc 33.9 % (32.0-36.0); Mean Corpuscular Hemoglobin 33.5 pg (27.0-34.0); Mean Corpuscular Volume 98.9 fL (80.0-100.0); Mean Platelet Volume 7.7 fL (7.0-11.0); Mono # (Auto) 0.6 th/mm3 (0.0-0.9); Mono % (Auto) 11.3 % (0.0-8.0); Neut # (Auto) 1.9 th/mm3 (1.8-7.7); Neut % (Auto) 36.7 % (16.0-70.0); Platelet Count 181 th/mm3 (150-450); Red Blood Count 3.04 mil/mm3 (4.50-5.90); Red Cell Distribution Width 13.9 % (11.6-17.2); White Blood Count 5.3 th/mm3 (4.0-11.0)
[2018-03-23 00:38] LABS: Activated Partial Thrombo Time 26.7 sec (24.3-30.1); Prothrombin Time 10.3 sec (9.8-11.6)
--- NOTE | 2018-03-23 00:46 | P.HPIM ---
History of Present Illness Service: [facility] [address] hospitalists . Primary Care Physician: Tony Paige MD, R3 Chief Complaint: Here for Kidney Transplant History of Present Illness: Mr. Wing is a pleasant 48 y/o male with a history of polycystic kidney disease , ESRD on hemodialysis, chronic neck and back pain, PVCs, CHF with EF 40-45% (), and hypertension who presented to the hospital for renal transplantation. He was admitted under the hospitalist service for medical management prior to surgery. The patient is seen in his hospital room and denies any recent fevers, chills, chest pain, shortness of breath, nausea, vomiting, diarrhea, or peripheral edema. The patient reports requiring hemodialysis for nearly 3 years. The patient was having chest pain a few months ago and underwent a cardiac workup by Dr. Tirado that showed only mild CAD on 01/05/18. Again, he denies any recent chest pain. Inpatient Certification: I certify that the inpatient services were ordered in accordance with Medicare regulations governing the order. This includes certification that hospital inpatient services are reasonable and necessary and in the case of services not specified as inpatient-only under 42 CFR 419.22(n), that they are appropriately provided as inpatient services in accordance to with the 2-midnight benchmark under 43 CFR 412.3(e) Review of Systems All other systems reviewed negative except as stated in HPI PMFSH - History History Provided By: Patient - Medical History Medical History: Medical History (Last Updated 03/23/18 @ 01:08 by DIRK Evans) CHF (congestive heart failure) Chronic neck and back pain Hypertension PVC's (premature ventricular contractions) Polycystic kidney disease - Surgical History Surgical History: Surgical History (Last Updated 03/23/18 @ 01:09 by DIRK Evans) History of nephrectomy - Family History Family History: Family History (Last Updated 03/23/18 @ 01:11 by DIRK Evans) Son Polycystic kidney disease Father Polycystic kidney disease Grandparent Polycystic kidney disease Sister Polycystic kidney disease - Social History I have reviewed the patient's Social History: Yes - Tobacco History Second Hand Smoke Exposure: No Tobacco Use In Past 30 Days: No Smoking Status: Former smoker Tobacco Type: Cigarettes Packs Per Day: 1 Years Smoked: 20 Smoking End Date: 2005 - Alcohol History How Often Do You Have a Drink Containing Alcohol: Never - Substance Use History Substance History: No History of Abuse - Immunization History Hx Influenza Vaccine This Season: Yes Medications and Allergies Active Medications: Active Medications Calcium Acetate (Phoslo) 1,334 mg PO TID [facility] Carvedilol (Coreg) 6.25 mg PO BID RAY Gabapentin (Neurontin) 300 mg PO HS [facility] Sodium Chloride (Ns Inj) 1,000 mls @ 40 mls/hr IV.SIG .Q24H RAY Cefazolin Sodium/Dextrose (Ancef 2 Gm Premix Inj) 2 gm in 50 mls @ 100 mls/hr IV.SIG [employer] TENDER PRN PRN Reason: WITHIN 60 MIN OF INCISION Stop: 03/23/18 23:40 Cefuroxime Sodium 1,500 mg/ (Sodium Chloride) 100 mls @ 200 mls/hr IV.SIG [employer]EN[employer]ING MACHINE TENDER PRN PRN Reason: WITHIN 30 MIN OF INCISION Stop: 03/23/18 23:45 Lisinopril (Prinivil) 5 mg PO DAILY [facility] Mycophenolate Mofetil (Cellcept) 1,000 mg PO UNSCH X1 RAY Stop: 03/24/18 04:00 Sevelamer Carbonate (Renvela) 2,400 mg PO TID [facility] Vitamin B Complex/Vit C/Folic Acid (Nephrocaps) 1 tab PO DAILY [facility] Allergies Allergy/AdvReac Type Severity Reaction Status Date / Time lorazepam Allergy Intermediate Irritabilit Verified 01/04/18 12:59 y/Anxiety morphine Allergy Mild Nausea/Vomi Verified 01/04/18 12:59 ting Home Medications Medication Instructions Recorded Confirmed Type B complex-vitamin C-folic acid 1 tab PO DAILY 01/04/18 03/22/18 History [Dialyvite] buprenorphine-naloxone [Suboxone] 1 film BUCCAL TID 01/04/18 03/22/18 History calcium acetate 1,334 tab PO TID 01/04/18 03/22/18 History lisinopril 5 mg PO DAILY 01/04/18 03/22/18 History sevelamer carbonate [Renvela] 2,400 mg PO TID 01/04/18 03/22/18 History gabapentin [Neurontin] 300 mg PO HS 03/22/18 03/22/18 History Exam Vital signs: Vital Signs 03/22/18 22:52 Temperature 98.2 F Pulse Rate 68 Respiratory Rate 18 Blood Pressure 130/70 Intake & Output 03/22/18 03/22/18 03/23/18 06:59 18:59 06:59 Weight 70.3 kg Other: Weight On Admission 70.3 kg Narrative: GENERAL: This is a well-nourished, well-developed patient, in no apparent distress. SKIN: No rashes, ecchymoses or lesions. Cool and dry. HEAD: Atraumatic. Normocephalic. EYES: No scleral icterus. No injection or drainage. ENT: Nose without bleeding, purulent drainage. NECK: Trachea midline. No JVD. CARDIOVASCULAR: Regular rate and rhythm without murmurs, gallops, or rubs. Left arm AV fistula with +bruit and thrill. RESPIRATORY: Clear to auscultation. Breath sounds equal bilaterally. No wheezes , rales, or rhonchi. GASTROINTESTINAL: Abdomen soft, non-tender, nondistended. No guarding. MUSCULOSKELETAL: Extremities without clubbing, cyanosis, or edema. No calf tenderness. NEUROLOGICAL: Awake and alert. Motor and sensory grossly within normal limits. Normal speech. . Results - Labs CBC & Chem 7: 03/23/18 00:05 03/23/18 00:05 Labs: Short CBC 03/23/18 Range/Units 00:05 WBC 5.3 (4.0-11.0) th/mm3 Hgb 10.2 L (13.0-17.0) gm/dL Hct 30.1 L (39.0-51.0) % Plt Count 181 (150-450) th/mm3 Caprini VTE Risk Assessment Caprini VTE Risk Assessment: Moderate/High Risk (score >= 2) Caprini Risk Assessment Model: Point Value = 1 Point Value = 2 Point Value = 3 Point Value = 5 Age 41-60 Minor surgery BMI > 25 kg/m2 Swollen legs Varicose veins or History of unexplained or recurrent spontaneous Oral contraceptives or hormone replacement Sepsis (< 1 month) Serious lung disease, including pneumonia (< 1 month) Abnormal pulmonary function Acute myocardial infarction Congestive heart failure (< 1 month) History of inflammatory bowel disease Medical patient at bed rest Age 61-74 Arthroscopic surgery Major open surgery (> 45 min) Laparoscopic surgery (> 45 min) Malignancy Confined to bed (> 72 hours) Immobilizing plaster cast Central venous access Age >= 75 History of VTE Family history of VTE Factor V Leiden Prothrombin [id number] Lupus anticoagulant Anticardiolipin antibodies Elevated serum homocysteine Heparin-induced thrombocytopenia Other congenital or acquired thrombophilia Stroke (< 1 month) Elective arthroplasty Hip, pelvis, or leg fracture Acute spinal cord injury (< 1 month) Prophylaxis Regimen: Total Risk Factor Score Risk Level Prophylaxis Regimen 0-1 Low Early ambulation 2 Moderate Order ONE of the following: *Sequential Compression Device (SCD) *Heparin 5000 units SQ BID 3-4 Higher Order ONE of the following medications: *Heparin 5000 units SQ TID *Enoxaparin/Lovenox 40 mg SQ daily (WT < 150 kg, CrCl > 30 mL/min) *Enoxaparin/Lovenox 30 mg SQ daily (WT < 150 kg, CrCl > 10-29 mL/min) *Enoxaparin/Lovenox 30 mg SQ BID (WT < 150 kg, CrCl > 30 mL/min) AND/OR *Sequential Compression Device (SCD) 5 or more Highest Order ONE of the following medications: *Heparin 5000 units SQ TID (Preferred with Epidurals) *Enoxaparin/Lovenox 40 mg SQ daily (WT < 150 kg, CrCl > 30 mL/min) *Enoxaparin/Lovenox 30 mg SQ daily (WT < 150 kg, CrCl > 10-29 mL/min) *Enoxaparin/Lovenox 30 mg SQ BID (WT < 150 kg, CrCl > 30 mL/min) AND *Sequential Compression Device (SCD) Assessment and Plan - Plan Mr. Wing is a pleasant 48 y/o male with a history of polycystic kidney disease , ESRD on hemodialysis, chronic neck and back pain, PVCs, CHF with EF 40-45% (), and hypertension who presented to the hospital for renal transplantation. He was admitted under the hospitalist service for medical management prior to surgery. ESRD here for renal transplant -Consult nephrology - Dr. Kenyon -Consult renal transplant team - Dr. Mckeon -N.p.o. -Preop antibiotics Hypertension -Restart home Carvedilol and lisinopril -Monitor trends in blood pressure and adjust treatment as indicated History of CHF -caution with IVF hydration -monitor I and Os Chronic neck and back pain -continue home gabapentin -Hold home Suboxone DVT prophylaxis -SCDs Discussed Condition With: Dr. Mckeon, RN, and patient . H&P: Quality - VTE Deep Vein Thrombosis/Pulmonary Embolism Present on Admission: No
[2018-03-23 00:47] LABS: Albumin 3.5 g/dL (3.4-5.0); Anion Gap 9 meq/L (5-15); Aspartate Aminotransferase 12 U/L (15-37); Blood Urea Nitrogen 67 mg/dL (7-18); Calcium 8.6 mg/dL (8.5-10.1); Carbon Dioxide 27.6 meq/L (21.0-32.0); Chloride 103 meq/L (98-107); Glomerular Filtration Rate 4 mL/min (>89); Glucose,Random 111 mg/dL (74-106); Potassium 3.9 meq/L (3.5-5.1); Sodium 140 meq/L (136-145)
[2018-03-23 00:48] LABS: Alanine Aminotransferase 19 U/L (12-78)
[2018-03-23 00:50] LABS: Alkaline Phosphatase 58 U/L (45-117)
--- NOTE | 2018-03-23 01:23 | XR ---
EXAM DATE: 03/23/2018 1:12 AM EDT AGE/SEX: 48 years / Male INDICATIONS: Evaluate for pneumonia, pneumothorax, or communicable disease. Pre-op kidney transplant . CLINICAL DATA: This is the patient's initial encounter. Patient reports that signs and symptoms have been present for 1 day and indicates a pain score of 0/10. MEDICAL/SURGICAL HISTORY: Congestive heart failure. Hypertension. Polycystic kidney disease N one. [place] [facility] [place]. . FINDINGS: PA and lateral views of the chest demonstrate the lungs to be symmetrically aerated without evidence of mass, infiltrate or effusion. The cardiomediastinal contours are unremarkable. Osseous structures are intact. CONCLUSION: No evidence of acute cardiopulmonary disease. Electronically signed by: Donaldo Odom MD 03/23/2018 1:22 AM EDT
[2018-03-23] MEDS ORDERED: Sod Chloride 0.9% Inj 1,000 ML OTHER PRN ×2 (08:40)
[2018-03-23] MEDS ORDERED: Heparin 10,000 UNITS/10 ML Vial (for IV use) OTHER PRN ×2 (08:40)
[2018-03-23] MEDS ORDERED: Albumin Human 25% Inj 100 ML IV.SIG PRN (08:40)
[2018-03-23] MEDS ORDERED: Acetaminophen 325 MG Tablet PO PRN (08:40)
[2018-03-23] MEDS ORDERED: Gelatin 12 MM/7 MM Topical Foam TOPICAL PRN (08:40)
[2018-03-23] MEDS ORDERED: Sod Chloride 0.9% Inj 1,000 ML IV.CONT PRN (08:40)
[2018-03-23] MEDS ORDERED: Sodium Chloride 0.9% 2 ML Flush PRN IV.FLUSH (09:01)
[2018-03-23] MEDS ORDERED: Hydrocortisone Sod Succinate 100 MG Vial IV.PUSH PRN (09:05)
--- NOTE | 2018-03-23 09:44 | P.CONTS ---
History of Present Illness Service: Transplant Surgery Consult date: 03/23/18 Reason for Consult: Potential donor kidney transplant Primary Care Provider: Tony Paige MD, R3 Chief Complaint: Here for possible Kidney Transplant History of Present Illness: Mr Hira Wingis a 47 yo white male with the primary diagnosis of PKD/htn. s/p bilateral [place] nephrectomies. who completed a kidney transplant evaluation and was approved by our Kidney Listing Committee. A possible donor kidney donor has been found for him. Mr Wing has required hemodialysis support since 09/14/16. last dialysis was on Tuesday. And the time of admission, patient is anuric. In the recent days he denies any fevers, recent hospitalizations, and any significant change in his health since he was last seen in our [facility]. Review of Systems Constitutional: Denies anorexia, Denies body ache(s), Denies chills, Denies daytime sleepiness, Denies excessive sweating, Denies fatigue, Denies fever(s), Denies headache(s), Denies increased appetite, Denies lack of energy, Denies malaise, Denies night sweats, Denies weakness, Denies weight gain, Denies weight loss, Denies other Eyes: Denies blind spots, Denies blurry vision, Denies bulging eyes, Denies change in vision, Denies double vision, Denies discharge, Denies dry eyes, Denies floaters, Denies irritation, Denies itchy eyes, Denies loss of vision, Denies pain, Denies requires corrective lenses, Denies sensitivity to light, Denies other Ears, Nose, Mouth, and Throat: Denies abnormal hearing, Denies bleeding gums, Denies bad breath, Denies change in voice, Denies dental pain, Denies difficulty swallowing, Denies dizziness, Denies dry mouth, Denies ear discharge , Denies ear pain, Denies facial pain, Denies headache(s), Denies hearing loss, Denies hoarseness, Denies lip swelling, Denies nosebleed, Denies mouth lesions, Denies mouth pain, Denies nasal congestion, Denies nasal discharge, Denies nasal obstruction, Denies nasal trauma, Denies neck lump, Denies neck pain, Denies nose pain, Denies pain with swallowing, Denies poor balance, Denies post nasal drip, Denies ringing in the ears, Denies sinus pain, Denies sinus pressure , Denies sore throat, Denies throat swelling, Denies tongue swelling, Denies other Cardiovascular: Denies chest pain, Denies chest pain at rest, Denies chest pain with activity, Denies excessive sweating, Denies fainting, Denies fast heart rate, Denies foot swelling, Denies generalized swelling, Denies irregular heart rhythm, Denies leg pain with activity, Denies leg sores, Denies leg swelling, Denies lightheadedness, Denies radiating jaw, neck or arm pain, Denies rapid, pounding, or irregular heartbeat, Denies shortness of breath, Denies shortness of breath with activity, Denies shortness of breath when lying down, Denies shortness of breath causing sudden awakening, Denies slow heart rate, Denies other Respiratory: Denies change in phlegm color, Denies chest congestion, Denies cough, Denies coughing up blood, Denies excessive phlegm production, Denies pain on inspiration, Denies pain with cough, Denies shortness of breath, Denies shortness of breath with activity, Denies snoring, Denies stridor, Denies wheezing, Denies other Gastrointestinal: Denies abdominal pain, Denies belching, Denies black, tarry stools, Denies bloating, Denies bright, red blood in stools, Denies change in bowel habits, Denies constant urge to pass stool, Denies change in stools, Denies coffee ground vomit, Denies constipation, Denies cramping, Denies difficulty swallowing, Denies excessive passing of gas, Denies feeling full early, Denies heartburn, Denies incontinent of stools, Denies loose stools, Denies nausea, Denies pain with swallowing, Denies vomiting, Denies vomiting blood, Denies other Genitourinary: Denies blood in semen, Denies blood in urine, Denies decreased urination, Denies difficulty urinating, Denies difficulty with ejaculations, Denies erectile dysfunction, Denies genital lesions, Denies genital pain, Denies painful urination, Denies side pain, Denies frequent nighttime urination , Denies painful ejaculations, Denies penile discharge, Denies scrotal swelling , Denies testicle lump, Denies testicle pain, Denies urinary frequency, Denies urinary hesitancy, Denies urinary incontinence, Denies urinary urgency, Denies other Comments: anuric Musculoskeletal: Denies abnormal walking, Denies back pain, Denies body aches, Denies decreased muscle mass, Denies deformity, Denies joint pain, Denies joint swelling, Denies limited joint movement, Denies loss of height, Denies muscle cramps, Denies muscle weakness, Denies neck pain, Denies numbness, Denies radiating pain into limb, Denies stiffness, Denies tingling, Denies other Skin/Breast: Denies acne, Denies bleeding lesions, Denies boil, Denies breast swelling, Denies breast skin changes, Denies breast pain, Denies breast lump, Denies change in breast shape, Denies change in hair, Denies change in skin color, Denies changing lesions, Denies dry skin, Denies excessive hair growth, Denies hair loss, Denies itching, Denies lesions, Denies nail changes, Denies new lesions, Denies nipple discharge, Denies non-healing lesions, Denies redness , Denies sensitivity to light, Denies rash, Denies skin pain, Denies skin ulcer , Denies sores, Denies stretch mares, Denies unusual bruising, Denies wounds, Denies yellowing of the skin, Denies other Psychiatric: Denies abnormal sleep pattern, Denies anxiety, Denies behavioral changes, Denies change in appetite, Denies change in sex drive, Denies confusion , Denies depression, Denies difficulty concentrating, Denies hearing things others do not hear, Denies hopelessness, Denies irritability, Denies lack of enjoyment, Denies memory loss, Denies mood swings, Denies panic attacks, Denies paranoia, Denies seeing things others do not see, Denies sensing things others do not sense, Denies tactile hallucinations, Denies thoughts of hurting/killing others, Denies thoughts of hurting/killing yourself, Denies other Endocrine: Denies cold intolerance, Denies excessive sweating, Denies flushing, Denies heat intolerance, Denies increased hunger, Denies increased thirst, Denies increased urination, Denies rapid, pounding, or irregular heartbeat, Denies other Hematologic/Lymphatic: Denies easy bleeding, Denies easy bruising, Denies enlarged lymph nodes, Denies other Allergic/Immunologic: Denies GI upset with certain foods, Denies hives, Denies itchy eyes, Denies lip swelling, Denies seasonal runny nose, Denies throat swelling, Denies tongue swelling, Denies wheezing, Denies other PMFSH - History History Provided By: Patient - Medical History Medical History: Medical History (Last Reviewed 03/23/18 @ 09:40 by Saúl Mckeon MD) CHF (congestive heart failure) Chronic neck and back pain Hypertension PVC's (premature ventricular contractions) Polycystic kidney disease - Surgical History Surgical History: Surgical History (Last Reviewed 03/23/18 @ 09:40 by Saúl Mckeon MD) History of nephrectomy - Family History Family History: Family History (Last Reviewed 03/23/18 @ 09:40 by Saúl Mckeon MD) Son Polycystic kidney disease Father Polycystic kidney disease Grandparent Polycystic kidney disease Sister Polycystic kidney disease - Tobacco History Second Hand Smoke Exposure: No Tobacco Use In Past 30 Days: No Smoking Status: Former smoker Tobacco Type: Cigarettes Packs Per Day: 1 Years Smoked: 20 Smoking End Date: 2005 - Alcohol History How Often Do You Have a Drink Containing Alcohol: Never - Substance Use History Substance History: No History of Abuse - Travel History History of Recent Travel: No Recent Travel in the [place] Within the Last 8 Weeks: No Recent Travel Out of the Country Within the Last 8 Weeks: No - Immunization History Hx Influenza Vaccine This Season: Yes Medications and Allergies Active Medications: Active Medications Acetaminophen (Tylenol) 650 mg PO UNSCH PRN PRN Reason: SEE LABEL COMMENTS Calcium Acetate (Phoslo) 1,334 mg PO TID [facility] Carvedilol (Coreg) 6.25 mg PO BID RAY Clonidine HCl (Catapres) 0.1 mg PO UNSCH PRN PRN Reason: SEE LABEL COMMENTS Diphenhydramine HCl (Benadryl) 25 mg PO UNSCH PRN PRN Reason: SEE LABEL COMMENTS Diphenhydramine HCl (Benadryl Inj) 50 mg IV.PUSH ONCE PRN PRN Reason: anaphylactic reaction Epinephrine HCl (Epinephrine (1:1000) Inj) 0.1 mg IV.PUSH ONCE PRN PRN Reason: SEE LABEL COMMENTS Gabapentin (Neurontin) 300 mg PO HS RAY Gelatin (Gelfoam 12 Mm/7 Mm Topical) 1 foam TOPICAL PRN PRN PRN Reason: help stop bleeding from site Gentamicin Sulfate (Gentamicin Inj) 20 mg OTHER WITH DIALYSIS PRN PRN Reason: Dwell Gentamycin Lock Heparin Sodium (Porcine) (Heparin Inj) 8,000 units OTHER WITH DIALYSIS PRN PRN Reason: for machine prime Heparin Sodium (Porcine) (Heparin Inj) 1,000 units OTHER WITH DIALYSIS PRN PRN Reason: Dwell Heparin to Fill Catheter Hydrocortisone Sodium Succinate (Solucortef Inj) 200 mg IV.PUSH ONCE PRN PRN Reason: anaphylactic readtion Sodium Chloride (Ns Inj) 1,000 mls @ 40 mls/hr IV.SIG .Q24H RAY Cefazolin Sodium/Dextrose (Ancef 2 Gm Premix Inj) 2 gm in 50 mls @ 100 mls/hr IV.SIG PRODUCT SUPPORT REP PRN PRN Reason: WITHIN 60 MIN OF INCISION Stop: 03/23/18 23:40 Albumin Human (Flexbumin 25% Inj) 100 mls @ 60 mls/hr IV.SIG WITH DIALYSIS PRN PRN Reason: hypotension / volume replace Sodium Chloride (Ns Inj) 1,000 mls @ 0 mls/hr OTHER .Q0M PRN PRN Reason: for prime and rinse back Sodium Chloride (Ns Inj) 1,000 mls @ 200 mls/hr OTHER .Q5H PRN PRN Reason: for dialyzer flush PRN Sodium Chloride (Ns Inj) 1,000 mls @ 0 mls/hr IV.CONT .Q0M PRN PRN Reason: hypotension / volume replace Lymphocyte Immune Globulin 104 (mg/ Sodium Chloride) 500 mls @ 83.333 mls/hr IV.SIG ONCE ONE Stop: 03/23/18 19:59 Lisinopril (Prinivil) 5 mg PO DAILY RAY Mannitol (Mannitol Inj) 12.5 gm IV.PUSH UNSCH PRN PRN Reason: hypotension / volume replace Methylprednisolone Sodium Succinate (Solumedrol Inj) 500 mg IV.PUSH ONCE ONE Stop: 03/23/18 14:01 Mycophenolate Mofetil (Cellcept) 1,000 mg PO UNSCH X1 RAY Stop: 03/24/18 04:00 Last Admin: 03/23/18 01:46 Dose: 1,000 mg Nitroglycerin (Nitrostat Sl) 0.4 mg SL Q5M PRN PRN Reason: CHEST PAIN Ondansetron HCl (Zofran Inj) 4 mg IV.PUSH UNSCH PRN PRN Reason: NAUSEA OR VOMITING Sevelamer Carbonate (Renvela) 2,400 mg PO TID RAY Sodium Chloride (Ns Flush) 5 ml IV.FLUSH PRN PRN PRN Reason: flush each lumen during HD Sodium Chloride (Ns Flush) 2 ml IV.FLUSH BID RAY Sodium Chloride (Ns Flush) 2 ml IV.FLUSH PRN PRN PRN Reason: FLUSH AFTER USING IV ACCESS Vitamin B Complex/Vit C/Folic Acid (Nephrocaps) 1 tab PO DAILY RAY Allergies Allergy/AdvReac Type Severity Reaction Status Date / Time lorazepam Allergy Intermediate Irritabilit Verified 01/04/18 12:59 y/Anxiety morphine Allergy Mild Nausea/Vomi Verified 01/04/18 12:59 ting Home Medications Medication Instructions Recorded Confirmed Type B complex-vitamin C-folic acid 1 tab PO DAILY 01/04/18 03/22/18 History [Dialyvite] buprenorphine-naloxone [Suboxone] 1 film BUCCAL TID 01/04/18 03/22/18 History calcium acetate 1,334 tab PO TID 01/04/18 03/22/18 History lisinopril 5 mg PO DAILY 01/04/18 03/22/18 History sevelamer carbonate [Renvela] 2,400 mg PO TID 01/04/18 03/22/18 History gabapentin [Neurontin] 300 mg PO HS 03/22/18 03/22/18 History Physical Exam Vital signs: Vital Signs 03/22/18 22:52 03/23/18 04:31 03/23/18 06:22 Temperature 98.2 F 97.9 F Pulse Rate 68 64 64 Respiratory Rate 18 17 Blood Pressure 130/70 Pulse Oximetry 98 03/23/18 06:27 03/23/18 08:00 Temperature 98.4 F Pulse Rate 64 98 H Respiratory Rate 18 Blood Pressure 116/55 L Pulse Oximetry 98 Intake & Output 03/22/18 03/23/18 03/23/18 18:59 06:59 18:59 Weight 69.2 kg Other: Weight On Admission 70.3 kg - Constitutional no acute distress - Routine HEENT Exam Head: Present: normocephalic, atraumatic Eye: Present: EOMI ENT: Present: mucous membranes moist - Routine Neck Exam Present: supple, full ROM - Routine Respiratory Exam Present: CTA bilaterally - Routine Cardiovascular Exam Present: RRR, S1, S2 - Routine Abdominal Exam Present: soft, normoactive bowel sounds - Routine Extremities Exam Present: pulses intact - Routine Skin Exam Present: intact - Routine Neurological Exam Present: alert, oriented X3 - Detailed Neurological Exam: Coma Scale Verbal Response: Oriented - Routine Psychiatric Exam Present: normal affect, normal thought process Assessment and Plan - Assessment (1) ESRD (end stage renal disease) Code(s): N18.6 - End stage renal disease Status: Acute - Plan Mr Hira Wing has ESRD secondary to PKD/htn, and is being admitted for possible kidney transplantation. The patient will be consented for procedure and transfusion A PHS increased Risk Consent is not required. The patient is being admitted to the Hospitalists Service. The Transplant Nephrology Service will be consulted. The patient will be assigned to Case Management/Inpatient Status
--- NOTE | 2018-03-23 10:15 | P.PNIM ---
Subjective Interval history: Patient is in no acute distress. He is laying in bed comfortably receiving hemodialysis in the dialysis unit during my evaluation. Physical Exam Vital signs: Vital Signs 03/22/18 22:52 03/23/18 04:31 03/23/18 06:22 Temperature 98.2 F 97.9 F Pulse Rate 68 64 64 Respiratory Rate 18 17 Blood Pressure 130/70 Pulse Oximetry 98 03/23/18 06:27 03/23/18 08:00 Temperature 98.4 F Pulse Rate 64 98 H Respiratory Rate 18 Blood Pressure 116/55 L Pulse Oximetry 98 Intake & Output 03/22/18 03/23/18 03/23/18 18:59 06:59 18:59 Weight 69.2 kg Other: Weight On Admission 70.3 kg Narrative: General patient in no acute distress HEENT extraocular movements are intact, clear oropharyngeal mucosa, no JVD Cardiovascular S1-S2 audible Respiratory clear to auscultation bilaterally Abdomen soft, nontender, nondistended, normal bowel sounds Extremities no edema Neuro cranial nerves II through XII intact Results - Labs CBC & Chem 7: 03/23/18 00:05 03/23/18 00:05 Laboratory Results - last 24 hr 03/23/18 03/23/18 03/23/18 00:05 00:05 00:05 WBC 5.3 RBC 3.04 L Hgb 10.2 L Hct 30.1 L MCV 98.9 MCH 33.5 MCHC 33.9 RDW 13.9 Plt Count 181 MPV 7.7 Neut % (Auto) 36.7 Lymph % (Auto) 47.7 H Cooke % (Auto) 11.3 H Eos % (Auto) 3.3 Baso % (Auto) 1.0 Neut # (Auto) 1.9 Lymph # (Auto) 2.5 Cooke # (Auto) 0.6 Eos # (Auto) 0.2 Baso # (Auto) 0.1 WBC Differential . Differential Comment Auto diff final PT 10.3 INR 1.0 APTT 26.7 Sodium 140 Potassium 3.9 Chloride 103 Carbon Dioxide 27.6 Anion Gap 9 BUN 67 H Creatinine 12.98 H* Estimated GFR 4 L Random Glucose 111 H Calcium 8.6 Total Bilirubin 0.4 AST 12 L ALT 19 Alkaline Phosphatase 58 Total Protein 7.0 Albumin 3.5 Blood Type Blood Type Recheck Antibody Screen MTS Gel Crossmatch 03/23/18 00:05 WBC RBC Hgb Hct MCV MCH MCHC RDW Plt Count MPV Neut % (Auto) Lymph % (Auto) Cooke % (Auto) Eos % (Auto) Baso % (Auto) Neut # (Auto) Lymph # (Auto) Cooke # (Auto) Eos # (Auto) Baso # (Auto) WBC Differential Differential Comment PT INR APTT Sodium Potassium Chloride Carbon Dioxide Anion Gap BUN Creatinine Estimated GFR Random Glucose Calcium Total Bilirubin AST ALT Alkaline Phosphatase Total Protein Albumin Blood Type O Positive Blood Type Recheck Not needed Antibody Screen Negative MTS Gel Crossmatch See Detail - Imaging Impressions Chest X-Ray 03/23/18 00:58 CONCLUSION: No evidence of acute cardiopulmonary disease. Assessment and Plan - Plan This patient is a 48-year-old male with a diagnosis of polycystic kidney disease , end-stage renal disease on hemodialysis for nearly 3 years, hypertension, chronic neck and back pain, CHF with ejection fraction of 40-45%. The patient had a cardiac catheterization done in July 2017 which showed mild coronary artery disease. The patient was admitted for a renal transplant. 1. End-stage renal disease on hemodialysis, here for renal transplant. Case discussed with Dr. Mckeon over the phone who wanted to review the patient' s EKG. EKG shows normal sinus rhythm with axis deviation, LVH. No acute ST segment or T wave changes. Patient had a cardiac catheter that she done in July 2017 which showed mild coronary artery disease as per documentation. Patient is currently n.p.o. and on the schedule for renal transplant today. I will follow-up with nephrology as well as Dr. Mckeon after the patient's procedure today. Patient is receiving hemodialysis this morning. 2. Hypertension Continue current medications for blood pressure. He is currently on Coreg and lisinopril. Blood pressure is under control. We will adjust his blood pressure medications if needed. 3. CHF Compensated, monitor ins and outs. SCDs for DVT prophylaxis.
--- NOTE | 2018-03-23 11:04 | P.CONNP ---
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 Rinaldi, on Tuesday, and Tuesday, he received an offer for kidney transplant and was admitted, he denies any shortness of breath or chest pain, he does have arthritis affecting his spine and both of his hands. Review of Systems Constitutional: Denies anorexia, Denies body ache(s), Denies chills, Denies daytime sleepiness, Denies excessive sweating, Denies fatigue, Denies fever(s), Denies headache(s), Denies increased appetite, Denies lack of energy, Denies malaise, Denies night sweats, Denies weakness, Denies weight gain, Denies weight loss, Denies other Eyes: Denies blind spots, Denies blurry vision, Denies bulging eyes, Denies change in vision, Denies double vision, Denies discharge, Denies dry eyes, Denies floaters, Denies irritation, Denies itchy eyes, Denies loss of vision, Denies pain, Denies requires corrective lenses, Denies sensitivity to light, Denies other Ears, Nose, Mouth, and Throat: Denies abnormal hearing, Denies bleeding gums, Denies bad breath, Denies change in voice, Denies dental pain, Denies difficulty swallowing, Denies dizziness, Denies dry mouth, Denies ear discharge , Denies ear pain, Denies facial pain, Denies headache(s), Denies hearing loss, Denies hoarseness, Denies lip swelling, Denies nosebleed, Denies mouth lesions, Denies mouth pain, Denies nasal congestion, Denies nasal discharge, Denies nasal obstruction, Denies nasal trauma, Denies neck lump, Denies neck pain, Denies nose pain, Denies pain with swallowing, Denies poor balance, Denies post nasal drip, Denies ringing in the ears, Denies sinus pain, Denies sinus pressure , Denies sore throat, Denies throat swelling, Denies tongue swelling, Denies other Cardiovascular: Denies chest pain, Denies chest pain at rest, Denies chest pain with activity, Denies excessive sweating, Denies fainting, Denies fast heart rate, Denies foot swelling, Denies generalized swelling, Denies irregular heart rhythm, Denies leg pain with activity, Denies leg sores, Denies leg swelling, Denies lightheadedness, Denies radiating jaw, neck or arm pain, Denies rapid, pounding, or irregular heartbeat, Denies shortness of breath, Denies shortness of breath with activity, Denies shortness of breath when lying down, Denies shortness of breath causing sudden awakening, Denies slow heart rate, Denies other Respiratory: Denies change in phlegm color, Denies chest congestion, Denies cough, Denies coughing up blood, Denies excessive phlegm production, Denies pain on inspiration, Denies pain with cough, Denies shortness of breath, Denies shortness of breath with activity, Denies snoring, Denies stridor, Denies wheezing, Denies other Gastrointestinal: Denies abdominal pain, Denies belching, Denies black, tarry stools, Denies bloating, Denies bright, red blood in stools, Denies change in bowel habits, Denies constant urge to pass stool, Denies change in stools, Denies coffee ground vomit, Denies constipation, Denies cramping, Denies difficulty swallowing, Denies excessive passing of gas, Denies feeling full early, Denies heartburn, Denies incontinent of stools, Denies loose stools, Denies nausea, Denies pain with swallowing, Denies vomiting, Denies vomiting blood, Denies other Genitourinary: Reports other (Previous nephrectomies has anuria) Musculoskeletal: Reports back pain, Reports neck pain, Reports stiffness Skin/Breast: Denies acne, Denies bleeding lesions, Denies boil, Denies breast swelling, Denies breast skin changes, Denies breast pain, Denies breast lump, Denies change in breast shape, Denies change in hair, Denies change in skin color, Denies changing lesions, Denies dry skin, Denies excessive hair growth, Denies hair loss, Denies itching, Denies lesions, Denies nail changes, Denies new lesions, Denies nipple discharge, Denies non-healing lesions, Denies redness , Denies sensitivity to light, Denies rash, Denies skin pain, Denies skin ulcer , Denies sores, Denies stretch mares, Denies unusual bruising, Denies wounds, Denies yellowing of the skin, Denies other Neurologic: Denies abnormal hearing, Denies abnormal movements, Denies abnormal speech, Denies abnormal walking, Denies behavioral changes, Denies burning sensations, Denies confusion, Denies dizziness, Denies fainting, Denies frequent falls, Denies headache(s), Denies lack of coordination, Denies localized weakness, Denies loss of vision, Denies memory loss, Denies numbness, Denies other visual disturbances, Denies radiating pain, Denies restless legs, Denies convulsions, Denies seizure-like activity, Denies sensory deficit, Denies tingling, Denies tingling/numbness/burning sensations, Denies tremor(s), Denies unsteadiness, Denies weakness, Denies other PMFSH - History History Provided By: Patient - Medical History Medical History: Medical History (Last Reviewed 03/23/18 @ 11:02 by Julio Kenyon MD) CHF (congestive heart failure) Chronic neck and back pain Hypertension PVC's (premature ventricular contractions) Polycystic kidney disease - Surgical History Surgical History: Surgical History (Last Reviewed 03/23/18 @ 11:02 by Julio Kenyon MD) History of nephrectomy - Family History Family History: Family History (Last Reviewed 03/23/18 @ 11:02 by Julio Kenyon MD) Son Polycystic kidney disease Father Polycystic kidney disease Grandparent Polycystic kidney disease Sister Polycystic kidney disease - Social History I have reviewed the patient's Social History: Yes - Tobacco History Second Hand Smoke Exposure: No Tobacco Use In Past 30 Days: No Smoking Status: Former smoker Tobacco Type: Cigarettes Packs Per Day: 1 Years Smoked: 20 Smoking End Date: 2005 - Alcohol History How Often Do You Have a Drink Containing Alcohol: Never - Substance Use History Substance History: No History of Abuse - Travel History History of Recent Travel: No Recent Travel in the [place] Within the Last 8 Weeks: No Recent Travel Out of the Country Within the Last 8 Weeks: No - Immunization History Hx Influenza Vaccine This Season: Yes Medications and Allergies Active Medications: Active Medications Acetaminophen (Tylenol) 650 mg PO UNSCH PRN PRN Reason: SEE LABEL COMMENTS Calcium Acetate (Phoslo) 1,334 mg PO TID RAY Carvedilol (Coreg) 6.25 mg PO BID RAY Clonidine HCl (Catapres) 0.1 mg PO UNSCH PRN PRN Reason: SEE LABEL COMMENTS Diphenhydramine HCl (Benadryl) 25 mg PO UNSCH PRN PRN Reason: SEE LABEL COMMENTS Diphenhydramine HCl (Benadryl Inj) 50 mg IV.PUSH UNSCH PRN PRN Reason: anaphylactic reaction Epinephrine HCl (Epinephrine (1:1000) Inj) 0.1 mg IV.PUSH ONCE PRN PRN Reason: SEE LABEL COMMENTS Gabapentin (Neurontin) 300 mg PO HS RAY Gelatin (Gelfoam 12 Mm/7 Mm Topical) 1 foam TOPICAL PRN PRN PRN Reason: help stop bleeding from site Gentamicin Sulfate (Gentamicin Inj) 20 mg OTHER WITH DIALYSIS PRN PRN Reason: Dwell Gentamycin Lock Heparin Sodium (Porcine) (Heparin Inj) 8,000 units OTHER WITH DIALYSIS PRN PRN Reason: for machine prime Heparin Sodium (Porcine) (Heparin Inj) 1,000 units OTHER WITH DIALYSIS PRN PRN Reason: Dwell Heparin to Fill Catheter Hydrocortisone Sodium Succinate (Solucortef Inj) 200 mg IV.PUSH UNSCH PRN PRN Reason: anaphylactic reaction Sodium Chloride (Ns Inj) 1,000 mls @ 40 mls/hr IV.SIG .Q24H RAY Cefazolin Sodium/Dextrose (Ancef 2 Gm Premix Inj) 2 gm in 50 mls @ 100 mls/hr IV.SIG KIDS ACTIVITIES COACH PRN PRN Reason: WITHIN 60 MIN OF INCISION Stop: 03/23/18 23:40 Albumin Human (Flexbumin 25% Inj) 100 mls @ 60 mls/hr IV.SIG WITH DIALYSIS PRN PRN Reason: hypotension / volume replace Last Infusion: 03/23/18 10:04 Dose: 999 mls/hr Sodium Chloride (Ns Inj) 1,000 mls @ 0 mls/hr OTHER .Q0M PRN PRN Reason: for prime and rinse back Sodium Chloride (Ns Inj) 1,000 mls @ 200 mls/hr OTHER .Q5H PRN PRN Reason: for dialyzer flush PRN Sodium Chloride (Ns Inj) 1,000 mls @ 0 mls/hr IV.CONT .Q0M PRN PRN Reason: hypotension / volume replace Lymphocyte Immune Globulin 104 (mg/ Sodium Chloride) 500 mls @ 83.333 mls/hr IV.SIG ONCE ONE Stop: 03/23/18 19:59 Methylprednisolone Sodium Succinate 500 mg/ Sodium Chloride 108 mls @ 100 mls/ hr IV.SIG ONCE ONE Stop: 03/23/18 15:04 Lisinopril (Prinivil) 5 mg PO DAILY RAY Mannitol (Mannitol Inj) 12.5 gm IV.PUSH UNSCH PRN PRN Reason: hypotension / volume replace Mycophenolate Mofetil (Cellcept) 1,000 mg PO UNSCH X1 RAY Stop: 03/24/18 04:00 Last Admin: 03/23/18 01:46 Dose: 1,000 mg Nitroglycerin (Nitrostat Sl) 0.4 mg SL Q5M PRN PRN Reason: CHEST PAIN Ondansetron HCl (Zofran Inj) 4 mg IV.PUSH UNSCH PRN PRN Reason: NAUSEA OR VOMITING Sevelamer Carbonate (Renvela) 2,400 mg PO TID RAY Sodium Chloride (Ns Flush) 5 ml IV.FLUSH PRN PRN PRN Reason: flush each lumen during HD Sodium Chloride (Ns Flush) 2 ml IV.FLUSH BID RAY Sodium Chloride (Ns Flush) 2 ml IV.FLUSH PRN PRN PRN Reason: FLUSH AFTER USING IV ACCESS Vitamin B Complex/Vit C/Folic Acid (Nephrocaps) 1 tab PO DAILY [facility] Allergies Allergy/AdvReac Type Severity Reaction Status Date / Time lorazepam Allergy Intermediate Irritabilit Verified 01/04/18 12:59 y/Anxiety morphine Allergy Mild Nausea/Vomi Verified 01/04/18 12:59 ting Home Medications Medication Instructions Recorded Confirmed Type B complex-vitamin C-folic acid 1 tab PO DAILY 01/04/18 03/22/18 History [Dialyvite] buprenorphine-naloxone [Suboxone] 1 film BUCCAL TID 01/04/18 03/22/18 History calcium acetate 1,334 tab PO TID 01/04/18 03/22/18 History lisinopril 5 mg PO DAILY 01/04/18 03/22/18 History sevelamer carbonate [Renvela] 2,400 mg PO TID 01/04/18 03/22/18 History gabapentin [Neurontin] 300 mg PO HS 03/22/18 03/22/18 History Exam Vital signs: Vital Signs 03/22/18 22:52 03/23/18 04:31 03/23/18 06:22 Temperature 98.2 F 97.9 F Pulse Rate 68 64 64 Respiratory Rate 18 17 Blood Pressure 130/70 Pulse Oximetry 98 03/23/18 06:27 03/23/18 08:00 Temperature 98.4 F Pulse Rate 64 98 H Respiratory Rate 18 Blood Pressure 116/55 L Pulse Oximetry 98 Intake & Output 03/22/18 03/23/18 03/23/18 18:59 06:59 18:59 Weight 69.2 kg 69.2 kg Other: Weight On Admission 70.3 kg Narrative: GENERAL: Well-nourished, well-developed patient. SKIN: Warm and dry. HEAD: Normocephalic. EYES: No scleral icterus. No injection or drainage. NECK: Supple, trachea midline. No JVD or lymphadenopathy. CARDIOVASCULAR: Regular rate and rhythm without murmurs, gallops, or rubs. RESPIRATORY: Breath sounds equal bilaterally. No accessory muscle use. GASTROINTESTINAL: Abdomen soft, non-tender, nondistended. Well-healed surgical scar EXTREMITIES: No edema NEUROLOGICAL: Awake, alert, and oriented x 3. Non-focal. Results - Lab Results 03/23/18 00:05 03/23/18 00:05 Most recent lab results Calcium 8.6 mg/dL (8.5-10.1) 03/23/18 00:05 Assessment and Plan - Assessment (1) ESRD (end stage renal disease) Code(s): N18.6 - End stage renal disease Status: Acute - Plan Patient is seen during hemodialysis 1 L will will be taken off He has tolerated well He has been stable He had heart catheterization in December 2017 which showed minimal coronary artery disease and was cleared for kidney transplant He will be proceeding to receive kidney transplant this afternoon He will be on immunosuppressive medication I have discussed the care with Dr. Mckeon and Dr. Rinaldi
[2018-03-23] MEDS ORDERED: SODIUM CHLOR 0.9% IV.SIG ONE (14:00)
[2018-03-23] MEDS ORDERED: ANTITHYMOCYTE IG IV.SIG ONE (14:00)
[2018-03-23] MEDS ORDERED: MethylPREDNISolone Sod Succinate Inj 125 MG/2 ML Vial IV.PUSH ONE (14:00)
[2018-03-23] MEDS ORDERED: MethylPREDNISolone Sod Suc Inj 500 MG in Sodium Chlor 0.9% Inj 100 ML IV.SIG ONE (14:00)
[2018-03-23] MEDS ORDERED: Heparin - SQ 10,000 UNITS/ML Vial ONE (15:13)
--- NOTE | 2018-03-23 16:33 | ECG ---
Date Performed: 03/23/2018 Time Performed: 04:43:54 PTAGE: 48 years EKG: Sinus rhythm Lead(s) unsuitable for analysis: V6 Normal ECG based on available leads PREVIOUS TRACING : 01/04/2018 12.57 Since the previous tracing, no significant change not ed DOCTOR: Jose Mcdonald Interpretating Date/Time 03/23/2018 16:31:36
[2018-03-23] MEDS ORDERED: fentaNYL Citrate Inj 100 MCG/2 ML Ampul ONE ×2 (18:59)
--- NOTE | 2018-03-23 19:23 | P.OP ---
- Preoperative Diagnosis (1) ESRD (end stage renal disease) - Postoperative Diagnosis (1) ESRD (end stage renal disease) Date of procedure: 03/23/18 Procedure: right donor kidney transplant to right iliac fossa with neoureterocystotomy Surgeon: Saúl Mckeon MD Water Plant Operator: Medardo Maier Estimated blood loss (mL): 200 IV fluids (mL): 2,100 Urine output (mL): 0 Operation and Findings: Cold ischemic time: 9 hours 38 min Warm ischemic time: 30 min Informed consent was obtained from the patient prior to surgery and the ABO was reviewed via primary source for the recipient and donor prior to surgery today. Recipient was brought into the OR and safely placed under general endotracheal anesthesia after the debriefing was performed. The ABO verification form was in the room with the patient and the renal allograft. The [employer] file was checked and the donor ABO verified X 2 and recorded onto the ABO form with the Candidate ABO verified X 2 and recorded on the ABO verification form. The candidate's name was seen on the match run in [employer]. As the anesthesia service was preparing the patient, Dr Medardo Maier prepared the renal allograft on the back table by removing all extraneous connective tissue. There was a single artery, vein and ureter of sufficient length. Since this was a right kidney, the cephalad and caudal cava was stapled. There was a lot of adjacent scar tissue and some old clips from prior surgery, that made the dissection tedious. Please see Dr Maier's dictation re the backtable preparation, for more detail. I assisted him towards the end of his dissection. The kidney was stored in sterile ice with preservative solution and replaced in sterile container with top and in a sterile bowel bag. The patient had a Vickers catheter placed sterilely, and the abdomen was prepped and draped in the usual sterile fashion. We then did our standard surgical time out, reviewing the patient, allergies, antibiotics, operation to be performed, immunosuppression medications and ABO of the donor and recipient. All agreed and we proceeded. The anesthesia service acknowledged the administration of the IV Solumedrol 250 mg and Thymoglobulin infusion. We then made a right quadrant oblique incision from an area about two centimeters medial to the anterior iliac spine to the pubic symphysis. We were able to go through the skin, subcutaneous tissue, fascia, and into the right retroperitoneal space. We kept the cord structures mobilized out of harm's way. We spared the epigastric vessels. The artery had nio signifciant atherosclerosis. The vein was deep but normal otherwise. We gave the patient 2,000 units of intravenous heparin, and allowed this to circulate for three minutes. We then used a Satinsky clamp on the iliac vein and opened the vein with the 11-blade, Camara scissors, and Hepflush. We anastomosed the donor renal vein to the recipient right external iliac vein using 5-0 Prolene in our standard technique. When this venous anastomosis was completed, we went ahead and placed a Satinsky vascular clamp on the right external iliac artery, opened into the iliac artery with the 11-blade. The arteriotomy was lengthened with Camara scissors, so we had a nice opening of the anterior artery wall to accept the renal artery. Then we used 5-0 Prolene, placing a cephalad and caudal stitch, and then we were able to anastomose the arteries under direct visualization. When the arterial anastomosis was complete and tied, we went ahead and placed gentle vascular bull-dog clamps on the renal artery and renal vein proper, where we removed first the iliac vein clamps and allowed for flow across the venous anastomosis, with excellent hemostasis. We then allowed for the distal artery to open. The anastomotic area opened nicely, signifying no technical issues. We then allowed for forward flow from the artery down the leg. There was excellent flow, again with no need for any suture repair across the anastomosis. We then removed the clamps from the renal artery and vein proper, allowing for flow into and out of the kidney, placed warm irrigation all around the kidney to allow it to go ahead and vasodilate nicely. We did any suture repairs asmall venous leak away from the anastomosis. Hemostasis was obtained by the use of clips as necessary. Electrocautery was used on the capsule as necessary. The kidney pinked up nicely. The patient was given our standard mannitol 12.5 gm as well as Lasix 100 mg IV and the second dose of Solumedrol 250 mg IV prior to reperfusion of the allograft. He tolerated this well. We then went ahead and placed the kidney into the right OR left iliac fossa. It laid nicely and had good color. We then repositioned the Bookwalter retractor and had good exposure of the bladder. The antibiotic irrigant was flushed into the bladder. The bladder distended very nicely into our field. After cutting the ureter to the correct length, we opened it to match the bladder opening, and then placed 5-0 PDS suture at each end. We did place a ureteral stent into the transplant ureter into the collecting system and it laid nicely and then into the bladder. When this was completed we placed three Lembert type sutures of 5-0 PDS. We had good hemostasis. We irrigated again with antibiotic solution. Again the kidney laid nicely in the right iliac fossa. The vessels were laying nicely , with no signs of any obstruction to either inflow or outflow. There was a good pulse in distal external iliac artery also as well as the renal artery. We went ahead and did the count as we prepared to close the fascia. The count was correct. We went ahead and closed the fascia with running #1 PDS suture starting from each end of the wound and tying in the middle. We then used subcuticular suture to approximate the skin. A primapore dressing was then applied We had final instrument and sponge counts correct times two. .
[2018-03-23] MEDS ORDERED: *HYDROmorphone PF Inj 1 MG/ML Ampul PERIprocedural Use ONLY ONE ×3 (19:32→20:13)
[2018-03-23] MEDS ORDERED: Naloxone Inj 0.4 MG/ML Vial IV.PUSH PRN (19:51)
[2018-03-23] MEDS ORDERED: Dextrose 50% in Water 50 ML Vial IV.PUSH PRN (19:51)
[2018-03-23] MEDS: Sodium Chloride 0.45 % Inj 1,000 ML IV.CONT PRN (20:15)
[2018-03-23] MEDS: Dextrose 5%/NaCl 0.45% Inj 1,000 ML IV.CONT SCH (20:24)
[2018-03-23 20:35] LABS: Baso % (Auto) 0.1 % (0.0-2.0); Eos % (Auto) 0.2 % (0.0-4.0); Hematocrit 28.7 % (39.0-51.0); Hemoglobin 10.1 gm/dL (13.0-17.0); Lymph % (Auto) 1.5 % (9.0-44.0); Mean Corpuscular HGB Conc 35.1 % (32.0-36.0); Mean Platelet Volume 7.3 fL (7.0-11.0); Mono % (Auto) 0.7 % (0.0-8.0); Neut # (Auto) 2.8 th/mm3 (1.8-7.7); Neut % (Auto) 97.5 % (16.0-70.0); Platelet Count 133 th/mm3 (150-450); Red Blood Count 2.96 mil/mm3 (4.50-5.90); Red Cell Distribution Width 13.7 % (11.6-17.2); White Blood Count 2.9 th/mm3 (4.0-11.0)
[2018-03-23] MEDS: Carvedilol 6.25 MG Tablet PO SCH ×2 (20:40→23:29)
[2018-03-23] MEDS: Calcium Acetate 667 MG Capsule PO SCH ×2 (20:40→20:42)
[2018-03-23] MEDS: Vitamin B Complex/Vit C/Folic Tablet PO SCH (20:40)
[2018-03-23] MEDS: Lisinopril 5 MG Tablet PO SCH (20:41)
--- NOTE | 2018-03-23 20:47 | XR ---
EXAM DATE: 03/23/2018 8:38 PM EDT AGE/SEX: 48 years / Male INDICATIONS: Central line placement CLINICAL DATA: This is the patient's subsequent encounter. Patient reports that signs and symptoms h ave been present for 1 day and indicates a pain score of 0/10. MEDICAL/SURGICAL HISTORY: . Congestive heart failure. Hypertension. Polycystic kidney disease None. COMPARISON: [facility] [place], CHEST 2V PA&LAT, 03/23/2018. . FINDINGS: A single AP view of the chest demonstrates the lungs to be symmetrically aerated without evidence of mass, infiltrate or effusion. The cardiomediastinal contours are unremarkable. Osseous structures a re intact. There is been interval placement of right internal jugular central venous line with the t ip projected over the superior vena cava. There is no pneumothorax. CONCLUSION: 1. Interval placement of right internal jugular central venous line with no pneumothorax. 2. No acute cardiopulmonary disease. Electronically signed by: Tony Cruz MD 03/23/2018 8:45 PM EDT
[2018-03-23] MEDS: Pantoprazole Inj 40 MG Vial IV.PUSH SCH (20:55)
[2018-03-23] MEDS ORDERED: Gabapentin 300 MG Capsule PO SCH (21:00)
--- NOTE | 2018-03-23 21:07 | US ---
EXAM DATE: 03/23/2018 9:01 PM EDT AGE/SEX: 48 years / Male INDICATIONS: Post op transplant surgery. CLINICAL DATA: This is the patient's initial encounter. Patient reports that signs and symptoms have been present for 1 day and indicates a pain score of 0/10. MEDICAL/SURGICAL HISTORY: Congestive heart failure. Hypertension. Polycystic kidney disease. P remature ventricular contractions. Nephrectomy, left. Mastectomy, right. COMPARISON: [facility], CT ABDOMEN AND PELVIS W/O CONTRAST, 06/17/2017. . MEASUREMENTS: Transplant Kidney:__10.9 x 6.5 x 6.3 cm Location:__Right lower quadrant Arcuate Arteries Resistive Index: Upper - 0.7 Mid - 0.7 Lower - 0.7 Main Renal Artery Velocity:__160 cm/sec Main Renal Vein:__Patent External Iliac Artery Velocity:__229 cm/sec External Iliac Vein:__Patent FINDINGS: Transplant Kidney: Normal echotexture and cortical thickness. No mass or hydronephrosis. No peritran splant fluid. Urinary Bladder: Vickers catheter is present. Bladder decompressed. Other: None. CONCLUSION: 1. Transplant kidney is morphologically unremarkable. No hydronephrosis or perinephric fluid. Resist peter indices are within the normal range. Bladder decompressed by Vickers. Electronically signed by: Kevin Briseno MD 03/23/2018 9:06 PM EDT
[2018-03-23 21:27] LABS: Calcium 8.3 mg/dL (8.5-10.1); Carbon Dioxide 27.1 meq/L (21.0-32.0); Phosphorus 2.7 mg/dL (2.5-4.9); Potassium 3.7 meq/L (3.5-5.1)
[2018-03-23] MEDS: HYDROmorphone PF Inj 1 MG/ML Ampul IV.PUSH PRN (21:55)
[2018-03-23] MEDS: Sodium Chloride 0.9% 2 ML Flush BID IV.FLUSH SCH (23:30)
[2018-03-23] MEDS ORDERED: Docusate Sodium 100 MG Capsule ONE (23:39)
[2018-03-24] MEDS: HYDROmorphone PF Inj 1 MG/ML Ampul IV.PUSH PRN ×4 (02:15→06:35)
[2018-03-24] MEDS ORDERED: WATER IV.SIG SCH ×2 (06:00)
[2018-03-24] MEDS ORDERED: MYCOPHENOLATE MOFETIL IV.SIG SCH ×2 (06:00)
[2018-03-24] MEDS ORDERED: DEXTROSE 5% IV.SIG SCH ×2 (06:00)
[2018-03-24] MEDS ORDERED: Albumin Human 5% Inj 500 ML IV.SIG ONE (06:15)
[2018-03-24 06:19] LABS: Baso % (Auto) 0.4 % (0.0-2.0); Eos % (Auto) 0.1 % (0.0-4.0); Hematocrit 26.3 % (39.0-51.0); Hemoglobin 9.1 gm/dL (13.0-17.0); Lymph % (Auto) 0.3 % (9.0-44.0); Mean Corpuscular HGB Conc 34.5 % (32.0-36.0); Mean Corpuscular Hemoglobin 34.4 pg (27.0-34.0); Mean Corpuscular Volume 99.6 fL (80.0-100.0); Mean Platelet Volume 7.5 fL (7.0-11.0); Mono # (Auto) 0.2 th/mm3 (0.0-0.9); Neut # (Auto) 7.3 th/mm3 (1.8-7.7); Neut % (Auto) 97.2 % (16.0-70.0); Platelet Count 128 th/mm3 (150-450); Red Blood Count 2.64 mil/mm3 (4.50-5.90); Red Cell Distribution Width 13.8 % (11.6-17.2); White Blood Count 7.5 th/mm3 (4.0-11.0)
[2018-03-24] MEDS: Sodium Chloride 0.45 % Inj 1,000 ML IV.CONT PRN ×3 (06:33→20:25)
[2018-03-24 06:44] LABS: Calcium 7.9 mg/dL (8.5-10.1); Carbon Dioxide 26.3 meq/L (21.0-32.0); Magnesium 1.9 mg/dL (1.5-2.5); Potassium 4.4 meq/L (3.5-5.1)
[2018-03-24 06:54] LABS: Phosphorus 5.5 mg/dL (2.5-4.9)
--- NOTE | 2018-03-24 07:47 | P.OP ---
- Preoperative Diagnosis (1) ESRD (end stage renal disease) - Postoperative Diagnosis (1) ESRD (end stage renal disease) Date of procedure: 03/23/18 (assist note) Procedure: cadaveric kidney transplant with ureteroneocysctostomy over a 6Fr ureteral stent Anesthesia: CARLOS Surgeon: Medardo Maier MD Operation and Findings: i assisted dr. Mckeon in the cadaveric kidney transplant. Backtable preparation of organ: i prepared the kidney allograft on the backtable which included removing access dittue and preparing the renal artery, vein and ureter for implantation. Assist note: i assisted Dr. Mckeon in the implantation of the allograft which included arterial and venous anastomoses and ureteral implant. The details as dictated by Dr. Mckeon.
[2018-03-24] MEDS: Docusate Sodium 100 MG Capsule PO SCH ×2 (09:04→21:26)
[2018-03-24] MEDS ORDERED: Acetaminophen 325 MG Tablet PO ONE (09:05)
[2018-03-24] MEDS: Pantoprazole Inj 40 MG Vial IV.PUSH SCH (09:05)
[2018-03-24] MEDS ORDERED: Hydrocortisone Sod Succinate 100 MG Vial IV.PUSH PRN (09:05)
[2018-03-24] MEDS: Vitamin B Complex/Vit C/Folic Tablet PO SCH (09:05)
[2018-03-24] MEDS: Carvedilol 6.25 MG Tablet PO SCH ×2 (09:06→11:39)
[2018-03-24] MEDS: Sodium Chloride 0.9% 2 ML Flush BID IV.FLUSH SCH ×2 (09:06→21:27)
[2018-03-24] MEDS: Calcium Acetate 667 MG Capsule PO SCH ×3 (09:12→17:34)
--- NOTE | 2018-03-24 09:21 | P.PNNP ---
Subjective Interval history: Patient had kidney transplant done yesterday he is passing urine Physical Exam Vital signs: Vital Signs 03/23/18 13:15 03/23/18 19:12 03/23/18 19:15 Temperature 98.2 F 98.2 F Pulse Rate 63 84 85 Respiratory Rate 18 12 23 Blood Pressure 129/72 138/69 145/71 H Pulse Oximetry 99 90 L 99 03/23/18 19:30 03/23/18 19:45 03/23/18 20:00 Temperature Pulse Rate 91 H 92 H 99 H Respiratory Rate 16 16 14 Blood Pressure 148/71 H 148/59 H 160/71 H Pulse Oximetry 100 100 03/23/18 20:15 03/23/18 20:20 03/23/18 20:30 Temperature Pulse Rate 111 H 96 H 97 H Respiratory Rate 19 14 Blood Pressure 165/80 H 143/67 H Pulse Oximetry 100 100 03/23/18 20:45 03/23/18 21:00 03/23/18 21:15 Temperature Pulse Rate 98 H 100 H 96 H Respiratory Rate 17 19 16 Blood Pressure 137/65 138/66 130/64 Pulse Oximetry 98 100 100 03/23/18 21:30 03/23/18 21:45 03/23/18 22:00 Temperature Pulse Rate 97 H 101 H 97 H Respiratory Rate 18 16 19 Blood Pressure 133/65 134/65 132/63 Pulse Oximetry 100 100 100 03/23/18 22:10 03/23/18 22:15 03/23/18 23:00 Temperature 99.8 F H Pulse Rate 95 H 98 H 92 H Respiratory Rate 20 18 Blood Pressure 131/63 147/78 H Pulse Oximetry 100 99 03/23/18 23:30 03/23/18 23:52 03/24/18 00:00 Temperature 99.1 F Pulse Rate 97 H Respiratory Rate 16 18 Blood Pressure 138/71 Pulse Oximetry 99 99 03/24/18 02:45 03/24/18 03:00 03/24/18 04:00 Temperature 98.2 F Pulse Rate 92 H 97 H Respiratory Rate 16 16 18 Blood Pressure 113/56 L Pulse Oximetry 99 03/24/18 04:50 Temperature Pulse Rate Respiratory Rate 16 Blood Pressure Pulse Oximetry Intake & Output 03/23/18 03/24/18 03/24/18 18:59 06:59 18:59 Intake Total 2099 / 2100 1192 / 1192 Output Total 1200 / 1200 1165 / 1165 Balance 900 / 900 27 / 27 Weight 69.2 kg 72.8 kg Intake: IV 50 / 50 847 / 847 1/2 Normal Saline Inj 1,000 ML 847 / 847 @ Titrate IV.CONT .Q0M PRN Rx#: [id number] Ancef 2 GM Premix Inj 2 gm In 50 / 50 50 ml @ 100 mls/hr IV.SIG APPRENTICE COSMETOLOGIST PRN Rx#:[id number] Anesthesia Amount 2049 / 2049 Other 345 / 345 Output: Hemodialysis Amount 1000 / 1000 Estimated Blood Loss 200 / 200 Urine Amount (Catheter) 1165 / 1165 Indwelling Urethral Catheter 1165 / 1165 Narrative: GENERAL: Well-nourished, well-developed patient. SKIN: Warm and dry. HEAD: Normocephalic. EYES: No scleral icterus. No injection or drainage. NECK: Supple, trachea midline. No JVD or lymphadenopathy. CARDIOVASCULAR: Regular rate and rhythm without murmurs, gallops, or rubs. RESPIRATORY: Breath sounds equal bilaterally. No accessory muscle use. GASTROINTESTINAL: Abdomen soft, postsurgical scar EXTREMITIES: No edema NEUROLOGICAL: Awake, alert, and oriented x 3. Non-focal. - Urinary Catheter Management Indwelling Urethral Catheter Cath placed during this visit: yes Reason for continuing: Hourly intake/output Insertion date: 03/23/18 Insertion time: 16:10 Assessment and Plan - Assessment (1) ESRD (end stage renal disease) Code(s): N18.6 - End stage renal disease Status: Acute - Plan Patient had kidney transplant Postoperative day 1 Urine output is good Creatinine 7.7 Continue to monitor for improvement On Thymoglobulin Making good progress hold BP medications till Tuesday
--- NOTE | 2018-03-24 09:56 | P.PNTS ---
Subjective Interval history: Some uncontrolled postop pain. Said percocet seems to work best for him. Will start percocet today. Taina po. Physical Exam Vital signs: Vital Signs 03/23/18 13:15 03/23/18 19:12 03/23/18 19:15 Temperature 98.2 F 98.2 F Pulse Rate 63 84 85 Respiratory Rate 18 12 23 Blood Pressure 129/72 138/69 145/71 H Pulse Oximetry 99 90 L 99 03/23/18 19:30 03/23/18 19:45 03/23/18 20:00 Temperature Pulse Rate 91 H 92 H 99 H Respiratory Rate 16 16 14 Blood Pressure 148/71 H 148/59 H 160/71 H Pulse Oximetry 100 100 03/23/18 20:15 03/23/18 20:20 03/23/18 20:30 Temperature Pulse Rate 111 H 96 H 97 H Respiratory Rate 19 14 Blood Pressure 165/80 H 143/67 H Pulse Oximetry 100 100 03/23/18 20:45 03/23/18 21:00 03/23/18 21:15 Temperature Pulse Rate 98 H 100 H 96 H Respiratory Rate 17 19 16 Blood Pressure 137/65 138/66 130/64 Pulse Oximetry 98 100 100 03/23/18 21:30 03/23/18 21:45 03/23/18 22:00 Temperature Pulse Rate 97 H 101 H 97 H Respiratory Rate 18 16 19 Blood Pressure 133/65 134/65 132/63 Pulse Oximetry 100 100 100 03/23/18 22:10 03/23/18 22:15 03/23/18 23:00 Temperature 99.8 F H Pulse Rate 95 H 98 H 92 H Respiratory Rate 20 18 Blood Pressure 131/63 147/78 H Pulse Oximetry 100 99 03/23/18 23:30 03/23/18 23:52 03/24/18 00:00 Temperature 99.1 F Pulse Rate 97 H Respiratory Rate 16 18 Blood Pressure 138/71 Pulse Oximetry 99 99 03/24/18 02:45 03/24/18 03:00 03/24/18 04:00 Temperature 98.2 F Pulse Rate 92 H 97 H Respiratory Rate 16 16 18 Blood Pressure 113/56 L Pulse Oximetry 99 03/24/18 04:50 03/24/18 07:00 03/24/18 08:00 Temperature 99.6 F Pulse Rate 84 Respiratory Rate 16 15 Blood Pressure 122/63 122/63 Pulse Oximetry 97 96 Intake & Output 03/23/18 03/24/18 03/24/18 18:59 06:59 18:59 Intake Total 2100 / 2100 1192 / 1192 Output Total 1200 / 1200 1165 / 1165 Balance 900 / 900 27 / 27 Weight 69.2 kg 72.8 kg Intake: IV 50 / 50 847 / 847 1/2 Normal Saline Inj 1,000 ML 847 / 847 @ Titrate IV.CONT .Q0M PRN Rx#: [id number] Ancef 2 GM Premix Inj 2 gm In 50 / 50 50 ml @ 100 mls/hr IV.SIG ADJUNCT PROFESSOR OF VOICE PRN Rx#:[id number] Anesthesia Amount 2049 / 2049 Other 345 / 345 Output: Hemodialysis Amount 1000 / 1000 Estimated Blood Loss 200 / 200 Urine Amount (Catheter) 1165 / 1165 Indwelling Urethral Catheter 1165 / 1165 Other: Date of Last Bowel Movement 03/22/18 - Constitutional no acute distress - Routine HEENT Exam Head: Present: normocephalic, atraumatic Eye: Present: EOMI ENT: Present: mucous membranes moist - Routine Neck Exam Present: supple - Routine Respiratory Exam Present: CTA bilaterally - Routine Cardiovascular Exam Present: RRR, S1, S2 - Routine Abdominal Exam Present: soft, normoactive bowel sounds Comments: minimal staining on dressing. - Routine Extremities Exam Present: pulses intact - Routine Skin Exam Present: intact - Routine Neurological Exam Present: alert, oriented X3 - Detailed Neurological Exam: Coma Scale Verbal Response: Oriented - Routine Psychiatric Exam Present: normal affect, normal thought process - Urinary Catheter Management Indwelling Urethral Catheter Cath placed during this visit: yes Urethral indwelling: Yes Reason for continuing: Hourly intake/output Insertion date: 03/23/18 Insertion time: 16:10 Results - Labs CBC & Chem 7: 03/24/18 05:30 03/24/18 05:30 Laboratory Results - last 24 hr 03/23/18 03/23/18 03/23/18 00:05 00:05 20:19 WBC 2.9 L RBC 2.96 L Hgb 10.1 L Hct 28.7 L MCV 97.0 MCH 34.0 MCHC 35.1 RDW 13.7 Plt Count 133 L MPV 7.3 Neut % (Auto) 97.5 H Lymph % (Auto) 1.5 L [place] % (Auto) 0.7 Eos % (Auto) 0.2 Baso % (Auto) 0.1 Neut # (Auto) 2.8 Lymph # (Auto) 0.0 L [place] # (Auto) 0.0 Eos # (Auto) 0.0 Baso # (Auto) 0.0 WBC Differential . Differential Comment Auto diff final Sodium Potassium Chloride Carbon Dioxide Anion Gap BUN Creatinine Estimated GFR POC Glucose Random Glucose Calcium Phosphorus Magnesium Rheumatoid Factor Scrn Negative Rheumatoid Factor Titer Not Reportable Blood Type O Positive Blood Type Recheck Not needed Antibody Screen Negative MTS Gel Crossmatch See Detail 03/23/18 03/23/18 03/24/18 20:19 20:47 00:52 WBC RBC Hgb Hct MCV MCH MCHC RDW Plt Count MPV Neut % (Auto) Lymph % (Auto) [place] % (Auto) Eos % (Auto) Baso % (Auto) Neut # (Auto) Lymph # (Auto) [place] # (Auto) Eos # (Auto) Baso # (Auto) WBC Differential Differential Comment Sodium 142 Potassium 3.7 Chloride 105 Carbon Dioxide 27.1 Anion Gap 10 BUN 32 H Creatinine 7.37 H Estimated GFR 8 L POC Glucose 109 138 H Random Glucose 111 H Calcium 8.3 L Phosphorus 2.7 Magnesium 2.0 Rheumatoid Factor Scrn Rheumatoid Factor Titer Blood Type Blood Type Recheck Antibody Screen MTS Gel Crossmatch 03/24/18 03/24/18 03/24/18 05:30 05:30 05:36 WBC 7.5 D RBC 2.64 L Hgb 9.1 L Hct 26.3 L MCV 99.6 MCH 34.4 H MCHC 34.5 RDW 13.8 Plt Count 128 L MPV 7.5 Neut % (Auto) 97.2 H Lymph % (Auto) 0.3 L [place] % (Auto) 2.0 Eos % (Auto) 0.1 Baso % (Auto) 0.4 Neut # (Auto) 7.3 Lymph # (Auto) 0.0 L [place] # (Auto) 0.2 Eos # (Auto) 0.0 Baso # (Auto) 0.0 WBC Differential . Differential Comment Auto diff final Sodium 140 Potassium 4.4 Chloride 104 Carbon Dioxide 26.3 Anion Gap 10 BUN 39 H Creatinine 7.76 H Estimated GFR 8 L POC Glucose 132 H Random Glucose 121 H Calcium 7.9 L Phosphorus 5.5 H D Magnesium 1.9 Rheumatoid Factor Scrn Rheumatoid Factor Titer Blood Type Blood Type Recheck Antibody Screen MTS Gel Crossmatch - Imaging Impressions Chest X-Ray 03/23/18 19:51 CONCLUSION: 1. Interval placement of right internal jugular central venous line with no pneumothorax. 2. No acute cardiopulmonary disease. Renal Ultrasound 03/23/18 19:51 CONCLUSION: 1. Transplant kidney is morphologically unremarkable. No hydronephrosis or perinephric fluid. Resistive indices are within the normal range. Bladder decompressed by Vickers. Assessment and Plan - Plan Mr Jacy Wing has ESRD secondary to PKD/htn, and was admitted for donor kidney transplantation. S/P donor kidney transplant to right iliac fossa. Allograft function: immediate: Immunosuppression: Thymo induction; Maint: steroids + Cellcept . Second thymo dose planned today (1.5 mg/kg ideal weight). Will plan to start low dose tacrolimus tomorrow Patient overall doing well. Good UOP overnight. Creatinine decreasing. Started on clear liquids. Will advance as tolerated. Will plan to recheck h&H at 1100. As some decline from preop.
--- NOTE | 2018-03-24 10:04 | P.DIET ---
Nutritional Evaluation Type of nutrition evaluation: initial Screening comments: Nutrition Assessment Post-Op Day one Kidney Transplant Subjective Subjective Comments: Pt states he is tolerating his CL diet. No complaints at this time. Objective - Diagnosis ESRD - Objective Body Mass Index: 24.9 % IBW: 109 Energy Needs - Lower Range (kCal/kg): 28 Energy Needs - Upper Range (kCal/kg): 33 Lower Limit kCal/kg (kCals): 1,968 Upper Limit kCal/kg (kCals): 2,320 Lower Limit Protein Factor (Grams per Kg): 1.2 Upper Limit Protein Factor (Grams per Kg): 1.4 Lower Protein Needs (Protein): 84 Upper Protein Needs (Protein): 98 Estimated Fluid Needs (ml): 2,000 Dietitian Reviewed in Medical Record: Current diet, Curent medications, Intake & Output, Labs, Medical history Diet Order: CL Objective Comments: Pt's nutritional needs based on admit wt of 70.3kg Noted Labs: K+ 4.4, Ca 7.9, Cr 7.76, Phos 5.5 Pt dialyzed prior to surgery, 1000mls removed UOP: 1165mls Assessment Assessment: Pt s/p kidney transplant post-op day one. He is making urine and his creatinine is going down. Pt is on a CL diet and tolerating it well. His nutritional needs are as assessed above. Will follow patient with the transplant team and educate prior to discharge. Dietitian to Monitor: Lab values, Electrolytes, Renal labs, Intake & Output, Diet tolerance, Weight change, PO Intake, Diet advancement, Medical course
[2018-03-24] MEDS: Lisinopril 5 MG Tablet PO SCH (11:21)
[2018-03-24] MEDS ORDERED: MethylPREDNISolone Sod Succinate Inj 125 MG/2 ML Vial IV.PUSH ONE (11:30)
[2018-03-24] MEDS ORDERED: HYDROmorphone PF Inj 1 MG/ML Ampul IV.PUSH PRN (12:00)
[2018-03-24] MEDS ORDERED: SODIUM CHLOR 0.9% IV.SIG ONE (12:00)
[2018-03-24] MEDS ORDERED: ANTITHYMOCYTE IG IV.SIG ONE (12:00)
[2018-03-24 12:51] LABS: Hematocrit 24.6 % (39.0-51.0); Hemoglobin 8.4 gm/dL (13.0-17.0)
[2018-03-24] MEDS ORDERED: Gabapentin 300 MG Capsule PO PRN (14:48)
[2018-03-24 15:04] LABS: Hematocrit 25.2 % (39.0-51.0); Hemoglobin 8.5 gm/dL (13.0-17.0)
[2018-03-24] MEDS: Gabapentin 300 MG Capsule PO PRN ×2 (15:18→22:19)
--- NOTE | 2018-03-24 16:02 | US ---
EXAM DATE: 03/24/2018 3:55 PM EDT AGE/SEX: 48 years / Male INDICATIONS: Decreased hemoglobin post transplant. CLINICAL DATA: This is the patient's subsequent encounter. Patient reports that signs and symptoms h ave been present for 1 day and indicates a pain score of 0/10. MEDICAL/SURGICAL HISTORY: . Congestive heart failure. Hypertension. Polycystic kidney disease. Premature ventricular contractions. . Nephrectomy, left. Renal transplant 03/23/18. COMPARISON: [facility] [place], RENAL TRANSPLANT W DOP, 03/23/2018. . MEASUREMENTS: Transplant Kidney:__11.6 x 6.1 x 6.1 cm Location:__Right lower quadrant [place] Arteries Resistive Index: Upper - 0.7 Mid - 0.7 Lower - 0.7 Main Renal Artery Velocity:__62 cm/sec Main Renal Vein:__Patent External Iliac Artery Velocity:__147 cm/sec External Iliac Vein:__Patent FINDINGS: Transplant Kidney: Normal echotexture and cortical thickness. No mass or hydronephrosis. There is tr lauren perinephric fluid. Urinary Bladder: Vickers catheter is present. Bladder mostly decompressed and demonstrates no abnormal ity. Other: None. CONCLUSION: 1. No hematoma is identified. There is trace perinephric fluid. 2. Kidney has a normal appearance without hydronephrosis. Vascular assessment is within normal limit s. Electronically signed by: Donaldo Sebastian MD 03/24/2018 4:01 PM EDT
--- NOTE | 2018-03-24 16:25 | P.PN ---
Subjective Interval history: Follow-up for renal transplant. Patient is currently doing well. Resting in bed. Denies any chest pain, shortness of breath, fever or chills. His hemoglobin was somewhat low 8.4 earlier. I discussed with transplant surgeon. Will do renal ultrasound and check H&H. Physical Exam Vital signs: Vital Signs 03/23/18 19:12 03/23/18 19:15 03/23/18 19:30 Temperature 98.2 F Pulse Rate 84 85 91 H Respiratory Rate 12 23 16 Blood Pressure 138/69 145/71 H 148/71 H Pulse Oximetry 90 L 99 100 03/23/18 19:45 03/23/18 20:00 03/23/18 20:15 Temperature Pulse Rate 92 H 99 H 111 H Respiratory Rate 16 14 19 Blood Pressure 148/59 H 160/71 H 165/80 H Pulse Oximetry 100 100 03/23/18 20:20 03/23/18 20:30 03/23/18 20:45 Temperature Pulse Rate 96 H 97 H 98 H Respiratory Rate 14 17 Blood Pressure 143/67 H 137/65 Pulse Oximetry 100 98 03/23/18 21:00 03/23/18 21:15 03/23/18 21:30 Temperature Pulse Rate 100 H 96 H 97 H Respiratory Rate 19 16 18 Blood Pressure 138/66 130/64 133/65 Pulse Oximetry 100 100 100 03/23/18 21:45 03/23/18 22:00 03/23/18 22:10 Temperature Pulse Rate 101 H 97 H 95 H Respiratory Rate 16 19 20 Blood Pressure 134/65 132/63 131/63 Pulse Oximetry 100 100 100 03/23/18 22:15 03/23/18 23:00 03/23/18 23:30 Temperature 99.8 F H Pulse Rate 98 H 92 H Respiratory Rate 18 16 Blood Pressure 147/78 H Pulse Oximetry 99 03/23/18 23:52 03/24/18 00:00 03/24/18 02:45 Temperature 99.1 F Pulse Rate 97 H Respiratory Rate 18 16 Blood Pressure 138/71 Pulse Oximetry 99 99 03/24/18 03:00 03/24/18 04:00 03/24/18 04:50 Temperature 98.2 F Pulse Rate 92 H 97 H Respiratory Rate 16 18 16 Blood Pressure 113/56 L Pulse Oximetry 99 03/24/18 07:00 03/24/18 08:00 03/24/18 11:00 Temperature 99.6 F 99.3 F Pulse Rate 84 79 Respiratory Rate 15 15 Blood Pressure 122/63 122/63 119/62 Pulse Oximetry 97 99 96 03/24/18 12:00 03/24/18 12:30 03/24/18 12:45 Temperature 99.3 F Pulse Rate 76 80 Respiratory Rate 15 15 Blood Pressure 119/62 119/64 125/63 Pulse Oximetry 96 96 03/24/18 13:00 03/24/18 13:30 03/24/18 14:00 Temperature Pulse Rate 76 75 72 Respiratory Rate 15 15 15 Blood Pressure 120/58 L 121/65 122/63 Pulse Oximetry 96 96 95 03/24/18 14:08 03/24/18 15:00 03/24/18 16:00 Temperature 97.9 F Pulse Rate 67 69 Respiratory Rate 16 15 Blood Pressure 125/60 116/50 L Pulse Oximetry 97 97 97 Intake & Output 03/23/18 03/24/18 03/24/18 18:59 06:59 18:59 Intake Total 2100 / 2100 1192 / 1192 Output Total 1200 / 1200 1165 / 1165 587 / 587 Balance 900 / 900 27 / 27 -587 / -587 Weight 69.2 kg 72.8 kg Intake: IV 50 / 50 847 / 847 1/2 Normal Saline Inj 1,000 ML 847 / 847 @ Titrate IV.CONT .Q0M PRN Rx#: [id number] Ancef 2 GM Premix Inj 2 gm In 50 / 50 50 ml @ 100 mls/hr IV.SIG VESSEL MASTER PRN Rx#:[id number] Anesthesia Amount 2049 / 2049 Other 345 / 345 Output: Hemodialysis Amount 1000 / 1000 Estimated Blood Loss 200 / 200 Urine Amount (Catheter) 1165 / 1165 587 / 587 Indwelling Urethral Catheter 1165 / 1165 587 / 587 Other: Date of Last Bowel Movement 03/22/18 Narrative: GENERAL: Well-nourished, well-developed patient. SKIN: Warm and dry. HEAD: Normocephalic. EYES: No scleral icterus. No injection or drainage. NECK: Supple, trachea midline. No JVD or lymphadenopathy. CARDIOVASCULAR: Regular rate and rhythm without murmurs, gallops, or rubs. RESPIRATORY: Breath sounds equal bilaterally. No accessory muscle use. GASTROINTESTINAL: Abdomen soft, postsurgical scar EXTREMITIES: No edema NEUROLOGICAL: Awake, alert, and oriented x 3. Non-focal. - Urinary Catheter Management Indwelling Urethral Catheter Cath placed during this visit: yes Urethral indwelling: Yes Reason for continuing: Hourly intake/output Insertion date: 03/23/18 Insertion time: 16:10 Results - Labs CBC & Chem 7: 03/24/18 14:40 03/24/18 05:30 Laboratory Results - last 24 hr 03/23/18 03/23/18 03/23/18 00:05 20:19 20:19 WBC 2.9 L RBC 2.96 L Hgb 10.1 L Hct 28.7 L MCV 97.0 MCH 34.0 MCHC 35.1 RDW 13.7 Plt Count 133 L MPV 7.3 Neut % (Auto) 97.5 H Lymph % (Auto) 1.5 L [place] % (Auto) 0.7 Eos % (Auto) 0.2 Baso % (Auto) 0.1 Neut # (Auto) 2.8 Lymph # (Auto) 0.0 L [place] # (Auto) 0.0 Eos # (Auto) 0.0 Baso # (Auto) 0.0 WBC Differential . Differential Comment Auto diff final Sodium 142 Potassium 3.7 Chloride 105 Carbon Dioxide 27.1 Anion Gap 10 BUN 32 H Creatinine 7.37 H Estimated GFR 8 L POC Glucose Random Glucose 111 H Calcium 8.3 L Phosphorus 2.7 Magnesium 2.0 Blood Type O Positive Blood Type Recheck Not needed Antibody Screen Negative MTS Gel Crossmatch See Detail 03/23/18 03/24/18 03/24/18 20:47 00:52 05:30 WBC 7.5 D RBC 2.64 L Hgb 9.1 L Hct 26.3 L MCV 99.6 MCH 34.4 H MCHC 34.5 RDW 13.8 Plt Count 128 L MPV 7.5 Neut % (Auto) 97.2 H Lymph % (Auto) 0.3 L [place] % (Auto) 2.0 Eos % (Auto) 0.1 Baso % (Auto) 0.4 Neut # (Auto) 7.3 Lymph # (Auto) 0.0 L [place] # (Auto) 0.2 Eos # (Auto) 0.0 Baso # (Auto) 0.0 WBC Differential . Differential Comment Auto diff final Sodium Potassium Chloride Carbon Dioxide Anion Gap BUN Creatinine Estimated GFR POC Glucose 109 138 H Random Glucose Calcium Phosphorus Magnesium Blood Type Blood Type Recheck Antibody Screen MTS Gel Crossmatch 03/24/18 03/24/18 03/24/18 05:30 05:36 11:37 WBC RBC Hgb Hct MCV MCH MCHC RDW Plt Count MPV Neut % (Auto) Lymph % (Auto) [place] % (Auto) Eos % (Auto) Baso % (Auto) Neut # (Auto) Lymph # (Auto) [place] # (Auto) Eos # (Auto) Baso # (Auto) WBC Differential Differential Comment Sodium 140 Potassium 4.4 Chloride 104 Carbon Dioxide 26.3 Anion Gap 10 BUN 39 H Creatinine 7.76 H Estimated GFR 8 L POC Glucose 132 H 125 H Random Glucose 121 H Calcium 7.9 L Phosphorus 5.5 H D Magnesium 1.9 Blood Type Blood Type Recheck Antibody Screen MTS Gel Crossmatch 03/24/18 03/24/18 12:20 14:40 WBC RBC Hgb 8.4 L 8.5 L Hct 24.6 L 25.2 L MCV MCH MCHC RDW Plt Count MPV Neut % (Auto) Lymph % (Auto) [place] % (Auto) Eos % (Auto) Baso % (Auto) Neut # (Auto) Lymph # (Auto) [place] # (Auto) Eos # (Auto) Baso # (Auto) WBC Differential Differential Comment Sodium Potassium Chloride Carbon Dioxide Anion Gap BUN Creatinine Estimated GFR POC Glucose Random Glucose Calcium Phosphorus Magnesium Blood Type Blood Type Recheck Antibody Screen MTS Gel Crossmatch - Imaging Impressions Chest X-Ray 03/23/18 19:51 CONCLUSION: 1. Interval placement of right internal jugular central venous line with no pneumothorax. 2. No acute cardiopulmonary disease. Renal Ultrasound 03/23/18 19:51 CONCLUSION: 1. Transplant kidney is morphologically unremarkable. No hydronephrosis or perinephric fluid. Resistive indices are within the normal range. Bladder decompressed by Vickers. Renal Ultrasound 03/24/18 14:46 CONCLUSION: 1. No hematoma is identified. There is trace perinephric fluid. 2. Kidney has a normal appearance without hydronephrosis. Vascular assessment is within normal limits. - Procedures right donor kidney transplant to right iliac fossa with neoureterocystotomy 03/23/2018 Assessment and Plan - Plan Mr. Wing is a pleasant 48 y/o male with a history of polycystic kidney disease , ESRD on hemodialysis, chronic neck and back pain, PVCs, CHF with EF 40-45% (), and hypertension who presented to the hospital for renal transplantation. He was admitted under the hospitalist service for medical management prior to surgery. Patient underwent renal transplant on 03/23/2018. End-stage renal disease on hemodialysis -s/p right donor kidney transplant to right iliac fossa with neoureterocystotomy -Patient is currently on steroid plus CellCept. -Thymoglobulin per transplant surgeon. -Hgb 8.4 --> 8.5. Patient is hemodynamically stable. Renal US shows no hematoma. -Will repeat H&H at 2200 today. Hypertension -Patient is currently normotensive. Carvedilol and lisinopril on hold until Tuesday (03/27) per nephrology. Chronic systolic congestive heart failure - currently compensated. No acute concerns. Full code. SCDs.
[2018-03-24] MEDS: Dextrose 5%/NaCl 0.45% Inj 1,000 ML IV.CONT SCH (21:26)
[2018-03-24 22:48] LABS: Hematocrit 23.9 % (39.0-51.0); Hemoglobin 8.2 gm/dL (13.0-17.0)
[2018-03-25] MEDS: Sodium Chloride 0.45 % Inj 1,000 ML IV.CONT PRN ×2 (05:27→05:33)
[2018-03-25 05:36] LABS: Reticulocyte Percent 1.2 % (0.4-3.0)
[2018-03-25 05:37] LABS: Baso % (Auto) 0.5 % (0.0-2.0); Eos % (Auto) 0.5 % (0.0-4.0); Hematocrit 22.5 % (39.0-51.0); Hemoglobin 7.8 gm/dL (13.0-17.0); Lymph # (Auto) 0.1 th/mm3 (1.0-4.8); Lymph % (Auto) 1.9 % (9.0-44.0); Mean Corpuscular HGB Conc 34.4 % (32.0-36.0); Mean Corpuscular Hemoglobin 34.4 pg (27.0-34.0); Mean Platelet Volume 8.1 fL (7.0-11.0); Mono # (Auto) 0.2 th/mm3 (0.0-0.9); Mono % (Auto) 3.5 % (0.0-8.0); Neut # (Auto) 4.7 th/mm3 (1.8-7.7); Neut % (Auto) 93.6 % (16.0-70.0); Platelet Count 98 th/mm3 (150-450); Red Blood Count 2.25 mil/mm3 (4.50-5.90); Red Cell Distribution Width 14.3 % (11.6-17.2); White Blood Count 5.1 th/mm3 (4.0-11.0)
[2018-03-25 05:57] LABS: % Iron Saturation 19.3 % (20-50)
[2018-03-25 05:59] LABS: Calcium 8.3 mg/dL (8.5-10.1); Carbon Dioxide 26.7 meq/L (21.0-32.0); Magnesium 2.2 mg/dL (1.5-2.5); Phosphorus 4.1 mg/dL (2.5-4.9); Potassium 4.4 meq/L (3.5-5.1)
--- NOTE | 2018-03-25 08:15 | P.PNIM ---
Subjective Interval history: f/u; s/p kidney transplant in no acute distress. looks comfortable. pain is controlled. no dizziness, sob. afebrile. Physical Exam Vital signs: Vital Signs 03/24/18 11:00 03/24/18 12:00 03/24/18 12:30 Temperature 99.3 F 99.3 F Pulse Rate 79 76 Respiratory Rate 15 15 Blood Pressure 119/62 119/62 119/64 Pulse Oximetry 96 96 03/24/18 12:45 03/24/18 13:00 03/24/18 13:30 Temperature Pulse Rate 80 76 75 Respiratory Rate 15 15 15 Blood Pressure 125/63 120/58 L 121/65 Pulse Oximetry 96 96 96 03/24/18 14:00 03/24/18 14:08 03/24/18 15:00 Temperature 97.9 F Pulse Rate 72 67 Respiratory Rate 15 16 Blood Pressure 122/63 125/60 Pulse Oximetry 95 97 97 03/24/18 16:00 03/24/18 17:00 03/24/18 17:36 Temperature Pulse Rate 69 67 63 Respiratory Rate 15 15 15 Blood Pressure 116/56 L 126/71 122/65 Pulse Oximetry 97 99 98 03/24/18 18:00 03/24/18 18:31 03/24/18 19:00 Temperature 99.8 F H Pulse Rate 61 60 Respiratory Rate 15 16 16 Blood Pressure 129/64 142/56 H Pulse Oximetry 98 94 L 03/24/18 20:00 03/24/18 20:48 03/24/18 23:00 Temperature 98.2 F Pulse Rate 73 Respiratory Rate 16 Blood Pressure 134/69 127/65 Pulse Oximetry 94 L 96 97 03/25/18 03:00 03/25/18 07:58 Temperature 98.3 F Pulse Rate 69 Respiratory Rate 16 Blood Pressure 116/60 Pulse Oximetry 97 99 Intake & Output 03/24/18 03/25/18 03/25/18 18:59 06:59 18:59 Intake Total 4324 / 4324 3806 / 3806 Output Total 1447 / 1447 2260 / 2260 Balance 2877 / 2877 1546 / 1546 Weight 74.3 kg Intake: IV 3524 / 3524 3806 / 3806 D5W/1/2 NS Inj 1,000 ML @ 40 442 / 442 806 / 806 mls/hr IV.CONT .Q24H [facility] Rx#: [id number] 1/2 Normal Saline Inj 1,000 ML 2031 3000 / 3000 @ Titrate IV.CONT .Q0M PRN Rx#: [id number] Alburx 5% Inj 500 ML @ 500 mls/ 500 / 500 hr IV.SIG ONCE ONE Rx#:[id number] Thymoglobulin Inj 100 MG In NS 550 / 550 Inj 500 ML @ 125 mls/hr IV.SIG ONCE ONE Rx#:[id number] Oral 800 / 800 Output: Urine Amount (Catheter) 1447 / 1447 2260 / 2260 Indwelling Urethral Catheter 1447 / 1447 2260 / 2260 Other: Date of Last Bowel Movement 03/22/18 03/22/18 # Bowel Movements 0 - Constitutional no acute distress - Routine Respiratory Exam Present: CTA bilaterally - Routine Cardiovascular Exam Present: RRR - Routine Abdominal Exam Present: soft - Routine Extremities Exam Comments: no pedal edema. - Routine Neurological Exam Present: alert, oriented X3 - Urinary Catheter Management Indwelling Urethral Catheter Cath placed during this visit: yes Urethral indwelling: Yes Reason for continuing: Hourly intake/output Insertion date: 03/23/18 Insertion time: 16:10 Results - Labs CBC & Chem 7: 03/25/18 04:45 03/25/18 04:45 Laboratory Results - last 24 hr 03/23/18 03/24/18 03/24/18 00:05 11:37 12:20 WBC RBC Hgb 8.4 L Hct 24.6 L MCV MCH MCHC RDW Plt Count MPV Prelim Diff (Auto) Neut % (Auto) Lymph % (Auto) [place] % (Auto) Eos % (Auto) Baso % (Auto) Neut # (Auto) Lymph # (Auto) [place] # (Auto) Eos # (Auto) Baso # (Auto) Differential Comment Retic Count Absolute Retic Sodium Potassium Chloride Carbon Dioxide Anion Gap BUN Creatinine Estimated GFR POC Glucose 125 H Random Glucose Calcium Phosphorus Magnesium Iron TIBC % Saturation Ferritin MTS Gel Crossmatch See Detail 03/24/18 03/24/18 03/24/18 14:40 16:51 22:23 WBC RBC Hgb 8.5 L 8.2 L Hct 25.2 L 23.9 L MCV MCH MCHC RDW Plt Count MPV Prelim Diff (Auto) Neut % (Auto) Lymph % (Auto) [place] % (Auto) Eos % (Auto) Baso % (Auto) Neut # (Auto) Lymph # (Auto) [place] # (Auto) Eos # (Auto) Baso # (Auto) Differential Comment Retic Count Absolute Retic Sodium Potassium Chloride Carbon Dioxide Anion Gap BUN Creatinine Estimated GFR POC Glucose 145 H Random Glucose Calcium Phosphorus Magnesium Iron TIBC % Saturation Ferritin MTS Gel Crossmatch 03/25/18 03/25/18 03/25/18 00:39 04:45 04:45 WBC 5.1 RBC 2.25 L Hgb 7.8 L Hct 22.5 L MCV 100.0 MCH 34.4 H MCHC 34.4 RDW 14.3 Plt Count 98 L MPV 8.1 Prelim Diff (Auto) Slide review pending Neut % (Auto) 93.6 H Lymph % (Auto) 1.9 L [place] % (Auto) 3.5 Eos % (Auto) 0.5 Baso % (Auto) 0.5 Neut # (Auto) 4.7 Lymph # (Auto) 0.1 L [place] # (Auto) 0.2 Eos # (Auto) 0.0 Baso # (Auto) 0.0 Differential Comment . Retic Count Absolute Retic Sodium 144 Potassium 4.4 Chloride 110 H Carbon Dioxide 26.7 Anion Gap 7 BUN 43 H Creatinine 4.94 H Estimated GFR 13 L POC Glucose 124 H Random Glucose 105 Calcium 8.3 L Phosphorus 4.1 D Magnesium 2.2 Iron TIBC % Saturation Ferritin MTS Gel Crossmatch 03/25/18 03/25/18 03/25/18 04:45 04:45 06:13 WBC RBC Hgb Hct MCV MCH MCHC RDW Plt Count MPV Prelim Diff (Auto) Neut % (Auto) Lymph % (Auto) [place] % (Auto) Eos % (Auto) Baso % (Auto) Neut # (Auto) Lymph # (Auto) [place] # (Auto) Eos # (Auto) Baso # (Auto) Differential Comment Retic Count 1.2 Absolute Retic 27.3 Sodium Potassium Chloride Carbon Dioxide Anion Gap BUN Creatinine Estimated GFR POC Glucose 123 H Random Glucose Calcium Phosphorus Magnesium Iron 26 L TIBC 134 L % Saturation 19.3 L Ferritin 1148 H MTS Gel Crossmatch - Imaging Impressions Renal Ultrasound 03/24/18 14:46 CONCLUSION: 1. No hematoma is identified. There is trace perinephric fluid. 2. Kidney has a normal appearance without hydronephrosis. Vascular assessment is within normal limits. - Procedures right donor kidney transplant to right iliac fossa with neoureterocystotomy 03/23/2018 Assessment and Plan - Plan End-stage renal disease on hemodialysis -s/p right donor kidney transplant to right iliac fossa with neoureterocystotomy -creatinine is improving. -Patient is currently on CellCept. -Thymoglobulin per transplant surgeon. -post-op anemia; Patient is hemodynamically stable. Renal US shows no hematoma. -Will continue to monitor H/H. Hypertension -Patient is currently normotensive. Carvedilol and lisinopril on hold until Tuesday (03/27) per nephrology. Chronic systolic congestive heart failure - currently compensated. No acute concerns. Full code. SCDs.
[2018-03-25] MEDS: Calcium Acetate 667 MG Capsule PO SCH ×3 (08:34→17:11)
[2018-03-25] MEDS: Vitamin B Complex/Vit C/Folic Tablet PO SCH (08:34)
[2018-03-25] MEDS: Pantoprazole Inj 40 MG Vial IV.PUSH SCH (08:34)
[2018-03-25] MEDS: Docusate Sodium 100 MG Capsule PO SCH ×2 (08:35→22:20)
[2018-03-25] MEDS: Sodium Chloride 0.9% 2 ML Flush BID IV.FLUSH SCH ×2 (08:35→22:21)
[2018-03-25 09:31] LABS: Hematocrit 23.9 % (39.0-51.0); Hemoglobin 8.2 gm/dL (13.0-17.0); Mean Corpuscular HGB Conc 34.4 % (32.0-36.0); Mean Corpuscular Hemoglobin 34.6 pg (27.0-34.0); Mean Corpuscular Volume 100.7 fL (80.0-100.0); Mean Platelet Volume 7.8 fL (7.0-11.0); Platelet Count 101 th/mm3 (150-450); Red Blood Count 2.38 mil/mm3 (4.50-5.90); White Blood Count 4.7 th/mm3 (4.0-11.0)
[2018-03-25 10:10] LABS: Calcium 8.6 mg/dL (8.5-10.1); Carbon Dioxide 28.1 meq/L (21.0-32.0); Magnesium 2.2 mg/dL (1.5-2.5); Phosphorus 3.2 mg/dL (2.5-4.9); Potassium 4.3 meq/L (3.5-5.1)
--- NOTE | 2018-03-25 11:53 | P.PNTS ---
Subjective Interval history: No new c/o. Taina po well. Pain well controlled. Physical Exam Vital signs: Vital Signs 03/24/18 12:00 03/24/18 12:30 03/24/18 12:45 Temperature 99.3 F Pulse Rate 76 80 Respiratory Rate 15 15 Blood Pressure 119/62 119/64 125/63 Pulse Oximetry 96 96 03/24/18 13:00 03/24/18 13:30 03/24/18 14:00 Temperature Pulse Rate 76 75 72 Respiratory Rate 15 15 15 Blood Pressure 120/58 L 121/65 122/63 Pulse Oximetry 96 96 95 03/24/18 14:08 03/24/18 15:00 03/24/18 16:00 Temperature 97.9 F Pulse Rate 67 69 Respiratory Rate 16 15 Blood Pressure 125/60 116/56 L Pulse Oximetry 97 97 97 03/24/18 17:00 03/24/18 17:36 03/24/18 18:00 Temperature Pulse Rate 67 63 61 Respiratory Rate 15 15 15 Blood Pressure 126/71 122/65 129/64 Pulse Oximetry 99 98 98 03/24/18 18:31 03/24/18 19:00 03/24/18 20:00 Temperature 99.8 F H Pulse Rate 60 Respiratory Rate 16 16 Blood Pressure 142/56 H 134/69 Pulse Oximetry 94 L 94 L 03/24/18 20:48 03/24/18 23:00 03/25/18 03:00 Temperature 98.2 F 98.3 F Pulse Rate 73 69 Respiratory Rate 16 16 Blood Pressure 127/65 116/60 Pulse Oximetry 96 97 97 03/25/18 07:00 03/25/18 07:58 03/25/18 08:00 Temperature 98.2 F Pulse Rate 78 Respiratory Rate 16 Blood Pressure 107/63 107/63 Pulse Oximetry 97 99 97 Intake & Output 03/24/18 03/25/18 03/25/18 18:59 06:59 18:59 Intake Total 4324 / 4324 3806 / 3806 Output Total 1447 / 1447 2260 / 2260 110 / 110 Balance 2877 / 2877 1546 / 1546 -110 / -110 Weight 74.3 kg Intake: IV 3524 / 3524 3806 / 3806 D5W/1/2 NS Inj 1,000 ML @ 40 442 / 442 806 / 806 mls/hr IV.CONT .Q24H [facility] Rx#: [id number] /[id number] Normal Saline Inj 1,000 ML 2031 3000 / 3000 @ Titrate IV.CONT .Q0M PRN Rx#: [id number] Alburx 5% Inj 500 ML @ 500 mls/ 500 / 500 hr IV.SIG ONCE ONE Rx#:[id number] Thymoglobulin Inj 100 MG In NS 550 / 550 Inj 500 ML @ 125 mls/hr IV.SIG ONCE ONE Rx#:[id number] Oral 800 / 800 Output: Urine Amount (Catheter) 1447 / 1447 2260 / 2260 110 / 110 Indwelling Urethral Catheter 1447 / 1447 2260 / 2260 110 / 110 Other: Date of Last Bowel Movement 03/22/18 03/22/18 03/22/18 # Bowel Movements 0 - Constitutional no acute distress - Routine HEENT Exam Head: Present: normocephalic, atraumatic Eye: Present: EOMI ENT: Present: mucous membranes moist - Routine Neck Exam Present: supple - Routine Respiratory Exam Present: CTA bilaterally - Routine Cardiovascular Exam Present: RRR, S1, S2 - Routine Abdominal Exam Present: soft, normoactive bowel sounds - Routine Extremities Exam Present: pulses intact Comments: No peripheral edema - Routine Skin Exam Present: intact - Routine Neurological Exam Present: alert, oriented X3 - Detailed Neurological Exam: Coma Scale Verbal Response: Oriented - Routine Psychiatric Exam Present: normal affect, normal thought process - Urinary Catheter Management Indwelling Urethral Catheter Cath placed during this visit: yes Urethral indwelling: Yes Reason for continuing: Hourly intake/output Insertion date: 03/23/18 Insertion time: 16:10 Results - Labs CBC & Chem 7: 03/25/18 09:06 03/25/18 09:06 Laboratory Results - last 24 hr 03/23/18 03/24/18 03/24/18 00:05 11:37 12:20 WBC RBC Hgb 8.4 L Hct 24.6 L MCV MCH MCHC RDW Plt Count MPV Prelim Diff (Auto) Neut % (Auto) Lymph % (Auto) [place] % (Auto) Eos % (Auto) Baso % (Auto) Neut # (Auto) Lymph # (Auto) [place] # (Auto) Eos # (Auto) Baso # (Auto) Differential Comment Retic Count Absolute Retic Sodium Potassium Chloride Carbon Dioxide Anion Gap BUN Creatinine Estimated GFR POC Glucose 125 H Random Glucose Calcium Phosphorus Magnesium Iron TIBC % Saturation Ferritin MTS Gel Crossmatch See Detail 03/24/18 03/24/18 03/24/18 14:40 16:51 22:23 WBC RBC Hgb 8.5 L 8.2 L Hct 25.2 L 23.9 L MCV MCH MCHC RDW Plt Count MPV Prelim Diff (Auto) Neut % (Auto) Lymph % (Auto) [place] % (Auto) Eos % (Auto) Baso % (Auto) Neut # (Auto) Lymph # (Auto) [place] # (Auto) Eos # (Auto) Baso # (Auto) Differential Comment Retic Count Absolute Retic Sodium Potassium Chloride Carbon Dioxide Anion Gap BUN Creatinine Estimated GFR POC Glucose 145 H Random Glucose Calcium Phosphorus Magnesium Iron TIBC % Saturation Ferritin MTS Gel Crossmatch 03/25/18 03/25/18 03/25/18 00:39 04:45 04:45 WBC 5.1 RBC 2.25 L Hgb 7.8 L Hct 22.5 L MCV 100.0 MCH 34.4 H MCHC 34.4 RDW 14.3 Plt Count 98 L MPV 8.1 Prelim Diff (Auto) Slide review pending Neut % (Auto) 93.6 H Lymph % (Auto) 1.9 L [place] % (Auto) 3.5 Eos % (Auto) 0.5 Baso % (Auto) 0.5 Neut # (Auto) 4.7 Lymph # (Auto) 0.1 L [place] # (Auto) 0.2 Eos # (Auto) 0.0 Baso # (Auto) 0.0 Differential Comment . Retic Count Absolute Retic Sodium 144 Potassium 4.4 Chloride 110 H Carbon Dioxide 26.7 Anion Gap 7 BUN 43 H Creatinine 4.94 H Estimated GFR 13 L POC Glucose 124 H Random Glucose 105 Calcium 8.3 L Phosphorus 4.1 D Magnesium 2.2 Iron TIBC % Saturation Ferritin MTS Gel Crossmatch 03/25/18 03/25/18 03/25/18 04:45 04:45 06:13 WBC RBC Hgb Hct MCV MCH MCHC RDW Plt Count MPV Prelim Diff (Auto) Neut % (Auto) Lymph % (Auto) [place] % (Auto) Eos % (Auto) Baso % (Auto) Neut # (Auto) Lymph # (Auto) [place] # (Auto) Eos # (Auto) Baso # (Auto) Differential Comment Retic Count 1.2 Absolute Retic 27.3 Sodium Potassium Chloride Carbon Dioxide Anion Gap BUN Creatinine Estimated GFR POC Glucose 123 H Random Glucose Calcium Phosphorus Magnesium Iron 26 L TIBC 134 L % Saturation 19.3 L Ferritin 1148 H MTS Gel Crossmatch 03/25/18 03/25/18 09:06 09:06 WBC 4.7 RBC 2.38 L Hgb 8.2 L Hct 23.9 L MCV 100.7 H MCH 34.6 H MCHC 34.4 RDW 14.0 Plt Count 101 L MPV 7.8 Prelim Diff (Auto) Neut % (Auto) Lymph % (Auto) [place] % (Auto) Eos % (Auto) Baso % (Auto) Neut # (Auto) Lymph # (Auto) [place] # (Auto) Eos # (Auto) Baso # (Auto) Differential Comment Retic Count Absolute Retic Sodium 144 Potassium 4.3 Chloride 110 H Carbon Dioxide 28.1 Anion Gap 6 BUN 44 H Creatinine 4.81 H Estimated GFR 13 L POC Glucose Random Glucose 113 H Calcium 8.6 Phosphorus 3.2 Magnesium 2.2 Iron TIBC % Saturation Ferritin MTS Gel Crossmatch - Imaging Impressions Renal Ultrasound 03/24/18 14:46 CONCLUSION: 1. No hematoma is identified. There is trace perinephric fluid. 2. Kidney has a normal appearance without hydronephrosis. Vascular assessment is within normal limits. 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 POD #2. S/P donor kidney transplant to right iliac fossa. Allograft function: immediate: Immunosuppression: Thymo induction; Maint: steroids + Cellcept . Third thymo dose planned for tomorrow (1.5 mg/kg ideal weight). Tacrolimus started. Patient overall doing well. Good UOP overnight. Creatinine continues to decrease. Hgb decreased, but seems relatively stable. Started on regular diet. IVFs stopped.
[2018-03-25] MEDS ORDERED: METHYLPREDNISOLONE SOD SUC IV.SIG ONE (12:00)
[2018-03-25] MEDS ORDERED: SODIUM CHLOR 0.9% IV.SIG ONE (12:00)
[2018-03-25 12:05] LABS: Platelet Morphology Normal (Normal)
--- NOTE | 2018-03-25 15:19 | P.PNNP ---
Subjective Interval history: doing well denies complaints Physical Exam Vital signs: Vital Signs 03/24/18 16:00 03/24/18 17:00 03/24/18 17:36 Temperature Pulse Rate 69 67 63 Respiratory Rate 15 15 15 Blood Pressure 116/56 L 126/71 122/65 Pulse Oximetry 97 99 98 03/24/18 18:00 03/24/18 18:31 03/24/18 19:00 Temperature 99.8 F H Pulse Rate 61 60 Respiratory Rate 15 16 16 Blood Pressure 129/64 142/56 H Pulse Oximetry 98 94 L 03/24/18 20:00 03/24/18 20:48 03/24/18 23:00 Temperature 98.2 F Pulse Rate 73 Respiratory Rate 16 Blood Pressure 134/69 127/65 Pulse Oximetry 94 L 96 97 03/25/18 03:00 03/25/18 07:00 03/25/18 07:58 Temperature 98.3 F 98.2 F Pulse Rate 69 78 Respiratory Rate 16 16 Blood Pressure 116/60 107/63 Pulse Oximetry 97 97 99 03/25/18 08:00 03/25/18 11:00 Temperature 98.7 F Pulse Rate 78 Respiratory Rate 16 Blood Pressure 107/63 130/77 Pulse Oximetry 97 97 Intake & Output 03/24/18 03/25/18 03/25/18 18:59 06:59 18:59 Intake Total 4324 / 4324 3806 / 3806 Output Total 1447 / 1447 2260 / 2260 745 / 745 Balance 2877 / 2877 1546 / 1546 -745 / -745 Weight 74.3 kg Intake: IV 3524 / 3524 3806 / 3806 D5W/1/2 NS Inj 1,000 ML @ 40 442 / 442 806 / 806 mls/hr IV.CONT .Q24H [facility] Rx#: [id number] /2 Normal Saline Inj 1,000 ML 2031 / 2031 3000 / 3000 @ Titrate IV.CONT .Q0M PRN Rx#: [id number] Alburx 5% Inj 500 ML @ 500 mls/ 500 / 500 hr IV.SIG ONCE ONE Rx#:[id number] Thymoglobulin Inj 100 MG In NS 550 / 550 Inj 500 ML @ 125 mls/hr IV.SIG ONCE ONE Rx#:[id number] Oral 800 / 800 Output: Urine Amount (Catheter) 1447 / 1447 2260 / 2260 745 / 745 Indwelling Urethral Catheter 1447 / 1447 2260 / 2260 745 / 745 Other: Date of Last Bowel Movement 03/22/18 03/22/18 03/22/18 # Bowel Movements 0 Narrative: GENERAL: Well-nourished, well-developed patient. SKIN: Warm and dry. HEAD: Normocephalic. EYES: No scleral icterus. No injection or drainage. NECK: Supple, trachea midline. No JVD or lymphadenopathy. CARDIOVASCULAR: Regular rate and rhythm without murmurs, gallops, or rubs. RESPIRATORY: Breath sounds equal bilaterally. No accessory muscle use. GASTROINTESTINAL: Abdomen soft, postsurgical scar EXTREMITIES: No edema NEUROLOGICAL: Awake, alert, and oriented x 3. Non-focal. - Urinary Catheter Management Indwelling Urethral Catheter Cath placed during this visit: yes Urethral indwelling: Yes Reason for continuing: Hourly intake/output Insertion date: 03/23/18 Insertion time: 16:10 Assessment and Plan - Assessment (1) ESRD (end stage renal disease) Code(s): N18.6 - End stage renal disease Status: Acute - Plan Patient had kidney transplant Postoperative day 2 Urine output is good Creatinine 4.9 to 4.8 Hb better on repeat 8.2 Continue to monitor for improvement On Thymoglobulin Making good progress hold BP medications till Tuesday
[2018-03-25] MEDS: Gabapentin 300 MG Capsule PO PRN (22:20)
[2018-03-26 05:34] LABS: Baso % (Auto) 0.2 % (0.0-2.0); Eos % (Auto) 0.8 % (0.0-4.0); Hemoglobin 7.9 gm/dL (13.0-17.0); Lymph # (Auto) 0.2 th/mm3 (1.0-4.8); Mean Corpuscular HGB Conc 34.1 % (32.0-36.0); Mean Corpuscular Hemoglobin 33.9 pg (27.0-34.0); Mean Corpuscular Volume 99.4 fL (80.0-100.0); Mean Platelet Volume 8.1 fL (7.0-11.0); Mono # (Auto) 0.3 th/mm3 (0.0-0.9); Mono % (Auto) 6.6 % (0.0-8.0); Neut # (Auto) 3.8 th/mm3 (1.8-7.7); Neut % (Auto) 88.4 % (16.0-70.0); Platelet Count 107 th/mm3 (150-450); Red Blood Count 2.32 mil/mm3 (4.50-5.90); White Blood Count 4.3 th/mm3 (4.0-11.0)
[2018-03-26 06:06] LABS: Calcium 9.2 mg/dL (8.5-10.1); Carbon Dioxide 29.3 meq/L (21.0-32.0); Magnesium 2.2 mg/dL (1.5-2.5); Phosphorus 1.9 mg/dL (2.5-4.9); Potassium 4.6 meq/L (3.5-5.1)
[2018-03-26] MEDS: Calcium Acetate 667 MG Capsule PO SCH ×3 (08:15→17:02)
[2018-03-26] MEDS: Pantoprazole Inj 40 MG Vial IV.PUSH SCH (08:40)
[2018-03-26] MEDS: Sodium Chloride 0.9% 2 ML Flush BID IV.FLUSH SCH ×2 (08:40→20:20)
[2018-03-26] MEDS: Docusate Sodium 100 MG Capsule PO SCH ×2 (08:40→20:20)
[2018-03-26] MEDS: Vitamin B Complex/Vit C/Folic Tablet PO SCH (08:40)
--- NOTE | 2018-03-26 10:11 | P.PNTS ---
Subjective Interval history: No new c/o. Physical Exam Vital signs: Vital Signs 03/25/18 15:00 03/25/18 16:00 03/25/18 19:00 Temperature 98.7 F 99.5 F Pulse Rate 87 73 Respiratory Rate 16 6 L Blood Pressure 127/75 127/75 130/64 Pulse Oximetry 97 95 03/25/18 19:30 03/25/18 20:00 03/25/18 23:00 Temperature 98.0 F Pulse Rate 71 Respiratory Rate 6 L Blood Pressure 123/66 Pulse Oximetry 97 95 97 03/26/18 03:00 03/26/18 03:15 03/26/18 07:00 Temperature 98.5 F 98.9 F Pulse Rate 65 68 83 Respiratory Rate 20 16 Blood Pressure 147/86 H 131/80 Pulse Oximetry 95 97 03/26/18 07:22 03/26/18 08:00 Temperature Pulse Rate 89 Respiratory Rate Blood Pressure 129/90 Pulse Oximetry 97 97 Intake & Output 03/25/18 03/26/18 03/26/18 19:59 06:59 18:59 Intake Total Output Total Balance Weight Intake: IV D5W/1/2 NS Inj 1,000 ML @ 40 mls/hr IV.CONT .Q24H [facility] Rx#: [id number] Oral Output: Urine Amount (Catheter) Indwelling Urethral Catheter Other: Date of Last Bowel Movement # Bowel Movements - Constitutional no acute distress - Routine HEENT Exam Head: Present: normocephalic, atraumatic Eye: Present: EOMI ENT: Present: mucous membranes moist - Routine Neck Exam Present: supple - Routine Respiratory Exam Present: CTA bilaterally - Routine Cardiovascular Exam Present: RRR, S1, S2 - Routine Abdominal Exam Present: soft, normoactive bowel sounds Comments: Wound CDI without EFT. Dressing removed - Routine Extremities Exam Present: pulses intact Comments: Calves soft NT bilaterally - Routine Skin Exam Present: intact - Detailed Neurological Exam: Coma Scale Verbal Response: Oriented - Routine Psychiatric Exam Present: normal affect, normal thought process - Urinary Catheter Management Indwelling Urethral Catheter Cath placed during this visit: yes Urethral indwelling: Yes Reason for continuing: Hourly intake/output Insertion date: 03/23/18 Insertion time: 16:10 Results - Labs CBC & Chem 7: 03/26/18 05:00 03/26/18 05:00 Laboratory Results - last 24 hr 03/25/18 03/25/18 03/25/18 04:45 11:35 17:03 WBC RBC Hgb Hct MCV MCH MCHC RDW Plt Count MPV Neut % (Auto) Lymph % (Auto) [place] % (Auto) Eos % (Auto) Baso % (Auto) Neut # (Auto) Lymph # (Auto) [place] # (Auto) Eos # (Auto) Baso # (Auto) WBC Differential . Diff Scan Auto diff confirmed Differential Comment Platelet Estimate Low L Platelet Morphology Normal Sodium Potassium Chloride Carbon Dioxide Anion Gap BUN Creatinine Estimated GFR POC Glucose 107 121 H Random Glucose Calcium Phosphorus Magnesium 03/26/18 03/26/18 03/26/18 01:12 EST 05:00 05:00 WBC 4.3 RBC 2.32 L Hgb 7.9 L Hct 23.0 L MCV 99.4 MCH 33.9 MCHC 34.1 RDW 14.0 Plt Count 107 L MPV 8.1 Neut % (Auto) 88.4 H Lymph % (Auto) 4.0 L [place] % (Auto) 6.6 Eos % (Auto) 0.8 Baso % (Auto) 0.2 Neut # (Auto) 3.8 Lymph # (Auto) 0.2 L [place] # (Auto) 0.3 Eos # (Auto) 0.0 Baso # (Auto) 0.0 WBC Differential . Diff Scan Differential Comment Auto diff final Platelet Estimate Platelet Morphology Sodium 146 H Potassium 4.6 Chloride 113 H Carbon Dioxide 29.3 Anion Gap 4 L BUN 36 H Creatinine 2.80 H Estimated GFR 24 L POC Glucose 126 H Random Glucose 87 Calcium 9.2 Phosphorus 1.9 L D Magnesium 2.2 - Procedures right donor kidney transplant to right iliac fossa with neoureterocystotomy 03/23/2018 Assessment and Plan - Plan Mr Hira Wing has 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 POD #3. S/P donor kidney transplant to right iliac fossa. Allograft function: immediate: Immunosuppression: Thymo induction; Maint: steroids + Cellcept . Third thymo dose today (1.5 mg/kg ideal weight). Tacrolimus started/ level pending. Patient overall doing well. Good UOP overnight. Creatinine continues to decrease. Hgb relatively stable. 20 mg of lasix given. Flomax started. Will remove ernandez in AM. Started on regular diet.
--- NOTE | 2018-03-26 11:03 | P.PNIM ---
Subjective Interval history: f/u; s/p kidney transplant in no acute distress. overall doing fine. denies pain. no fever. Physical Exam Vital signs: Vital Signs 03/25/18 15:00 03/25/18 16:00 03/25/18 19:00 Temperature 98.7 F 99.5 F Pulse Rate 87 73 Respiratory Rate 16 6 L Blood Pressure 127/75 127/75 130/64 Pulse Oximetry 97 95 03/25/18 19:30 03/25/18 20:00 03/25/18 23:00 Temperature 98.0 F Pulse Rate 71 Respiratory Rate 6 L Blood Pressure 123/66 Pulse Oximetry 97 95 97 03/26/18 03:00 03/26/18 03:15 03/26/18 07:00 Temperature 98.5 F 98.9 F Pulse Rate 65 68 83 Respiratory Rate 20 16 Blood Pressure 147/86 H 131/80 Pulse Oximetry 95 97 03/26/18 07:22 03/26/18 08:00 03/26/18 10:43 Temperature Pulse Rate 89 Respiratory Rate 15 Blood Pressure 129/90 Pulse Oximetry 97 97 Intake & Output 03/25/18 03/26/18 03/26/18 19:59 06:59 18:59 Intake Total Output Total Balance Weight Intake: IV D5W/05/24 NS Inj 1,000 ML @ 40 mls/hr IV.CONT .Q24H [facility] Rx#: [id number] Oral Output: Urine Amount (Catheter) Indwelling Urethral Catheter Other: Date of Last Bowel Movement # Bowel Movements - Constitutional no acute distress - Routine Respiratory Exam Present: CTA bilaterally - Routine Cardiovascular Exam Present: RRR - Routine Abdominal Exam Present: soft - Routine Extremities Exam Comments: no pedal edema. - Routine Neurological Exam Present: alert, oriented X3 - Urinary Catheter Management Indwelling Urethral Catheter Cath placed during this visit: yes Urethral indwelling: Yes Reason for continuing: Hourly intake/output Insertion date: 03/23/18 Insertion time: 16:10 Results - Labs CBC & Chem 7: 03/26/18 05:00 03/26/18 05:00 Laboratory Results - last 24 hr 03/25/18 03/25/18 03/25/18 04:45 11:35 17:03 WBC RBC Hgb Hct MCV MCH MCHC RDW Plt Count MPV Neut % (Auto) Lymph % (Auto) [place] % (Auto) Eos % (Auto) Baso % (Auto) Neut # (Auto) Lymph # (Auto) [place] # (Auto) Eos # (Auto) Baso # (Auto) WBC Differential . Diff Scan Auto diff confirmed Differential Comment Platelet Estimate Low L Platelet Morphology Normal Sodium Potassium Chloride Carbon Dioxide Anion Gap BUN Creatinine Estimated GFR POC Glucose 107 121 H Random Glucose Calcium Phosphorus Magnesium Tacrolimus 03/26/18 03/26/18 03/26/18 01:12 EST 05:00 05:00 WBC 4.3 RBC 2.32 L Hgb 7.9 L Hct 23.0 L MCV 99.4 MCH 33.9 MCHC 34.1 RDW 14.0 Plt Count 107 L MPV 8.1 Neut % (Auto) 88.4 H Lymph % (Auto) 4.0 L [place] % (Auto) 6.6 Eos % (Auto) 0.8 Baso % (Auto) 0.2 Neut # (Auto) 3.8 Lymph # (Auto) 0.2 L [place] # (Auto) 0.3 Eos # (Auto) 0.0 Baso # (Auto) 0.0 WBC Differential . Diff Scan Differential Comment Auto diff final Platelet Estimate Platelet Morphology Sodium 146 H Potassium 4.6 Chloride 113 H Carbon Dioxide 29.3 Anion Gap 4 L BUN 36 H Creatinine 2.80 H Estimated GFR 24 L POC Glucose 126 H Random Glucose 87 Calcium 9.2 Phosphorus 1.9 L D Magnesium 2.2 Tacrolimus 03/26/18 05:00 WBC RBC Hgb Hct MCV MCH MCHC RDW Plt Count MPV Neut % (Auto) Lymph % (Auto) [place] % (Auto) Eos % (Auto) Baso % (Auto) Neut # (Auto) Lymph # (Auto) [place] # (Auto) Eos # (Auto) Baso # (Auto) WBC Differential Diff Scan Differential Comment Platelet Estimate Platelet Morphology Sodium Potassium Chloride Carbon Dioxide Anion Gap BUN Creatinine Estimated GFR POC Glucose Random Glucose Calcium Phosphorus Magnesium Tacrolimus Less than 2.0 L - Procedures right donor kidney transplant to right iliac fossa with neoureterocystotomy 03/23/2018 Assessment and Plan - Plan End-stage renal disease on hemodialysis -s/p right donor kidney transplant to right iliac fossa with neoureterocystotomy -creatinine is improving. -Patient is currently on CellCept. -Thymoglobulin per transplant surgeon. -post-op anemia; Patient is hemodynamically stable and H/H fairly stable. Renal US shows no hematoma. -Will continue to monitor H/H. Hypertension -Patient is currently normotensive. Carvedilol and lisinopril on hold until Tuesday (03/27) per nephrology. Chronic systolic congestive heart failure - currently compensated. No acute concerns. Full code. SCDs. Discharge Planning: when cleared by nephrology and transplant surgery.
[2018-03-26] MEDS ORDERED: MethylPREDNISolone Sod Succinate Inj 125 MG/2 ML Vial IV.PUSH ONE (11:30)
[2018-03-26] MEDS ORDERED: Acetaminophen 325 MG Tablet PO ONE (11:30)
[2018-03-26] MEDS ORDERED: ANTITHYMOCYTE IG IV.SIG ONE (12:00)
[2018-03-26] MEDS ORDERED: SODIUM CHLOR 0.9% IV.SIG ONE (12:00)
[2018-03-26] MEDS ORDERED: Hydrocortisone Sod Succinate 100 MG Vial IV.PUSH PRN (12:00)
[2018-03-26] MEDS: Nystatin Liq 500,000 UNIT/5 ML UDC SWISH-SWAL SCH ×2 (17:03→20:20)
--- NOTE | 2018-03-26 17:29 | P.PNNP ---
Subjective Interval history: Patient is doing well denies any complaints Physical Exam Vital signs: Vital Signs 03/25/18 19:00 03/25/18 19:30 03/25/18 20:00 Temperature 99.5 F Pulse Rate 73 Respiratory Rate 6 L Blood Pressure 130/64 Pulse Oximetry 95 97 95 03/25/18 23:00 03/26/18 03:00 03/26/18 03:15 Temperature 98.0 F 98.5 F Pulse Rate 71 65 68 Respiratory Rate 6 L 20 Blood Pressure 123/66 147/86 H Pulse Oximetry 97 95 03/26/18 07:00 03/26/18 07:22 03/26/18 08:00 Temperature 98.9 F Pulse Rate 83 89 Respiratory Rate 16 Blood Pressure 131/80 129/90 Pulse Oximetry 97 97 97 03/26/18 10:43 03/26/18 11:00 03/26/18 11:47 Temperature 97.7 F Pulse Rate 87 85 Respiratory Rate 15 16 16 Blood Pressure 130/85 140/90 Pulse Oximetry 97 97 03/26/18 12:00 03/26/18 12:30 Temperature Pulse Rate 104 H 101 H Respiratory Rate 16 16 Blood Pressure 135/88 138/80 Pulse Oximetry 97 97 Intake & Output 03/25/18 03/26/18 03/26/18 19:59 06:59 18:59 Intake Total 1560 / 1560 Output Total 2149 / 2149 Balance -590 / -590 Weight Intake: IV 200 / 200 D5W/1/2 NS Inj 1,000 ML @ 40 mls/hr IV.CONT .Q24H [facility] Rx#: [id number] Oral 1360 / 1360 Output: Urine Amount (Catheter) 2149 Indwelling Urethral Catheter 2149 Other: Date of Last Bowel Movement # Bowel Movements Narrative: GENERAL: Well-nourished, well-developed patient. SKIN: Warm and dry. HEAD: Normocephalic. EYES: No scleral icterus. No injection or drainage. NECK: Supple, trachea midline. No JVD or lymphadenopathy. CARDIOVASCULAR: Regular rate and rhythm without murmurs, gallops, or rubs. RESPIRATORY: Breath sounds equal bilaterally. No accessory muscle use. GASTROINTESTINAL: Abdomen soft, postsurgical scar EXTREMITIES: No edema NEUROLOGICAL: Awake, alert, and oriented x 3. Non-focal. - Urinary Catheter Management Indwelling Urethral Catheter Cath placed during this visit: yes Urethral indwelling: Yes Reason for continuing: Hourly intake/output Insertion date: 03/23/18 Insertion time: 16:10 Assessment and Plan - Assessment (1) ESRD (end stage renal disease) Code(s): N18.6 - End stage renal disease Status: Acute - Plan Patient had kidney transplant Postoperative day 3 Urine output is good Creatinine 2.8 Hb 7.9 Phosphorus 1.9 start phosphorus replacement stop PhosLo and Renvela Continue to monitor for improvement On Thymoglobulin Started on tacrolimus 3 mg twice a day, on CellCept Making good progress hold BP medications
[2018-03-26] MEDS ORDERED: Bisacodyl 10 MG Supp RECTAL PRN (19:51)
[2018-03-26] MEDS: Potassium Phosphate 500 MG Soluble Tablet PO SCH (20:20)
[2018-03-26] MEDS: Gabapentin 300 MG Capsule PO PRN (20:25)
[2018-03-27 06:03] LABS: Baso % (Auto) 0.4 % (0.0-2.0); Eos % (Auto) 1.7 % (0.0-4.0); Hematocrit 23.5 % (39.0-51.0); Hemoglobin 8.1 gm/dL (13.0-17.0); Lymph # (Auto) 0.1 th/mm3 (1.0-4.8); Lymph % (Auto) 4.3 % (9.0-44.0); Mean Corpuscular HGB Conc 34.4 % (32.0-36.0); Mean Corpuscular Hemoglobin 34.3 pg (27.0-34.0); Mean Corpuscular Volume 99.7 fL (80.0-100.0); Mean Platelet Volume 8.3 fL (7.0-11.0); Mono # (Auto) 0.2 th/mm3 (0.0-0.9); Mono % (Auto) 7.3 % (0.0-8.0); Neut # (Auto) 2.4 th/mm3 (1.8-7.7); Neut % (Auto) 86.3 % (16.0-70.0); Platelet Count 113 th/mm3 (150-450); Red Blood Count 2.35 mil/mm3 (4.50-5.90); Red Cell Distribution Width 13.7 % (11.6-17.2); White Blood Count 2.7 th/mm3 (4.0-11.0)
[2018-03-27 06:23] LABS: Carbon Dioxide 29.4 meq/L (21.0-32.0); Magnesium 1.9 mg/dL (1.5-2.5); Phosphorus 1.6 mg/dL (2.5-4.9); Potassium 4.3 meq/L (3.5-5.1)
--- NOTE | 2018-03-27 07:34 | P.PNIM ---
Subjective Interval history: f/u; s/p kidney transplant resting comfortably. denies pain. no new complaints. d/w the RN and no acute issues over night. Physical Exam Vital signs: Vital Signs 03/26/18 08:00 03/26/18 10:43 03/26/18 11:00 Temperature 97.7 F Pulse Rate 89 87 Respiratory Rate 15 16 Blood Pressure 129/90 130/85 Pulse Oximetry 97 97 03/26/18 11:47 03/26/18 12:00 03/26/18 12:30 Temperature Pulse Rate 85 104 H 101 H Respiratory Rate 16 16 16 Blood Pressure 140/90 135/88 138/80 Pulse Oximetry 97 97 97 03/26/18 15:00 03/26/18 16:00 03/26/18 19:00 Temperature 97.9 F 98.0 F Pulse Rate 95 H 87 90 Respiratory Rate 18 16 Blood Pressure 134/74 131/74 Pulse Oximetry 98 03/26/18 21:51 03/26/18 23:00 03/27/18 03:00 Temperature 98.5 F 98.3 F Pulse Rate 77 85 Respiratory Rate 16 18 Blood Pressure 136/78 132/73 Pulse Oximetry 100 98 99 Intake & Output 03/26/18 03/27/18 03/27/18 18:59 06:59 18:59 Intake Total 2800 / 2800 1320 / 1320 Output Total 3400 / 3400 2500 / 2500 Balance -600 / -600 -1180 / -1180 Weight 72.2 kg Intake: IV 200 / 200 Oral 2600 / 2600 1320 / 1320 Output: Urine Amount (Catheter) 3400 / 3400 2500 / 2500 Indwelling Urethral Catheter 3400 / 3400 2500 / 2500 Other: Date of Last Bowel Movement 03/27/18 # Bowel Movements 0 1 - Constitutional no acute distress - Routine Respiratory Exam Present: CTA bilaterally - Routine Cardiovascular Exam Present: RRR - Routine Abdominal Exam Present: soft - Routine Extremities Exam Comments: no pedal edema. - Routine Neurological Exam Present: alert, oriented X3 - Urinary Catheter Management Indwelling Urethral Catheter Cath placed during this visit: yes, but has since been removed by the nurse Urethral indwelling: Yes Reason for continuing: Hourly intake/output Insertion date: 03/23/18 Insertion time: 16:10 Removal date: 03/27/18 Removal time: 05:50 Results - Labs CBC & Chem 7: 03/27/18 04:35 03/27/18 04:35 Laboratory Results - last 24 hr 03/26/18 03/26/18 03/26/18 05:00 11:53 16:57 WBC RBC Hgb Hct MCV MCH MCHC RDW Plt Count MPV Neut % (Auto) Lymph % (Auto) [place] % (Auto) Eos % (Auto) Baso % (Auto) Neut # (Auto) Lymph # (Auto) [place] # (Auto) Eos # (Auto) Baso # (Auto) WBC Differential Differential Comment Sodium Potassium Chloride Carbon Dioxide Anion Gap BUN Creatinine Estimated GFR POC Glucose 127 H 137 H Random Glucose Calcium Phosphorus Magnesium Tacrolimus Less than 2.0 L 03/26/18 03/27/18 03/27/18 23:33 04:35 04:35 WBC 2.7 L RBC 2.35 L Hgb 8.1 L Hct 23.5 L MCV 99.7 MCH 34.3 H MCHC 34.4 RDW 13.7 Plt Count 113 L MPV 8.3 Neut % (Auto) 86.3 H Lymph % (Auto) 4.3 L [place] % (Auto) 7.3 Eos % (Auto) 1.7 Baso % (Auto) 0.4 Neut # (Auto) 2.4 Lymph # (Auto) 0.1 L [place] # (Auto) 0.2 Eos # (Auto) 0.0 Baso # (Auto) 0.0 WBC Differential . Differential Comment Auto diff final Sodium 143 Potassium 4.3 Chloride 108 H Carbon Dioxide 29.4 Anion Gap 6 BUN 30 H Creatinine 2.02 H Estimated GFR 36 L POC Glucose 105 Random Glucose 80 Calcium 9.0 Phosphorus 1.6 L Magnesium 1.9 Tacrolimus 03/27/18 05:58 WBC RBC Hgb Hct MCV MCH MCHC RDW Plt Count MPV Neut % (Auto) Lymph % (Auto) [place] % (Auto) Eos % (Auto) Baso % (Auto) Neut # (Auto) Lymph # (Auto) [place] # (Auto) Eos # (Auto) Baso # (Auto) WBC Differential Differential Comment Sodium Potassium Chloride Carbon Dioxide Anion Gap BUN Creatinine Estimated GFR POC Glucose 90 Random Glucose Calcium Phosphorus Magnesium Tacrolimus - Procedures right donor kidney transplant to right iliac fossa with neoureterocystotomy 03/23/2018 Assessment and Plan - Plan End-stage renal disease was on hemodialysis -s/p right donor kidney transplant to right iliac fossa with neoureterocystotomy -creatinine is improving. -Patient is currently on CellCept and Prograf. -post-op anemia; Patient is hemodynamically stable and H/H fairly stable. Renal US shows no hematoma. -Will continue to monitor H/H. Hypophosphatemia; replace and monitor as needed. Hypertension -Patient is currently normotensive. Carvedilol and lisinopril on hold until Tuesday (03/27) per nephrology. Chronic systolic congestive heart failure - currently compensated. No acute concerns. Full code. SCDs. Discharge Planning: when cleared by nephrology and transplant surgery.
[2018-03-27] MEDS: Nystatin Liq 500,000 UNIT/5 ML UDC SWISH-SWAL SCH ×4 (08:07→21:13)
[2018-03-27] MEDS: Vitamin B Complex/Vit C/Folic Tablet PO SCH (08:08)
[2018-03-27] MEDS: Potassium Phosphate 500 MG Soluble Tablet PO SCH ×2 (08:08→21:25)
[2018-03-27] MEDS: Docusate Sodium 100 MG Capsule PO SCH ×2 (08:08→21:11)
[2018-03-27] MEDS: Pantoprazole Inj 40 MG Vial IV.PUSH SCH (08:10)
--- NOTE | 2018-03-27 08:51 | P.PNNP ---
Subjective Interval history: Patient has Vickers catheter discontinued, he is doing well He stated he has occasional palpitations Physical Exam Vital signs: Vital Signs 03/26/18 10:43 03/26/18 11:00 03/26/18 11:47 Temperature 97.7 F Pulse Rate 87 85 Respiratory Rate 15 16 16 Blood Pressure 130/85 140/90 Pulse Oximetry 97 97 03/26/18 12:00 03/26/18 12:30 03/26/18 15:00 Temperature 97.9 F Pulse Rate 104 H 101 H 95 H Respiratory Rate 16 16 18 Blood Pressure 135/88 138/80 134/74 Pulse Oximetry 97 97 03/26/18 16:00 03/26/18 19:00 03/26/18 21:51 Temperature 98.0 F Pulse Rate 87 90 Respiratory Rate 16 Blood Pressure 131/74 Pulse Oximetry 98 100 03/26/18 23:00 03/27/18 03:00 03/27/18 07:00 Temperature 98.5 F 98.3 F Pulse Rate 77 85 75 Respiratory Rate 16 18 Blood Pressure 136/78 132/73 Pulse Oximetry 98 99 Intake & Output 03/26/18 03/27/18 03/27/18 18:59 06:59 18:59 Intake Total 2800 / 2800 1320 / 1320 Output Total 3400 / 3400 2500 / 2500 Balance -600 / -600 -1180 / -1180 Weight 72.2 kg Intake: IV 200 / 200 Oral 2600 / 2600 1320 / 1320 Output: Urine Amount (Catheter) 3400 / 3400 2500 / 2500 Indwelling Urethral Catheter 3400 / 3400 2500 / 2500 Other: Date of Last Bowel Movement 03/27/18 # Bowel Movements 0 1 Narrative: GENERAL: Well-nourished, well-developed patient. SKIN: Warm and dry. HEAD: Normocephalic. EYES: No scleral icterus. No injection or drainage. NECK: Supple, trachea midline. No JVD or lymphadenopathy. CARDIOVASCULAR: Regular rate and rhythm without murmurs, gallops, or rubs. RESPIRATORY: Breath sounds equal bilaterally. No accessory muscle use. GASTROINTESTINAL: Abdomen soft, postsurgical scar EXTREMITIES: No edema NEUROLOGICAL: Awake, alert, and oriented x 3. Non-focal. - Urinary Catheter Management Indwelling Urethral Catheter Cath placed during this visit: yes, but has since been removed by the nurse Urethral indwelling: Yes Reason for continuing: Hourly intake/output Insertion date: 03/23/18 Insertion time: 16:10 Removal date: 03/27/18 Removal time: 05:50 Assessment and Plan - Assessment (1) ESRD (end stage renal disease) Code(s): N18.6 - End stage renal disease Status: Acute - Plan Patient had kidney transplant Postoperative day 4 Urine output is good Creatinine 2.02 Hb 8.1 Phosphorus low start phosphorus replacement stop PhosLo and Renvela Continue to monitor for improvement On Thymoglobulin Started on tacrolimus 3 mg twice a day, on CellCept Making good progress Discontinue BP medications
--- NOTE | 2018-03-27 09:05 | P.PNTS ---
Subjective Interval history: No new c/o. Taina po well. + BM Physical Exam Vital signs: Vital Signs 03/26/18 10:43 03/26/18 11:00 03/26/18 11:47 Temperature 97.7 F Pulse Rate 87 85 Respiratory Rate 15 16 16 Blood Pressure 130/85 140/90 Pulse Oximetry 97 97 03/26/18 12:00 03/26/18 12:30 03/26/18 15:00 Temperature 97.9 F Pulse Rate 104 H 101 H 95 H Respiratory Rate 16 16 18 Blood Pressure 135/88 138/80 134/74 Pulse Oximetry 97 97 03/26/18 16:00 03/26/18 19:00 03/26/18 21:51 Temperature 98.0 F Pulse Rate 87 90 Respiratory Rate 16 Blood Pressure 131/74 Pulse Oximetry 98 100 03/26/18 23:00 03/27/18 03:00 03/27/18 07:00 Temperature 98.5 F 98.3 F Pulse Rate 77 85 75 Respiratory Rate 16 18 Blood Pressure 136/78 132/73 Pulse Oximetry 98 99 Intake & Output 03/26/18 03/27/18 03/27/18 18:59 06:59 18:59 Intake Total 2800 / 2800 1320 / 1320 Output Total 3400 / 3400 2500 / 2500 Balance -600 / -600 -1180 / -1180 Weight 72.2 kg Intake: IV 200 / 200 Oral 2600 / 2600 1320 / 1320 Output: Urine Amount (Catheter) 3400 / 3400 2500 / 2500 Indwelling Urethral Catheter 3400 / 3400 2500 / 2500 Other: Date of Last Bowel Movement 03/27/18 # Bowel Movements 0 1 - Constitutional no acute distress - Routine HEENT Exam Head: Present: normocephalic, atraumatic Eye: Present: EOMI ENT: Present: mucous membranes moist - Routine Neck Exam Present: supple - Routine Respiratory Exam Present: CTA bilaterally - Routine Cardiovascular Exam Present: RRR, S1, S2 - Routine Abdominal Exam Present: soft, normoactive bowel sounds - Routine Extremities Exam Present: pulses intact Comments: Calves soft NT bilaterally - Routine Skin Exam Present: intact - Routine Neurological Exam Present: alert, oriented X3 - Detailed Neurological Exam: Coma Scale Verbal Response: Oriented - Routine Psychiatric Exam Present: normal affect, normal thought process - Urinary Catheter Management Indwelling Urethral Catheter Cath placed during this visit: yes, but has since been removed by the nurse Urethral indwelling: No Insertion date: 03/23/18 Insertion time: 16:10 Removal date: 03/27/18 Removal time: 05:50 Results - Labs CBC & Chem 7: 03/27/18 04:35 03/27/18 04:35 Laboratory Results - last 24 hr 03/26/18 03/26/18 03/26/18 05:00 11:53 16:57 WBC RBC Hgb Hct MCV MCH MCHC RDW Plt Count MPV Neut % (Auto) Lymph % (Auto) [place] % (Auto) Eos % (Auto) Baso % (Auto) Neut # (Auto) Lymph # (Auto) [place] # (Auto) Eos # (Auto) Baso # (Auto) WBC Differential Differential Comment Sodium Potassium Chloride Carbon Dioxide Anion Gap BUN Creatinine Estimated GFR POC Glucose 127 H 137 H Random Glucose Calcium Phosphorus Magnesium Tacrolimus Less than 2.0 L 03/26/18 03/27/18 03/27/18 23:33 04:35 04:35 WBC 2.7 L RBC 2.35 L Hgb 8.1 L Hct 23.5 L MCV 99.7 MCH 34.3 H MCHC 34.4 RDW 13.7 Plt Count 113 L MPV 8.3 Neut % (Auto) 86.3 H Lymph % (Auto) 4.3 L [place] % (Auto) 7.3 Eos % (Auto) 1.7 Baso % (Auto) 0.4 Neut # (Auto) 2.4 Lymph # (Auto) 0.1 L [place] # (Auto) 0.2 Eos # (Auto) 0.0 Baso # (Auto) 0.0 WBC Differential . Differential Comment Auto diff final Sodium 143 Potassium 4.3 Chloride 108 H Carbon Dioxide 29.4 Anion Gap 6 BUN 30 H Creatinine 2.02 H Estimated GFR 36 L POC Glucose 105 Random Glucose 80 Calcium 9.0 Phosphorus 1.6 L Magnesium 1.9 Tacrolimus 03/27/18 05:58 WBC RBC Hgb Hct MCV MCH MCHC RDW Plt Count MPV Neut % (Auto) Lymph % (Auto) [place] % (Auto) Eos % (Auto) Baso % (Auto) Neut # (Auto) Lymph # (Auto) [place] # (Auto) Eos # (Auto) Baso # (Auto) WBC Differential Differential Comment Sodium Potassium Chloride Carbon Dioxide Anion Gap BUN Creatinine Estimated GFR POC Glucose 90 Random Glucose Calcium Phosphorus Magnesium Tacrolimus - Procedures right donor kidney transplant to right iliac fossa with neoureterocystotomy 03/23/2018 Assessment and Plan - Plan Mr Hira Wing has 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 POD #4. S/P donor kidney transplant to right iliac fossa. Allograft function: immediate: Immunosuppression: Thymo induction; Maint: steroids + Cellcept + Tacrolimus . Patient overall doing well. Good UOP overnight. Creatinine continues to decrease. Flomax. Vickers removed Phos replacement. BP meds held.
[2018-03-27] MEDS: Sodium Chloride 0.9% 2 ML Flush BID IV.FLUSH SCH ×2 (09:55→23:17)
[2018-03-27] MEDS: Magnesium Oxide 400 MG Tablet PO SCH ×2 (09:55→21:11)
[2018-03-27] MEDS ORDERED: Potassium Phosphate Inj 15 MMOL in Sodium Chlor 0.9% Inj 150 ML IV.SIG ONE (10:00)
[2018-03-27] MEDS ORDERED: MethylPREDNISolone Sod Succinate Inj 40 MG/ML Vial IV.PUSH ONE (12:00)
[2018-03-27] MEDS ORDERED: Iron Sucrose Inj 200 MG in Sodium Chlor 0.9% Inj 100 ML IV.SIG ONE (13:00)
--- NOTE | 2018-03-27 13:36 | P.DIET ---
Nutritional Evaluation Type of nutrition evaluation: follow-up Screening comments: Nutrition Re-Assessment/Education s/p Kidney Transplant Subjective Subjective Comments: Pt states he has a good appetite and no complaints at this time. Objective - Diagnosis ESRD - Objective % IBW: 109 Energy Needs - Lower Range (kCal/kg): 28 Energy Needs - Upper Range (kCal/kg): 33 Lower Limit kCal/kg (kCals): 1,968 Upper Limit kCal/kg (kCals): 2,320 Lower Limit Protein Factor (Grams per Kg): 1.2 Upper Limit Protein Factor (Grams per Kg): 1.4 Lower Protein Needs (Protein): 84 Upper Protein Needs (Protein): 98 Estimated Fluid Needs (ml): 2,000 Dietitian Reviewed in Medical Record: Current diet, Curent medications, Intake & Output, Labs Diet Order: Regular Oral Diet Intake Amount: Excellent 90%+ Objective Comments: Pt's nutritional needs based on admit wt of 70.3kg Noted Labs: Cr 2.01, Phos 1.6 UOP: 5900mls, +1 BM Assessment Assessment: Pt s/p kidney transplant post-op day 4. Kidney is working well, Cr is down to 2.02, phosphorus is low, MD to order supplement. Pt's po intake is very good at this time, pt ate 100% of his lunch today he and is drinking liquids well. Dietitian to Monitor: Lab values, Electrolytes, Renal labs, Intake & Output, Weight change, PO Intake, Medical course Transplant Education: I saw and educated Hira Wing on nutrition after transplant; stressed the importance of drinking adequate water, 2.5-3L/day. Educated patient on high phosphorus foods to include in his diet daily. I explained that medications may elevate cholesterol and triglycerides. I discussed the monitoring of glucose while on steroids and the possibility of prograf-induced diabetes. Also discussed the possibility of weight gain related to increased appetite and medications. Educated pt on food safety and the importance of reducing his risk of food borne illness. Stressed the importance of maintaining an active lifestyle once patient is cleared to do so. I answered all of patient's questions. Pt appears very receptive to his nutrition guidelines and expect excellent compliance. Will f/u with transplant team for any questions from pt or . Will monitor pt in post-transplant clinic after discharge.
[2018-03-27] MEDS: Mycophenolate Mofetil 250 MG Capsule PO SCH (17:24)
--- NOTE | 2018-03-27 20:55 | ECG ---
Date Performed: 03/27/2018 Time Performed: 10:04:36 PTAGE: 48 years EKG: Sinus rhythm Normal ECG PREVIOUS TRACING : 03/23/2018 04.43 Since the previous tracing, no significant change noted DOCTOR: Nicholas Contreras Interpretating Date/Time 03/27/2018 20:53:18
[2018-03-28 05:28] LABS: Baso % (Auto) 0.1 % (0.0-2.0); Eos # (Auto) 0.1 th/mm3 (0.0-0.4); Eos % (Auto) 2.2 % (0.0-4.0); Hematocrit 25.8 % (39.0-51.0); Hemoglobin 9.2 gm/dL (13.0-17.0); Lymph # (Auto) 0.2 th/mm3 (1.0-4.8); Lymph % (Auto) 6.6 % (9.0-44.0); Mean Corpuscular HGB Conc 35.6 % (32.0-36.0); Mean Corpuscular Hemoglobin 34.4 pg (27.0-34.0); Mean Corpuscular Volume 96.7 fL (80.0-100.0); Mono # (Auto) 0.3 th/mm3 (0.0-0.9); Mono % (Auto) 11.5 % (0.0-8.0); Neut # (Auto) 2.3 th/mm3 (1.8-7.7); Neut % (Auto) 79.6 % (16.0-70.0); Platelet Count 142 th/mm3 (150-450); Red Blood Count 2.66 mil/mm3 (4.50-5.90); Red Cell Distribution Width 13.6 % (11.6-17.2); White Blood Count 2.9 th/mm3 (4.0-11.0)
[2018-03-28 05:45] LABS: Calcium 9.2 mg/dL (8.5-10.1); Carbon Dioxide 26.5 meq/L (21.0-32.0); Magnesium 1.9 mg/dL (1.5-2.5); Phosphorus 1.6 mg/dL (2.5-4.9); Potassium 4.6 meq/L (3.5-5.1)
[2018-03-28] MEDS: Mycophenolate Mofetil 250 MG Capsule PO SCH (06:23)
--- NOTE | 2018-03-28 07:40 | P.PNIM ---
Subjective Interval history: f/u; s/p kidney transplant in no acute distress. pain is controlled. no dizziness/ afebrile. Physical Exam Vital signs: Vital Signs 03/27/18 08:00 03/27/18 09:00 03/27/18 10:00 Temperature Pulse Rate 96 H 106 H 96 H Respiratory Rate Blood Pressure Pulse Oximetry 99 03/27/18 11:00 03/27/18 12:00 03/27/18 13:00 Temperature 98.4 F Pulse Rate 102 H 108 H 100 H Respiratory Rate 18 Blood Pressure 141/74 H Pulse Oximetry 100 03/27/18 14:00 03/27/18 15:00 03/27/18 19:00 Temperature 98.3 F 98.4 F Pulse Rate 92 H 94 H 96 H Respiratory Rate 18 18 Blood Pressure 139/79 140/91 H Pulse Oximetry 100 99 03/27/18 23:00 03/28/18 03:00 03/28/18 07:00 Temperature 98.4 F 98.5 F Pulse Rate 86 83 105 H Respiratory Rate 19 20 Blood Pressure 140/91 H 132/64 Pulse Oximetry 99 98 Intake & Output 03/27/18 03/28/18 03/28/18 18:59 06:59 18:59 Intake Total 1425 / 1425 960 / 960 Output Total 2150 / 2150 [birth year] Balance -725 / -725 -990 / -990 Weight 72 kg Intake: IV 265 / 265 Venofer Inj 200 MG In NS Inj 110 / 110 100 ML @ 110 mls/hr IV.SIG ONCE ONE Rx#:[id number] Potassium Phosphate Inj 15 MMOL 155 / 155 In NS Inj 150 ML @ 38.75 mls/ hr IV.SIG ONCE ONE Rx#:[id number] Oral 1160 / 1160 960 / 960 Output: Urine 2150 / 2150 1948 Other: # Voids 8 Date of Last Bowel Movement 03/26/18 - Constitutional no acute distress - Routine Respiratory Exam Present: CTA bilaterally - Routine Cardiovascular Exam Present: RRR - Routine Abdominal Exam Present: soft - Routine Extremities Exam Comments: no pedal edema. - Routine Neurological Exam Present: alert, oriented X3 - Urinary Catheter Management Indwelling Urethral Catheter Cath placed during this visit: yes, but has since been removed by the nurse Urethral indwelling: No Reason for continuing: Hourly intake/output Insertion date: 03/23/18 Insertion time: 16:10 Removal date: 03/27/18 Removal time: 05:50 Results - Labs CBC & Chem 7: 03/28/18 04:39 03/28/18 04:39 Laboratory Results - last 24 hr 03/27/18 03/27/18 03/27/18 04:35 11:59 18:25 WBC RBC Hgb Hct MCV MCH MCHC RDW Plt Count MPV Neut % (Auto) Lymph % (Auto) [place] % (Auto) Eos % (Auto) Baso % (Auto) Neut # (Auto) Lymph # (Auto) [place] # (Auto) Eos # (Auto) Baso # (Auto) WBC Differential Differential Comment Sodium Potassium Chloride Carbon Dioxide Anion Gap BUN Creatinine Estimated GFR POC Glucose 93 202 H Random Glucose Calcium Phosphorus Magnesium Tacrolimus 3.3 L 03/27/18 03/28/18 03/28/18 21:16 04:39 04:39 WBC 2.9 L RBC 2.66 L Hgb 9.2 L Hct 25.8 L MCV 96.7 MCH 34.4 H MCHC 35.6 RDW 13.6 Plt Count 142 L MPV 8.0 Neut % (Auto) 79.6 H Lymph % (Auto) 6.6 L [place] % (Auto) 11.5 H Eos % (Auto) 2.2 Baso % (Auto) 0.1 Neut # (Auto) 2.3 Lymph # (Auto) 0.2 L [place] # (Auto) 0.3 Eos # (Auto) 0.1 Baso # (Auto) 0.0 WBC Differential . Differential Comment Auto diff final Sodium 140 Potassium 4.6 Chloride 108 H Carbon Dioxide 26.5 Anion Gap 6 BUN 31 H Creatinine 1.83 H Estimated GFR 40 L POC Glucose 110 Random Glucose 78 Calcium 9.2 Phosphorus 1.6 L Magnesium 1.9 Tacrolimus - Procedures right donor kidney transplant to right iliac fossa with neoureterocystotomy 03/23/2018 Assessment and Plan - Plan End-stage renal disease was on hemodialysis -s/p right donor kidney transplant to right iliac fossa with neoureterocystotomy -creatinine is improving. -Patient is currently on CellCept and Prograf. -post-op anemia; Patient is hemodynamically stable and H/H fairly stable. received iron. Renal US shows no hematoma. -Will continue to monitor H/H. Hypophosphatemia; replace and monitor as needed. Hypertension -Patient is currently normotensive off the BP meds. Chronic systolic congestive heart failure - currently compensated. No acute concerns. Full code. SCDs. Discharge Planning: when cleared by nephrology and transplant surgery.
[2018-03-28] MEDS ORDERED: Potassium Phosphate Inj 15 MMOL in Sodium Chlor 0.9% Inj 150 ML IV.SIG ONE (08:00)
[2018-03-28] MEDS: Vitamin B Complex/Vit C/Folic Tablet PO SCH (08:05)
[2018-03-28] MEDS: Nystatin Liq 500,000 UNIT/5 ML UDC SWISH-SWAL SCH ×2 (08:05→13:24)
[2018-03-28] MEDS: Docusate Sodium 100 MG Capsule PO SCH (08:06)
[2018-03-28] MEDS: Magnesium Oxide 400 MG Tablet PO SCH (08:06)
[2018-03-28] MEDS: Potassium Phosphate 500 MG Soluble Tablet PO SCH (08:06)
[2018-03-28] MEDS: Sodium Chloride 0.9% 2 ML Flush BID IV.FLUSH SCH (08:06)
[2018-03-28] MEDS ORDERED: Iron Sucrose Inj 200 MG in Sodium Chlor 0.9% Inj 100 ML IV.SIG ONE (09:00)
[2018-03-28] MEDS ORDERED: predniSONE 20 MG Tablet PO ONE (09:09)
[2018-03-28] MEDS ORDERED: Carvedilol 6.25 MG Tablet PO SCH (09:15)
--- NOTE | 2018-03-28 09:19 | P.PNNP ---
Subjective Interval history: patient c/o anxiety palpitation tachycardia at times when he i sleep and gets disturbed Physical Exam Vital signs: Vital Signs 03/27/18 10:00 03/27/18 11:00 03/27/18 12:00 Temperature 98.4 F Pulse Rate 96 H 102 H 108 H Respiratory Rate 18 Blood Pressure 141/74 H Pulse Oximetry 100 03/27/18 13:00 03/27/18 14:00 03/27/18 15:00 Temperature 98.3 F Pulse Rate 100 H 92 H 94 H Respiratory Rate 18 Blood Pressure 139/79 Pulse Oximetry 100 03/27/18 19:00 03/27/18 23:00 03/28/18 03:00 Temperature 98.4 F 98.4 F 98.5 F Pulse Rate 96 H 86 83 Respiratory Rate 18 19 20 Blood Pressure 140/91 H 140/91 H 132/64 Pulse Oximetry 99 99 98 03/28/18 07:00 Temperature Pulse Rate 105 H Respiratory Rate Blood Pressure Pulse Oximetry Intake & Output 03/27/18 03/28/18 03/28/18 18:59 06:59 18:59 Intake Total 1425 / 1425 960 / 960 Output Total 2150 / 2150 [birth year] Balance -725 / -725 -990 / -990 Weight 72 kg Intake: IV 265 / 265 Venofer Inj 200 MG In NS Inj 110 / 110 100 ML @ 110 mls/hr IV.SIG ONCE ONE Rx#:[id number] Potassium Phosphate Inj 15 MMOL 155 / 155 In NS Inj 150 ML @ 38.75 mls/ hr IV.SIG ONCE ONE Rx#:[id number] Oral 1160 / 1160 960 / 960 Output: Urine 2150 / 2150 1948 Other: # Voids 8 Date of Last Bowel Movement 03/26/18 Narrative: GENERAL: Well-nourished, well-developed patient. SKIN: Warm and dry. HEAD: Normocephalic. EYES: No scleral icterus. No injection or drainage. NECK: Supple, trachea midline. No JVD or lymphadenopathy. CARDIOVASCULAR: Regular rate and rhythm without murmurs, gallops, or rubs. RESPIRATORY: Breath sounds equal bilaterally. No accessory muscle use. GASTROINTESTINAL: Abdomen soft, postsurgical scar EXTREMITIES: No edema NEUROLOGICAL: Awake, alert, and oriented x 3. Non-focal. - Urinary Catheter Management Indwelling Urethral Catheter Cath placed during this visit: yes, but has since been removed by the nurse Urethral indwelling: No Reason for continuing: Hourly intake/output Insertion date: 03/23/18 Insertion time: 16:10 Removal date: 03/27/18 Removal time: 05:50 Assessment and Plan - Assessment (1) ESRD (end stage renal disease) Code(s): N18.6 - End stage renal disease Status: Acute (2) Kidney transplant recipient Code(s): Z94.0 - Kidney transplant status Status: Acute - Plan Patient had kidney transplant Postoperative day 5 Urine output is good Creatinine 1.8 WBC 2.9 Phosphorus low start phosphorus replacement Continue to monitor for improvement Started on tacrolimus 4 mg twice a day, on CellCept/ steroids/Valcyte/Bactrim start Carvedilol 6.25 mg bid and adjust as needed, likely getting side effects from steroids start Ambien 5 mg q hs prn Making good progress d/w Dr. Mckeon
--- NOTE | 2018-03-28 09:38 | P.PNTS ---
Subjective Interval history: C/o some "startle type response" while sleeping. Physical Exam Vital signs: Vital Signs 03/27/18 10:00 03/27/18 11:00 03/27/18 12:00 Temperature 98.4 F Pulse Rate 96 H 102 H 108 H Respiratory Rate 18 Blood Pressure 141/74 H Pulse Oximetry 100 03/27/18 13:00 03/27/18 14:00 03/27/18 15:00 Temperature 98.3 F Pulse Rate 100 H 92 H 94 H Respiratory Rate 18 Blood Pressure 139/79 Pulse Oximetry 100 03/27/18 19:00 03/27/18 23:00 03/28/18 03:00 Temperature 98.4 F 98.4 F 98.5 F Pulse Rate 96 H 86 83 Respiratory Rate 18 19 20 Blood Pressure 140/91 H 140/91 H 132/64 Pulse Oximetry 99 99 98 03/28/18 07:00 Temperature Pulse Rate 105 H Respiratory Rate Blood Pressure Pulse Oximetry Intake & Output 03/27/18 03/28/18 03/28/18 18:59 06:59 18:59 Intake Total 1425 / 1425 960 / 960 Output Total 2150 / 2150 1949 Balance -725 / -725 -990 / -990 Weight 72 kg Intake: IV 265 / 265 Venofer Inj 200 MG In NS Inj 110 / 110 100 ML @ 110 mls/hr IV.SIG ONCE ONE Rx#:[id number] Potassium Phosphate Inj 15 MMOL 155 / 155 In NS Inj 150 ML @ 38.75 mls/ hr IV.SIG ONCE ONE Rx#:[id number] Oral 1160 / 1160 960 / 960 Output: Urine 2150 / 2150 1948 Other: # Voids 8 Date of Last Bowel Movement 03/26/18 - Constitutional no acute distress - Routine HEENT Exam Head: Present: normocephalic, atraumatic Eye: Present: EOMI ENT: Present: mucous membranes moist - Routine Neck Exam Present: supple - Routine Respiratory Exam Present: CTA bilaterally - Routine Cardiovascular Exam Present: RRR, S1, S2 - Routine Abdominal Exam Present: soft, normoactive bowel sounds - Routine Extremities Exam Present: pulses intact Comments: calves soft NT B. No palpable cords. - Routine Skin Exam Present: intact - Routine Neurological Exam Present: alert, oriented X3 - Detailed Neurological Exam: Coma Scale Verbal Response: Oriented - Routine Psychiatric Exam Present: normal affect, normal thought process - Urinary Catheter Management Indwelling Urethral Catheter Cath placed during this visit: yes, but has since been removed by the nurse Urethral indwelling: No Reason for continuing: Hourly intake/output Insertion date: 03/23/18 Insertion time: 16:10 Removal date: 03/27/18 Removal time: 05:50 Results - Labs CBC & Chem 7: 03/28/18 04:39 03/28/18 04:39 Laboratory Results - last 24 hr 03/27/18 03/27/18 03/27/18 04:35 11:59 18:25 WBC RBC Hgb Hct MCV MCH MCHC RDW Plt Count MPV Neut % (Auto) Lymph % (Auto) Maries % (Auto) Eos % (Auto) Baso % (Auto) Neut # (Auto) Lymph # (Auto) Maries # (Auto) Eos # (Auto) Baso # (Auto) WBC Differential Differential Comment Sodium Potassium Chloride Carbon Dioxide Anion Gap BUN Creatinine Estimated GFR POC Glucose 93 202 H Random Glucose Calcium Phosphorus Magnesium Tacrolimus 3.3 L 03/27/18 03/28/18 03/28/18 21:16 04:39 04:39 WBC 2.9 L RBC 2.66 L Hgb 9.2 L Hct 25.8 L MCV 96.7 MCH 34.4 H MCHC 35.6 RDW 13.6 Plt Count 142 L MPV 8.0 Neut % (Auto) 79.6 H Lymph % (Auto) 6.6 L Maries % (Auto) 11.5 H Eos % (Auto) 2.2 Baso % (Auto) 0.1 Neut # (Auto) 2.3 Lymph # (Auto) 0.2 L Maries # (Auto) 0.3 Eos # (Auto) 0.1 Baso # (Auto) 0.0 WBC Differential . Differential Comment Auto diff final Sodium 140 Potassium 4.6 Chloride 108 H Carbon Dioxide 26.5 Anion Gap 6 BUN 31 H Creatinine 1.83 H Estimated GFR 40 L POC Glucose 110 Random Glucose 78 Calcium 9.2 Phosphorus 1.6 L Magnesium 1.9 Tacrolimus - Procedures right donor kidney transplant to right iliac fossa with neoureterocystotomy 03/23/2018 Assessment and Plan - Plan Mr Hira Wing has 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 POD #4. S/P donor kidney transplant to right iliac fossa. Allograft function: immediate: Immunosuppression: Thymo induction; Maint: steroids + Cellcept + Tacrolimus . Patient overall doing well. Good UOP overnight. Creatinine continues to decrease. Flomax. Etiology of the "startle sensation" unclear. Review of cardiac strips, just showed some transient tachycardia Patient will be resumed on low-dose coreg. Consider sleep apnea eval as outpatient. Phos replacement. Okay with discharge ho Meds reviewed. D/w hospitalist. ADMISSION: 03/23/2018 DISCHARGE: 03/28/2018 TRANSPLANT SURGEON: Saúl Mckeon Jr/ Medardo Maier DISCHARGE PHYSICIAN: Saúl Mckeon Jr REASON FOR ADMISSION: 48 yo Male admitted for onor kindey transplantation. PROCEDURE(S)/DATE(S): donor kidney transplant on 03/23/2018. @[facility]@ [facility]: Patient was taken to surgery on 03/23/2018 and KIDNEY TRANSPLANT and ureteroneocystostomy completed on date: 03/23/2018. The renal allograft was placed in the right pelvic fossa. The donor artery and vein were anastomosed to recipient iliac vessels and ureter connected to the bladder in common fashion. A Double J stent was placed in the transplant ureter at time of surgery. The patient tolerated the procedure well. Donor: The relationship of the donor to the recipient was: -unrelated. Donation at Cardiac :No. Expanded Criteria Donor (KDPI > 85%): No. PHS Increased Risk Donor: No Induction Immunosuppression: Induction therapy utilizing Thymoglobulin was administered in the OR at the start of the case and continued daily for a total dose of 4.5 mg/kg this admission. . Maintenance Immunosuppression: Triple drug maintenance immunosuppressive therapy was initiated with use of steroids (Solu-Medrol) 500-1000 mg at time of anastomosis. Mycophenolate mofetil (CellCept) and tacrolimus (Prograf) were added in the initial 24-48 hours. Function after Transplant: An abdominal transplant US was obtained on POD : 0 demonstrating flow to the allograft and acceptable resistive indices:. Allograft function was Immediate Dialysis support was not required within the first postoperative week . Complications: None Transplant Wound: At time of discharge the transplant wound revealed good healing without drainage. Prophylaxis: CMV: Valgancyclovir (Valcyte) was initiated this admission. PCP: prophylaxis:was initiated this admission. Thrush: Nystatin oral suspension was initiated for swish and swallow after meals. PUD: A proton pump inhibitor was initiated this admission. LABORATORY: Creat 1.83 at discharge DISCHARGE MEDICATIONS: Per med sheet DISCHARGE DISPOSITION: Stable DISCHARGE INSTRUCTIONS: Mr Hira Wing may shower but is not to immerse his abdomen in bath, pool, carreon, or ocean water until the incision is fully healed and without drainage. The patient has been instructed to avoid lifting more than 10 lb as well as to avoid concentrated use of abdominal muscles, i.e., sit- ups, crunches, etc., for 3 months. He is to report any signs or symptoms of concern including weight gain greater than 10 lb in a 3-day period, fever, chills, nausea, vomiting, diarrhea, constipation, new or increased wound drainage, worsening allograft or flank tenderness, leg pain, chest pain, or shortness of breath. Written and verbal discharge instructions were provided to the patient. CLINIC APPOINTMENT(S): Transplant Medicine/Surgery: Mr Wing will be seen in our Transplant Medicine Clinic for his first followup clinic appointment on 03/30/2018: He will be scheduled for removal of his peritoneal dialysis catheter several weeks subsequent to this clinic visit. Urology: Mr Wing will scheduled for double J ureteral stent removal in 6-8 weeks Should there be any further questions regarding this admission, please do not hesitate to call the Transplant office
[2018-03-28] MEDS: Pantoprazole Inj 40 MG Vial IV.PUSH SCH (10:22)
--- NOTE | 2018-03-28 16:23 | P.DS ---
Date of admission: 03/22/18 22:21 Primary care physician: Tony Paige MD, R3 Brief History from admission: Mr. Wing is a pleasant 48 y/o male with a history of polycystic kidney disease , ESRD on hemodialysis, chronic neck and back pain, PVCs, CHF with EF 40-45% (), and hypertension who presented to the hospital for renal transplantation. He was admitted under the hospitalist service for medical management prior to surgery. The patient is seen in his hospital room and denies any recent fevers, chills, chest pain, shortness of breath, nausea, vomiting, diarrhea, or peripheral edema. The patient reports requiring hemodialysis for nearly 3 years. The patient was having chest pain a few months ago and underwent a cardiac workup by Dr. Tirado that showed only mild CAD on 01/05/18. Again, he denies any recent chest pain. DS: Medications - Discharge Medications Prescriptions: calcium carbonate 500 mg CHEW BID@ #60 tab docusate sodium [DOK] 100 mg PO BID #30 cap magnesium oxide 400 mg PO BID #60 tab oxycodone-acetaminophen 1 tab PO Q4H PRN #30 tab PRN Reason: Abdominal Pain pantoprazole 40 mg PO DAILY #90 tab potassium phosphate, monobasic [K-Phos Original] 500 mg PO BID #60 tab prednisone [Luke] 10 mg PO DAILY #120 tab sulfamethoxazole-trimethoprim 1 tab PO MoWeFr #90 tab tamsulosin 0.4 mg PO DAILY #30 cap DS: Summary Hospital Course: End-stage renal disease was on hemodialysis -s/p right donor kidney transplant to right iliac fossa with neoureterocystotomy -creatinine is improving. -Patient is currently on CellCept and Prograf. -post-op anemia; Patient is hemodynamically stable and H/H fairly stable. received iron. Renal US shows no hematoma. -Will continue to monitor H/H. Hypophosphatemia; replace and monitor as needed. Hypertension -Patient is currently normotensive off the BP meds. Chronic systolic congestive heart failure - currently compensated. No acute concerns. Full code. SCDs. - Time Spent with Patient Total time spent providing and/or coordinating discharge services: Less than 30 minutes - Quality: VTE Deep Vein Thrombosis/Pulmonary Embolism Present on Admission: No Exam Vital signs: Vital Signs 03/27/18 19:00 03/27/18 23:00 03/28/18 03:00 Temperature 98.4 F 98.4 F 98.5 F Pulse Rate 96 H 86 83 Respiratory Rate 18 19 20 Blood Pressure 140/91 H 140/91 H 132/64 Pulse Oximetry 99 99 98 03/28/18 07:00 03/28/18 08:00 03/28/18 09:00 Temperature 98.1 F Pulse Rate 88 92 H 112 H Respiratory Rate 18 Blood Pressure 159/97 H Pulse Oximetry 97 99 03/28/18 10:00 03/28/18 11:00 03/28/18 12:00 Temperature 98.3 F Pulse Rate 104 H 85 98 H Respiratory Rate 18 Blood Pressure 136/75 Pulse Oximetry 100 03/28/18 13:00 03/28/18 14:00 03/28/18 15:00 Temperature 98.3 F Pulse Rate 82 78 95 H Respiratory Rate 18 Blood Pressure 129/76 Pulse Oximetry 99 Intake & Output 03/27/18 03/28/18 03/28/18 18:59 06:59 18:59 Intake Total 1425 / 1425 960 / 960 155 / 155 Output Total 2150 / 2150 1948 / 1948 Balance -725 / -725 -990 / -990 155 / 155 Weight 72 kg Intake: IV 265 / 265 155 / 155 Venofer Inj 200 MG In NS Inj 110 / 110 100 ML @ 110 mls/hr IV.SIG ONCE ONE Rx#:[id number] Potassium Phosphate Inj 15 MMOL 155 / 155 155 / 155 In NS Inj 150 ML @ 38.75 mls/ hr IV.SIG ONCE ONE Rx#:[id number] Oral 1160 / 1160 960 / 960 Output: Urine 2150 / 2150 1948 / 1948 Other: # Voids 8 Date of Last Bowel Movement 03/26/18 - Constitutional no acute distress - Routine Respiratory Exam Present: CTA bilaterally - Routine Cardiovascular Exam Present: RRR - Routine Abdominal Exam Present: soft - Routine Extremities Exam Comments: no pedal edema. - Routine Neurological Exam Present: alert, oriented X3 Results Procedures completed during hospitalization: right donor kidney transplant to right iliac fossa with neoureterocystotomy 03/23/2018 Labs on day of discharge: Labs from last 24 hours 03/28/18 03/28/18 03/28/18 11:41 04:39 04:39 WBC RBC Hgb Hct MCV MCH MCHC RDW Plt Count MPV Neut % (Auto) Lymph % (Auto) [place] % (Auto) Eos % (Auto) Baso % (Auto) Neut # (Auto) Lymph # (Auto) [place] # (Auto) Eos # (Auto) Baso # (Auto) WBC Differential Differential Comment Sodium 140 Potassium 4.6 Chloride 108 H Carbon Dioxide 26.5 Anion Gap 6 BUN 31 H Creatinine 1.83 H Estimated GFR 40 L POC Glucose 103 Random Glucose 78 Calcium 9.2 Phosphorus 1.6 L Magnesium 1.9 Tacrolimus 6.0 03/28/18 03/27/18 03/27/18 04:39 21:16 18:25 WBC 2.9 L RBC 2.66 L Hgb 9.2 L Hct 25.8 L MCV 96.7 MCH 34.4 H MCHC 35.6 RDW 13.6 Plt Count 142 L MPV 8.0 Neut % (Auto) 79.6 H Lymph % (Auto) 6.6 L [place] % (Auto) 11.5 H Eos % (Auto) 2.2 Baso % (Auto) 0.1 Neut # (Auto) 2.3 Lymph # (Auto) 0.2 L [place] # (Auto) 0.3 Eos # (Auto) 0.1 Baso # (Auto) 0.0 WBC Differential . Differential Comment Auto diff final Sodium Potassium Chloride Carbon Dioxide Anion Gap BUN Creatinine Estimated GFR POC Glucose 110 202 H Random Glucose Calcium Phosphorus Magnesium Tacrolimus - Impressions ITS Impressions Chest X-Ray 03/23/18 19:51 CONCLUSION: 1. Interval placement of right internal jugular central venous line with no pneumothorax. 2. No acute cardiopulmonary disease. Renal Ultrasound 03/24/18 14:46 CONCLUSION: 1. No hematoma is identified. There is trace perinephric fluid. 2. Kidney has a normal appearance without hydronephrosis. Vascular assessment is within normal limits. Discharge Plan - Discharge Disposition Patient Disposition: Discharge Home - Discharge Condition Condition: Good - Discharge Order Discharge Orders: Discharge Order (Routine); Ordered 03/28/18 Ordered By: Paramjit Mabry - Physicians Team Primary Care Provider: Tony Paige Attending Provider: Paramjit Mabry Other Providers: Saúl Mckeon MD ; Julio Kenyon MD - Rxs /Orders / Referrals /Forms Prescriptions: New acetaminophen 325 mg Tablet 650 mg PO UNSCH PRN (Reason: See Label Comments) RF: 0 calcium carbonate 200 mg calcium (500 mg) Tablet,Chewable 500 mg CHEW BID@09,16 Qty: 60 RF: 12 clonidine HCl [Catapres] 0.1 mg Tablet 0.1 mg PO UNSCH PRN (Reason: See Label Comments) RF: 0 docusate sodium [DOK] 100 mg Capsule 100 mg PO BID Qty: 30 RF: 0 magnesium oxide 400 mg (241.3 mg magnesium) Tablet 400 mg PO BID Qty: 60 RF: 12 mycophenolate mofetil [CellCept] 250 mg Capsule 750 mg PO BID@0600,1800 RF: 0 nystatin 100,000 unit/mL Suspension 5 ml SWISH-SWAL QID RF: 0 oxycodone-acetaminophen 5-325 mg Tablet 1 tab PO Q4H PRN (Reason: Abdominal Pain) Qty: 30 RF: 0 pantoprazole 20 mg Tablet,Delayed Release (Dr/Ec) 40 mg PO DAILY Qty: 90 RF: 12 potassium phosphate, monobasic [K-Phos Original] 500 mg Tablet,Soluble 500 mg PO BID Qty: 60 RF: 12 prednisone [Luke] 5 mg Tablet,Delayed Release (Dr/Ec) 10 mg PO DAILY Qty: 120 RF: 12 sulfamethoxazole-trimethoprim 800-160 mg Tablet 1 tab PO MoWeFr Qty: 90 RF: 1 tacrolimus [Prograf] 1 mg Capsule 4 mg PO BID@0600,1800 RF: 0 tamsulosin 0.4 mg Capsule 0.4 mg PO DAILY Qty: 30 RF: 1 valganciclovir [Valcyte] 450 mg Tablet 450 mg PO DAILY RF: 0 Continue B complex-vitamin C-folic acid [Dialyvite] 100-1 mg Tablet 1 tab PO DAILY buprenorphine-naloxone [Suboxone] 8-2 mg Film 1 film BUCCAL TID carvedilol 12.5 mg Tablet 6.25 mg PO BID Qty: 0 RF: 0 gabapentin [Neurontin] 300 mg capsule 300 mg PO HS Discontinued calcium acetate 667 mg Tablet 1,334 tab PO TID lisinopril 5 mg Tablet 5 mg PO DAILY sevelamer carbonate [Renvela] 800 mg Tablet 2,400 mg PO TID Referrals: Tony Paige MD, R3 [Primary Care Provider] - See Instructions - Discharge Instructions Patient Printed Instructions: Kidney Transplant (DC)
[2018-03-28] MEDS ORDERED: Zolpidem Tartrate 5 MG Tablet PO PRN (21:00)
--- NOTE | 2018-03-29 09:54 | P.DIET ---
Nutritional Evaluation Type of nutrition evaluation: follow-up (Education review and discharge planning ) Screening comments: Nutrition Re-Assessment/Education s/p Kidney Transplant Late entry: Patient and seen and educated 03/28/2018. Objective - Diagnosis ESRD - Objective % IBW: 109 Energy Needs - Lower Range (kCal/kg): 28 Energy Needs - Upper Range (kCal/kg): 33 Lower Limit kCal/kg (kCals): 1,968 Upper Limit kCal/kg (kCals): 2,320 Lower Limit Protein Factor (Grams per Kg): 1.2 Upper Limit Protein Factor (Grams per Kg): 1.4 Lower Protein Needs (Protein): 84 Upper Protein Needs (Protein): 98 Estimated Fluid Needs (ml): 2,000 Dietitian Reviewed in Medical Record: Current diet, Curent medications, Intake & Output, Labs Diet Order: Regular Oral Diet Intake Amount: Excellent 90%+ Objective Comments: Pt's nutritional needs based on admit wt of 70.3kg Noted Labs: Cr 1.83, Phos 1.6 Assessment Assessment: Patient continues to do very well with drinking adequate water, UOP. Patient's po intake is adequate at this time to meet his nutritional needs. Pt is eating 100% of his meals. Pt to discharge 03/28/2018. Dietitian to Monitor: Lab values, Electrolytes, Renal labs, Intake & Output, Weight change, PO Intake, Medical course Transplant Education: Reviewed nutrition education after kidney transplant with Hira Wing and his . I stressed the importance of drinking adequate water, 2.5-3L/day. Educated on high phosphorus foods to include in his diet daily. I explained that medications may elevate cholesterol and triglycerides. I discussed the monitoring of glucose while on steroids and the possibility of prograf-induced diabetes. Also discussed the possibility of weight gain related to increased appetite and medications. Educated patient and on food safety and the importance of reducing his risk of food borne illness. Stressed the importance of maintaining an active lifestyle once patient is cleared to do so. I answered all of patient's and wifes questions. Both appear very receptive to following the nutrition guidelines and I expect excellent compliance. Will monitor patient in post-transplant clinic.
== END 2018-03-28 17:08 | disposition home or self-care (01) ==
LOC: HCIN 22:21 → HCPC 03-23 14:00 → HCVI 03-23 22:06 → HCPC 03-26 12:41
PROVIDERS: ADMIT Internal Medicine; ATTEND Internal Medicine